=== PATIENT | male | born 1940 | race Caucasian/White ===

== ENCOUNTER 2017-12-10 09:34 | Inpatient (IN) ==
--- NOTE | 2017-12-10 09:44 | Emergency Department Note ---
General Adult HPI - General Chief complaint: Shortness of Breath/Dyspnea Stated complaint: shortness of breath, moist cough Source: patient, family Mode of arrival: ambulatory Limitations: no limitations - History of Present Illness HPI Narrative: This patient has had cough and shortness of breath for the last 3 days. He really has had no other flu symptoms. No headache sore throat nausea vomiting no aches and pains. No diarrhea. - Related Data Home Medications Medication Instructions Recorded Confirmed krill oil 500 mg capsule 500 mg PO DAILY 08/22/16 12/10/17 Bisoprolol Fumarate 5 mg PO PRN PRN 12/10/17 12/10/17 Previous Rx's Medication Instructions Recorded apixaban 5 mg tablet 5 mg PO QDAY #180 tab 11/07/16 tamsulosin 0.4 mg capsule 0.4 mg PO QDAY 90 Days #90 cap 11/21/17 Allergies Allergy/AdvReac Type Severity Reaction Status Date / Time No Known Drug Allergies Allergy Verified 12/10/17 09:40 Review of Systems All systems ED: reviewed and negative except as stated. Past Medical History - Past Medical History [facility] Narrative: Medical History (Last Reviewed 08/15/17 @ 08:22 by Nish Gurrola DO) Syncope (Acute) White blood cell (WBC) disorder (Chronic) Bradycardia (Chronic) Cobalamin deficiency (Chronic) Lymphocytopenia (Resolved) Encounter for Health Maintenance Examination in Adult (Chronic) Anterior epistaxis (Chronic) Mitral regurgitation (Chronic) Hypertension, essential (Chronic) Hyperlipidemia (Chronic) COPD (chronic obstructive pulmonary disease) (Chronic) Bladder neck obstruction (Chronic) Atrial flutter (Chronic) Diabetes mellitus, type II (Resolved) Past Surgical History (Last Reviewed 08/15/17 @ 08:22 by Nish Gurrola DO) Hx of colonoscopy (Chronic) Hx of inguinal hernia repair (Chronic) History of intraocular lens implant (Chronic) Family History (Last Reviewed 08/15/17 @ 08:22 by Nish Gurrola DO) mother Dementia in Alzheimer's disease Medical history: Reports: atrial fibrillation, COPD, hyperlipidemia, hypertension, valvular heart disease (mitral regurgitation) Surgical history ED: Reports: cataract, herniorrhaphy - Social History smoking status: Former smoker Physical Exam Limitations: no limitations General appearance: alert Head: atraumatic Eye: Present: normal appearance ENT: normal exam Neck: Present: normal inspection Chest: Present: normal inspection Respiratory: Present: other (Scattered rales and rhonchi) Cardiovascular: Present: tachycardia, irregular rhythm Abdominal: Present: soft. Absent: distention, tenderness Extremities: Absent: pedal edema, pretibial edema Neurological: Present: alert Psychiatric: Present: normal affect Skin: Present: warm, dry, intact Course Vital Signs Respiratory Rate 40 H 12/10/17 09:35 Blood Pressure 133/97 12/10/17 09:35 Pulse Oximetry (%) 98 12/10/17 09:35 Temperature 97.1 F 12/10/17 10:29 Pulse Rate 89 12/10/17 12:32 Respiratory Rate 39 H 12/10/17 13:02 Blood Pressure 120/75 12/10/17 13:03 Pulse Oximetry (%) 100 12/10/17 12:32 Medical Decision Making - [facility] Narrative Medical decision making narrative: Chest x-ray showed bilateral pneumonia in the bases and his lactic acid was 4.5. He had blood cultures obtained and was given Levaquin 750 mg IV. He will be admitted to the hospital. - Lab Data Lab results reviewed: Yes I reviewed the patient's lab results. Result diagrams: 12/10/17 09:55 12/10/17 09:55 Lab Results 12/10/17 12/10/17 12/10/17 Range/Units 09:55 09:55 09:55 WBC 5.9 (4.5-11.0) K/mcL RBC 5.27 (4.50-5.90) M/mcL Hgb 16.5 (13.5-16.5) g/dL Hct 49.6 (41.0-55.0) % MCV 94.1 (80.0-100.0) fL MCH 31.3 (26.0-34.0) pg MCHC 33.2 (31.0-36.0) g/dL RDW 15.1 H (11.5-14.5) % Plt Count 135 L (140-440) K/mcL MPV 8.6 (7.4-10.4) fL Total Counted 100 Seg Neutrophils % 45 (38-78) % Band Neutrophils % 24 H (0-10) % Lymphocytes % 7 L (15-49) % Monocytes % (Manual) 9 (1-12) % Metamyelocytes % 11 H (0-0) % Myelocytes % 1 H (0-0) % Reactive Lymphocytes 3 H (0-2) % Platelet Estimate Decreased A (NORMAL) RBC Morphology Normal (NORMAL) VBG Lactic Acid 5.9 H* (0.5-2.2) mmol/L Sodium 139 (133-145) mmol/L Potassium 4.5 (3.3-5.1) mmol/L Chloride 98 (96-108) mmol/L Carbon Dioxide 20 L (22-30) mmol/L Anion Gap 21.0 H (8-16) BUN 29 H (8-23) mg/dl Creatinine 1.6 H (0.7-1.2) mg/dl GFR Calculation 40 Glucose 149 H (70-105) mg/dL Calcium 9.0 (8.6-10.4) mg/dl Total Bilirubin 0.7 (0.0-1.0) mg/dL AST 29 (0-37) U/l ALT 14 (0-40) U/l Alkaline Phosphatase 48 (39-117) U/L Troponin T (0-0.03) ng/ml Total Protein 8.0 (5.9-8.4) gm/dL Albumin 3.6 (3.2-5.2) gm/dL Globulin 4.4 H (2.2-3.7) gm/dL Albumin/Globulin Ratio 0.8 L (1.0-2.3) Procalcitonin (<0.10) ng/mL 12/10/17 12/10/17 12/10/17 Range/Units 09:55 09:55 12:36 WBC (4.5-11.0) K/mcL RBC (4.50-5.90) M/mcL Hgb (13.5-16.5) g/dL Hct (41.0-55.0) % MCV (80.0-100.0) fL MCH (26.0-34.0) pg MCHC (31.0-36.0) g/dL RDW (11.5-14.5) % Plt Count (140-440) K/mcL MPV (7.4-10.4) fL Total Counted Seg Neutrophils % (38-78) % Band Neutrophils % (0-10) % Lymphocytes % (15-49) % Monocytes % (Manual) (1-12) % Metamyelocytes % (0-0) % Myelocytes % (0-0) % Reactive Lymphocytes (0-2) % Platelet Estimate (NORMAL) RBC Morphology (NORMAL) VBG Lactic Acid (0.5-2.2) mmol/L Sodium (133-145) mmol/L Potassium (3.3-5.1) mmol/L Chloride (96-108) mmol/L Carbon Dioxide (22-30) mmol/L Anion Gap (8-16) BUN (8-23) mg/dl Creatinine (0.7-1.2) mg/dl GFR Calculation Glucose (70-105) mg/dL Calcium (8.6-10.4) mg/dl Total Bilirubin (0.0-1.0) mg/dL AST (0-37) U/l ALT (0-40) U/l Alkaline Phosphatase (39-117) U/L Troponin T 0.11 H* 0.09 H* (0-0.03) ng/ml Total Protein (5.9-8.4) gm/dL Albumin (3.2-5.2) gm/dL Globulin (2.2-3.7) gm/dL Albumin/Globulin Ratio (1.0-2.3) Procalcitonin 8.43 (<0.10) ng/mL - Radiology Data Radiology results reviewed: Yes I reviewed the patient's radiology results. Disposition Pt seen by [facility]/PA only: No Clinical Impression: Community acquired pneumonia Disposition: Xfer As Inpt ([facility]) Condition: Fair Referrals: Nish Gurrola DO [Primary Care Provider] - Time of Disposition: 13:31
[2017-12-10] MEDS ORDERED: 0.9 % SODIUM CHLORIDE 1,000 ML IV ONE ×4 (09:46→18:44)
[2017-12-10] MEDS ORDERED: DILTIAZEM 25 MG/5 ML VIAL IV ONE (09:49)
[2017-12-10] MEDS ORDERED: DILTIAZEM 125 MG in DEXTROSE 5% IN WATER 100 ML IV SCH ×2 (10:00→22:00)
--- NOTE | 2017-12-10 10:00 | XRay Report ---
HISTORY: Reason for Exam:sob with moderate cough FINDINGS: There are mild alveolar infiltrates in both lower lobes. The upper lung lewis are clear. The heart is mildly enlarged but magnified by portable technique. No pleural effusion is present. There are calcified plaques along the wall of the aortic arch. Aorta is mildly tortuous. The mediastinum and ole are otherwise normal. IMPRESSION: Mild bibasilar pneumonia Interpreted and Authenticated by: Trevon Shine 12/10/17
[2017-12-10] MEDS ORDERED: LEVOFLOXACIN 750 MG/150 ML BAG IV ONE (10:06)
[2017-12-10 10:30] LABS: Mean Cell Volume 94.1 fL (80.0-100.0); Mean Corpuscular HGB Conc 33.2 g/dL (31.0-36.0); Mean Corpuscular Hemoglobin 31.3 pg (26.0-34.0); Platelet Count 135 K/mcL (140-440); RBC 5.27 M/mcL (4.50-5.90); Red Cell Distribution Width 15.1 % (11.5-14.5)
[2017-12-10 10:52] LABS: Band Neutrophils % 24 % (0-10); Lymphocytes % 7 % (15-49); Metamyelocytes % 11 % (0-0); Monocytes % (Manual) 9 % (1-12); Myelocytes % 1 % (0-0); Platelet Estimate DECREASED (NORMAL); RBC Morphology NORMAL (NORMAL); Segmented Neutrophils % 45 % (38-78)
[2017-12-10 10:53] LABS: ALT/SGPT 14 U/l (0-40); Albumin 3.6 gm/dL (3.2-5.2); Albumin/Globulin Ratio 0.8 (1.0-2.3); Alkaline Phosphatase 48 U/L (39-117); Blood Urea Nitrogen 29 mg/dl (8-23)
[2017-12-10] MEDS ORDERED: IPRATROPIUM/ALBUTEROL 3 ML AMPUL.NEB NEB ONE ×2 (11:52→18:51)
[2017-12-10] MEDS ORDERED: 0.9 % SODIUM CHLORIDE 250 ML IV SCH ×2 (12:30→22:15)
[2017-12-10] MEDS ORDERED: NITROGLYCERIN/D5W 25 MG/250 ML BOTTLE IV ONE (12:31)
[2017-12-10] MEDS ORDERED: methylPREDNISolone SOD SUCC 125 MG/2 ML VIAL IV ONE (14:03)
[2017-12-10] MEDS ORDERED: LACTATED RINGERS 1,000 ML IV ONE (14:03)
[2017-12-10] MEDS ORDERED: VANCOMYCIN PER PHARMACY IV ONE (14:03)
[2017-12-10] MEDS ORDERED: cefTRIAXone 2 GM in DEXTROSE 5% IN WATER 50 ML IV SCH (14:03)
[2017-12-10] MEDS ORDERED: NALOXONE HCL 0.4 MG/ML VIAL IV PRN (14:03)
[2017-12-10] MEDS ORDERED: ACETAMINOPHEN 325 MG TABLET PO PRN (14:03)
[2017-12-10] MEDS ORDERED: SENNOSIDES 1 TABLET PO PRN (14:03)
[2017-12-10] MEDS ORDERED: NOREPINEPHRINE BITARTRATE 16 MG in 0.9 % SODIUM CHLORIDE 234 ML IV SCH (14:03)
[2017-12-10] MEDS ORDERED: AZITHROMYCIN 500 MG in DEXTROSE 5% IN WATER 250 ML IV SCH (14:03)
[2017-12-10] MEDS: IPRATROPIUM/ALBUTEROL 3 ML AMPUL.NEB NEB SCH ×4 (14:15→22:43)
[2017-12-10] MEDS ORDERED: NOREPINEPHRINE BITARTRATE 16 MG in 0.9 % SODIUM CHLORIDE 234 ML IV PRN (14:15)
[2017-12-10] MEDS ORDERED: VANCOMYCIN PER PHARMACY IV SCH (14:15)
[2017-12-10] MEDS: AZITHROMYCIN 500 MG in DEXTROSE 5% IN WATER 250 ML IV SCH (14:36)
[2017-12-10] MEDS: 0.9 % SODIUM CHLORIDE 10 ML SYRINGE IV SCH ×2 (14:36→17:18)
[2017-12-10] MEDS ORDERED: VANCOMYCIN 1,000 MG in 0.9 % SODIUM CHLORIDE 250 ML IV ONE (15:00)
[2017-12-10] MEDS: LACTATED RINGERS 1,000 ML IV SCH ×2 (16:30→23:37)
[2017-12-10] MEDS: cefTRIAXone 2 GM VIAL IV SCH (17:18)
[2017-12-10] MEDS: 0.9 % SODIUM CHLORIDE 250 ML IV SCH ×2 (17:20→20:15)
[2017-12-10] MEDS: methylPREDNISolone SOD SUCC 125 MG/2 ML VIAL IV SCH ×2 (17:21→21:30)
--- NOTE | 2017-12-10 17:54 | Internal Med History&Physical ---
Medical - H&P: HPI Patient information: Note initiated : 12/10/17 at 5:50 pm Service Date, if different from initiated Date: [] Patient: Camilo Figueroa 77 y/o M admitted on 12/10/17 for shortness of breath, moist cough. Chief Complaint: [] History of present illness: Mr. Figueroa is a 77 year old Male with history of COPD,hypertension, hyperlipidemia, chronic A. fib who presents to the emergency room today with shortness of breath, cough that has been going on since Monday. Patient's daughter was at bedside who provided some history along with the patient. The patient's daughter had a URI-like symptom, last week I believe and the patient started showing signs of cough from Monday. The patient's condition gradually worsened since then. Patient has been having cough with expectoration initially, no blood in the sputum. He has been having progressive shortness of breath. He notes he has been having subjective sensations of fever, chills, sweating. He has decreased effort tolerance and is unable to walk short distances now. For the last day the cough has subsided and it is difficult for him to bring up the sputum. The patient is extremely weak and has therefore been brought to the emergency room for further evaluation. In the emergency room, the patient was noted to be in moderate respiratory distress, he was afebrile, his white blood cell count was 5.9, chemistry showed worsening renal function with a creatinine of 1.6. His lactic acid was 5.9, first set of troponin was 0.11 and second set was 0.09. He had an elevated pro- calcitonin and 8.43. Chest x-ray showed pneumonia. the patient was tachycardic with A. fib with RVR on presentation and was on a diltiazem drip, his blood pressure was also very high and difficult to 78 physician and put him on nitroglycerin drip. Both these medications were discontinued after admission He was admitted to the hospital for further management, admitted to pcu status. - Constitutional Constitutional: Present: chills, fatigue, fever(s), malaise - EENT Eyes: Absent: blurry vision, change in vision, diplopia, discharge, photophobia Nose, mouth and throat: Present: dizziness, headache(s), hoarseness, sore throat - Cardiovascular Cardiovascular: Present: dyspnea on exertion, lightheadedness. Absent: chest pain, edema, orthopnea, palpatations - Respiratory Respiratory: Present: cough, dyspnea, dyspnea on exertion, wheezing, chest congestion, excessive phlegm production - Gastrointestinal Gastrointestinal: Present: nausea. Absent: diarrhea, vomiting - Genitourinary Genitourinary: Absent: dysuria, nocturia, urinary frequency, urinary hesitancy, urinary incontinence - Musculoskeletal Musculoskeletal: Absent: joint swelling, limited range of motion, neck pain - Integumentary Integumentary: Absent: bleeding lesions, swelling, jaundice - Neurological Neurological: Absent: focal weakness, syncope, vertigo - Psychiatric Psychiatric: Absent: hallucinations, visual hallucinations - Endocrine Endocrine: Absent: palpitations, polydipsia, polyphagia, polyuria - Hematologic/Lymphatic Hematologic/Lymphatic: Absent: easy bruising, lymphadenopathy - Allergic/Immunologic Allergic/Immunologic: Present: wheezing. Absent: throat swelling, uticaria Medical - H&P: H Medical history: Medical History (Last Reviewed 08/15/17 @ 08:22 by Nish Gurrola DO) Syncope (Acute) White blood cell (WBC) disorder (Chronic) Bradycardia (Chronic) Cobalamin deficiency (Chronic) Lymphocytopenia (Resolved) Encounter for Health Maintenance Examination in Adult (Chronic) Anterior epistaxis (Chronic) Mitral regurgitation (Chronic) Hypertension, essential (Chronic) Hyperlipidemia (Chronic) COPD (chronic obstructive pulmonary disease) (Chronic) Bladder neck obstruction (Chronic) Atrial flutter (Chronic) Diabetes mellitus, type II (Resolved) Surgical history: Past Surgical History (Last Reviewed 08/15/17 @ 08:22 by Nish Gurrola DO) Hx of colonoscopy (Chronic) Hx of inguinal hernia repair (Chronic) History of intraocular lens implant (Chronic) Pertinent family history: Family History (Last Reviewed 08/15/17 @ 08:22 by Nish Gurrola DO) mother Dementia in Alzheimer's disease Medical - H&P: Meds Home Medications Medication Instructions Recorded Confirmed Type apixaban 5 mg tablet 5 mg PO QDAY #180 tab 11/07/16 12/10/17 Rx tamsulosin 0.4 mg capsule 0.4 mg PO QDAY 90 Days #90 cap 11/21/17 12/10/17 Rx Allergies Allergy/AdvReac Type Severity Reaction Status Date / Time No Known Drug Allergies Allergy Verified 12/10/17 09:40 Medical - H&P: Exam - Constitutional Vitals: Temp Pulse Resp BP Pulse Ox 99.2 F H 110 H 35 H 131/95 97 12/10/17 16:24 12/10/17 15:31 12/10/17 16:24 12/10/17 16:24 12/10/17 14:10 Exam: GENERAL: The patient is a well-developed, well-nourished in moderate respiratory distress. Is alert and oriented x3. VITAL SIGNS: Reviewed and as noted elsewhere. HEENT: Head is normocephalic and atraumatic. Extraocular muscles are intact. Pupils are equal, round, and reactive to light. Nares appeared normal. Mouth appears any without lesions. Mucous membranes are try NECK: Normal to inspection, Supple, No lymphadenopathy or thyromegaly. LUNGS:decreased air entry on both sides, speaking a few words at a time, paradoxical abdominal breathing, use of accessory muscles present, prolonged expiratory phase, but basilar crackles. HEART: irregular rhythm, tachycardic rate, systolic murmur in the mitral region , no rubs. No pedal edema ABDOMEN: Soft, nontender, and nondistended. Positive bowel sounds. No hepatosplenomegaly was noted. EXTREMITIES: No cyanosis, clubbing, rash, lesions or edema. NEUROLOGIC: Cranial nerves II through XII are grossly intact. Motor and Sensory System Grossly Intact PSYCHIATRIC: Normal affect, Normal Mood. Appropriate Behavior. a bit anxious SKIN: No ulceration or wounds noted, No jaundice, No rash noted. Mottled skin in lower extremity extending up to the abdomen cold clammy extremities Medical - H&P: Reslt - Labs CBC & Chem 7: 12/10/17 09:55 12/10/17 09:55 Labs: Short CBC 12/10/17 Range/Units 09:55 WBC 5.9 (4.5-11.0) K/mcL Hgb 16.5 (13.5-16.5) g/dL Hct 49.6 (41.0-55.0) % Plt Count 135 L (140-440) K/mcL [facility] 12/10/17 09:55 Sodium 139 Potassium 4.5 Chloride 98 Carbon Dioxide 20 L BUN 29 H Creatinine 1.6 H Glucose 149 H Calcium 9.0 Cardiac Enzymes 12/10/17 12/10/17 Range/Units 09:55 12:36 Troponin T 0.11 H* 0.09 H* (0-0.03) ng/ml Liver Function 12/10/17 Range/Units 09:55 Total Bilirubin 0.7 (0.0-1.0) mg/dL AST 29 (0-37) U/l ALT 14 (0-40) U/l Alkaline Phosphatase 48 (39-117) U/L Albumin 3.6 (3.2-5.2) gm/dL Medical - H&P: A/P - Narrative A/P Narrative: A/P acute respiratory failure-patient was tachypneic secondary to COPD exacerbation , clinically and respiratory failure, placed on BiPAP immediately after moving to the PCU-ABG showed pH of 7.31, PCO2 33, PO2 502, lactic acid of 2.9. Continue BiPAP with settings of 16/6, reason for BiPAP is to prevent respiratory muscle fatigue. Acute COPD exacerbation-treat with antibiotics, DuoNeb's and IV steroids Dnauecpze-fbcojjpud-smpuremx pneumonia-given possibility of influenza will add vancomycin to the regimen, IV vancomycin and Rocephin and azithromycin. Unable to check influenza as lab not available, and Tamiflu atrial flutter-patient has a chronic history of atrial flutter fibrillation, not on medications for rate control, does take eliquis for anticoagulation. IV metoprolol when necessary for now. Severe sepsis with lactic acidosis-4 L crystalloid solution given, IV antibiotics even, await blood cultures, patient's blood pressure is stable, he is maintaining good urine output at least so far. Treat underlying condition. pro-calcitonin 8.43 Acute kidney injury-creatinine is 1.6, baseline is normal,IV fluids for now. I clearly related to severe sepsis Elevated troponins-secondary to demand ischemia type II myocardial infarction BPH-continue tamsulosin, WILSON in place Diabetes-not taking any medications, diet controlled. Monitor glucose for now if elevated secondary to steroids will place him on sliding scale insulin A[PACHE SCORE OF 20, PREDICTED MORTALITY RATE OF 40%. fAMILY AWARE of high risk of mortality DVT-patient is on anticoagulation Diet cardiac Patient wishes to be full code for now Spent total of more than 70 minutes spent in critical care for this patient, reviewing chest x-ray ABG, BiPAP management, coordination of care Medical - H&P: Qual - VTE Deep Vein Thrombosis/Pulmonary Embolism Present on Admission: No Social History - Tobacco smoking status: Former smoker - Quit Details quit date: 10/28/11 pack-years: 90 - Alcohol alcohol intake frequency: 2+ drinks per day - Substance use substance use type: does not use
[2017-12-10] MEDS ORDERED: LABETALOL 5 MG/ML ML IV PRN (18:50)
[2017-12-10] MEDS ORDERED: MAGNESIUM SULFATE 2 GM/50 ML BAG IV ONE (18:51)
[2017-12-10] MEDS: METOPROLOL TARTRATE 5 MG/5 ML VIAL IV PRN (19:02)
[2017-12-10] MEDS ORDERED: LABETALOL 500 MG in DEXTROSE 5% IN WATER 150 ML IV SCH (19:45)
[2017-12-10] MEDS: ACETAMINOPHEN 650 MG/65 ML BOTTLE IV PRN (20:00)
[2017-12-10] MEDS ORDERED: NOREPINEPHRINE BITARTRATE 4 MG/4 ML AMPUL IV ONE (21:28)
[2017-12-10] MEDS ORDERED: ROCURONIUM 10 MG/ML ML IV ONE (21:40)
[2017-12-10] MEDS ORDERED: MIDAZOLAM 5 MG/5 ML VIAL IV ONE (21:40)
[2017-12-10] MEDS ORDERED: KETAMINE 100 MG/ML ML IV ONE (21:40)
[2017-12-10] MEDS ORDERED: fentaNYL 100 MCG/2 ML VIAL IV ONE ×2 (21:49→21:51)
[2017-12-10] MEDS ORDERED: HEPARIN/NS 500 ML IV ONE (21:54)
[2017-12-10] MEDS ORDERED: VASOPRESSIN 20 UNIT/ML VIAL ONE (22:05)
[2017-12-10] MEDS ORDERED: VASOPRESSIN 20 UNIT in DEXTROSE 5% IN WATER 99 ML IV SCH (22:15)
[2017-12-10] MEDS ORDERED: HEPARIN/NS 500 ML IV SCH (22:15)
--- NOTE | 2017-12-10 22:18 | Procedure Note ---
Procedures - Arterial Line Consent obtained: verbal consent Time out performed: Yes Size (Gauge): 20 Technique used: guide wire technique Post-Procedure: dry sterile dressing placed, easily flushed, waveform correlation Patient tolerated procedure: well, no complications Complications: none Site: left, radial Additional comments: large tegaderm to secure in place. - Intubation Time out performed: Yes Sedative: other (Ketamine 100 mg Versed 5 mg) Paralytic: Rocuronium ETT: ETCO2, BBS Mg given: 60 Assist device used: glide ET tube size: 8 ET tube uncuffed: No Tube secured depth (cm): 22 Tube secured location: teeth Tube placement confirmation: visualized tube passing through cords, equal breath sounds bilaterally, no breath sounds over epigastrium, confirmation by capnometry # of Attempts: 1 Patient tolerated procedure: well, no complications, other (mild hypotension following procedure as expected) Intubation complications: none, hypotension Additional comments: called for urgent YEIMY for resp failure, failed bipap. dx pna also need for a line. both performed without complication or difficulty. family advised.
[2017-12-11] MEDS: fentaNYL 2,500 MCG in 0.9 % SODIUM CHLORIDE 200 ML IV SCH ×3 (00:40→22:31)
[2017-12-11] MEDS: FAMOTIDINE/PF 20 MG/2 ML VIAL IV SCH ×3 (01:00→21:05)
[2017-12-11] MEDS: OSELTAMIVIR PHOSPHATE 75 MG CAPSULE PO SCH ×3 (01:00→21:12)
[2017-12-11] MEDS: 0.9 % SODIUM CHLORIDE 10 ML SYRINGE IV SCH ×4 (01:02→22:29)
[2017-12-11] MEDS: 0.9 % SODIUM CHLORIDE 250 ML IV SCH ×3 (02:18→21:00)
[2017-12-11] MEDS: 0.9 % SODIUM CHLORIDE 1,000 ML IV SCH ×3 (04:35→20:20)
[2017-12-11] MEDS: LACTATED RINGERS 1,000 ML IV SCH (04:36)
[2017-12-11 05:36] LABS: Basophils # (Auto) 0 K/mcL (0.0-0.3); Basophils % (Auto) 0.1 % (0.0-2.0); Eosinophils # (Auto) 0 K/mcL (0.0-0.7); Eosinophils % (Auto) 0.2 % (0.0-7.0); Granulocytes % (Auto) 90.1 % (38.0-78.0); Lymphocytes # (Auto) 0.5 K/mcL (1.5-4.8); Mean Cell Volume 95.2 fL (80.0-100.0); Mean Corpuscular HGB Conc 32.6 g/dL (31.0-36.0); Monocytes # (Auto) 0.3 K/mcL (0.1-0.9); Monocytes % (Auto) 3.6 % (1.0-12.0); Platelet Count 129 K/mcL (140-440); RBC 4.87 M/mcL (4.50-5.90); Red Cell Distribution Width 15.3 % (11.5-14.5)
[2017-12-11 05:52] LABS: ALT/SGPT 11 U/l (0-40); Albumin 2.1 gm/dL (3.2-5.2); Albumin/Globulin Ratio 0.6 (1.0-2.3); Alkaline Phosphatase 37 U/L (39-117); Bilirubin,Direct < 0.2 mg/dL (0.0-0.3); Blood Urea Nitrogen 30 mg/dl (8-23); Gamma Glutamyl Transpeptidase 15 U/L (8-61); Uric Acid 5.2 mg/dL (2.5-8.0)
[2017-12-11] MEDS: methylPREDNISolone SOD SUCC 125 MG/2 ML VIAL IV SCH ×3 (06:05→22:30)
[2017-12-11] MEDS: IPRATROPIUM/ALBUTEROL 3 ML AMPUL.NEB NEB SCH ×2 (06:45→19:10)
[2017-12-11] MEDS ORDERED: VASOPRESSIN 20 UNIT in DEXTROSE 5% IN WATER 99 ML IV PRN (07:15)
[2017-12-11] MEDS: TAMSULOSIN 0.4 MG CAPSULE PO SCH (08:34)
[2017-12-11] MEDS: APIXABAN 5 MG TABLET PO SCH (08:34)
--- NOTE | 2017-12-11 09:01 | XRay Report ---
CLINICAL INFORMATION: Hypoxia follow-up bilateral pneumonia COMPARISON: 12/10/2017 0939 hours FINDINGS: Borderline cardiomegaly is unchanged. Mediastinum and pulmonary vessels are normal. Infiltrates in the right mid/lower lung have progressed with increased density in the base. Small patchy infiltrate in the left mid/lower lung is unchanged. Small right pleural effusion noted IMPRESSION: Moderate patchy infiltrate in the right mid and lower lung with progression since the comparison study earlier this morning. Smaller left mid and lower lung infiltrates are unchanged Interpreted and Authenticated by: Nish Hamilton 12/11/17
--- NOTE | 2017-12-11 09:07 | XRay Report ---
CLINICAL INFORMATION: ET and NG placement COMPARISON: 12/10/2017 2112 hours. FINDINGS: Mild cardiomegaly is unchanged. NG tube is in place extends off the edge of the film - at least the proximal gastric body. Endotracheal tube is in satisfactory position with the tip 4.5 cm above the naren. Mediastinum and pulmonary vessels are normal. Moderate sized patchy infiltrate in the right mid/lower lung continues to progress. Smaller patchy benign left base also show slight progression. There are small bilateral pleural effusions IMPRESSION: 1. Endotracheal tube and NG tube in satisfactory position 2. Moderate size infiltrate right mid/lower lung worsening. Small infiltrate in the left mid lower lung progressing slightly Interpreted and Authenticated by: Nish Hamilton 12/11/17
--- NOTE | 2017-12-11 09:08 | XRay Report ---
CLINICAL INFORMATION: PICC placement COMPARISON: 12/10/2017 2201 hours FINDINGS: NG and endotracheal tubes in stable satisfactory position. New right PICC line tip overlies the SVC right atrial junction in satisfactory position. The heart is mildly enlarged, but unchanged. Mediastinum and pulmonary vessels are unremarkable. Moderate sized infiltrate in the right mid and lower lung is unchanged. Small patchy infiltrate in the left mid lower lung also stable IMPRESSION: No change in bilateral infiltrates. PICC line in satisfactory position Interpreted and Authenticated by: Nish Hamilton 12/11/17
--- NOTE | 2017-12-11 09:09 | XRay Report ---
CLINICAL INFORMATION: Follow infiltrates. COMPARISON: 12/10/2017 2236 hours. FINDINGS: Moderate cardiomegaly is unchanged. Mediastinum and pulmonary vessels are normal. Lines and tubes remain in stable satisfactory position. Infiltrate in the right mid/lower lung shows improved aeration - particularly in the base. Small patchy infiltrate in the left base also improved IMPRESSION: Bilateral infiltrates show improved aeration compared to yesterday's x-ray. Consider aspiration Interpreted and Authenticated by: Nish Hamilton 12/11/17
[2017-12-11] MEDS: CHLORHEXIDINE GLUCONATE 1 ML ORAL.SOL SWABMOUTH SCH ×3 (09:28→21:07)
[2017-12-11] MEDS: AZITHROMYCIN 500 MG in DEXTROSE 5% IN WATER 250 ML IV SCH (09:28)
[2017-12-11] MEDS: cefTRIAXone 2 GM VIAL IV SCH (09:33)
--- NOTE | 2017-12-11 10:23 | Internal Med Progress Note ---
Medical - PN: Subj Patient information: Note initiated : 12/11/17 at 10:16 am Service Date, if different from initiated Date: [] Patient: Camilo Figueroa 77 y/o M admitted on 12/10/17 for shortness of breath, moist cough. Chief Complaint: [] Interval history: Mr. Figueroa is a 77 year old Male with history of COPD,hypertension, hyperlipidemia, chronic A. fib who presents to the emergency room today with shortness of breath, cough that has been going on since Monday. Patient's daughter was at bedside who provided some history along with the patient. The patient's daughter had a URI-like symptom, last week I believe and the patient started showing signs of cough from Monday. The patient's condition gradually worsened since then. Patient has been having cough with expectoration initially, no blood in the sputum. He has been having progressive shortness of breath. He notes he has been having subjective sensations of fever, chills, sweating. He has decreased effort tolerance and is unable to walk short distances now. For the last day the cough has subsided and it is difficult for him to bring up the sputum. The patient is extremely weak and has therefore been brought to the emergency room for further evaluation. In the emergency room, the patient was noted to be in moderate respiratory distress, he was afebrile, his white blood cell count was 5.9, chemistry showed worsening renal function with a creatinine of 1.6. His lactic acid was 5.9, first set of troponin was 0.11 and second set was 0.09. He had an elevated pro- calcitonin and 8.43. Chest x-ray showed pneumonia. the patient was tachycardic with A. fib with RVR on presentation and was on a diltiazem drip, his blood pressure was also very high and difficult to 78 physician and put him on nitroglycerin drip. Both these medications were discontinued after admission He was admitted to the hospital for further management, admitted to pcu status. dec 11 Pt overnight had deterioration in his clinical status, was intubated, had PICC placed, A line placed. He was overnight on pressors, levophed and vasopressin, presently only on levophed, bp stable. ABG reviwed, Chest X ray reviewed patient family was updated and was at bedside This AM pt sedated on Vent, TV 400, rr 24, peep 5, PAP 19-20 Plat 16-17, Pt still has some lactic acidosis, on IVF, ringers lactate changed to Saline. Patient BLood culture is postive for gpc in clusters, staph auress, pt already on vancomycin. Likely staph pneumonia secondary to influenza. Pertinent ROS: unable, pt sedated on vent. - Constitutional Vitals: Vital Signs Temp Pulse Resp BP Pulse Ox 100.7 F H 89 24 H 126/65 98 12/11/17 09:20 12/11/17 09:20 12/11/17 09:20 12/11/17 09:01 12/11/17 09:20 Period Temp Pulse Resp BP Sys/Cai Pulse Ox Last 24 Hr 97.1 F-101.4 F 30-110 11-42 64-222/46-193 84-100 Intake and Output 12/10/17 12/11/17 12/11/17 21:59 05:59 13:59 Intake Total 1573 / 1573 2396 / 2396 149 / 149 Output Total 540 / 540 332 / 332 55 / 55 Balance 1033 / 1033 206 / 2064 94 / 94 Weight 154 lb 1.6 oz Intake & Output: Intake & Output 12/10/17 12/11/17 12/11/17 21:59 05:59 13:59 Intake Total 1573 / 1573 2396 / 2396 149 / 149 Output Total 540 / 540 332 / 332 55 / 55 Balance 1033 / 1033 2063 / 4 94 / 94 Weight 154 lb 1.6 oz Intake: IV 1573 / 1573 2396 / 2396 149 / 149 Sodium Chloride 0.9% 250 ml @ 24 / 24 121 / 121 20 mls/hr IV .[id number] [facility] Rx#: [id number] Zithromax 500 mg In Dextrose 5% 250 / 250 in Water 250 ml @ 250 mls/hr IV DAILY [facility] Rx#:[id number] Lactated Ringers 1,000 ml @ 100 1209 / 1209 mls/hr IV .Q10H [facility] Rx#: [id number] NITROGLYCERIN/D5W 25 mg In 250 4 / 4 ml @ 5 MCG/MIN 3 mls/hr IV . Q24H ONE Rx#:[id number] Levophed 16 mg In Sodium 3 / 3 37 / 37 28 / 28 Chloride 0.9% 234 ml @ 10 MCG/ MIN 9.37 mls/hr IV Q24HP PRN Rx #:[id number] Vancomycin 1,000 mg In Sodium 250 / 250 Chloride 0.9% 250 ml @ 250 mls/ hr IV ONCE ONE Rx#:[id number] Vasostrict 20 Unit In Dextrose 32 / 32 5% in Water 99 ml @ 0.02 UNIT/ MIN 6 mls/hr IV Q17H [facility] Rx#: [id number] fentaNYL 2,500 MCG In Sodium 3 / 3 Chloride 0.9% 200 ml @ 25 MCG/ HR 2.5 mls/hr IV Q24H [facility] Rx#: [id number] Output: Gastric Drainage 50 / 50 NG/OG 50 / 50 Urine Catheter Amount 540 / 540 282 / 282 55 / 55 Exam: Constitutional; low grade fever, patient sedated on vent, but wakes up and able to follow some commands when off sedation . Eyes- No icterus, , No periorbital swelling Ears- Ext ear normal, Neck- Midline trachea, supple Respiratory system: Air Entry equal on both sides, bilateral basilar crackles. CVS- Rate tachycardic, rhythm irregular , S1,S2 heard, no gallop, no rub. Abdomen- Soft nontender abdomen, no organomegaly, no tenderness, no guarding or rigidity, MANAGER GENERAL- AOOx0, moving all extremities. ull exam not done given sedated state. Medical - PN: Obj Da - Labs CBC & Chem 7: 12/11/17 04:00 12/11/17 04:00 Labs: Abnormal Lab Results 12/11/17 12/11/17 12/11/17 04:00 04:00 04:00 RDW 15.3 H Plt Count 129 L Gran % 90.1 H Lymph % (Auto) 6.0 L Lymph # (Auto) 0.5 L Band Neutrophils % Lymphocytes % Metamyelocytes % Myelocytes % Reactive Lymphocytes Platelet Estimate VBG Lactic Acid 2.7 H Carbon Dioxide 17 L Anion Gap BUN 30 H Creatinine Glucose 123 H Calcium 8.1 L Phosphorus 2.2 L Alkaline Phosphatase 37 L Lactate Dehydrogenase 260 H Troponin T Albumin 2.1 L Globulin 3.8 H Albumin/Globulin Ratio 0.6 L 12/10/17 12/10/17 12/10/17 17:58 12:36 09:55 RDW Plt Count Gran % Lymph % (Auto) Lymph # (Auto) Band Neutrophils % Lymphocytes % Metamyelocytes % Myelocytes % Reactive Lymphocytes Platelet Estimate VBG Lactic Acid 3.8 H Carbon Dioxide Anion Gap BUN Creatinine Glucose Calcium Phosphorus Alkaline Phosphatase Lactate Dehydrogenase Troponin T 0.09 H* 0.11 H* Albumin Globulin Albumin/Globulin Ratio 12/10/17 12/10/17 12/10/17 09:55 09:55 09:55 RDW 15.1 H Plt Count 135 L Gran % Lymph % (Auto) Lymph # (Auto) Band Neutrophils % 24 H Lymphocytes % 7 L Metamyelocytes % 11 H Myelocytes % 1 H Reactive Lymphocytes 3 H Platelet Estimate Decreased A VBG Lactic Acid 5.9 H* Carbon Dioxide 20 L Anion Gap 21.0 H BUN 29 H Creatinine 1.6 H Glucose 149 H Calcium Phosphorus Alkaline Phosphatase Lactate Dehydrogenase Troponin T Albumin Globulin 4.4 H Albumin/Globulin Ratio 0.8 L Meds: Medications Acetaminophen (Tylenol) 650 mg PO Q4-6HP PRN PRN Reason: PAIN/FEVER > 101 Albuterol/Ipratropium (Duoneb) 3 ml NEB Q4HRT [facility] Last Admin: 12/11/17 06:45 Dose: 3 ml Ceftriaxone Sodium (Rocephin) 2 gm IV DAILY [facility] Last Admin: 12/11/17 09:33 Dose: 2 gm Chlorhexidine Gluconate (Peridex) 15 ml SWABMOUTH BID [facility] Last Admin: 12/11/17 09:28 Dose: 15 ml Famotidine (Pepcid) 20 mg IV Q12 [facility] Last Admin: 12/11/17 09:27 Dose: 20 mg Heparin Sodium (Porcine) (Heparin Flush) 2 ml IV Q12 [facility] Last Admin: 12/11/17 09:27 Dose: 2 ml Hydromorphone HCl (Dilaudid) 0.5 mg IV Q2HP PRN PRN Reason: PAIN LEVEL > 6 Nitroglycerin/Dextrose (Nitroglycerin/D5w) 25 mg in 250 mls @ 3 mls/hr IV .Q24H ONE; 5 MCG/MIN PRN Reason: Protocol Stop: 12/11/17 12:30 Last Titration: 12/10/17 14:02 Dose: Infused Azithromycin 500 mg/ Dextrose 250 mls @ 250 mls/hr IV DAILY [facility] Stop: 12/14/17 09:59 Last Admin: 12/11/17 09:28 Dose: 250 mls/hr Acetaminophen (Ofirmev) 650 mg in 65 mls @ 130 mls/hr IV Q6HP PRN PRN Reason: PAIN/FEVER > 101 Last Infusion: 12/11/17 00:13 Dose: Infused Sodium Chloride (Sodium Chloride 0.9%) 250 mls @ 20 mls/hr IV .[id number] [facility] Last Admin: 12/11/17 08:20 Dose: 10 mls/hr Fentanyl 2,500 mcg/ Sodium (Chloride) 250 mls @ 2.5 mls/hr IV Q24H [facility]; 25 MCG/ HR PRN Reason: Protocol Last Titration: 12/11/17 02:36 Dose: 100 mcg/hr, 10 mls/hr Heparin Sodium/Sodium Chloride (Heparin/Ns) 500 mls @ 0 mls/hr IV .Q0M [facility]; KVO PRN Reason: Protocol Sodium Chloride (Sodium Chloride 0.9%) 1,000 mls @ 125 mls/hr IV .Q8H [facility] Last Admin: 12/11/17 04:35 Dose: 125 mls/hr Norepinephrine Bitartrate 16 (mg/ Sodium Chloride) 250 mls @ 9.37 mls/hr IV Q24H [facility]; 10 MCG/MIN PRN Reason: Protocol Vasopressin 20 unit/ Dextrose 100 mls @ 6 mls/hr IV Q17H PRN; Protocol; 0.02 UNIT/MIN PRN Reason: TITRATE TO KEEP MAP > 65 Lorazepam (Ativan) 0.5 mg IV Q4HP PRN PRN Reason: ANXIETY/SEDATION Methylprednisolone Sodium Succinate (Solu-Medrol) 62.5 mg IV Q8 [facility] Last Admin: 12/11/17 06:05 Dose: 62.5 mg Metoprolol Tartrate (Lopressor) 5 mg IV Q4HP PRN PRN Reason: Tachyarrhythmias Last Admin: 12/10/17 19:02 Dose: 5 mg Naloxone HCl (Narcan) 0.1 mg IV Q2MIN PRN PRN Reason: Opiate Reversal Oseltamivir Phosphate (Tamiflu) 75 mg PO BID [facility] Stop: 12/15/17 09:01 Last Admin: 12/11/17 08:35 Dose: Not Given Senna (Senokot) 2 tab PO HSP PRN PRN Reason: Constipation Sodium Chloride (Saline Flush) 10 ml IV Q8 [facility] Last Admin: 12/11/17 06:06 Dose: Not Given Tamsulosin HCl (Flomax) 0.4 mg PO QDAY [facility] Last Admin: 12/11/17 08:34 Dose: Not Given Vancomycin HCl (Vancomycin Per Pharmacy) 1 order IV UD [facility] Medical - PN: A/P - Time Spent With Patient Total time spent is greater than 50% in coordination of care (as documented) at patient's floor/unit and/or counseling patient: - Narrative A/P Narrative: A/P [facility], due to PNA/ COPD exacerbation. Continue respiratory support. Acute COPD exacerbation-treat with antibiotics, DuoNeb's and IV steroids, change nebs to MDI inhalers now pt on vent Oewlmcrai-gcskezsan-pkulpada pneumonia-given possibility of influenza will add vancomycin to the regimen, IV vancomycin and Rocephin and azithromycin. Unable to check influenza as lab not available, continue tamiflu. pt blood cx is staph, will get echo, likely staph pna secondary to influenza. atrial flutter-patient has a chronic history of atrial flutter fibrillation, not on medications for rate control, does take eliquis for anticoagulation. IV metoprolol when necessary for now. Severe sepsis with septic shock, multiorgan dysfunction: IV fluids, pressors to keep map > 65, monitor urine output, get echo, treat underlying infection. Acute kidney injury-renal function improved to 1.1, Continue IVF> Elevated troponins-secondary to demand ischemia type II myocardial infarction, trend was downwards before patient became hypotensive. BPH-continue tamsulosin, WILSON in place Diabetes-not taking any medications, diet controlled. Monitor glucose for now if elevated secondary to steroids will place him on sliding scale insulin A[PACHE SCORE OF 20, PREDICTED MORTALITY RATE OF 40%. fAMILY AWARE of high risk of mortality DVT-patient is on anticoagulation NPO status, start enteral feeds if possible. As according to family he has not eaten well over last 5-6 days. Patient wishes to be full code for now Spent total of more than 40 minutes spent in critical care for this patient, reviewing chest x-ray ABG, BiPAP management, coordination of care Medical - PN: Qual - VTE Deep Vein Thrombosis/Pulmonary Embolism Present on Admission: No Procedures - Arterial Line Size (Gauge): 20
[2017-12-11] MEDS: ACETAMINOPHEN 650 MG/65 ML BOTTLE IV PRN ×2 (10:39→21:05)
[2017-12-11] MEDS: VANCOMYCIN 1,000 MG in 0.9 % SODIUM CHLORIDE 250 ML IV SCH ×2 (11:01→21:04)
[2017-12-11] MEDS ORDERED: NOREPINEPHRINE BITARTRATE 16 MG in 0.9 % SODIUM CHLORIDE 234 ML IV SCH (12:00)
[2017-12-11] MEDS ORDERED: IPRATROPIUM/ALBUTEROL SULFATE 1 PUFF INHALER INH SCH (13:00)
[2017-12-11] MEDS: METOPROLOL TARTRATE 5 MG/5 ML VIAL IV PRN (13:27)
[2017-12-11] MEDS ORDERED: 0.9 % SODIUM CHLORIDE 500 ML IV ONE ×2 (14:02→14:03)
[2017-12-11] MEDS ORDERED: FUROSEMIDE 20 MG/2 ML VIAL IV ONE (15:08)
[2017-12-11] MEDS: LATANOPROST OPHTH DROPS 2.5ML BOTTLE OU SCH (21:05)
[2017-12-11] MEDS: LORazepam 2 MG/ML VIAL IV PRN (21:35)
[2017-12-12] MEDS ORDERED: DEXTROSE 50% 50 ML VIAL IV PRN (00:27)
[2017-12-12] MEDS: IPRATROPIUM/ALBUTEROL 3 ML AMPUL.NEB NEB SCH ×4 (00:42→18:48)
[2017-12-12] MEDS: METOPROLOL TARTRATE 5 MG/5 ML VIAL IV PRN ×2 (00:42→17:11)
[2017-12-12] MEDS: 0.9 % SODIUM CHLORIDE 1,000 ML IV SCH ×4 (04:55→20:30)
[2017-12-12 05:39] LABS: Basophils # (Auto) 0 K/mcL (0.0-0.3); Basophils % (Auto) 0 % (0.0-2.0); Eosinophils # (Auto) 0 K/mcL (0.0-0.7); Eosinophils % (Auto) 0 % (0.0-7.0); Granulocytes % (Auto) 91.7 % (38.0-78.0); Lymphocytes # (Auto) 0.4 K/mcL (1.5-4.8); Lymphocytes % (Auto) 4.5 % (15.5-49.0); Mean Cell Volume 94.2 fL (80.0-100.0); Mean Corpuscular HGB Conc 33.1 g/dL (31.0-36.0); Mean Corpuscular Hemoglobin 31.1 pg (26.0-34.0); Monocytes # (Auto) 0.3 K/mcL (0.1-0.9); Monocytes % (Auto) 3.8 % (1.0-12.0); Platelet Count 153 K/mcL (140-440); RBC 4.22 M/mcL (4.50-5.90); Red Cell Distribution Width 15.4 % (11.5-14.5)
[2017-12-12 05:50] LABS: ALT/SGPT 10 U/l (0-40); Albumin 1.9 gm/dL (3.2-5.2); Albumin/Globulin Ratio 0.5 (1.0-2.3); Alkaline Phosphatase 34 U/L (39-117); Bilirubin,Direct < 0.2 mg/dL (0.0-0.3); Blood Urea Nitrogen 41 mg/dl (8-23); Gamma Glutamyl Transpeptidase 9 U/L (8-61); Uric Acid 5.8 mg/dL (2.5-8.0)
[2017-12-12] MEDS: 0.9 % SODIUM CHLORIDE 10 ML SYRINGE IV SCH ×3 (06:06→20:59)
[2017-12-12] MEDS: methylPREDNISolone SOD SUCC 125 MG/2 ML VIAL IV SCH ×2 (06:06→13:26)
[2017-12-12] MEDS: INSULIN LISPRO 1 UNIT/0.01 ML UNIT SQ SCH ×3 (06:06→18:22)
--- NOTE | 2017-12-12 06:28 | XRay Report ---
CLINICAL INFORMATION: Endotracheal tube placement COMPARISON: 12/11/2017 0546 hours FINDINGS: Mild cardiomegaly is unchanged. Mediastinum and pulmonary vessels are normal. NG tube is in the gastric fundus. ET tube and PICC line in stable satisfactory position satisfactory position. Moderate patchy infiltrate in the right mid/lower lung shows modest improvement in aeration. Small infiltrate in the left base has nearly resolved. Tiny bilateral pleural effusions noted IMPRESSION: Continued improvement in bibasilar infiltrates more prominent the right. ET tube is in stable satisfactory position. NG tube tip in the gastric fundus. Consider advancing the tube approximately 8 cm Interpreted and Authenticated by: Nish Hamilton 12/12/17
--- NOTE | 2017-12-12 06:52 | XRay Report ---
CLINICAL INFORMATION: Bilateral infiltrates. On mechanical ventilation COMPARISON: 12/11/2017 FINDINGS: Mild cardiomegaly is unchanged. Mediastinum and pulmonary vessels are normal. Endotracheal tube and right PICC line in stable satisfactory position. NG tube extends off the edge of the film - at least the gastric fundus. Moderate patchy right basilar and small patchy left basilar infiltrate show modest improvement in aeration from yesterday IMPRESSION: Continued improved aeration in moderate right and smaller left basilar infiltrates since yesterday Interpreted and Authenticated by: Nish Hamilton 12/12/17
[2017-12-12] MEDS: AZITHROMYCIN 500 MG in DEXTROSE 5% IN WATER 250 ML IV SCH (08:49)
[2017-12-12] MEDS: LORazepam 2 MG/ML VIAL IV PRN (08:49)
[2017-12-12] MEDS: fentaNYL 2,500 MCG in 0.9 % SODIUM CHLORIDE 200 ML IV SCH (08:59)
[2017-12-12] MEDS ORDERED: NOREPINEPHRINE BITARTRATE 16 MG in 0.9 % SODIUM CHLORIDE 234 ML IV PRN (09:15)
[2017-12-12] MEDS: CHLORHEXIDINE GLUCONATE 1 ML ORAL.SOL SWABMOUTH SCH ×4 (09:38→20:57)
[2017-12-12] MEDS: FAMOTIDINE/PF 20 MG/2 ML VIAL IV SCH ×2 (09:40→20:57)
[2017-12-12] MEDS: OSELTAMIVIR PHOSPHATE 75 MG CAPSULE PO SCH ×2 (09:40→20:58)
[2017-12-12] MEDS: TAMSULOSIN 0.4 MG CAPSULE PO SCH (09:40)
[2017-12-12] MEDS: APIXABAN 5 MG TABLET PO SCH (09:40)
[2017-12-12] MEDS: cefTRIAXone 2 GM VIAL IV SCH (09:40)
[2017-12-12] MEDS: 0.9 % SODIUM CHLORIDE 250 ML IV SCH ×2 (09:41→20:59)
[2017-12-12] MEDS: VANCOMYCIN 1,000 MG in 0.9 % SODIUM CHLORIDE 250 ML IV SCH ×2 (10:24→22:09)
--- NOTE | 2017-12-12 13:29 | Internal Med Progress Note ---
Medical - PN: Subj Patient information: Note initiated : 12/12/17 at 1:26 pm Service Date, if different from initiated Date: [] Patient: Camilo Figueroa 77 y/o M admitted on 12/10/17 for Shortness of Breath, Moist Cough/Pneumonia. Chief Complaint: [] Interval history: Mr. Figueroa is a 77 year old Male with history of COPD,hypertension, hyperlipidemia, chronic A. fib who presents to the emergency room today with shortness of breath, cough that has been going on since Monday. Patient's daughter was at bedside who provided some history along with the patient. The patient's daughter had a URI-like symptom, last week I believe and the patient started showing signs of cough from Monday. The patient's condition gradually worsened since then. Patient has been having cough with expectoration initially, no blood in the sputum. He has been having progressive shortness of breath. He notes he has been having subjective sensations of fever, chills, sweating. He has decreased effort tolerance and is unable to walk short distances now. For the last day the cough has subsided and it is difficult for him to bring up the sputum. The patient is extremely weak and has therefore been brought to the emergency room for further evaluation. In the emergency room, the patient was noted to be in moderate respiratory distress, he was afebrile, his white blood cell count was 5.9, chemistry showed worsening renal function with a creatinine of 1.6. His lactic acid was 5.9, first set of troponin was 0.11 and second set was 0.09. He had an elevated pro- calcitonin and 8.43. Chest x-ray showed pneumonia. the patient was tachycardic with A. fib with RVR on presentation and was on a diltiazem drip, his blood pressure was also very high and difficult to 78 physician and put him on nitroglycerin drip. Both these medications were discontinued after admission He was admitted to the hospital for further management, admitted to pcu status. dec 11 Pt overnight had deterioration in his clinical status, was intubated, had PICC placed, A line placed. He was overnight on pressors, levophed and vasopressin, presently only on levophed, bp stable. ABG reviwed, Chest X ray reviewed patient family was updated and was at bedside This AM pt sedated on Vent, TV 400, rr 24, peep 5, PAP 19-20 Plat 16-17, Pt still has some lactic acidosis, on IVF, ringers lactate changed to Saline. Patient Blood culture is postive for gpc in clusters, staph auress, pt already on vancomycin. Likely staph pneumonia secondary to influenza. Dec 12 . Seen and examined, no acute overnight events, patient remains off pressors. Hemodynamically stable. On baseline vent settings. This morning, when settings were, tidal volume 500, rate of 20, FiO2 35, PEEP of 5. Peak airway pressures around 20, plateau pressures 16-17 The patient was drowsy, was able to grasp hands and move his toes. Did not seem agitated. For order for blood culture bottles are positive for gram-positive cocci. Chest x-ray shows improvement in infiltrate. Lines in place repeat cultures ordered, echo ordered. ABG reviewed Feedings started, last night was still going on. Initially we thought we could try a weaning trial given his baseline settings however due to shift change between the hospital providers, weaning trial and extubation will be decided by the oncoming provider. that is slight worsening in renal function, urine output is 25-30 mL per hour. Family updated Pertinent ROS: unable - Constitutional Vitals: Vital Signs Temp Pulse Resp BP Pulse Ox 99.7 F H 107 H 8 L 115/83 98 12/12/17 13:13 12/12/17 13:13 12/12/17 13:13 12/12/17 13:01 12/12/17 13:13 Period Temp Pulse Resp BP Sys/Cai Pulse Ox Last 24 Hr 98.7 F-100.2 F 47-118 0-20 92-135/57-95 95-99 Intake and Output 12/11/17 12/12/17 12/12/17 21:59 05:59 13:59 Intake Total 1843 / 1843 815 / 815 1200 / 1200 Output Total 403 / 403 230 / 230 218 / 218 Balance 1440 / 1440 585 / 585 982 / 982 Weight 161 lb 11.2 oz 161 lb 11.2 oz Patient Weight 12/13/17 05:59 Weight 161 lb 11.2 oz Intake & Output: Intake & Output 12/11/17 12/12/17 12/12/17 21:59 05:59 13:59 Intake Total 1843 / 1843 815 / 815 1200 / 1200 Output Total 403 / 403 230 / 230 218 / 218 Balance 1440 / 1440 585 / 585 982 / 982 Weight 161 lb 11.2 oz 161 lb 11.2 oz Intake: IV 1593 / 1593 315 / 315 950 / 950 Sodium Chloride 0.9% 1,000 ml @ 1000 / 1000 125 mls/hr IV .Q8H [facility] Rx#: [id number] Sodium Chloride 0.9% 250 ml @ 250 / 250 20 mls/hr IV .[id number] [facility] Rx#: [id number] Sodium Chloride 0.9% 500 ml @ 500 / 500 Wide Open IV BOLUS ONE Rx#: [id number] Zithromax 500 mg In Dextrose 5% 250 / 250 in Water 250 ml @ 250 mls/hr IV DAILY [facility] Rx#:[id number] Vancomycin 1,000 mg In Sodium 250 / 250 250 / 250 Chloride 0.9% 250 ml @ 250 mls/ hr IV Q12H [facility] Rx#:[id number] fentaNYL 2,500 MCG In Sodium 93 / 93 200 / 200 Chloride 0.9% 200 ml @ 25 MCG/ HR 2.5 mls/hr IV Q24H [facility] Rx#: [id number] GI Tube Flush 250 / 250 500 / 500 250 / 250 Output: Urine Catheter Amount 403 / 403 230 / 230 218 / 218 Exam: Constitutional; low-grade fever, awake when off sedation, was able to squeeze hands and move his toes. Drowsy Eyes- No icterus, , No periorbital swelling Ears- Ext ear normal, Neck- Midline trachea, supple, ET tube OG tube in place Respiratory system: Air Entry equal on both sides, No crackles or wheezing, no rhonchi. CVS- Rate rhythm regular, S1,S2 heard, no gallop, no rub. Abdomen- Soft nontender abdomen, no organomegaly, no tenderness, no guarding or rigidity, [employer]- drowsy, able to move all 4 extremities Medical - PN: Obj Da - Labs CBC & Chem 7: 12/12/17 04:13 12/12/17 04:13 Labs: Abnormal Lab Results 12/12/17 12/12/17 12/11/17 04:13 04:13 08:00 RBC 4.22 L Hgb 13.1 L Hct 39.7 L RDW 15.4 H Plt Count Gran % 91.7 H Lymph % (Auto) 4.5 L Lymph # (Auto) 0.4 L Band Neutrophils % Lymphocytes % Metamyelocytes % Myelocytes % Reactive Lymphocytes Platelet Estimate VBG Lactic Acid Carbon Dioxide 20 L Anion Gap BUN 41 H Creatinine 1.4 H Glucose 149 H Calcium 7.7 L Phosphorus 2.3 L Alkaline Phosphatase 34 L Lactate Dehydrogenase Troponin T Total Protein 5.6 L Albumin 1.9 L Globulin Albumin/Globulin Ratio 0.5 L Prealbumin 3.4 L 12/11/17 12/11/17 12/11/17 04:00 04:00 04:00 RBC Hgb Hct RDW 15.3 H Plt Count 129 L Gran % 90.1 H Lymph % (Auto) 6.0 L Lymph # (Auto) 0.5 L Band Neutrophils % Lymphocytes % Metamyelocytes % Myelocytes % Reactive Lymphocytes Platelet Estimate VBG Lactic Acid 2.7 H Carbon Dioxide 17 L Anion Gap BUN 30 H Creatinine Glucose 123 H Calcium 8.1 L Phosphorus 2.2 L Alkaline Phosphatase 37 L Lactate Dehydrogenase 260 H Troponin T Total Protein Albumin 2.1 L Globulin 3.8 H Albumin/Globulin Ratio 0.6 L Prealbumin 12/10/17 12/10/17 12/10/17 17:58 12:36 09:55 RBC Hgb Hct RDW Plt Count Gran % Lymph % (Auto) Lymph # (Auto) Band Neutrophils % Lymphocytes % Metamyelocytes % Myelocytes % Reactive Lymphocytes Platelet Estimate VBG Lactic Acid 3.8 H Carbon Dioxide Anion Gap BUN Creatinine Glucose Calcium Phosphorus Alkaline Phosphatase Lactate Dehydrogenase Troponin T 0.09 H* 0.11 H* Total Protein Albumin Globulin Albumin/Globulin Ratio Prealbumin 12/10/17 12/10/17 12/10/17 09:55 09:55 09:55 RBC Hgb Hct RDW 15.1 H Plt Count 135 L Gran % Lymph % (Auto) Lymph # (Auto) Band Neutrophils % 24 H Lymphocytes % 7 L Metamyelocytes % 11 H Myelocytes % 1 H Reactive Lymphocytes 3 H Platelet Estimate Decreased A VBG Lactic Acid 5.9 H* Carbon Dioxide 20 L Anion Gap 21.0 H BUN 29 H Creatinine 1.6 H Glucose 149 H Calcium Phosphorus Alkaline Phosphatase Lactate Dehydrogenase Troponin T Total Protein Albumin Globulin 4.4 H Albumin/Globulin Ratio 0.8 L Prealbumin Meds: Medications Acetaminophen (Tylenol) 650 mg PO Q4-6HP PRN PRN Reason: PAIN/FEVER > 101 Albuterol/Ipratropium (Duoneb) 3 ml NEB Q6HRT [facility] Last Admin: 12/12/17 13:15 Dose: 3 ml Ceftriaxone Sodium (Rocephin) 2 gm IV DAILY [facility] Last Admin: 12/12/17 09:40 Dose: 2 gm Chlorhexidine Gluconate (Peridex) 15 ml [place] BID [facility] Last Admin: 12/12/17 09:39 Dose: 15 ml Chlorhexidine Gluconate (Peridex) 15 ml [place] BID [facility] Last Admin: 12/12/17 09:38 Dose: Not Given Dextrose (Dextrose 50%) 0 ml IV UD PRN PRN Reason: Hypoglycemia Diagnostic Test (Pha) (Accu-Chek) 1 each FS Q6 [facility] Last Admin: 12/12/17 11:20 Dose: 1 each Famotidine (Pepcid) 20 mg IV Q12 [facility] Last Admin: 12/12/17 09:40 Dose: 20 mg Heparin Sodium (Porcine) (Heparin Flush) 2 ml IV Q12 [facility] Last Admin: 12/12/17 09:40 Dose: 2 ml Hydromorphone HCl (Dilaudid) 0.5 mg IV Q2HP PRN PRN Reason: PAIN LEVEL > 6 Azithromycin 500 mg/ Dextrose 250 mls @ 250 mls/hr IV DAILY [facility] Stop: 12/14/17 09:59 Last Infusion: 12/12/17 09:49 Dose: Infused Acetaminophen (Ofirmev) 650 mg in 65 mls @ 130 mls/hr IV Q6HP PRN PRN Reason: PAIN/FEVER > 101 Last Infusion: 12/11/17 22:28 Dose: Infused Sodium Chloride (Sodium Chloride 0.9%) 250 mls @ 20 mls/hr IV .[id number] [facility] Last Admin: 12/12/17 09:41 Dose: 10 mls/hr Fentanyl 2,500 mcg/ Sodium (Chloride) 250 mls @ 2.5 mls/hr IV Q24H [facility]; 25 MCG/ HR PRN Reason: Protocol Last Titration: 12/12/17 13:24 Dose: 0 mcg/hr, 0 mls/hr Heparin Sodium/Sodium Chloride (Heparin/Ns) 500 mls @ 0 mls/hr IV .Q0M [facility]; KVO PRN Reason: Protocol Sodium Chloride (Sodium Chloride 0.9%) 1,000 mls @ 125 mls/hr IV .Q8H [facility] Last Admin: 12/12/17 12:34 Dose: Not Given Vasopressin 20 unit/ Dextrose 100 mls @ 6 mls/hr IV Q17H PRN; Protocol; 0.02 UNIT/MIN PRN Reason: TITRATE TO KEEP MAP > 65 Vancomycin HCl 1,000 mg/ (Sodium Chloride) 250 mls @ 250 mls/hr IV Q12H [facility] Last Infusion: 12/12/17 11:24 Dose: Infused Norepinephrine Bitartrate 16 (mg/ Sodium Chloride) 250 mls @ 9.37 mls/hr IV Q24HP PRN; Protocol; 10 MCG/MIN PRN Reason: Hypotension Insulin Human Lispro (Humalog) 0 unit SQ Q6 [facility] PRN Reason: Protocol Last Admin: 12/12/17 11:22 Dose: 1 unit Latanoprost (Xalatan Ophth Drops) 1 gtt OU HS [facility] Last Admin: 12/11/17 21:05 Dose: 1 drop Lorazepam (Ativan) 0.5 mg IV Q4HP PRN PRN Reason: ANXIETY/SEDATION Last Admin: 12/12/17 08:49 Dose: 0.5 mg Methylprednisolone Sodium Succinate (Solu-Medrol) 62.5 mg IV Q8 [facility] Last Admin: 12/12/17 06:06 Dose: 62.5 mg Metoprolol Tartrate (Lopressor) 5 mg IV Q4HP PRN PRN Reason: Tachyarrhythmias Last Admin: 12/12/17 00:42 Dose: 5 mg Naloxone HCl (Narcan) 0.1 mg IV Q2MIN PRN PRN Reason: Opiate Reversal Oseltamivir Phosphate (Tamiflu) 75 mg PO BID [facility] Stop: 12/15/17 09:01 Last Admin: 12/12/17 09:40 Dose: 75 mg Senna (Senokot) 2 tab PO HSP PRN PRN Reason: Constipation Sodium Chloride (Saline Flush) 10 ml IV Q8 [facility] Last Admin: 12/12/17 06:06 Dose: Not Given Tamsulosin HCl (Flomax) 0.4 mg PO QDAY [facility] Last Admin: 12/12/17 09:40 Dose: 0.4 mg Vancomycin HCl (Vancomycin Per Pharmacy) 1 order IV [facility] [place] Medical - PN: A/P - Time Spent With Patient Total time spent is greater than 50% in coordination of care (as documented) at patient's floor/unit and/or counseling patient: - Narrative A/P Narrative: A/P Acute respiratory failure- On mech VEntilation, AC mode, due to PNA/ COPD exacerbation. Continue respiratory support. the patient remains stable and Intal can be given Acute COPD exacerbation-treat with antibiotics, DuoNeb's and IV steroids, nebulizers every 4 hours because of the pressure is normal plateau pressure is normal Qjaejqamy-gwfghejuq-cnorjfrb pneumonia-staph aureus pneumonia-on IV vancomycin, also Rocephin and Zithromax for community-acquired pneumonia. Tamiflu for possible influenza atrial flutter-patient has a chronic history of atrial flutter fibrillation, not on medications for rate control, does take eliquis for anticoagulation. IV metoprolol when necessary for now. Severe sepsis with septic shock, multiorgan dysfunction: IV fluids, pressors to keep map > 65, monitor urine output, get echo, treat underlying infection. Acute kidney injury-renal function worsened to 1.4, did not put between 25-30 cc an hour, patient getting IV fluids. The patient likely had ATN secondary to hypotensive episode during intubation, as well as ATN secondary to severe sepsis Elevated troponins-secondary to demand ischemia type II myocardial infarction, trend was downwards before patient became hypotensive. BPH-continue tamsulosin, WILSON in place Diabetes-not taking any medications, diet controlled. Monitor glucose for now if elevated secondary to steroids will place him on sliding scale insulin A[PACHE SCORE OF 20, PREDICTED MORTALITY RATE OF 40%. fAMILY AWARE of high risk of mortality DVT-patient is on anticoagulation NPO status,feeding started via feeding tube Patient wishes to be full code for now Spent total of more than 40 minutes spent in critical care for this patient, reviewing chest x-ray ABG, BiPAP management, coordination of care Medical - PN: Qual - VTE Deep Vein Thrombosis/Pulmonary Embolism Present on Admission: No Procedures - Arterial Line Size (Gauge): 20
[2017-12-12] MEDS: HYDROmorphone 2 MG/ML VIAL IV PRN (19:02)
[2017-12-12] MEDS: ACETAMINOPHEN 650 MG/65 ML BOTTLE IV PRN (19:30)
[2017-12-12] MEDS ORDERED: METOPROLOL TARTRATE 5 MG/5 ML VIAL IV ONE (20:26)
[2017-12-12] MEDS: LATANOPROST OPHTH DROPS 2.5ML BOTTLE OU SCH (20:58)
[2017-12-13] MEDS: fentaNYL 2,500 MCG in 0.9 % SODIUM CHLORIDE 200 ML IV SCH (00:20)
[2017-12-13] MEDS ORDERED: FUROSEMIDE 20 MG/2 ML VIAL IV ONE ×2 (00:36→00:39)
[2017-12-13] MEDS: INSULIN LISPRO 1 UNIT/0.01 ML UNIT SQ SCH ×4 (00:42→18:49)
[2017-12-13] MEDS: IPRATROPIUM/ALBUTEROL 3 ML AMPUL.NEB NEB SCH ×5 (00:46→22:50)
[2017-12-13] MEDS: METOPROLOL TARTRATE 5 MG/5 ML VIAL IV PRN ×4 (01:01→10:40)
[2017-12-13] MEDS: HYDROmorphone 2 MG/ML VIAL IV PRN ×3 (02:34→21:11)
[2017-12-13 06:20] LABS: Basophils # (Auto) 0 K/mcL (0.0-0.3); Basophils % (Auto) 0 % (0.0-2.0); Eosinophils # (Auto) 0.3 K/mcL (0.0-0.7); Eosinophils % (Auto) 2.6 % (0.0-7.0); Granulocytes % (Auto) 89.3 % (38.0-78.0); Lymphocytes # (Auto) 0.4 K/mcL (1.5-4.8); Lymphocytes % (Auto) 3.2 % (15.5-49.0); Mean Cell Volume 94.5 fL (80.0-100.0); Mean Corpuscular HGB Conc 32.8 g/dL (31.0-36.0); Monocytes # (Auto) 0.6 K/mcL (0.1-0.9); Monocytes % (Auto) 4.9 % (1.0-12.0); Platelet Count 170 K/mcL (140-440); RBC 4.19 M/mcL (4.50-5.90); Red Cell Distribution Width 15.3 % (11.5-14.5)
[2017-12-13 06:44] LABS: ALT/SGPT 14 U/l (0-40); Albumin 2.5 gm/dL (3.2-5.2); Albumin/Globulin Ratio 0.7 (1.0-2.3); Alkaline Phosphatase 51 U/L (39-117); Bilirubin,Direct < 0.2 mg/dL (0.0-0.3); Blood Urea Nitrogen 45 mg/dl (8-23); Gamma Glutamyl Transpeptidase 15 U/L (8-61); Uric Acid 6.2 mg/dL (2.5-8.0)
[2017-12-13] MEDS: 0.9 % SODIUM CHLORIDE 10 ML SYRINGE IV SCH ×4 (06:49→21:17)
--- NOTE | 2017-12-13 07:24 | XRay Report ---
CLINICAL INFORMATION: Follow infiltrates COMPARISON: 12/12/2017 FINDINGS: Mild cardiomegaly is unchanged. Mediastinum and pulmonary vessels are normal. Endotracheal and NG tube now out. PICC line remains in satisfactory, stable position. Moderate vague patchy infiltrate in the right midlung/base and smaller vague patchy infiltrate in the left base are unchanged from yesterday. IMPRESSION: No significant change in moderate patchy infiltrates in the right midlung/base and smaller left basilar infiltrate Interpreted and Authenticated by: Nish Hamilton 12/13/17
[2017-12-13] MEDS ORDERED: ALTEPLASE 2 MG VIAL IV ONE (09:44)
[2017-12-13] MEDS: cefTRIAXone 2 GM VIAL IV SCH (10:06)
[2017-12-13] MEDS: FAMOTIDINE/PF 20 MG/2 ML VIAL IV SCH ×2 (10:06→21:12)
[2017-12-13] MEDS: CHLORHEXIDINE GLUCONATE 1 ML ORAL.SOL SWABMOUTH SCH ×3 (10:06→21:16)
[2017-12-13] MEDS: TAMSULOSIN 0.4 MG CAPSULE PO SCH (10:09)
[2017-12-13] MEDS: APIXABAN 5 MG TABLET PO SCH (10:09)
[2017-12-13] MEDS: OSELTAMIVIR PHOSPHATE 75 MG CAPSULE PO SCH ×2 (10:09→21:16)
[2017-12-13] MEDS: AZITHROMYCIN 500 MG in DEXTROSE 5% IN WATER 250 ML IV SCH (10:12)
[2017-12-13] MEDS: 0.9 % SODIUM CHLORIDE 250 ML IV SCH ×2 (11:40→21:17)
[2017-12-13] MEDS ORDERED: FUROSEMIDE 40 MG/4 ML VIAL IV ONE ×2 (12:27)
[2017-12-13] MEDS: LORazepam 2 MG/ML VIAL IV PRN (12:40)
--- NOTE | 2017-12-13 13:21 | Internal Med Progress Note ---
Medical - PN: Subj Patient information: Note initiated : 12/13/17 at 1:12 pm Service Date, if different from initiated Date: [] Patient: Camilo Figueroa 77 y/o M admitted on 12/10/17 for Shortness of Breath, Moist Cough/Pneumonia. Interval history: Mr. Figueroa is a 77 year old Male with history of COPD,hypertension, hyperlipidemia, chronic A. fib who presents to the emergency room today with shortness of breath, cough that has been going on since Monday. Patient's daughter was at bedside who provided some history along with the patient. The patient's daughter had a URI-like symptom, last week I believe and the patient started showing signs of cough from Monday. The patient's condition gradually worsened since then. Patient has been having cough with expectoration initially, no blood in the sputum. He has been having progressive shortness of breath. He notes he has been having subjective sensations of fever, chills, sweating. He has decreased effort tolerance and is unable to walk short distances now. For the last day the cough has subsided and it is difficult for him to bring up the sputum. The patient is extremely weak and has therefore been brought to the emergency room for further evaluation. In the emergency room, the patient was noted to be in moderate respiratory distress, he was afebrile, his white blood cell count was 5.9, chemistry showed worsening renal function with a creatinine of 1.6. His lactic acid was 5.9, first set of troponin was 0.11 and second set was 0.09. He had an elevated pro- calcitonin and 8.43. Chest x-ray showed pneumonia. the patient was tachycardic with A. fib with RVR on presentation and was on a diltiazem drip, his blood pressure was also very high and difficult to 78 physician and put him on nitroglycerin drip. Both these medications were discontinued after admission He was admitted to the hospital for further management, admitted to pcu status. dec 11 Pt overnight had deterioration in his clinical status, was intubated, had PICC placed, A line placed. He was overnight on pressors, levophed and vasopressin, presently only on levophed, bp stable. ABG reviwed, Chest X ray reviewed patient family was updated and was at bedside This AM pt sedated on Vent, TV 400, rr 24, peep 5, PAP 19-20 Plat 16-17, Pt still has some lactic acidosis, on IVF, ringers lactate changed to Saline. Patient Blood culture is postive for gpc in clusters, staph auress, pt already on vancomycin. Likely staph pneumonia secondary to influenza. Feb 27 . Seen and examined, no acute overnight events, patient remains off pressors. Hemodynamically stable. On baseline vent settings. This morning, when settings were, tidal volume 500, rate of 20, FiO2 35, PEEP of 5. Peak airway pressures around 20, plateau pressures 16-17 The patient was drowsy, was able to grasp hands and move his toes. Did not seem agitated. For order for blood culture bottles are positive for gram-positive cocci. Chest x-ray shows improvement in infiltrate. Lines in place repeat cultures ordered, echo ordered. ABG reviewed Feedings started, last night was still going on. Initially we thought we could try a weaning trial given his baseline settings however due to shift change between the hospital providers, weaning trial and extubation will be decided by the oncoming provider. that is slight worsening in renal function, urine output is 25-30 mL per hour. Family updated Around 2 pm extubated. Tolerated PS well, minimal secretions. Hemodynamics stable. Feb 28. Did well overnight. Was still somnolent. But, hemodynamics stable and breathing comfortably. Poor U/O. Received lasix at night and IVF was d/c'd. This afternoon became suddenly cyanotic with poor respiratory effort and struggle to cough. Lungs: few rhonchi at bases. Poor BS and respiratory effort. ET-suctioning for minimal secretions. CXR without significant changes compared to am. No atelectasis, overt pulmonary edema or pneumothorax. DD bronchospasm, fatigue Duoneb, BiPAP ventilator support, Lasix - Constitutional Vitals: Vital Signs Temp Pulse Resp BP Pulse Ox 98.8 F 100 H 19 127/95 99 12/13/17 08:06 12/13/17 12:40 12/13/17 12:40 12/13/17 07:01 12/13/17 12:40 Period Temp Pulse Resp BP Sys/Cai Pulse Ox Last 24 Hr 97.7 F-99.9 F 70-210 8-30 117-191/62-172 95-100 Intake and Output 12/12/17 12/13/1712/13/18 21:59 05:59 13:59 Intake Total 1065 / 1065 1250 / 1250 Output Total 349 / 349 802 / 802 365 / 365 Balance 716 / 716 448 / 448 -365 / -365 Weight 175 lb 1.6 oz 175 lb 1.6 oz Intake & Output: Intake & Output 12/12/17 12/13/17 12/13/17 21:59 05:59 13:59 Intake Total 1065 / 1065 1250 / 1250 Output Total 349 / 349 802 / 802 365 / 365 Balance 716 / 716 448 / 448 -365 / -365 Weight 175 lb 1.6 oz 175 lb 1.6 oz Intake: IV 1065 / 1065 1250 / 1250 Sodium Chloride 0.9% 1,000 ml @ 1000 / 1000 1000 / 1000 125 mls/hr IV .Q8H [facility] Rx#: [id number] Vancomycin 1,000 mg In Sodium 250 / 250 Chloride 0.9% 250 ml @ 250 mls/ hr IV Q12H [facility] Rx#:[id number] Output: Urine Catheter Amount 349 / 349 802 / 802 365 / 365 General appearance: moderate distress - Respiratory Respiratory exam: Present: accessory muscle use, decreased breath sounds, prolonged expiratory phase, rhonchi - Cardiovascular Cardiovascular exam: Present: normal rate and rhythm - GI/Abdominal GI/Abdominal exam: Present: normal bowel sounds, soft - Extremities Exam Extremities exam: Present: normal inspection. Absent: pedal edema, Yulia's sign Medical - PN: Obj Da - Labs CBC & Chem 7: 12/13/17 03:56 12/13/17 03:30 Labs: Abnormal Lab Results 12/13/17 12/13/17 12/13/17 10:35 03:56 03:30 WBC 13.0 H RBC 4.19 L Hgb 13.0 L Hct 39.6 L RDW 15.3 H Plt Count Gran % 89.3 H Lymph % (Auto) 3.2 L Lymph # (Auto) 0.4 L Gran # 11.6 H VBG Lactic Acid Chloride 110 H Carbon Dioxide 20 L BUN 45 H Creatinine 1.3 H Glucose 141 H Calcium 8.2 L Phosphorus Magnesium 2.8 H Alkaline Phosphatase Lactate Dehydrogenase 305 H Troponin T Total Protein Albumin 2.5 L Globulin Albumin/Globulin Ratio 0.7 L Prealbumin Vancomycin Trough 21.0 H* 12/12/17 12/12/17 12/11/17 04:13 04:13 08:00 WBC RBC 4.22 L Hgb 13.1 L Hct 39.7 L RDW 15.4 H Plt Count Gran % 91.7 H Lymph % (Auto) 4.5 L Lymph # (Auto) 0.4 L Gran # VBG Lactic Acid Chloride Carbon Dioxide 20 L BUN 41 H Creatinine 1.4 H Glucose 149 H Calcium 7.7 L Phosphorus 2.3 L Magnesium Alkaline Phosphatase 34 L Lactate Dehydrogenase Troponin T Total Protein 5.6 L Albumin 1.9 L Globulin Albumin/Globulin Ratio 0.5 L Prealbumin 3.4 L Vancomycin Trough 12/11/17 12/11/17 12/11/17 04:00 04:00 04:00 WBC RBC Hgb Hct RDW 15.3 H Plt Count 129 L Gran % 90.1 H Lymph % (Auto) 6.0 L Lymph # (Auto) 0.5 L Gran # VBG Lactic Acid 2.7 H Chloride Carbon Dioxide 17 L BUN 30 H Creatinine Glucose 123 H Calcium 8.1 L Phosphorus 2.2 L Magnesium Alkaline Phosphatase 37 L Lactate Dehydrogenase 260 H Troponin T Total Protein Albumin 2.1 L Globulin 3.8 H Albumin/Globulin Ratio 0.6 L Prealbumin Vancomycin Trough 12/10/17 12/10/17 17:58 12:36 WBC RBC Hgb Hct RDW Plt Count Gran % Lymph % (Auto) Lymph # (Auto) Gran # VBG Lactic Acid 3.8 H Chloride Carbon Dioxide BUN Creatinine Glucose Calcium Phosphorus Magnesium Alkaline Phosphatase Lactate Dehydrogenase Troponin T 0.09 H* Total Protein Albumin Globulin Albumin/Globulin Ratio Prealbumin Vancomycin Trough Meds: Medications Acetaminophen (Tylenol) 650 mg PO Q4-6HP PRN PRN Reason: PAIN/FEVER > 101 Albuterol/Ipratropium (Duoneb) 3 ml NEB Q4HRT [facility] Ceftriaxone Sodium (Rocephin) 2 gm IV DAILY [facility] Last Admin: 12/13/17 10:06 Dose: 2 gm Chlorhexidine Gluconate (Peridex) 15 ml SWABMOUTH BID [facility] Last Admin: 12/13/17 10:06 Dose: 15 ml Dextrose (Dextrose 50%) 0 ml IV UD PRN PRN Reason: Hypoglycemia Diagnostic Test (Pha) (Accu-Chek) 1 each FS Q6 [facility] Last Admin: 02/28/18 06:40 Dose: 1 each Famotidine (Pepcid) 20 mg IV Q12 [facility] Last Admin: 12/13/17 10:06 Dose: 20 mg Heparin Sodium (Porcine) (Heparin Flush) 2 ml IV Q12 [facility] Last Admin: 12/13/17 10:09 Dose: 2 ml Hydromorphone HCl (Dilaudid) 0.5 mg IV Q2HP PRN PRN Reason: PAIN LEVEL > 6 Last Admin: 12/13/17 02:34 Dose: 0.5 mg Azithromycin 500 mg/ Dextrose 250 mls @ 250 mls/hr IV DAILY [facility] Stop: 12/14/17 09:59 Last Admin: 12/13/17 10:12 Dose: 250 mls/hr Acetaminophen (Ofirmev) 650 mg in 65 mls @ 130 mls/hr IV Q6HP PRN PRN Reason: PAIN/FEVER > 101 Last Infusion: 12/12/17 20:23 Dose: Infused Sodium Chloride (Sodium Chloride 0.9%) 250 mls @ 20 mls/hr IV .[id number] [facility] Last Admin: 12/13/17 11:40 Dose: Not Given Heparin Sodium/Sodium Chloride (Heparin/Ns) 500 mls @ 0 mls/hr IV .Q0M [facility]; KVO PRN Reason: Protocol Vancomycin HCl 500 mg/ Sodium (Chloride) 100 mls @ 100 mls/hr IV ONCE ONE Stop: 12/13/17 17:59 Vancomycin HCl 1,500 mg/ (Sodium Chloride) 500 mls @ 333.3 mls/hr IV Q24H [facility] Insulin Human Lispro (Humalog) 0 unit SQ Q6 [facility] PRN Reason: Protocol Last Admin: 12/13/17 07:19 Dose: Not Given Latanoprost (Xalatan Ophth Drops) 1 gtt OU HS [facility] Last Admin: 12/12/17 20:58 Dose: 1 drop Lorazepam (Ativan) 0.5 mg IV Q4HP PRN PRN Reason: ANXIETY/SEDATION Last Admin: 12/12/17 08:49 Dose: 0.5 mg Metoprolol Tartrate (Lopressor) 5 mg IV Q2HP PRN PRN Reason: Tachyarrhythmias Last Admin: 12/13/17 10:40 Dose: 5 mg Naloxone HCl (Narcan) 0.1 mg IV Q2MIN PRN PRN Reason: Opiate Reversal Oseltamivir Phosphate (Tamiflu) 75 mg PO BID [facility] Stop: 12/15/17 09:01 Last Admin: 12/13/17 10:09 Dose: 75 mg Senna (Senokot) 2 tab PO HSP PRN PRN Reason: Constipation Sodium Chloride (Saline Flush) 10 ml IV Q8 [facility] Last Admin: 12/13/17 10:39 Dose: 10 ml Tamsulosin HCl (Flomax) 0.4 mg PO QDAY [facility] Last Admin: 12/13/17 10:09 Dose: 0.4 mg Vancomycin HCl (Vancomycin Per Pharmacy) 1 order IV UD [facility] - Imaging and cardiology Chest x-ray Additional comments: CXR 12/13 8 am: No significant change in moderate patchy infiltrates in the right midlung/base and smaller left basilar infiltrate CXR 12.26 PM: no significant change (own reading) Medical - PN: A/P - Time Spent With Patient Total time spent is greater than 50% in coordination of care (as documented) at patient's floor/unit and/or counseling patient: 25 - 35 minutes ([id number] encounter, resp distress evaluation, management and coordination of care) - Narrative A/P Narrative: A/P Acute respiratory failure- [facility], due to PNA/ COPD exacerbation. Continue respiratory support. the patient remains stable and Intal can be given Acute COPD exacerbation-treat with antibiotics, DuoNeb's and IV steroids, nebulizers every 4 hours because of the pressure is normal plateau pressure is normal. Was on Ventilator support 12/11-12/12. Recurrent respiratory distress 12/13. Resolving after neb treatments and BiPAP support. Continue to watch closely. [id number] pneumonia-staph aureus pneumonia-on IV vancomycin, also Rocephin and Zithromax for community-acquired pneumonia. Tamiflu for possible influenza Gram positive coccemia. ID and sensitivity pending. Echo: no vegetations noted, however suboptimal study. atrial flutter-patient has a chronic history of atrial flutter fibrillation, not on medications for rate control, does take eliquis for anticoagulation. IV metoprolol when necessary for now. Severe sepsis with septic shock, multiorgan dysfunction: IV fluids, pressors to keep map > 65, monitor urine output, get echo, treat underlying infection. Acute kidney injury-renal function worsened to 1.4, did not put between 25-30 cc an hour, patient getting IV fluids. Lasix administered 12/13 am. Elevated troponins-secondary to demand ischemia type II myocardial infarction, trend was downwards before patient became hypotensive. BPH-continue tamsulosin, WILSON in place Diabetes-not taking any medications, diet controlled. Monitor glucose for now if elevated secondary to steroids will place him on sliding scale insulin DVT-patient is on anticoagulation Patient wishes to be full code for now Spent total of > 35 min spent in critical care for this patient: eval and management respiratory distress, coordination of care. Medical - PN: Qual - VTE Deep Vein Thrombosis/Pulmonary Embolism Present on Admission: No Procedures - Arterial Line Size (Gauge): 20
[2017-12-13] MEDS: VANCOMYCIN 1,000 MG in 0.9 % SODIUM CHLORIDE 250 ML IV SCH (13:27)
--- NOTE | 2017-12-13 13:36 | XRay Report ---
CLINICAL INFORMATION: Respiratory distress COMPARISON: 12/05/2017 0627 hours FINDINGS: Moderate cardiomegaly is unchanged. Mediastinum and pulmonary vessels are normal. PICC line satisfactory stable position. Moderate vague patchy infiltrate in the right right base and small infiltrate left base show slight improvement IMPRESSION: Moderate patchy right basilar and smaller patchy left basilar infiltrate show slight improvement. No new abnormality Interpreted and Authenticated by: Nish Hamilton 12/13/17
[2017-12-13] MEDS ORDERED: VANCOMYCIN 500 MG in 0.9 % SODIUM CHLORIDE 100 ML IV ONE (17:00)
[2017-12-13] MEDS: LATANOPROST OPHTH DROPS 2.5ML BOTTLE OU SCH (21:11)
[2017-12-13] MEDS ORDERED: ALBUTEROL SULFATE 2.5 MG/3 ML NEBULIZER ONE (22:57)
[2017-12-13] MEDS ORDERED: ALBUTEROL SULFATE 2.5 MG/3 ML NEBULIZER NEB ONE (23:00)
[2017-12-13] MEDS ORDERED: methylPREDNISolone SOD SUCC 125 MG/2 ML VIAL ONE (23:07)
[2017-12-14] MEDS: methylPREDNISolone SOD SUCC 40 MG/ML VIAL IV SCH ×4 (01:10→17:58)
[2017-12-14] MEDS: INSULIN LISPRO 1 UNIT/0.01 ML UNIT SQ SCH ×4 (01:26→19:30)
[2017-12-14] MEDS: IPRATROPIUM/ALBUTEROL 3 ML AMPUL.NEB NEB SCH ×6 (02:28→23:24)
[2017-12-14 05:15] LABS: Basophils # (Auto) 0 K/mcL (0.0-0.3); Basophils % (Auto) 0 % (0.0-2.0); Eosinophils # (Auto) 0.2 K/mcL (0.0-0.7); Eosinophils % (Auto) 2.1 % (0.0-7.0); Granulocytes % (Auto) 90.2 % (38.0-78.0); Lymphocytes # (Auto) 0.3 K/mcL (1.5-4.8); Lymphocytes % (Auto) 2.6 % (15.5-49.0); Mean Cell Volume 94.1 fL (80.0-100.0); Mean Corpuscular HGB Conc 32.8 g/dL (31.0-36.0); Mean Corpuscular Hemoglobin 30.8 pg (26.0-34.0); Monocytes # (Auto) 0.5 K/mcL (0.1-0.9); Monocytes % (Auto) 5.1 % (1.0-12.0); Platelet Count 161 K/mcL (140-440); RBC 4.39 M/mcL (4.50-5.90); Red Cell Distribution Width 15.2 % (11.5-14.5)
[2017-12-14] MEDS ORDERED: methylPREDNISolone SOD SUCC 125 MG/2 ML VIAL ONE (05:34)
[2017-12-14 05:47] LABS: ALT/SGPT 14 U/l (0-40); Albumin 2.7 gm/dL (3.2-5.2); Albumin/Globulin Ratio 0.8 (1.0-2.3); Alkaline Phosphatase 50 U/L (39-117); Bilirubin,Direct < 0.2 mg/dL (0.0-0.3); Blood Urea Nitrogen 42 mg/dl (8-23); Gamma Glutamyl Transpeptidase 16 U/L (8-61)
--- NOTE | 2017-12-14 06:59 | XRay Report ---
CLINICAL INFORMATION: On mechanical ventilation follow-up infiltrates COMPARISON: 12/05/2017 FINDINGS: Moderate cardiomegaly is unchanged. Mediastinum and pulmonary vessels are normal. Right-sided PICC line is in stable satisfactory position. Moderate patchy infiltrate in the right base shows modest improvement in aeration compared to yesterday. Small vague left basilar infiltrate is also slightly improved. Small bilateral pleural effusions noted IMPRESSION: Continued improvement in small/moderate patchy right basilar infiltrate. Small left basilar infiltrate also slightly improved. Interpreted and Authenticated by: Nish Hamilton 12/14/17
[2017-12-14] MEDS: 0.9 % SODIUM CHLORIDE 10 ML SYRINGE IV SCH ×3 (07:10→21:17)
[2017-12-14] MEDS ORDERED: POTASSIUM CHLORIDE 40 MEQ in DEXTROSE 5% IN WATER 500 ML IV ONE (07:18)
[2017-12-14] MEDS: METOPROLOL TARTRATE 5 MG/5 ML VIAL IV PRN ×6 (08:20→21:07)
[2017-12-14] MEDS ORDERED: VANCOMYCIN 1,500 MG in 0.9 % SODIUM CHLORIDE 500 ML IV SCH (09:00)
[2017-12-14] MEDS: CHLORHEXIDINE GLUCONATE 1 ML ORAL.SOL SWABMOUTH SCH ×2 (10:30→21:16)
[2017-12-14] MEDS: FAMOTIDINE/PF 20 MG/2 ML VIAL IV SCH ×2 (10:45→21:16)
[2017-12-14] MEDS: AZITHROMYCIN 500 MG in DEXTROSE 5% IN WATER 250 ML IV SCH (10:48)
[2017-12-14] MEDS: LORazepam 2 MG/ML VIAL IV PRN (10:52)
[2017-12-14] MEDS: cefTRIAXone 2 GM VIAL IV SCH (11:13)
[2017-12-14] MEDS ORDERED: LORazepam 2 MG/ML VIAL IV ONE (13:09)
[2017-12-14] MEDS ORDERED: ACETYLCYSTEINE 800 MG/4 ML VIAL NEB ONE (14:10)
[2017-12-14] MEDS ORDERED: 0.45 % SODIUM CHLORIDE 1,000 ML IV SCH (14:15)
[2017-12-14] MEDS ORDERED: TPN PER PHARMACY IV SCH (15:03)
[2017-12-14] MEDS: HYDROmorphone 2 MG/ML VIAL IV PRN ×2 (15:18→21:07)
--- NOTE | 2017-12-14 15:38 | XRay Report ---
CLINICAL INFORMATION: Abdominal pain COMPARISON: None. FINDINGS: There is normal amount of air within the colon. A 17 cm gas collection in the central abdomen is not located in a recognizable bowel segment. It may represent free air or even a cecal volvulus. Stomach and small bowel are relatively decompressed. IMPRESSION: 17 cm air collection in the central abdomen not in a recognizable bowel segment. Potential free air versus cecal volvulus. Suggest: abdomen and pelvic CT to characterize Interpreted and Authenticated by: Nish Hamilton 12/14/17
--- NOTE | 2017-12-14 17:01 | Internal Med Progress Note ---
Medical - PN: Subj Patient information: Note initiated : 12/14/17 at 4:54 pm Service Date, if different from initiated Date: [] Patient: Camilo Figueroa 77 y/o M admitted on 12/10/17 for Shortness of Breath, Moist Cough/Pneumonia. Interval history: Mr. Figueroa is a 77 year old Male with history of COPD,hypertension, hyperlipidemia, chronic A. fib who presents to the emergency room today with shortness of breath, cough that has been going on since Monday. Patient's daughter was at bedside who provided some history along with the patient. The patient's daughter had a URI-like symptom, last week I believe and the patient started showing signs of cough from Monday. The patient's condition gradually worsened since then. Patient has been having cough with expectoration initially, no blood in the sputum. He has been having progressive shortness of breath. He notes he has been having subjective sensations of fever, chills, sweating. He has decreased effort tolerance and is unable to walk short distances now. For the last day the cough has subsided and it is difficult for him to bring up the sputum. The patient is extremely weak and has therefore been brought to the emergency room for further evaluation. In the emergency room, the patient was noted to be in moderate respiratory distress, he was afebrile, his white blood cell count was 5.9, chemistry showed worsening renal function with a creatinine of 1.6. His lactic acid was 5.9, first set of troponin was 0.11 and second set was 0.09. He had an elevated pro- calcitonin and 8.43. Chest x-ray showed pneumonia. the patient was tachycardic with A. fib with RVR on presentation and was on a diltiazem drip, his blood pressure was also very high and difficult to 78 physician and put him on nitroglycerin drip. Both these medications were discontinued after admission He was admitted to the hospital for further management, admitted to pcu status. dec 11 Pt overnight had deterioration in his clinical status, was intubated, had PICC placed, A line placed. He was overnight on pressors, levophed and vasopressin, presently only on levophed, bp stable. ABG reviwed, Chest X ray reviewed patient family was updated and was at bedside This AM pt sedated on Vent, TV 400, rr 24, peep 5, PAP 19-20 Plat 16-17, Pt still has some lactic acidosis, on IVF, ringers lactate changed to Saline. Patient Blood culture is postive for gpc in clusters, staph auress, pt already on vancomycin. Likely staph pneumonia secondary to influenza. Feb 27 . Seen and examined, no acute overnight events, patient remains off pressors. Hemodynamically stable. On baseline vent settings. This morning, when settings were, tidal volume 500, rate of 20, FiO2 35, PEEP of 5. Peak airway pressures around 20, plateau pressures 16-17 The patient was drowsy, was able to grasp hands and move his toes. Did not seem agitated. For order for blood culture bottles are positive for gram-positive cocci. Chest x-ray shows improvement in infiltrate. Lines in place repeat cultures ordered, echo ordered. ABG reviewed Feedings started, last night was still going on. Initially we thought we could try a weaning trial given his baseline settings however due to shift change between the hospital providers, weaning trial and extubation will be decided by the oncoming provider. that is slight worsening in renal function, urine output is 25-30 mL per hour. Family updated Around 2 pm extubated. Tolerated PS well, minimal secretions. Hemodynamics stable. Feb 28. Did well overnight. Was still somnolent. But, hemodynamics stable and breathing comfortably. Poor U/O. Received lasix at night and IVF was d/c'd. This afternoon became suddenly cyanotic with poor respiratory effort and struggle to cough. Lungs: few rhonchi at bases. Poor BS and respiratory effort. ET-suctioning for minimal secretions. CXR without significant changes compared to am. No atelectasis, overt pulmonary edema or pneumothorax. DD bronchospasm, fatigue Duoneb, BiPAP ventilator support, Lasix December 14: Had episode of severe respiratory distress last night, requiring high FiO2. Had bronchospasm, tachypnea and cyanotic discoloration. Gave neb treatments, dilaudid, ET-suctioning, solumedrol, BiPAP support. This am noted abdominal distention. KUB showed dilatation of bowel loops and possible free air vs volvulus. CT-abd/pelvis pending. Hold nutrition via feeding tube. Will start TPN Patient has also have hx of major epistaxis. Is on Eliquis with hematuria. Am reluctant to insert NG for decompression and potentially causing epistaxis. Eliquis discontinued. Start Lovenox for afibr. - Constitutional Vitals: Vital Signs Temp Pulse Resp BP Pulse Ox 99.3 F H 110 H 34 H 173/93 94 12/14/17 15:01 12/14/17 15:25 12/14/17 15:15 12/14/17 15:01 12/14/17 15:25 Period Temp Pulse Resp BP Sys/Cai Pulse Ox Last 24 Hr 98.6 F-100.0 F 44-126 8-34 117-180/74-109 91-100 Intake and Output 12/14/17 12/14/17 12/14/17 05:59 13:59 21:59 Intake Total 100 / 100 750 / 750 Output Total 535 / 535 380 / 380 120 / 120 Balance -435 / -435 370 / 370 -120 / -120 Weight 175 lb 1.6 oz Patient Weight 12/15/17 05:59 Weight 175 lb 1.6 oz Intake & Output: Intake & Output 12/14/17 12/14/17 12/14/17 05:59 13:59 21:59 Intake Total 100 / 100 750 / 750 Output Total 535 / 535 380 / 380 120 / 120 Balance -435 / -435 370 / 370 -120 / -120 Weight 175 lb 1.6 oz Intake: IV 100 / 100 750 / 750 Vancomycin 1,500 mg In Sodium 500 / 500 Chloride 0.9% 500 ml @ 333.3 mls/hr IV Q24H ERIC Rx#: [id number] Output: Urine Catheter Amount 535 / 535 380 / 380 120 / 120 Other: Stool Size Moderate Moderate Stool Color Yellow Green Green Stool Consistency Liquid Liquid Watery # of times incontinent of 1 Bowels General appearance: no acute distress - Respiratory Respiratory exam: Present: rhonchi - Cardiovascular Cardiovascular exam: Present: irregular rhythm, tachycardia - GI/Abdominal GI/Abdominal exam: Present: soft, distended, hypoactive bowel sounds - Extremities Exam Extremities exam: Present: normal inspection Medical - PN: Obj Da - Labs CBC & Chem 7: 12/14/17 03:30 12/14/17 03:30 Labs: Abnormal Lab Results 12/14/17 12/14/17 12/13/17 03:30 03:30 10:35 WBC RBC 4.39 L Hgb Hct RDW 15.2 H Gran % 90.2 H Lymph % (Auto) 2.6 L Lymph # (Auto) 0.3 L Gran # 9.6 H Sodium 146 H Chloride 110 H Carbon Dioxide BUN 42 H Creatinine Glucose 160 H Calcium 8.4 L Phosphorus 2.5 L Magnesium 2.6 H Alkaline Phosphatase Lactate Dehydrogenase 278 H Total Protein Albumin 2.7 L Albumin/Globulin Ratio 0.8 L Vancomycin Trough 21.0 H* 12/13/17 12/13/17 12/12/17 03:56 03:30 04:13 WBC 13.0 H RBC 4.19 L Hgb 13.0 L Hct 39.6 L RDW 15.3 H Gran % 89.3 H Lymph % (Auto) 3.2 L Lymph # (Auto) 0.4 L Gran # 11.6 H Sodium Chloride 110 H Carbon Dioxide 20 L 20 L BUN 45 H 41 H Creatinine 1.3 H 1.4 H Glucose 141 H 149 H Calcium 8.2 L 7.7 L Phosphorus 2.3 L Magnesium 2.8 H Alkaline Phosphatase 34 L Lactate Dehydrogenase 305 H Total Protein 5.6 L Albumin 2.5 L 1.9 L Albumin/Globulin Ratio 0.7 L 0.5 L Vancomycin Trough 12/12/17 04:13 WBC RBC 4.22 L Hgb 13.1 L Hct 39.7 L RDW 15.4 H Gran % 91.7 H Lymph % (Auto) 4.5 L Lymph # (Auto) 0.4 L Gran # Sodium Chloride Carbon Dioxide BUN Creatinine Glucose Calcium Phosphorus Magnesium Alkaline Phosphatase Lactate Dehydrogenase Total Protein Albumin Albumin/Globulin Ratio Vancomycin Trough Meds: Medications Acetaminophen (Tylenol) 650 mg PO Q4-6HP PRN PRN Reason: PAIN/FEVER > 101 Albuterol/Ipratropium (Duoneb) 3 ml NEB Q4HRT [facility] Last Admin: 12/14/17 15:25 Dose: 3 ml Ceftriaxone Sodium (Rocephin) 2 gm IV DAILY [facility] Last Admin: 12/14/17 11:13 Dose: 2 gm Chlorhexidine Gluconate (Peridex) 15 ml SWABMOUTH BID [facility] Last Admin: 12/13/17 21:16 Dose: 15 ml Dextrose (Dextrose 50%) 0 ml IV UD PRN PRN Reason: Hypoglycemia Diagnostic Test (Pha) (Accu-Chek) 1 each FS Q6 [facility] Last Admin: 12/14/17 12:45 Dose: 1 each Enoxaparin Sodium (Lovenox) 80 mg SQ BID [facility] Famotidine (Pepcid) 20 mg IV Q12 [facility] Last Admin: 12/14/17 10:45 Dose: 20 mg Heparin Sodium (Porcine) (Heparin Flush) 2 ml IV Q12 [facility] Last Admin: 12/14/17 11:20 Dose: 2 ml Hydromorphone HCl (Dilaudid) 0.5 mg IV Q2HP PRN PRN Reason: PAIN LEVEL > 6 Last Admin: 12/14/17 15:18 Dose: 0.5 mg Acetaminophen (Ofirmev) 650 mg in 65 mls @ 130 mls/hr IV Q6HP PRN PRN Reason: PAIN/FEVER > 101 Last Infusion: 12/12/17 20:23 Dose: Infused Sodium Chloride (Sodium Chloride 0.9%) 250 mls @ 20 mls/hr IV .[id number] [facility] Last Admin: 12/13/17 21:17 Dose: Not Given Heparin Sodium/Sodium Chloride (Heparin/Ns) 500 mls @ 0 mls/hr IV .Q0M ERIC; KVO PRN Reason: Protocol Sodium Chloride (Sodium Chloride 0.45%) 1,000 mls @ 125 mls/hr IV .Q8H [facility] Stop: 12/14/17 18:14 Last Admin: 12/14/17 14:18 Dose: 125 mls/hr Fat Emulsion Intravenous (Intralipid 20%) 250 mls @ 25 mls/hr IV [id number]@1600 ERIC Potassium Chloride 10 meq/Potassium Phosphate 30 meq/Multivitamins/Minerals 10 ml/Selenium 60 mcg/ Amino Acids 1,023.3182 mls @ 30 mls/hr IV Q24H [facility] Insulin Human Lispro (Humalog) 0 unit SQ Q6 ERIC PRN Reason: Protocol Last Admin: 12/14/17 14:17 Dose: 3 unit Latanoprost (Xalatan Ophth Drops) 1 gtt OU HS [facility] Last Admin: 12/13/17 21:11 Dose: 1 drop Lorazepam (Ativan) 0.5 mg IV Q4HP PRN PRN Reason: ANXIETY/SEDATION Last Admin: 12/14/17 10:52 Dose: 0.5 mg Methylprednisolone Sodium Succinate (Solu-Medrol) 40 mg IV Q6 [facility] Last Admin: 12/14/17 12:47 Dose: 40 mg Metoprolol Tartrate (Lopressor) 5 mg IV Q2HP PRN PRN Reason: Tachyarrhythmias Last Admin: 12/14/17 14:18 Dose: 5 mg Naloxone HCl (Narcan) 0.1 mg IV Q2MIN PRN PRN Reason: Opiate Reversal Senna (Senokot) 2 tab PO HSP PRN PRN Reason: Constipation Sodium Chloride (Saline Flush) 10 ml IV Q8 [facility] Last Admin: 12/14/17 14:08 Dose: 10 ml Tamsulosin HCl (Flomax) 0.4 mg PO QDAY [facility] Last Admin: 12/13/17 10:09 Dose: 0.4 mg Medical - PN: A/P - Time Spent With Patient Total time spent is greater than 50% in coordination of care (as documented) at patient's floor/unit and/or counseling patient: Greater than 35 minutes - Narrative A/P Narrative: A/P Acute respiratory failure- [facility] mode, due to PNA/ COPD exacerbation. Continue respiratory support. the patient remains stable and Intal can be given Acute COPD exacerbation-treat with antibiotics, DuoNeb's and IV steroids, nebulizers every 4 hours because of the pressure is normal plateau pressure is normal. Was on Ventilator support 12/11-12/12. Recurrent respiratory distress 12/13. Resolving after neb treatments and BiPAP support. Continue to watch closely. Started on Solumedrol Fhdsrfvgd-heqqjbjwx-nayjuqqf pneumonia-staph aureus pneumonia-on IV vancomycin, also Rocephin and Zithromax for community-acquired pneumonia. Tamiflu for possible influenza. Blood c/s: MSSA. 12/13: Vancomycin stopped Gram positive coccemia. MSSA. Echo: no vegetations noted, however suboptimal study. atrial flutter-patient has a chronic history of atrial flutter fibrillation, not on medications for rate control, does take eliquis for anticoagulation. IV metoprolol when necessary for now. 12/13: eliquis stopped. Lovenox 1 mg/kg BID Severe sepsis with septic shock, multiorgan dysfunction: IV fluids, pressors to keep map > 65, monitor urine output, get echo, treat underlying infection. Acute kidney injury-renal function worsened to 1.4, did not put between 25-30 cc an hour, patient getting IV fluids. Lasix administered 12/13 am. Elevated troponins-secondary to demand ischemia type II myocardial infarction, trend was downwards before patient became hypotensive. BPH-continue tamsulosin, WILSON in place Diabetes-not taking any medications, diet controlled. Monitor glucose for now if elevated secondary to steroids will place him on sliding scale insulin Ileus 12/13: CT-abdomen/pelvis pending. Start TPN. DVT-patient is on anticoagulation Patient wishes to be full code for now Spent total of > 35 min spent in critical care for this patient: eval and management respiratory distress, coordination of care. Medical - PN: Qual - VTE Deep Vein Thrombosis/Pulmonary Embolism Present on Admission: No Procedures - Arterial Line Size (Gauge): 20
[2017-12-14] MEDS: TAMSULOSIN 0.4 MG CAPSULE PO SCH (17:02)
[2017-12-14] MEDS: 0.9 % SODIUM CHLORIDE 250 ML IV SCH (17:02)
[2017-12-14] MEDS ORDERED: IOPAMIDOL 100 ML BOTTLE IV ONE (17:40)
[2017-12-14] MEDS: FAT EMULSION 20% 250 ML IV SCH (18:00)
[2017-12-14] MEDS ORDERED: [UNRECOGNIZED DRUG - REMARK] IV SCH (18:00)
--- NOTE | 2017-12-14 18:10 | Cat Scan Report ---
CLINICAL INFORMATION: Abdominal pain and distention. COMPARISON: Plain films 12/14/2017. TECHNIQUE: Following enteric contrast, 80 cc of Isovue-300 were injected intravenously, and 60 seconds later, 0.625 mm helical slices were obtained from the mid heart through the subtrochanteric regions. Following reconstruction, 2.5 mm sagittal, coronal and axial reformatted images were processed and reviewed at bone, lung and soft tissue windows. Five minutes later, 0.625 mm helical slices were obtained from the mid heart through the kidneys and viewed at soft tissue windows.The exam was performed using radiation dose optimization techniques including, but not limited to, automated exposure control, adjustment of the mA and/or kV according to patient size and use of iterative reconstruction technique. FINDINGS: Lung bases show moderate patchy alveolar infiltrate in the right lower lobe with a smaller patchy alveolar infiltrate in the left lower lobe. There are small bilateral pleural effusions. The heart is moderately enlarged. Images should the abdomen show the gallbladder and bile ducts are unremarkable. There is a 14 mm cyst in the inferior lateral segment of the left hepatic lobe. Liver is slightly reduced in size and slight contour abnormality and parenchymal inhomogeneity suggestive, but not diagnostic, of mild cirrhosis There is a 20 mm adenoma in the left adrenal gland. Right adrenal gland, both kidneys, spleen and pancreas are normal. The aorta is normal in contour and caliber with moderate fibrofatty calcific plaque. 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 The celiac, JULIA and renal arteries are widely patent. Images through the pelvis show Darnell catheter in proper position within urinary bladder no bladder abnormalities. Prostate is normal. The cecum is mildly dilated and is quite mobile extending across the mid abdominal cavity. This would account for the air collection on plain film. There is no evidence of a volvulus or bascule however. The remainder of the colon has normal amounts of air and the small bowel is unremarkable. There is volar right inguinal hernia (16 x 3 cm) containing only mesenteric fat and a small amount of edema. Small of ascites is noted. There is no free air and no adenopathy. Bone windows show no osseous abnormality IMPRESSION: 1. Hypermobile cecum which extends across the abdominal midline. This would account for the air collection seen on plain film. There is no evidence of cecal volvulus or bascule. No evidence of bowel obstruction. Mild ileus is noted 2. Large (16 x 3 cm) right inguinal hernia consisting only mesenteric fat. Edema is noted within the herniated fat 3. Small amount of ascites. It is possible the patient in mild cirrhosis - please correlate with liver function tests.. 4. Moderate patchy alveolar infiltrate posterior right lower lobe with small infiltrate in the posterior left lower lobe. Small bilateral pleural effusions 5. 20 mm benign adenoma - left adrenal gland 6. 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 Interpreted and Authenticated by: Nish Hamilton 12/14/17
[2017-12-14 18:31] LABS: ALT/SGPT 15 U/l (0-40); Albumin 2.7 gm/dL (3.2-5.2); Albumin/Globulin Ratio 0.7 (1.0-2.3); Alkaline Phosphatase 51 U/L (39-117); Bilirubin,Direct < 0.2 mg/dL (0.0-0.3); Blood Urea Nitrogen 40 mg/dl (8-23); Gamma Glutamyl Transpeptidase 20 U/L (8-61); Prealbumin 14.1 mg/dl (20-40); Uric Acid 7.1 mg/dL (2.5-8.0)
[2017-12-14] MEDS: OSELTAMIVIR PHOSPHATE 75 MG CAPSULE PO SCH (18:36)
[2017-12-14] MEDS: APIXABAN 5 MG TABLET PO SCH (18:36)
[2017-12-14] MEDS: LATANOPROST OPHTH DROPS 2.5ML BOTTLE OU SCH (21:16)
[2017-12-15] MEDS: 0.9 % SODIUM CHLORIDE 250 ML IV SCH ×2 (00:08→11:37)
[2017-12-15] MEDS: HYDROmorphone 2 MG/ML VIAL IV PRN ×4 (00:18→22:06)
[2017-12-15] MEDS: INSULIN LISPRO 1 UNIT/0.01 ML UNIT SQ SCH ×4 (00:18→17:26)
[2017-12-15] MEDS: methylPREDNISolone SOD SUCC 40 MG/ML VIAL IV SCH ×3 (00:21→11:52)
[2017-12-15] MEDS: IPRATROPIUM/ALBUTEROL 3 ML AMPUL.NEB NEB SCH ×6 (02:55→23:08)
[2017-12-15 04:59] LABS: Basophils # (Auto) 0 K/mcL (0.0-0.3); Basophils % (Auto) 0 % (0.0-2.0); Eosinophils # (Auto) 0.2 K/mcL (0.0-0.7); Eosinophils % (Auto) 2.4 % (0.0-7.0); Granulocytes % (Auto) 90.9 % (38.0-78.0); Lymphocytes # (Auto) 0.2 K/mcL (1.5-4.8); Mean Cell Volume 94.4 fL (80.0-100.0); Mean Corpuscular HGB Conc 33.2 g/dL (31.0-36.0); Mean Corpuscular Hemoglobin 31.3 pg (26.0-34.0); Monocytes # (Auto) 0.4 K/mcL (0.1-0.9); Monocytes % (Auto) 4.7 % (1.0-12.0); Platelet Count 163 K/mcL (140-440); RBC 4.16 M/mcL (4.50-5.90)
[2017-12-15 05:25] LABS: ALT/SGPT 14 U/l (0-40); Albumin 2.7 gm/dL (3.2-5.2); Albumin/Globulin Ratio 0.8 (1.0-2.3); Alkaline Phosphatase 45 U/L (39-117); Bilirubin,Direct < 0.2 mg/dL (0.0-0.3); Blood Urea Nitrogen 35 mg/dl (8-23); Gamma Glutamyl Transpeptidase 17 U/L (8-61); Uric Acid 5.9 mg/dL (2.5-8.0)
[2017-12-15] MEDS: 0.9 % SODIUM CHLORIDE 10 ML SYRINGE IV SCH ×3 (05:40→21:31)
[2017-12-15] MEDS: LORazepam 2 MG/ML VIAL IV PRN (07:26)
[2017-12-15] MEDS: TAMSULOSIN 0.4 MG CAPSULE PO SCH (07:27)
[2017-12-15] MEDS: 0.45 % SODIUM CHLORIDE 1,000 ML IV SCH ×2 (07:45→16:50)
[2017-12-15] MEDS: CHLORHEXIDINE GLUCONATE 1 ML ORAL.SOL SWABMOUTH SCH ×2 (08:35→20:13)
[2017-12-15] MEDS: METOPROLOL TARTRATE 5 MG/5 ML VIAL IV PRN ×2 (08:37→15:48)
[2017-12-15] MEDS: ENOXAPARIN 80 MG/0.8 ML SYRINGE SQ SCH ×2 (08:37→20:12)
[2017-12-15] MEDS: FAMOTIDINE/PF 20 MG/2 ML VIAL IV SCH ×2 (08:37→20:13)
[2017-12-15] MEDS: cefTRIAXone 2 GM VIAL IV SCH (08:42)
--- NOTE | 2017-12-15 09:11 | XRay Report ---
CLINICAL INFORMATION: Follow infiltrates on mechanical ventilation COMPARISON: 12/14/2017 FINDINGS: PICC line tip overlies the SVC/right atrial junction in stable satisfactory position. Mild cardiomegaly is unchanged. Mediastinum and pulmonary vessels are normal. Moderate patchy infiltrates in the right mid and lower lung show slight worsening. Small patchy infiltrate in the left lower lung has also progressed. There are small bilateral pleural effusions IMPRESSION: Moderate patchy infiltrate in the right mid and lower lungs and small patchy left lower lung shows slight progression Mild cardiomegaly is stable - no evidence of CHF Interpreted and Authenticated by: Nish Hamilton 12/15/17
--- NOTE | 2017-12-15 12:09 | Internal Med Progress Note ---
Medical - PN: Subj Patient information: Note initiated : 12/15/17 at 12:06 pm Service Date, if different from initiated Date: [] Patient: Camilo Figueroa 77 y/o M admitted on 12/10/17 for Shortness of Breath, Moist Cough/Pneumonia. Interval history: Mr. Figueroa is a 77 year old Male with history of COPD,hypertension, hyperlipidemia, chronic A. fib who presents to the emergency room today with shortness of breath, cough that has been going on since Monday. Patient's daughter was at bedside who provided some history along with the patient. The patient's daughter had a URI-like symptom, last week I believe and the patient started showing signs of cough from Monday. The patient's condition gradually worsened since then. Patient has been having cough with expectoration initially, no blood in the sputum. He has been having progressive shortness of breath. He notes he has been having subjective sensations of fever, chills, sweating. He has decreased effort tolerance and is unable to walk short distances now. For the last day the cough has subsided and it is difficult for him to bring up the sputum. The patient is extremely weak and has therefore been brought to the emergency room for further evaluation. In the emergency room, the patient was noted to be in moderate respiratory distress, he was afebrile, his white blood cell count was 5.9, chemistry showed worsening renal function with a creatinine of 1.6. His lactic acid was 5.9, first set of troponin was 0.11 and second set was 0.09. He had an elevated pro- calcitonin and 8.43. Chest x-ray showed pneumonia. the patient was tachycardic with A. fib with RVR on presentation and was on a diltiazem drip, his blood pressure was also very high and difficult to 78 physician and put him on nitroglycerin drip. Both these medications were discontinued after admission He was admitted to the hospital for further management, admitted to pcu status. dec 11 Pt overnight had deterioration in his clinical status, was intubated, had PICC placed, A line placed. He was overnight on pressors, levophed and vasopressin, presently only on levophed, bp stable. ABG reviwed, Chest X ray reviewed patient family was updated and was at bedside This AM pt sedated on Vent, TV 400, rr 24, peep 5, PAP 19-20 Plat 16-17, Pt still has some lactic acidosis, on IVF, ringers lactate changed to Saline. Patient Blood culture is postive for gpc in clusters, staph auress, pt already on vancomycin. Likely staph pneumonia secondary to influenza. Feb 27 . Seen and examined, no acute overnight events, patient remains off pressors. Hemodynamically stable. On baseline vent settings. This morning, when settings were, tidal volume 500, rate of 20, FiO2 35, PEEP of 5. Peak airway pressures around 20, plateau pressures 16-17 The patient was drowsy, was able to grasp hands and move his toes. Did not seem agitated. For order for blood culture bottles are positive for gram-positive cocci. Chest x-ray shows improvement in infiltrate. Lines in place repeat cultures ordered, echo ordered. ABG reviewed Feedings started, last night was still going on. Initially we thought we could try a weaning trial given his baseline settings however due to shift change between the hospital providers, weaning trial and extubation will be decided by the oncoming provider. that is slight worsening in renal function, urine output is 25-30 mL per hour. Family updated Around 2 pm extubated. Tolerated PS well, minimal secretions. Hemodynamics stable. Feb 28. Did well overnight. Was still somnolent. But, hemodynamics stable and breathing comfortably. Poor U/O. Received lasix at night and IVF was d/c'd. This afternoon became suddenly cyanotic with poor respiratory effort and struggle to cough. Lungs: few rhonchi at bases. Poor BS and respiratory effort. ET-suctioning for minimal secretions. CXR without significant changes compared to am. No atelectasis, overt pulmonary edema or pneumothorax. DD bronchospasm, fatigue Duoneb, BiPAP ventilator support, Lasix December 14: Had episode of severe respiratory distress last night, requiring high FiO2. Had bronchospasm, tachypnea and cyanotic discoloration. Gave neb treatments, dilaudid, ET-suctioning, solumedrol, BiPAP support. This am noted abdominal distention. KUB showed dilatation of bowel loops and possible free air vs volvulus. CT-abd/pelvis pending. Hold nutrition via feeding tube. Will start TPN Patient has also have hx of major epistaxis. Is on Eliquis with hematuria. Am reluctant to insert NG for decompression and potentially causing epistaxis. Eliquis discontinued. Start Lovenox for afibr. December 15: Required BiPAP support last night. Minimal secretions. Microbiology: MSSA bacteremia. Nafcillin started - Constitutional Vitals: Vital Signs Temp Pulse Resp BP Pulse Ox 98.9 F 90 18 144/90 96 12/15/17 11:01 12/15/17 11:25 12/15/17 11:25 12/15/17 11:01 12/15/17 11:25 Period Temp Pulse Resp BP Sys/Cai Pulse Ox Last 24 Hr 98.4 F-100.1 F 44-126 14-36 130-181/84-119 94-100 Intake and Output 12/14/17 12/15/17 12/15/17 21:59 05:59 13:59 Intake Total 858 / 858 912 / 912 Output Total 390 / 390 460 / 460 270 / 270 Balance 468 / 468 452 / 452 -270 / -270 Weight 169 lb 1.6 oz Intake & Output: Intake & Output 12/14/17 12/15/17 12/15/17 21:59 05:59 13:59 Intake Total 858 / 858 912 / 912 Output Total 390 / 390 460 / 460 270 / 270 Balance 468 / 468 452 / 452 -270 / -270 Weight 169 lb 1.6 oz Intake: IV 858 / 858 912 / 912 Sodium Chloride 0.45% 1,000 ml 338 / 338 @ 125 mls/hr IV .Q8H [facility] Rx#: [id number] Intralipid 20% 250 ml @ 25 mls/ 250 / 250 hr IV TuThSa@1600 [facility] Rx#: [id number] Output: Urine Catheter Amount 390 / 390 460 / 460 270 / 270 Other: Stool Size Moderate Stool Color Green Stool Consistency Liquid # of times incontinent of 1 Bowels General appearance: no acute distress - Respiratory Respiratory exam: Present: rhonchi - GI/Abdominal GI/Abdominal exam: Present: soft, diminished bowel sounds - Extremities Exam Extremities exam: Present: normal inspection. Absent: pedal edema Medical - PN: Obj Da - Labs CBC & Chem 7: 12/15/17 03:40 12/15/17 03:40 Labs: Abnormal Lab Results 12/15/17 12/15/17 12/14/17 03:40 03:40 16:18 WBC RBC 4.16 L Hgb 13.0 L Hct 39.3 L RDW 15.0 H Gran % 90.9 H Lymph % (Auto) 2.0 L Gran # 8.4 H Lymph # (Auto) 0.2 L Sodium 147 H 147 H Chloride 112 H 112 H Carbon Dioxide BUN 35 H 40 H Creatinine Glucose 226 H 214 H Calcium 8.1 L 8.2 L Phosphorus 1.9 L 2.2 L Magnesium 2.6 H 2.7 H Lactate Dehydrogenase 288 H 337 H Albumin 2.7 L 2.7 L Albumin/Globulin Ratio 0.8 L 0.7 L Prealbumin 14.1 L Triglycerides 216 H Vancomycin Trough 12/14/17 12/14/17 12/13/17 03:30 03:30 10:35 WBC RBC 4.39 L Hgb Hct RDW 15.2 H Gran % 90.2 H Lymph % (Auto) 2.6 L Gran # 9.6 H Lymph # (Auto) 0.3 L Sodium 146 H Chloride 110 H Carbon Dioxide BUN 42 H Creatinine Glucose 160 H Calcium 8.4 L Phosphorus 2.5 L Magnesium 2.6 H Lactate Dehydrogenase 278 H Albumin 2.7 L Albumin/Globulin Ratio 0.8 L Prealbumin Triglycerides Vancomycin Trough 21.0 H* 12/13/17 12/13/17 03:56 03:30 WBC 13.0 H RBC 4.19 L Hgb 13.0 L Hct 39.6 L RDW 15.3 H Gran % 89.3 H Lymph % (Auto) 3.2 L Gran # 11.6 H Lymph # (Auto) 0.4 L Sodium Chloride 110 H Carbon Dioxide 20 L BUN 45 H Creatinine 1.3 H Glucose 141 H Calcium 8.2 L Phosphorus Magnesium 2.8 H Lactate Dehydrogenase 305 H Albumin 2.5 L Albumin/Globulin Ratio 0.7 L Prealbumin Triglycerides Vancomycin Trough Meds: Medications Acetaminophen (Tylenol) 650 mg PO Q4-6HP PRN PRN Reason: PAIN/FEVER > 101 Albuterol/Ipratropium (Duoneb) 3 ml NEB Q4HRT [facility] Last Admin: 12/15/17 11:25 Dose: 3 ml Ceftriaxone Sodium (Rocephin) 2 gm IV DAILY [facility] Last Admin: 12/15/17 08:42 Dose: 2 gm Chlorhexidine Gluconate (Peridex) 15 ml SWABMOUTH BID [facility] Last Admin: 12/15/17 08:35 Dose: 15 ml Dextrose (Dextrose 50%) 0 ml IV UD PRN PRN Reason: Hypoglycemia Diagnostic Test (Pha) (Accu-Chek) 1 each FS Q6 [facility] Last Admin: 12/15/17 05:39 Dose: 1 each Enoxaparin Sodium (Lovenox) 80 mg SQ BID [facility] Last Admin: 12/15/17 08:37 Dose: 80 mg Famotidine (Pepcid) 20 mg IV Q12 [facility] Last Admin: 12/15/17 08:37 Dose: 20 mg Heparin Sodium (Porcine) (Heparin Flush) 2 ml IV Q12 [facility] Last Admin: 12/15/17 08:36 Dose: 2 ml Hydromorphone HCl (Dilaudid) 0.5 mg IV Q2HP PRN PRN Reason: PAIN LEVEL > 6 Last Admin: 12/15/17 04:55 Dose: 0.5 mg Acetaminophen (Ofirmev) 650 mg in 65 mls @ 130 mls/hr IV Q6HP PRN PRN Reason: PAIN/FEVER > 101 Last Infusion: 12/12/17 20:23 Dose: Infused Sodium Chloride (Sodium Chloride 0.9%) 250 mls @ 20 mls/hr IV .[id number] [facility] Last Admin: 12/15/17 11:37 Dose: Not Given Heparin Sodium/Sodium Chloride (Heparin/Ns) 500 mls @ 0 mls/hr IV .Q0M [facility]; KVO PRN Reason: Protocol Fat Emulsion Intravenous (Intralipid 20%) 250 mls @ 25 mls/hr IV TuThSa@1600 [facility] Last Infusion: 12/15/17 04:00 Dose: Infused Potassium Chloride 10 meq/Potassium Phosphate 30 meq/Multivitamins/Minerals 10 ml/Selenium 60 mcg/ Amino Acids 1,023.3182 mls @ 30 mls/hr IV Q24H [facility] Last Admin: 12/14/17 18:01 Dose: 30 mls/hr Sodium Chloride (Sodium Chloride 0.45%) 1,000 mls @ 100 mls/hr IV .Q10H [facility] Last Admin: 12/15/17 07:45 Dose: 100 mls/hr Nafcillin Sodium 2 gm/ Sodium (Chloride) 50 mls @ 100 mls/hr IV Q4H [facility] Insulin Human Lispro (Humalog) 0 unit SQ Q6 ERIC PRN Reason: Protocol Last Admin: 12/15/17 05:39 Dose: 3 unit Latanoprost (Xalatan Ophth Drops) 1 gtt OU HS [facility] Last Admin: 12/14/17 21:16 Dose: 1 drop Lorazepam (Ativan) 0.5 mg IV Q4HP PRN PRN Reason: ANXIETY/SEDATION Last Admin: 12/15/17 07:26 Dose: 0.5 mg Metoprolol Tartrate (Lopressor) 5 mg IV Q2HP PRN PRN Reason: Tachyarrhythmias Last Admin: 12/15/17 08:37 Dose: 5 mg Naloxone HCl (Narcan) 0.1 mg IV Q2MIN PRN PRN Reason: Opiate Reversal Senna (Senokot) 2 tab PO HSP PRN PRN Reason: Constipation Sodium Chloride (Saline Flush) 10 ml IV Q8 [facility] Last Admin: 12/15/17 05:40 Dose: 10 ml Tamsulosin HCl (Flomax) 0.4 mg PO QDAY [facility] Last Admin: 12/15/17 07:27 Dose: Not Given Medical - PN: A/P - Time Spent With Patient Total time spent is greater than 50% in coordination of care (as documented) at patient's floor/unit and/or counseling patient: 25 - 35 minutes - Narrative A/P Narrative: A/P Acute respiratory failure- [facility] mode, due to PNA/ COPD exacerbation. Continue respiratory support. the patient remains stable and Intal can be given Acute COPD exacerbation-treat with antibiotics, DuoNeb's and IV steroids, nebulizers every 4 hours because of the pressure is normal plateau pressure is normal. Was on Ventilator support 12/11-12/12. Recurrent respiratory distress 12/13. Resolving after neb treatments and BiPAP support. Continue to watch closely. Started on Solumedrol 12/13. D/C Solumedrol. No evidence of continued bronchospasm [id number] pneumonia-staph aureus pneumonia-on IV vancomycin, also Rocephin and Zithromax for community-acquired pneumonia. Tamiflu for possible influenza. Blood c/s: MSSA. 12/13: Vancomycin stopped. 12/15 Nafcillin started Gram positive coccemia. MSSA. Echo: no vegetations noted, however suboptimal study. 12/15 Nafcillin started atrial flutter-patient has a chronic history of atrial flutter fibrillation, not on medications for rate control, does take eliquis for anticoagulation. IV metoprolol when necessary for now. 12/13: eliquis stopped. Lovenox 1 mg/kg BID Severe sepsis with septic shock, multiorgan dysfunction: IV fluids, pressors to keep map > 65, monitor urine output, get echo, treat underlying infection. Acute kidney injury-renal function worsened to 1.4, did not put between 25-30 cc an hour, patient getting IV fluids. Lasix administered 12/13 am. Elevated troponins-secondary to demand ischemia type II myocardial infarction, trend was downwards before patient became hypotensive. BPH-continue tamsulosin, WILSON in place Diabetes-not taking any medications, diet controlled. Monitor glucose for now if elevated secondary to steroids will place him on sliding scale insulin Ileus 12/13: CT-abdomen/pelvis pending. Start TPN. DVT-patient is on anticoagulation Patient wishes to be full code for now Spent total of > 35 min spent in critical care for this patient: eval and management respiratory distress, coordination of care. Medical - PN: Qual - VTE Deep Vein Thrombosis/Pulmonary Embolism Present on Admission: No Procedures - Arterial Line Size (Gauge): 20
[2017-12-15] MEDS: NAFCILLIN 2 GM in 0.9 % SODIUM CHLORIDE 50 ML IV SCH ×3 (13:00→20:12)
[2017-12-15] MEDS ORDERED: [UNRECOGNIZED DRUG - REMARK] IV SCH (18:00)
[2017-12-15] MEDS: METOPROLOL TARTRATE 5 MG/5 ML VIAL IV SCH (20:12)
[2017-12-15] MEDS: LATANOPROST OPHTH DROPS 2.5ML BOTTLE OU SCH (20:13)
[2017-12-16] MEDS: METOPROLOL TARTRATE 5 MG/5 ML VIAL IV SCH ×6 (00:12→20:19)
[2017-12-16] MEDS: INSULIN LISPRO 1 UNIT/0.01 ML UNIT SQ SCH ×4 (00:12→16:31)
[2017-12-16] MEDS: 0.9 % SODIUM CHLORIDE 250 ML IV SCH ×2 (00:13→14:13)
[2017-12-16] MEDS: NAFCILLIN 2 GM in 0.9 % SODIUM CHLORIDE 50 ML IV SCH ×5 (00:13→16:31)
[2017-12-16] MEDS: IPRATROPIUM/ALBUTEROL 3 ML AMPUL.NEB NEB SCH ×6 (02:57→22:46)
[2017-12-16] MEDS: HYDROmorphone 2 MG/ML VIAL IV PRN ×5 (03:39→21:01)
[2017-12-16 05:29] LABS: Basophils # (Auto) 0 K/mcL (0.0-0.3); Basophils % (Auto) 0 % (0.0-2.0); Eosinophils # (Auto) 0.3 K/mcL (0.0-0.7); Eosinophils % (Auto) 3.3 % (0.0-7.0); Granulocytes % (Auto) 87.2 % (38.0-78.0); Lymphocytes # (Auto) 0.2 K/mcL (1.5-4.8); Lymphocytes % (Auto) 2.7 % (15.5-49.0); Mean Cell Volume 98.8 fL (80.0-100.0); Mean Corpuscular HGB Conc 31.9 g/dL (31.0-36.0); Mean Corpuscular Hemoglobin 31.5 pg (26.0-34.0); Monocytes # (Auto) 0.6 K/mcL (0.1-0.9); Monocytes % (Auto) 6.8 % (1.0-12.0); Platelet Count 168 K/mcL (140-440); RBC 3.82 M/mcL (4.50-5.90); Red Cell Distribution Width 16.2 % (11.5-14.5)
[2017-12-16] MEDS: 0.9 % SODIUM CHLORIDE 10 ML SYRINGE IV SCH ×3 (05:32→21:19)
[2017-12-16 07:25] LABS: ALT/SGPT 14 U/l (0-40); Albumin 2.4 gm/dL (3.2-5.2); Albumin/Globulin Ratio 0.8 (1.0-2.3); Alkaline Phosphatase 41 U/L (39-117); Bilirubin,Direct 0.3 mg/dL (0.0-0.3); Blood Urea Nitrogen 33 mg/dl (8-23); Gamma Glutamyl Transpeptidase 27 U/L (8-61); Uric Acid 3.8 mg/dL (2.5-8.0)
[2017-12-16] MEDS ORDERED: 0.45 % SODIUM CHLORIDE 1,000 ML IV SCH (08:45)
[2017-12-16] MEDS ORDERED: POTASSIUM CHLORIDE 40 MEQ in DEXTROSE 5% IN WATER 250 ML IV ONE (09:00)
[2017-12-16] MEDS: CHLORHEXIDINE GLUCONATE 1 ML ORAL.SOL SWABMOUTH SCH ×2 (09:04→21:01)
[2017-12-16] MEDS: ENOXAPARIN 80 MG/0.8 ML SYRINGE SQ SCH ×2 (09:05→21:01)
[2017-12-16] MEDS: FAMOTIDINE/PF 20 MG/2 ML VIAL IV SCH ×2 (09:05→21:01)
[2017-12-16] MEDS: TAMSULOSIN 0.4 MG CAPSULE PO SCH (09:06)
[2017-12-16] MEDS: cefTRIAXone 2 GM VIAL IV SCH (09:44)
[2017-12-16] MEDS: diphenhydrAMINE 50 MG/ML VIAL IV PRN ×2 (10:48→16:26)
[2017-12-16] MEDS ORDERED: [UNRECOGNIZED DRUG - REMARK] IV SCH (15:00)
--- NOTE | 2017-12-16 15:21 | Internal Med Progress Note ---
Medical - PN: Subj Patient information: Note initiated : 12/16/17 at 3:16 pm Service Date, if different from initiated Date: [] Patient: Camilo Figueroa 77 y/o M admitted on 12/10/17 for Shortness of Breath, Moist Cough/Pneumonia. Interval history: Mr. Fgiueroa is a 77 year old Male with history of COPD,hypertension, hyperlipidemia, chronic A. fib who presents to the emergency room today with shortness of breath, cough that has been going on since Monday. Patient's daughter was at bedside who provided some history along with the patient. The patient's daughter had a URI-like symptom, last week I believe and the patient started showing signs of cough from Monday. The patient's condition gradually worsened since then. Patient has been having cough with expectoration initially, no blood in the sputum. He has been having progressive shortness of breath. He notes he has been having subjective sensations of fever, chills, sweating. He has decreased effort tolerance and is unable to walk short distances now. For the last day the cough has subsided and it is difficult for him to bring up the sputum. The patient is extremely weak and has therefore been brought to the emergency room for further evaluation. In the emergency room, the patient was noted to be in moderate respiratory distress, he was afebrile, his white blood cell count was 5.9, chemistry showed worsening renal function with a creatinine of 1.6. His lactic acid was 5.9, first set of troponin was 0.11 and second set was 0.09. He had an elevated pro- calcitonin and 8.43. Chest x-ray showed pneumonia. the patient was tachycardic with A. fib with RVR on presentation and was on a diltiazem drip, his blood pressure was also very high and difficult to 78 physician and put him on nitroglycerin drip. Both these medications were discontinued after admission He was admitted to the hospital for further management, admitted to pcu status. dec 11 Pt overnight had deterioration in his clinical status, was intubated, had PICC placed, A line placed. He was overnight on pressors, levophed and vasopressin, presently only on levophed, bp stable. ABG reviwed, Chest X ray reviewed patient family was updated and was at bedside This AM pt sedated on Vent, TV 400, rr 24, peep 5, PAP 19-20 Plat 16-17, Pt still has some lactic acidosis, on IVF, ringers lactate changed to Saline. Patient Blood culture is postive for gpc in clusters, staph auress, pt already on vancomycin. Likely staph pneumonia secondary to influenza. Feb 27 . Seen and examined, no acute overnight events, patient remains off pressors. Hemodynamically stable. On baseline vent settings. This morning, when settings were, tidal volume 500, rate of 20, FiO2 35, PEEP of 5. Peak airway pressures around 20, plateau pressures 16-17 The patient was drowsy, was able to grasp hands and move his toes. Did not seem agitated. For order for blood culture bottles are positive for gram-positive cocci. Chest x-ray shows improvement in infiltrate. Lines in place repeat cultures ordered, echo ordered. ABG reviewed Feedings started, last night was still going on. Initially we thought we could try a weaning trial given his baseline settings however due to shift change between the hospital providers, weaning trial and extubation will be decided by the oncoming provider. that is slight worsening in renal function, urine output is 25-30 mL per hour. Family updated Around 2 pm extubated. Tolerated PS well, minimal secretions. Hemodynamics stable. Feb 28. Did well overnight. Was still somnolent. But, hemodynamics stable and breathing comfortably. Poor U/O. Received lasix at night and IVF was d/c'd. This afternoon became suddenly cyanotic with poor respiratory effort and struggle to cough. Lungs: few rhonchi at bases. Poor BS and respiratory effort. ET-suctioning for minimal secretions. CXR without significant changes compared to am. No atelectasis, overt pulmonary edema or pneumothorax. DD bronchospasm, fatigue Duoneb, BiPAP ventilator support, Lasix December 14: Had episode of severe respiratory distress last night, requiring high FiO2. Had bronchospasm, tachypnea and cyanotic discoloration. Gave neb treatments, dilaudid, ET-suctioning, solumedrol, BiPAP support. This am noted abdominal distention. KUB showed dilatation of bowel loops and possible free air vs volvulus. CT-abd/pelvis pending. Hold nutrition via feeding tube. Will start TPN Patient has also have hx of major epistaxis. Is on Eliquis with hematuria. Am reluctant to insert NG for decompression and potentially causing epistaxis. Eliquis discontinued. Start Lovenox for afibr. December 15: Required BiPAP support last night. Minimal secretions. Microbiology: MSSA bacteremia. On Nafcillin December 16: Max time off BiPAP 2-3 hours. Na 148, despite 1/2 NS IVF d/W pharmacy: no Na in TPN repeat labs later today Spoke at length with and daughter: weaning off BiPAP will take days. Other problems: weakness, encephalopathy and ileus. Code status revisited. In case of worsening condition: no CPR and/or re-intubation. - Constitutional Vitals: Vital Signs Temp Pulse Resp BP Pulse Ox 98.8 F 89 20 174/85 99 12/16/17 07:01 12/16/17 07:36 12/16/17 07:36 12/16/17 07:01 12/16/17 07:30 Period Temp Pulse Resp BP Sys/Cai Pulse Ox Last 24 Hr 98.3 F-99.4 F 79-141 13-24 131-184/73-120 95-100 Intake and Output 12/16/17 12/16/17 12/16/17 05:59 13:59 21:59 Intake Total 1100 / 1100 50 / 50 1032.8636 / 1032.8636 Output Total 620 / 620 Balance 480 / 480 50 / 50 1032.8636 / 1032.8636 Weight 166 lb 1.6 oz Patient Weight 12/17/17 05:59 Weight 166 lb 1.6 oz Intake & Output: Intake & Output 12/16/17 12/16/17 12/16/17 05:59 13:59 21:59 Intake Total 1100 / 1100 50 / 50 1032.8636 / 1032.8636 Output Total 620 / 620 Balance 480 / 480 50 / 50 1032.8636 / 1032.8636 Weight 166 lb 1.6 oz Intake: IV 1100 / 1100 50 / 50 1032.8636 / 1032.8636 Calcium Gluconate 4.65 Meq 1032.8636 / 1032.8636 Potassium Phosphate 50 Meq Infuvite Adult 10 ml Selenium 60 Mcg In Clinimix 5%-20% Solution 1,000 ml @ 50 mls/hr IV Q24H [facility] Rx#:[id number] Nafcillin 2 gm In Sodium 100 / 100 50 / 50 Chloride 0.9% 50 ml @ 100 mls/ hr IV Q4H [facility] Rx#:[id number] Output: Urine Catheter Amount 620 / 620 General appearance: no acute distress - Respiratory Respiratory exam: Present: decreased breath sounds - Cardiovascular Cardiovascular exam: Present: tachycardia - GI/Abdominal GI/Abdominal exam: Present: soft, distended, hypoactive bowel sounds - Neurological Exam Neurological exam: Present: altered Medical - PN: Obj Da - Labs CBC & Chem 7: 12/16/17 03:41 12/16/17 05:55 Labs: Abnormal Lab Results 12/16/17 12/16/17 12/15/17 05:55 03:41 03:40 RBC 3.82 L Hgb 12.0 L Hct 37.7 L RDW 16.2 H Gran % 87.2 H Lymph % (Auto) 2.7 L Gran # Lymph # (Auto) 0.2 L Sodium 148 H 147 H Chloride 114 H 112 H BUN 33 H 35 H Glucose 165 H 226 H Calcium 7.6 L 8.1 L Phosphorus 1.9 L Magnesium 2.6 H Lactate Dehydrogenase 298 H 288 H Total Protein 5.6 L Albumin 2.4 L 2.7 L Albumin/Globulin Ratio 0.8 L 0.8 L Prealbumin Triglycerides 216 H 12/15/17 12/14/17 12/14/17 03:40 16:18 03:30 RBC 4.16 L Hgb 13.0 L Hct 39.3 L RDW 15.0 H Gran % 90.9 H Lymph % (Auto) 2.0 L Gran # 8.4 H Lymph # (Auto) 0.2 L Sodium 147 H 146 H Chloride 112 H 110 H BUN 40 H 42 H Glucose 214 H 160 H Calcium 8.2 L 8.4 L Phosphorus 2.2 L 2.5 L Magnesium 2.7 H 2.6 H Lactate Dehydrogenase 337 H 278 H Total Protein Albumin 2.7 L 2.7 L Albumin/Globulin Ratio 0.7 L 0.8 L Prealbumin 14.1 L Triglycerides 12/14/17 03:30 RBC 4.39 L Hgb Hct RDW 15.2 H Gran % 90.2 H Lymph % (Auto) 2.6 L Gran # 9.6 H Lymph # (Auto) 0.3 L Sodium Chloride BUN Glucose Calcium Phosphorus Magnesium Lactate Dehydrogenase Total Protein Albumin Albumin/Globulin Ratio Prealbumin Triglycerides Meds: Medications Acetaminophen (Tylenol) 650 mg PO Q4-6HP PRN PRN Reason: PAIN/FEVER > 101 Albuterol/Ipratropium (Duoneb) 3 ml NEB Q4HRT [facility] Last Admin: 12/16/17 11:45 Dose: 3 ml Ceftriaxone Sodium (Rocephin) 2 gm IV DAILY [facility] Last Admin: 12/16/17 09:44 Dose: 2 gm Chlorhexidine Gluconate (Peridex) 15 ml SWABMOUTH BID [facility] Last Admin: 12/16/17 09:04 Dose: 15 ml Dextrose (Dextrose 50%) 0 ml IV UD PRN PRN Reason: Hypoglycemia Diagnostic Test (Pha) (Accu-Chek) 1 each FS Q6 [facility] Last Admin: 12/16/17 12:00 Dose: 1 each Diphenhydramine HCl (Benadryl) 50 mg IV Q6HP PRN PRN Reason: Allergic Symptoms Last Admin: 12/16/17 10:48 Dose: 50 mg Enoxaparin Sodium (Lovenox) 80 mg SQ BID [facility] Last Admin: 12/16/17 09:05 Dose: 80 mg Famotidine (Pepcid) 20 mg IV Q12 [facility] Last Admin: 12/16/17 09:05 Dose: 20 mg Heparin Sodium (Porcine) (Heparin Flush) 2 ml IV Q12 [facility] Last Admin: 12/16/17 09:05 Dose: 2 ml Hydromorphone HCl (Dilaudid) 0.5 mg IV Q2HP PRN PRN Reason: PAIN LEVEL > 6 Last Admin: 12/16/17 12:18 Dose: 0.5 mg Acetaminophen (Ofirmev) 650 mg in 65 mls @ 130 mls/hr IV Q6HP PRN PRN Reason: PAIN/FEVER > 101 Last Infusion: 12/12/17 20:23 Dose: Infused Sodium Chloride (Sodium Chloride 0.9%) 250 mls @ 20 mls/hr IV .[id number] [facility] Last Admin: 12/16/17 14:13 Dose: Not Given Heparin Sodium/Sodium Chloride (Heparin/Ns) 500 mls @ 0 mls/hr IV .Q0M [facility]; KVO PRN Reason: Protocol Fat Emulsion Intravenous (Intralipid 20%) 250 mls @ 25 mls/hr IV [id number]@1600 [facility] Last Infusion: 12/15/17 04:00 Dose: Infused Nafcillin Sodium 2 gm/ Sodium (Chloride) 50 mls @ 100 mls/hr IV Q4H [facility] Last Admin: 12/16/17 13:00 Dose: 100 mls/hr Calcium Gluconate 20 meq/Potassium Phosphate 80 meq/Multivitamins/Minerals 10 ml /Selenium 60 mcg/ Potassium Chloride 60 meq/ Amino Acids 2,102.6925 mls @ 75 mls/hr IV Q24H [facility] Last Admin: 12/16/17 14:15 Dose: 75 mls/hr Insulin Human Lispro (Humalog) 0 unit SQ Q6 [facility] PRN Reason: Protocol Last Admin: 12/16/17 12:00 Dose: Not Given Latanoprost (Xalatan Ophth Drops) 1 gtt OU HS [facility] Last Admin: 12/15/17 20:13 Dose: 1 drop Lorazepam (Ativan) 0.5 mg IV Q4HP PRN PRN Reason: ANXIETY/SEDATION Last Admin: 12/15/17 07:26 Dose: 0.5 mg Metoprolol Tartrate (Lopressor) 5 mg IV Q2HP PRN PRN Reason: Tachyarrhythmias Last Admin: 12/15/17 15:48 Dose: 5 mg Metoprolol Tartrate (Lopressor) 5 mg IV Q4 [facility] Last Admin: 12/16/17 14:36 Dose: 5 mg Naloxone HCl (Narcan) 0.1 mg IV Q2MIN PRN PRN Reason: Opiate Reversal Senna (Senokot) 2 tab PO HSP PRN PRN Reason: Constipation Sodium Chloride (Saline Flush) 10 ml IV Q8 [facility] Last Admin: 12/16/17 14:29 Dose: 10 ml Medical - PN: A/P - Time Spent With Patient Total time spent is greater than 50% in coordination of care (as documented) at patient's floor/unit and/or counseling patient: 25 - 35 minutes - Narrative A/P Narrative: A/P Acute respiratory failure- Was on mechanical support 12/11 - 12/12. Extubated successfully. Required BiPAP support one day later due to episodes of bronchospasm a/w tachypnea. Acute COPD exacerbation-treat with antibiotics, DuoNeb's and IV steroids, nebulizers every 4 hours.Was on Ventilator support 12/11-12/12. Recurrent respiratory distress 12/13. Resolving after neb treatments and BiPAP support. Continue to watch closely. Was on Solumedrol for few days. Jmyutftsm-zpksszdce-sayzactk pneumonia-staph aureus pneumonia-on IV vancomycin, also Rocephin and Zithromax for community-acquired pneumonia. S/P Tamiflu for possible influenza. Blood c/s: MSSA. 12/13: Vancomycin stopped. 12/15 Nafcillin started Gram positive coccemia. MSSA. Echo: no vegetations noted, however suboptimal study. 12/15 Nafcillin started atrial flutter-patient has a chronic history of atrial flutter fibrillation, not on medications for rate control, does take eliquis for anticoagulation. IV metoprolol when necessary for now. 12/13: eliquis stopped. Lovenox 1 mg/kg BID Severe sepsis with septic shock, multiorgan dysfunction: resolved. Currently stable BP. Acute kidney injury-renal function improved Elevated troponins-secondary to demand ischemia type II myocardial infarction. BPH-tamsulosin on hold, WILSON in place Diabetes-not taking any medications, diet controlled. Monitor glucose for now if elevated secondary to steroids will place him on sliding scale insulin Ileus 12/13: CT-abdomen/pelvis: no volvulus or free air. Started TPN 12/13. Hypernatremia 10/17 NS TPN without Na DVT-patient is on Lovenox Code status: No CPR or intubation Spent total of > 35 min spent in critical care for this patient: eval and management respiratory distress, coordination of care. Medical - PN: Qual - VTE Deep Vein Thrombosis/Pulmonary Embolism Present on Admission: No Procedures - Arterial Line Size (Gauge): 20
[2017-12-16] MEDS: FAT EMULSION 20% 250 ML IV SCH (15:36)
[2017-12-16] MEDS ORDERED: methylPREDNISolone SOD SUCC 125 MG/2 ML VIAL IV ONE (16:47)
[2017-12-16] MEDS ORDERED: VANCOMYCIN PER PHARMACY IV ONE (16:58)
[2017-12-16] MEDS ORDERED: IPRATROPIUM/ALBUTEROL 3 ML AMPUL.NEB NEB ONE (17:01)
[2017-12-16] MEDS: LORazepam 2 MG/ML VIAL IV PRN ×2 (17:36→22:58)
[2017-12-16] MEDS ORDERED: VANCOMYCIN 1,500 MG in 0.9 % SODIUM CHLORIDE 500 ML IV ONE (19:00)
[2017-12-16] MEDS: LATANOPROST OPHTH DROPS 2.5ML BOTTLE OU SCH (21:03)
[2017-12-16 21:23] LABS: Albumin 2.6 gm/dL (3.2-5.2); Blood Urea Nitrogen 26 mg/dl (8-23)
[2017-12-17] MEDS: METOPROLOL TARTRATE 5 MG/5 ML VIAL IV SCH ×6 (00:08→21:11)
[2017-12-17] MEDS: INSULIN LISPRO 1 UNIT/0.01 ML UNIT SQ SCH ×4 (00:11→17:50)
[2017-12-17] MEDS: HYDROmorphone 2 MG/ML VIAL IV PRN ×3 (01:14→23:51)
[2017-12-17] MEDS: 0.9 % SODIUM CHLORIDE 250 ML IV SCH ×2 (02:01→12:59)
[2017-12-17] MEDS: LORazepam 2 MG/ML VIAL IV PRN ×3 (03:04→21:11)
[2017-12-17] MEDS: IPRATROPIUM/ALBUTEROL 3 ML AMPUL.NEB NEB SCH ×6 (03:04→22:28)
[2017-12-17 05:31] LABS: Basophils # (Auto) 0 K/mcL (0.0-0.3); Basophils % (Auto) 0 % (0.0-2.0); Eosinophils # (Auto) 0.4 K/mcL (0.0-0.7); Granulocytes % (Auto) 93.9 % (38.0-78.0); Lymphocytes # (Auto) 0.2 K/mcL (1.5-4.8); Lymphocytes % (Auto) 1.4 % (15.5-49.0); Mean Corpuscular HGB Conc 33.5 g/dL (31.0-36.0); Mean Corpuscular Hemoglobin 31.5 pg (26.0-34.0); Monocytes # (Auto) 0.2 K/mcL (0.1-0.9); Monocytes % (Auto) 1.7 % (1.0-12.0); Platelet Count 180 K/mcL (140-440); RBC 4.01 M/mcL (4.50-5.90)
[2017-12-17 05:46] LABS: Prealbumin 12.8 mg/dl (20-40)
[2017-12-17 05:47] LABS: ALT/SGPT 12 U/l (0-40); Albumin 2.1 gm/dL (3.2-5.2); Albumin/Globulin Ratio 0.6 (1.0-2.3); Alkaline Phosphatase 45 U/L (39-117); Bilirubin,Direct < 0.2 mg/dL (0.0-0.3); Blood Urea Nitrogen 26 mg/dl (8-23); Gamma Glutamyl Transpeptidase 26 U/L (8-61); Uric Acid 2.6 mg/dL (2.5-8.0)
[2017-12-17] MEDS: 0.9 % SODIUM CHLORIDE 10 ML SYRINGE IV SCH ×2 (06:01→13:23)
[2017-12-17] MEDS ORDERED: VANCOMYCIN PER PHARMACY IV SCH (07:15)
--- NOTE | 2017-12-17 08:02 | Internal Med Progress Note ---
Medical - PN: Subj Patient information: Note initiated : 12/17/17 at 7:59 am Service Date, if different from initiated Date: [] Admitted 12/10: 77 year old Male with history of COPD,hypertension, hyperlipidemia, chronic A. fib who presents to the emergency room today with shortness of breath, cough that has been going on since Monday. Patient's daughter was at bedside who provided some history along with the patient. The patient's daughter had a URI-like symptom, last week I believe and the patient started showing signs of cough from Monday. The patient's condition gradually worsened since then. Patient has been having cough with expectoration initially, no blood in the sputum. He has been having progressive shortness of breath. He notes he has been having subjective sensations of fever, chills, sweating. He has decreased effort tolerance and is unable to walk short distances now. For the last day the cough has subsided and it is difficult for him to bring up the sputum. The patient is extremely weak and has therefore been brought to the emergency room for further evaluation. In the emergency room, the patient was noted to be in moderate respiratory distress, he was afebrile, his white blood cell count was 5.9, chemistry showed worsening renal function with a creatinine of 1.6. His lactic acid was 5.9, first set of troponin was 0.11 and second set was 0.09. He had an elevated pro- calcitonin and 8.43. Chest x-ray showed pneumonia. the patient was tachycardic with A. fib with RVR on presentation and was on a diltiazem drip, his blood pressure was also very high and difficult to 78 physician and put him on nitroglycerin drip. Both these medications were discontinued after admission He was admitted to the hospital for further management, admitted to pcu status. Interval history: Mr. Figueroa is a 77 year old Male with history of COPD,hypertension, hyperlipidemia, chronic A. fib who presents to the emergency room today with shortness of breath, cough that has been going on since Monday. Patient's daughter was at bedside who provided some history along with the patient. The patient's daughter had a URI-like symptom, last week I believe and the patient started showing signs of cough from Monday. The patient's condition gradually worsened since then. Patient has been having cough with expectoration initially, no blood in the sputum. He has been having progressive shortness of breath. He notes he has been having subjective sensations of fever, chills, sweating. He has decreased effort tolerance and is unable to walk short distances now. For the last day the cough has subsided and it is difficult for him to bring up the sputum. The patient is extremely weak and has therefore been brought to the emergency room for further evaluation. In the emergency room, the patient was noted to be in moderate respiratory distress, he was afebrile, his white blood cell count was 5.9, chemistry showed worsening renal function with a creatinine of 1.6. His lactic acid was 5.9, first set of troponin was 0.11 and second set was 0.09. He had an elevated pro- calcitonin and 8.43. Chest x-ray showed pneumonia. the patient was tachycardic with A. fib with RVR on presentation and was on a diltiazem drip, his blood pressure was also very high and difficult to 80 physician and put him on nitroglycerin drip. Both these medications were discontinued after admission He was admitted to the hospital for further management, admitted to pcu status. dec 11 Pt overnight had deterioration in his clinical status, was intubated, had PICC placed, A line placed. He was overnight on pressors, levophed and vasopressin, presently only on levophed, bp stable. ABG reviwed, Chest X ray reviewed patient family was updated and was at bedside This AM pt sedated on Vent, TV 400, rr 24, peep 5, PAP 19-20 Plat 16-17, Pt still has some lactic acidosis, on IVF, ringers lactate changed to Saline. Patient Blood culture is postive for gpc in clusters, staph auress, pt already on vancomycin. Likely staph pneumonia secondary to influenza. Dec 12 . Seen and examined, no acute overnight events, patient remains off pressors. Hemodynamically stable. On baseline vent settings. This morning, when settings were, tidal volume 500, rate of 20, FiO2 35, PEEP of 5. Peak airway pressures around 20, plateau pressures 16-17 The patient was drowsy, was able to grasp hands and move his toes. Did not seem agitated. For order for blood culture bottles are positive for gram-positive cocci. Chest x-ray shows improvement in infiltrate. Lines in place repeat cultures ordered, echo ordered. ABG reviewed Feedings started, last night was still going on. Initially we thought we could try a weaning trial given his baseline settings however due to shift change between the hospital providers, weaning trial and extubation will be decided by the oncoming provider. that is slight worsening in renal function, urine output is 25-30 mL per hour. Family updated Around 2 pm extubated. Tolerated PS well, minimal secretions. Hemodynamics stable. Fe 28. Did well overnight. Was still somnolent. But, hemodynamics stable and breathing comfortably. Poor U/O. Received lasix at night and IVF was d/c'd. This afternoon became suddenly cyanotic with poor respiratory effort and struggle to cough. Lungs: few rhonchi at bases. Poor BS and respiratory effort. ET-suctioning for minimal secretions. CXR without significant changes compared to am. No atelectasis, overt pulmonary edema or pneumothorax. DD bronchospasm, fatigue Duoneb, BiPAP ventilator support, Lasix December 14: Had episode of severe respiratory distress last night, requiring high FiO2. Had bronchospasm, tachypnea and cyanotic discoloration. Gave neb treatments, dilaudid, ET-suctioning, solumedrol, BiPAP support. This am noted abdominal distention. KUB showed dilatation of bowel loops and possible free air vs volvulus. CT-abd/pelvis pending. Hold nutrition via feeding tube. Will start TPN Patient has also have hx of major epistaxis. Is on Eliquis with hematuria. Am reluctant to insert NG for decompression and potentially causing epistaxis. Eliquis discontinued. Start Lovenox for afibr. December 15: Required BiPAP support last night. Minimal secretions. Microbiology: MSSA bacteremia. On Nafcillin December 16: Max time off BiPAP 2-3 hours. Na 148, despite 1/2 NS IVF d/W pharmacy: no Na in TPN repeat labs later today Spoke at length with and daughter: weaning off BiPAP will take days. Other problems: weakness, encephalopathy and ileus. Code status revisited. In case of worsening condition: no CPR and/or re-intubation. December 17: Stable overnight. BiPAP most of the night. HR controlled. BP still somewhat elevated despite scheduled metoprolol IV. Had BMs. WBC elevated at 13.6. Received Solumedrol x 1 yesterday for allergic reaction to nafcillin (facial flushing, itch, bronchospasm). Will add hydralazine IV to control BP. Try to increase time off BiPAP - Constitutional Vitals: Vital Signs Temp Pulse Resp BP Pulse Ox 99.3 F H 85 19 159/92 97 12/17/17 07:01 12/17/17 07:49 12/17/17 07:49 12/17/17 07:01 12/17/17 07:49 Period Temp Pulse Resp BP Sys/Cai Pulse Ox Last 24 Hr 98.7 F-100.2 F 54-137 13-34 125-184/76-166 93-98 Intake and Output 12/16/17 12/17/17 12/17/17 21:59 05:59 13:59 Intake Total 2352.8636 / 2352.8636 750 / 750 Output Total 1790 / 1790 875 / 875 110 / 110 Balance 562.8636 / 562.8636 -125 / -125 -110 / -110 Weight 166 lb 3.2 oz Intake & Output: Intake & Output 12/16/17 12/17/17 12/17/17 21:59 05:59 13:59 Intake Total 2352.8636 / 2352.8636 750 / 750 Output Total 1790 / 1790 875 / 875 110 / 110 Balance 562.8636 / 562.8636 -125 / -125 -110 / -110 Weight 166 lb 3.2 oz Intake: IV 2352.8636 / 2352.8636 750 / 750 Calcium Gluconate 4.65 Meq 1032.8636 / 1032.8636 Potassium Phosphate 50 Meq Infuvite Adult 10 ml Selenium 60 Mcg In Clinimix 5%-20% Solution 1,000 ml @ 50 mls/hr IV Q24H [facility] Rx#:[id number] Intralipid 20% 250 ml @ 25 mls/ 250 / 250 hr IV TuThSa@1600 [facility] Rx#: [id number] Nafcillin 2 gm In Sodium 50 / 50 Chloride 0.9% 50 ml @ 100 mls/ hr IV Q4H [facility] Rx#:[id number] Vancomycin 1,500 mg In Sodium 500 / 500 Chloride 0.9% 500 ml @ 333.3 mls/hr IV ONCE ONE Rx#: [id number] Output: Urine Catheter Amount 1790 / 1790 875 / 875 110 / 110 Other: Stool Size Moderate Moderate Stool Color Green Brown Green Stool Consistency Liquid Liquid # of times incontinent of 1 Bowels General appearance: mild distress - Head Additional comments: Facial flushing - Respiratory Respiratory exam: Present: decreased breath sounds. Absent: rales, wheezes Additional comments: On BIPAP - Cardiovascular Cardiovascular exam: Present: irregular rhythm - GI/Abdominal GI/Abdominal exam: Present: soft, diminished bowel sounds - Extremities Exam Extremities exam: Present: normal inspection Medical - PN: Obj Da - Labs CBC & Chem 7: 12/17/17 04:07 12/17/17 04:07 Labs: Abnormal Lab Results 12/17/17 12/17/17 12/16/17 04:07 04:07 19:45 WBC 13.6 H RBC 4.01 L Hgb 12.7 L Hct 37.7 L RDW 15.0 H Gran % 93.9 H Lymph % (Auto) 1.4 L Gran # 12.7 H Lymph # (Auto) 0.2 L Sodium Chloride 112 H 112 H Anion Gap 7.0 L BUN 26 H 26 H Glucose 172 H 122 H Calcium 7.8 L 7.9 L Phosphorus 2.6 L 2.5 L Magnesium Lactate Dehydrogenase 315 H Total Protein 5.4 L Albumin 2.1 L 2.6 L Albumin/Globulin Ratio 0.6 L Prealbumin 12.8 L Triglycerides 12/16/17 12/16/17 12/15/17 05:55 03:41 03:40 WBC RBC 3.82 L Hgb 12.0 L Hct 37.7 L RDW 16.2 H Gran % 87.2 H Lymph % (Auto) 2.7 L Gran # Lymph # (Auto) 0.2 L Sodium 148 H 147 H Chloride 114 H 112 H Anion Gap BUN 33 H 35 H Glucose 165 H 226 H Calcium 7.6 L 8.1 L Phosphorus 1.9 L Magnesium 2.6 H Lactate Dehydrogenase 298 H 288 H Total Protein 5.6 L Albumin 2.4 L 2.7 L Albumin/Globulin Ratio 0.8 L 0.8 L Prealbumin Triglycerides 216 H 12/15/17 12/14/17 03:40 16:18 WBC RBC 4.16 L Hgb 13.0 L Hct 39.3 L RDW 15.0 H Gran % 90.9 H Lymph % (Auto) 2.0 L Gran # 8.4 H Lymph # (Auto) 0.2 L Sodium 147 H Chloride 112 H Anion Gap BUN 40 H Glucose 214 H Calcium 8.2 L Phosphorus 2.2 L Magnesium 2.7 H Lactate Dehydrogenase 337 H Total Protein Albumin 2.7 L Albumin/Globulin Ratio 0.7 L Prealbumin 14.1 L Triglycerides Meds: Medications Acetaminophen (Tylenol) 650 mg PO Q4-6HP PRN PRN Reason: PAIN/FEVER > 101 Albuterol/Ipratropium (Duoneb) 3 ml NEB Q4HRT [facility] Last Admin: 12/17/17 07:47 Dose: 3 ml Chlorhexidine Gluconate (Peridex) 15 ml SWABMOUTH BID [facility] Last Admin: 12/16/17 21:01 Dose: 15 ml Dextrose (Dextrose 50%) 0 ml IV UD PRN PRN Reason: Hypoglycemia Diagnostic Test (Pha) (Accu-Chek) 1 each FS Q6 [facility] Last Admin: 12/17/17 05:46 Dose: 1 each Diphenhydramine HCl (Benadryl) 50 mg IV Q6HP PRN PRN Reason: Allergic Symptoms Last Admin: 12/16/17 16:26 Dose: 50 mg Enoxaparin Sodium (Lovenox) 80 mg SQ BID [facility] Last Admin: 12/16/17 21:01 Dose: 80 mg Famotidine (Pepcid) 20 mg IV Q12 [facility] Last Admin: 12/16/17 21:01 Dose: 20 mg Heparin Sodium (Porcine) (Heparin Flush) 2 ml IV Q12 [facility] Last Admin: 12/16/17 21:02 Dose: 2 ml Hydromorphone HCl (Dilaudid) 0.5 mg IV Q2HP PRN PRN Reason: PAIN LEVEL > 6 Last Admin: 12/17/17 07:19 Dose: 0.5 mg Acetaminophen (Ofirmev) 650 mg in 65 mls @ 130 mls/hr IV Q6HP PRN PRN Reason: PAIN/FEVER > 101 Last Infusion: 12/12/17 20:23 Dose: Infused Sodium Chloride (Sodium Chloride 0.9%) 250 mls @ 20 mls/hr IV .[id number] [facility] Last Admin: 12/17/17 02:01 Dose: Not Given Heparin Sodium/Sodium Chloride (Heparin/Ns) 500 mls @ 0 mls/hr IV .Q0M [facility]; KVO PRN Reason: Protocol Fat Emulsion Intravenous (Intralipid 20%) 250 mls @ 25 mls/hr IV TuThSa@1600 [facility] Last Infusion: 12/17/17 02:01 Dose: Infused Calcium Gluconate 20 meq/Potassium Phosphate 80 meq/Multivitamins/Minerals 10 ml /Selenium 60 mcg/ Potassium Chloride 60 meq/ Amino Acids 2,102.6925 mls @ 75 mls/hr IV Q24H [facility] Last Admin: 12/16/17 14:15 Dose: 75 mls/hr Vancomycin HCl 1,500 mg/ (Sodium Chloride) 500 mls @ 333.3 mls/hr IV Q24H [facility] Insulin Human Lispro (Humalog) 0 unit SQ Q6 [facility] PRN Reason: Protocol Last Admin: 12/17/17 05:48 Dose: 1 unit Latanoprost (Xalatan Ophth Drops) 1 gtt OU HS [facility] Last Admin: 12/16/17 21:03 Dose: 1 drop Lorazepam (Ativan) 0.5 mg IV Q4HP PRN PRN Reason: ANXIETY/SEDATION Last Admin: 12/17/17 03:04 Dose: 0.5 mg Metoprolol Tartrate (Lopressor) 5 mg IV Q2HP PRN PRN Reason: Tachyarrhythmias Last Admin: 12/15/17 15:48 Dose: 5 mg Metoprolol Tartrate (Lopressor) 5 mg IV Q4 [facility] Last Admin: 12/17/17 07:21 Dose: 5 mg Naloxone HCl (Narcan) 0.1 mg IV Q2MIN PRN PRN Reason: Opiate Reversal Senna (Senokot) 2 tab PO HSP PRN PRN Reason: Constipation Sodium Chloride (Saline Flush) 10 ml IV Q8 [facility] Last Admin: 12/17/17 06:01 Dose: 10 ml Vancomycin HCl (Vancomycin Per Pharmacy) 1 order IV [facility] [place] Medical - PN: A/P - Time Spent With Patient Total time spent is greater than 50% in coordination of care (as documented) at patient's floor/unit and/or counseling patient: 25 - 35 minutes - Narrative A/P Narrative: A/P Acute respiratory failure- Was on mechanical support 12/11 - 12/12. Extubated successfully. Required BiPAP support one day later due to episodes of bronchospasm a/w tachypnea. Has been requiring BiPAP support for many hours daily since 12/13. Acute COPD exacerbation- DuoNeb's and IV steroids, nebulizers every 4 hours.Was on Ventilator support -12/12. Recurrent respiratory distress 12/13. Resolving after neb treatments and BiPAP support. Continue to watch closely. Solumedrol discontinued after few days. Had Solumdrol x 1 on 12/16 for bronchospasm thought to be allergic reaction to Nafcillin Nbthhdtom-zevtbmrco-pticxghp pneumonia-staph aureus pneumonia- Was on IV vancomycin, also Rocephin and Zithromax for community-acquired pneumonia. S/P Tamiflu for possible influenza. Blood c/s: MSSA. 12/13: Vancomycin stopped. 12/15 Nafcillin started, but discontinued 12/16 for allergic reaction. MSSA bacteremia- Echo: no vegetations noted, however suboptimal study. 12/15 Nafcillin started, discontinued 12/16 for allergic reaction. Repeat blood cultures obtained 12/16. Switched back to Vancomycin, although not optimal for MSSA. atrial flutter-patient has a chronic history of atrial flutter fibrillation, not on medications for rate control, does take eliquis for anticoagulation. IV metoprolol when necessary for now. 12/13: eliquis stopped. Lovenox 1 mg/kg BID Severe sepsis with septic shock, multiorgan dysfunction: resolved. Atrial fibrillation On lovenox q 12 h (switched from Eliquis, has hx of severe spontaneous epistaxis) Acute renal failure-renal function improved Elevated troponins-secondary to demand ischemia type II myocardial infarction. BPH- tamsulosin on hold, WILSON in place Diabetes-not taking any medications, diet controlled. Monitor glucose for now if elevated secondary to steroids will place him on sliding scale insulin Ileus 12/13: CT-abdomen/pelvis: no volvulus or free air. Started TPN 12/13. Hypernatremia Resolved TPN without Na DVT-patient is on Lovenox Code status: No CPR or intubation Spent total of > 35 min spent in critical care for this patient: eval and management respiratory distress, coordination of care. Medical - PN: Qual - VTE Deep Vein Thrombosis/Pulmonary Embolism Present on Admission: No Procedures - Arterial Line Size (Gauge): 20
[2017-12-17] MEDS ORDERED: VANCOMYCIN 1,500 MG in 0.9 % SODIUM CHLORIDE 500 ML IV SCH (10:00)
[2017-12-17] MEDS: ENOXAPARIN 80 MG/0.8 ML SYRINGE SQ SCH ×2 (10:15→21:13)
[2017-12-17] MEDS: CHLORHEXIDINE GLUCONATE 1 ML ORAL.SOL SWABMOUTH SCH ×2 (10:22→21:14)
[2017-12-17] MEDS: hydrALAZINE 20 MG/ML VIAL IV SCH ×4 (10:27→21:12)
[2017-12-17] MEDS: diphenhydrAMINE 50 MG/ML VIAL IV PRN (10:27)
[2017-12-17] MEDS: FAMOTIDINE/PF 20 MG/2 ML VIAL IV SCH ×2 (10:27→21:12)
[2017-12-17] MEDS: BISACODYL 10 MG SUPP.RECT PR SCH (13:23)
[2017-12-17] MEDS ORDERED: ceFAZolin 1 GM VIAL IV ONE (14:24)
--- NOTE | 2017-12-17 14:55 | XRay Report ---
CLINICAL INFORMATION: Distended abdomen COMPARISON: 12/14/2017 plain film and abdominal pelvic CT FINDINGS: There is mild distention of the freely mobile cecum which extends transversely across the mid abdomen. The ascending, transverse and descending rectosigmoid segment is normal amount of gas. No free air, soft tissue mass or organomegaly. IMPRESSION: Ileus pattern with known hypermobile cecum extending transversely across the mid abdomen Interpreted and Authenticated by: Nish Hamilton 12/17/17
[2017-12-17] MEDS ORDERED: [UNRECOGNIZED DRUG - REMARK] IV SCH (15:00)
--- NOTE | 2017-12-17 17:01 | Event Note ---
Test dose of cefazolin given patient tolerated procedure well no new wheezing or skin rashes Plan to start on Anceph, d/c vancomycin.
[2017-12-17] MEDS: ceFAZolin 1 GM VIAL IV SCH (21:12)
[2017-12-17] MEDS: LATANOPROST OPHTH DROPS 2.5ML BOTTLE OU SCH (21:13)
[2017-12-18] MEDS: hydrALAZINE 20 MG/ML VIAL IV SCH ×6 (01:06→20:49)
[2017-12-18] MEDS: 0.9 % SODIUM CHLORIDE 10 ML SYRINGE IV SCH ×4 (01:06→21:01)
[2017-12-18] MEDS: METOPROLOL TARTRATE 5 MG/5 ML VIAL IV SCH ×6 (01:07→20:59)
[2017-12-18] MEDS: INSULIN LISPRO 1 UNIT/0.01 ML UNIT SQ SCH ×4 (01:11→18:31)
[2017-12-18] MEDS: LORazepam 2 MG/ML VIAL IV PRN ×3 (01:23→20:24)
[2017-12-18] MEDS: 0.9 % SODIUM CHLORIDE 250 ML IV SCH ×2 (02:17→15:35)
[2017-12-18] MEDS: IPRATROPIUM/ALBUTEROL 3 ML AMPUL.NEB NEB SCH ×6 (03:32→23:06)
[2017-12-18] MEDS: HYDROmorphone 2 MG/ML VIAL IV PRN ×3 (03:59→20:25)
[2017-12-18 05:28] LABS: Basophils # (Auto) 0 K/mcL (0.0-0.3); Basophils % (Auto) 0 % (0.0-2.0); Eosinophils # (Auto) 0.5 K/mcL (0.0-0.7); Eosinophils % (Auto) 3.5 % (0.0-7.0); Granulocytes % (Auto) 90.1 % (38.0-78.0); Lymphocytes # (Auto) 0.4 K/mcL (1.5-4.8); Lymphocytes % (Auto) 2.5 % (15.5-49.0); Mean Corpuscular HGB Conc 32.6 g/dL (31.0-36.0); Mean Corpuscular Hemoglobin 30.6 pg (26.0-34.0); Monocytes # (Auto) 0.6 K/mcL (0.1-0.9); Monocytes % (Auto) 3.9 % (1.0-12.0); Platelet Count 197 K/mcL (140-440); RBC 4.27 M/mcL (4.50-5.90)
[2017-12-18] MEDS: ceFAZolin 1 GM VIAL IV SCH ×4 (05:34→22:27)
[2017-12-18] MEDS: diphenhydrAMINE 50 MG/ML VIAL IV PRN (05:59)
[2017-12-18 06:59] LABS: ALT/SGPT 15 U/l (0-40); Albumin 2.1 gm/dL (3.2-5.2); Albumin/Globulin Ratio 0.6 (1.0-2.3); Alkaline Phosphatase 55 U/L (39-117); Bilirubin,Direct < 0.2 mg/dL (0.0-0.3); Blood Urea Nitrogen 25 mg/dl (8-23); C-Reactive Protein 5.7 mg/dl (0.0-0.8); Gamma Glutamyl Transpeptidase 22 U/L (8-61); Uric Acid 2.4 mg/dL (2.5-8.0)
[2017-12-18 07:00] LABS: Prealbumin 12.6 mg/dl (20-40)
[2017-12-18 07:22] LABS: Erythrocyte Sedimentation Rate 44 mm/hr (0-15)
[2017-12-18] MEDS ORDERED: POTASSIUM CHLORIDE 40 MEQ in DEXTROSE 5% IN WATER 250 ML IV ONE (07:30)
[2017-12-18] MEDS: ENOXAPARIN 80 MG/0.8 ML SYRINGE SQ SCH ×2 (09:18→20:25)
[2017-12-18] MEDS: CHLORHEXIDINE GLUCONATE 1 ML ORAL.SOL SWABMOUTH SCH ×2 (09:19→21:00)
[2017-12-18] MEDS: FAMOTIDINE/PF 20 MG/2 ML VIAL IV SCH ×2 (09:19→20:26)
[2017-12-18] MEDS: BISACODYL 10 MG SUPP.RECT PR SCH ×2 (09:19→15:38)
[2017-12-18] MEDS ORDERED: FUROSEMIDE 40 MG/4 ML VIAL IV ONE (09:41)
--- NOTE | 2017-12-18 09:50 | Internal Med Progress Note ---
Medical - PN: Subj Patient information: Note initiated : 12/18/17 at 9:46 am Service Date, if different from initiated Date: [] Patient: Camilo Figueroa 77 y/o M admitted on 12/10/17 for Shortness of Breath, Moist Cough/Pneumonia. Chief Complaint: [] Interval history: Mr. Figueroa is a 77 year old Male with history of COPD,hypertension, hyperlipidemia, chronic A. fib who presents to the emergency room today with shortness of breath, cough that has been going on since Monday. Patient's daughter was at bedside who provided some history along with the patient. The patient's daughter had a URI-like symptom, last week I believe and the patient started showing signs of cough from Monday. The patient's condition gradually worsened since then. Patient has been having cough with expectoration initially, no blood in the sputum. He has been having progressive shortness of breath. He notes he has been having subjective sensations of fever, chills, sweating. He has decreased effort tolerance and is unable to walk short distances now. For the last day the cough has subsided and it is difficult for him to bring up the sputum. The patient is extremely weak and has therefore been brought to the emergency room for further evaluation. In the emergency room, the patient was noted to be in moderate respiratory distress, he was afebrile, his white blood cell count was 5.9, chemistry showed worsening renal function with a creatinine of 1.6. His lactic acid was 5.9, first set of troponin was 0.11 and second set was 0.09. He had an elevated pro- calcitonin and 8.43. Chest x-ray showed pneumonia. the patient was tachycardic with A. fib with RVR on presentation and was on a diltiazem drip, his blood pressure was also very high and difficult to 78 physician and put him on nitroglycerin drip. Both these medications were discontinued after admission He was admitted to the hospital for further management, admitted to pcu status. dec 11 Pt overnight had deterioration in his clinical status, was intubated, had PICC placed, A line placed. He was overnight on pressors, levophed and vasopressin, presently only on levophed, bp stable. ABG reviwed, Chest X ray reviewed patient family was updated and was at bedside This AM pt sedated on Vent, TV 400, rr 24, peep 5, PAP 19-20 Plat 16-17, Pt still has some lactic acidosis, on IVF, ringers lactate changed to Saline. Patient Blood culture is postive for gpc in clusters, staph auremakayla, pt already on vancomycin. Likely staph pneumonia secondary to influenza. Feb 27 . Seen and examined, no acute overnight events, patient remains off pressors. Hemodynamically stable. On baseline vent settings. This morning, when settings were, tidal volume 500, rate of 20, FiO2 35, PEEP of 5. Peak airway pressures around 20, plateau pressures 16-17 The patient was drowsy, was able to grasp hands and move his toes. Did not seem agitated. For order for blood culture bottles are positive for gram-positive cocci. Chest x-ray shows improvement in infiltrate. Lines in place repeat cultures ordered, echo ordered. ABG reviewed Feedings started, last night was still going on. Initially we thought we could try a weaning trial given his baseline settings however due to shift change between the hospital providers, weaning trial and extubation will be decided by the oncoming provider. that is slight worsening in renal function, urine output is 25-30 mL per hour. Family updated Around 2 pm extubated. Tolerated PS well, minimal secretions. Hemodynamics stable. Feb 28. Did well overnight. Was still somnolent. But, hemodynamics stable and breathing comfortably. Poor U/O. Received lasix at night and IVF was d/c'd. This afternoon became suddenly cyanotic with poor respiratory effort and struggle to cough. Lungs: few rhonchi at bases. Poor BS and respiratory effort. ET-suctioning for minimal secretions. CXR without significant changes compared to am. No atelectasis, overt pulmonary edema or pneumothorax. DD bronchospasm, fatigue Duoneb, BiPAP ventilator support, Lasix December 14: Had episode of severe respiratory distress last night, requiring high FiO2. Had bronchospasm, tachypnea and cyanotic discoloration. Gave neb treatments, dilaudid, ET-suctioning, solumedrol, BiPAP support. This am noted abdominal distention. KUB showed dilatation of bowel loops and possible free air vs volvulus. CT-abd/pelvis pending. Hold nutrition via feeding tube. Will start TPN Patient has also have hx of major epistaxis. Is on Eliquis with hematuria. Am reluctant to insert NG for decompression and potentially causing epistaxis. Eliquis discontinued. Start Lovenox for afibr. December 15: Required BiPAP support last night. Minimal secretions. Microbiology: MSSA bacteremia. On Nafcillin December 16: Max time off BiPAP 2-3 hours. Na 148, despite 1/2 NS IVF d/W pharmacy: no Na in TPN repeat labs later today Spoke at length with and daughter: weaning off BiPAP will take days. Other problems: weakness, encephalopathy and ileus. Code status revisited. In case of worsening condition: no CPR and/or re-intubation. December 17: Stable overnight. BiPAP most of the night. HR controlled. BP still somewhat elevated despite scheduled metoprolol IV. Had BMs. WBC elevated at 13.6. Received Solumedrol x 1 yesterday for allergic reaction to nafcillin (facial flushing, itch, bronchospasm). Will add hydralazine IV to control BP. Try to increase time off BiPAP December 18 patient seen examined, stable overnight, concern that he is having flushing to Penicillin, he has mssa with vanco sensitivity of 2, the patient was given test dose of anceph yesterday pm, and tolerated it well, he was therefore started on cefazolin 2gms q8. The patient had facial erythema overnight x 2 according to the staff. This AM too iwthout the use of medication while working with physicial therapy, the patient developed flushing of his facial skin. I am not convinced that the fluhing that the patient is experincing is related to administration of anceph. Continue same for now. If not will have to switch to daptomycin. patient has low grade fever, his last set of microbiology was negative. Chest x ray to be repeated today he has diarrhea and rising wbc count, ileus on X ray abdomen. check for cdiff continue bipap support as needed , he is still wheezinng, resume iv steroids for now. on duonebs q4hrs Pertinent ROS: does not give a very good history, but able to communicate ok with mask off, Denies headache, dizziness Denies chest pain, palpitations present cough or shortness of breath Denies abdominal pain, nausea or vomiting. - Constitutional Vitals: Vital Signs Temp Pulse Resp BP Pulse Ox 99.7 F H 128 H 17 124/86 98 12/18/17 09:16 12/18/17 09:16 12/18/17 09:16 12/18/17 09:01 12/18/17 09:01 Period Temp Pulse Resp BP Sys/Cai Pulse Ox Last 24 Hr 99.0 F-99.8 F 82-128 17-39 104-186/59-114 21-100 Intake and Output 12/17/17 12/18/17 12/18/17 21:59 05:59 13:59 Intake Total 1929 Output Total 1076 / 1076 740 / 740 395 / 395 Balance 854 / 854 -740 / -740 -395 / -395 Weight 166 lb 3.2 oz Intake & Output: Intake & Output 12/17/17 12/18/17 12/18/17 21:59 05:59 13:59 Intake Total 1929 Output Total 1076 / 1076 740 / 740 395 / 395 Balance 854 / 854 -740 / -740 -395 / -395 Weight 166 lb 3.2 oz Intake: IV 1929 Calcium Gluconate 20 Meq 1929 Potassium Phosphate 80 Meq Infuvite Adult 10 ml Selenium 60 Mcg Potassium Chloride 60 Meq In Clinimix 5%-20% Solution 2,000 ml @ 75 mls/hr IV Q24H [facility] Rx#:[id number] Output: Urine Catheter Amount 1076 / 1076 740 / 740 395 / 395 Other: Stool Size Large Moderate Stool Color Brown Brown Yellow Stool Consistency Watery Liquid # of times incontinent of 1 4 Bowels Exam: Constitutional; low grade temp, cooperative, Eyes- No icterus, , No periorbital swelling Skin: flushing of the facial skin noted. No hives. no increased wheezing. Paitent has mottling of lower extremity since admission. Ears- Ext ear normal, hearing normal to conversation. Neck- Midline trachea, supple Respiratory system: Air Entry equal on both sides, tiffani exp wheezing noted, tiffani crackles upto mid lung. CVS- tachycardic rate, irreuglar rhythm,s1,s heard, systolic mumur noted mitral region. Abdomen- Soft nontender abdomen, distended , bowel sounds present, rectal tube with dark liquid stools no organomegaly, no tenderness, no guarding or rigidity , [employer]- AOOx2-3, moving all extremities, no gross focal deficit noted. Medical - PN: Obj Da - Labs CBC & Chem 7: 12/18/17 03:36 12/18/17 03:36 Labs: Abnormal Lab Results 12/18/17 12/18/17 12/17/17 03:36 03:36 04:07 WBC 15.3 H RBC 4.27 L Hgb 13.1 L Hct 40.1 L RDW 15.0 H Gran % 90.1 H Lymph % (Auto) 2.5 L Gran # 13.7 H Lymph # (Auto) 0.4 L ESR 44 H Sodium 147 H Chloride 111 H 112 H Anion Gap BUN 25 H 26 H Glucose 121 H 172 H Uric Acid 2.4 L Calcium 8.1 L 7.8 L Phosphorus 2.6 L Lactate Dehydrogenase 365 H 315 H C-Reactive Protein 5.7 H Total Protein 5.6 L 5.4 L Albumin 2.1 L 2.1 L Albumin/Globulin Ratio 0.6 L 0.6 L Prealbumin 12.6 L 12.8 L 12/17/17 12/16/17 12/16/17 04:07 19:45 05:55 WBC 13.6 H RBC 4.01 L Hgb 12.7 L Hct 37.7 L RDW 15.0 H Gran % 93.9 H Lymph % (Auto) 1.4 L Gran # 12.7 H Lymph # (Auto) 0.2 L ESR Sodium 148 H Chloride 112 H 114 H Anion Gap 7.0 L BUN 26 H 33 H Glucose 122 H 165 H Uric Acid Calcium 7.9 L 7.6 L Phosphorus 2.5 L Lactate Dehydrogenase 298 H C-Reactive Protein Total Protein 5.6 L Albumin 2.6 L 2.4 L Albumin/Globulin Ratio 0.8 L Prealbumin 12/16/17 03:41 WBC RBC 3.82 L Hgb 12.0 L Hct 37.7 L RDW 16.2 H Gran % 87.2 H Lymph % (Auto) 2.7 L Gran # Lymph # (Auto) 0.2 L ESR Sodium Chloride Anion Gap BUN Glucose Uric Acid Calcium Phosphorus Lactate Dehydrogenase C-Reactive Protein Total Protein Albumin Albumin/Globulin Ratio Prealbumin Meds: Medications Acetaminophen (Tylenol) 650 mg PO Q4-6HP PRN PRN Reason: PAIN/FEVER > 101 Albuterol/Ipratropium (Duoneb) 3 ml NEB Q4HRT [facility] Last Admin: 12/18/17 07:34 Dose: 3 ml Bisacodyl (Dulcolax) 10 mg DE DAILY [facility] Last Admin: 12/18/17 09:19 Dose: 10 mg Cefazolin Sodium (Ancef) 2 gm IV Q8H [facility] Last Admin: 12/18/17 05:34 Dose: 2 gm Chlorhexidine Gluconate (Peridex) 15 ml SWABMOUTH BID [facility] Last Admin: 12/18/17 09:19 Dose: 15 ml Dextrose (Dextrose 50%) 0 ml IV UD PRN PRN Reason: Hypoglycemia Diagnostic Test (Pha) (Accu-Chek) 1 each FS Q6 [facility] Last Admin: 12/18/17 05:35 Dose: 1 each Diphenhydramine HCl (Benadryl) 50 mg IV Q6HP PRN PRN Reason: Allergic Symptoms Last Admin: 12/18/17 05:59 Dose: 50 mg Enoxaparin Sodium (Lovenox) 80 mg SQ BID [facility] Last Admin: 12/18/17 09:18 Dose: 80 mg Famotidine (Pepcid) 20 mg IV Q12 [facility] Last Admin: 12/18/17 09:19 Dose: 20 mg Heparin Sodium (Porcine) (Heparin Flush) 2 ml IV Q12 [facility] Last Admin: 12/18/17 09:19 Dose: 2 ml Hydralazine HCl (Apresoline) 10 mg IV Q4 [facility] Last Admin: 12/18/17 07:38 Dose: 10 mg Hydromorphone HCl (Dilaudid) 0.5 mg IV Q2HP PRN PRN Reason: PAIN LEVEL > 6 Last Admin: 12/18/17 03:59 Dose: 0.5 mg Acetaminophen (Ofirmev) 650 mg in 65 mls @ 130 mls/hr IV Q6HP PRN PRN Reason: PAIN/FEVER > 101 Last Infusion: 12/12/17 20:23 Dose: Infused Sodium Chloride (Sodium Chloride 0.9%) 250 mls @ 20 mls/hr IV .[id number] [facility] Last Admin: 12/18/17 02:17 Dose: Not Given Heparin Sodium/Sodium Chloride (Heparin/Ns) 500 mls @ 0 mls/hr IV .Q0M ERIC; KVO PRN Reason: Protocol Fat Emulsion Intravenous (Intralipid 20%) 250 mls @ 25 mls/hr IV [id number]@1600 ERIC Last Infusion: 12/17/17 02:01 Dose: Infused Calcium Gluconate 20 meq/Potassium Phosphate 100 meq/Multivitamins/Minerals 10 ml/Selenium 60 mcg/ Potassium Chloride 60 meq/ Magnesium Sulfate 16.24 meq/ Amino Acids 2,111.238 mls @ 75 mls/hr IV Q24H [facility] Stop: 12/18/17 14:59 Last Admin: 12/17/17 15:59 Dose: 75 mls/hr Potassium Chloride 40 meq/ (Dextrose) 270 mls @ 67.5 mls/hr IV ONCE ONE Stop: 12/18/17 11:29 Last Admin: 12/18/17 07:38 Dose: 67.5 mls/hr Calcium Gluconate 10 meq/Potassium Phosphate 80 meq/Multivitamins/Minerals 10 ml /Selenium 60 mcg/ Potassium Chloride 80 meq/ Magnesium Sulfate 16.24 meq/ Potassium Acetate 15 meq/ Amino Acids 2,102.6871 mls @ 75 mls/hr IV Q24H [facility] Insulin Human Lispro (Humalog) 0 unit SQ Q6 ERIC PRN Reason: Protocol Last Admin: 12/18/17 05:35 Dose: Not Given Latanoprost (Xalatan Ophth Drops) 1 gtt OU HS [facility] Last Admin: 12/17/17 21:13 Dose: 1 drop Lorazepam (Ativan) 0.5 mg IV Q4HP PRN PRN Reason: ANXIETY/SEDATION Last Admin: 12/18/17 01:23 Dose: 0.5 mg Methylprednisolone Sodium Succinate (Solu-Medrol) 62.5 mg IV Q8 [facility] Metoprolol Tartrate (Lopressor) 5 mg IV Q2HP PRN PRN Reason: Tachyarrhythmias Last Admin: 12/15/17 15:48 Dose: 5 mg Metoprolol Tartrate (Lopressor) 5 mg IV Q4 [facility] Last Admin: 12/18/17 07:37 Dose: 5 mg Naloxone HCl (Narcan) 0.1 mg IV Q2MIN PRN PRN Reason: Opiate Reversal Senna (Senokot) 2 tab PO HSP PRN PRN Reason: Constipation Sodium Chloride (Saline Flush) 10 ml IV Q8 [facility] Last Admin: 12/18/17 05:35 Dose: 10 ml Medical - PN: A/P - Time Spent With Patient Total time spent is greater than 50% in coordination of care (as documented) at patient's floor/unit and/or counseling patient: - Narrative A/P Narrative: A/P Acute respiratory failure- Was on mechanical support 12/11 - 12/12. Extubated successfully. Required BiPAP support one day later due to episodes of bronchospasm a/w tachypnea. Has been requiring BiPAP support for many hours daily since 12/13. He was on 09/20, which is weaned down to 10/5 today, fio2 is 21% Pti s 10L positive, check bnp, give 1 dose of IV lasix today. Acute COPD exacerbation- DuoNeb's and IV steroids, nebulizers every 4 hours.Was on Ventilator support -12/12. Recurrent respiratory distress 12/13. Resolving after neb treatments and BiPAP support. Continue to watch closely. Solumedrol discontinued after few days, resumed today on 12/18/16, due to ongoing wheezing, Leucocytosis: could be from infection, vs steroid use, has abdominal distention, check for cdiff consider other imaging if needed. Moqvevjtp-nbbwcowyd-orsapefr pneumonia-staph aureus pneumonia- Was on IV vancomycin, also Rocephin and Zithromax for community-acquired pneumonia. S/P Tamiflu for possible influenza. Blood c/s: MSSA. 12/13: Vancomycin stopped. 12/15 Nafcillin started, but discontinued 3 for allergic reaction. repeat CXR today, MSSA bacteremia- Echo: no vegetations noted, however suboptimal study. 12/15 Nafcillin started, discontinued 12/16 for allergic reaction. Repeat blood cultures obtained 12/16. Switched back to Vancomycin, although not optimal for MSSA. atrial flutter-patient has a chronic history of atrial flutter fibrillation, not on medications for rate control, does take eliquis for anticoagulation. IV metoprolol when necessary for now. 12/13: eliquis stopped. Lovenox 1 mg/kg BID Source likely pneumoina, not sure if secondary seeding is present, cultures on are negative. Not sure if anceph is causing the skin flushing as its unrelated to use of antibiotic atleast today. Will monitor for now, consider daptomycin if needed. Severe sepsis with septic shock, multiorgan dysfunction: resolved. Atrial fibrillation On lovenox q 12 h (switched from Eliquis, has hx of severe spontaneous epistaxis) Acute renal failure-renal function improved Elevated troponins-secondary to demand ischemia type II myocardial infarction. BPH- tamsulosin on hold, WILSON in place Diabetes-not taking any medications, diet controlled. Monitor glucose for now if elevated secondary to steroids will place him on sliding scale insulin Ileus 12/13: CT-abdomen/pelvis: no volvulus or free air. Started TPN 12/13. Hypernatremia Intermittent, monitor for now Na 147 Try to get speech therapy to see him today. DVT-patient is on Lovenox Code status: No CPR or intubation Spent total of > 30 min spent in critical care for this patient: eval and management respiratory distress, coordination of care. chart review, review of imaging Medical - PN: Qual - VTE Deep Vein Thrombosis/Pulmonary Embolism Present on Admission: No Procedures - Arterial Line Size (Gauge): 20
[2017-12-18] MEDS: methylPREDNISolone SOD SUCC 125 MG/2 ML VIAL IV SCH ×3 (09:55→22:05)
--- NOTE | 2017-12-18 10:05 | XRay Report ---
HISTORY: Reason for Exam:shortness of breath , pneumonia and moist cough FINDINGS: There is a moderately severe alveolar infiltrate in the right lower lobe with moderate involvement centrally in both lungs and in the left lower lobe. There is sparing of the lung apices. No pleural effusion is detected. The heart is borderline enlarged. The pulmonary vessels are of scattered by the infiltrates. There is a well-positioned PICC line placed to the right arm into the superior vena cava. Comparison with the prior exam from 12/15/17 shows increasing consolidation in both lungs, especially in the right lower lobe. IMPRESSION: Worsening bilateral infiltrates which could be due to pneumonia, edema or a ARDS. Interpreted and Authenticated by: Trevon Shine 12/18/17
[2017-12-18] MEDS ORDERED: IOPAMIDOL 100 ML BOTTLE IV ONE (12:26)
--- NOTE | 2017-12-18 12:52 | Cat Scan Report ---
CLINICAL INFORMATION: Sepsis and pneumonia COMPARISON: Chest x-ray on 12/18/[address] on 12/14/17 TECHNIQUE:100 cc of Optiray 320 were injected intravenously, and 20 seconds later, 2.5 mm helical slices were obtained from the lung apices through the bases. Following reconstruction, 2.5 mm sagittal, coronal and axial reformations were processed. The exam was reviewed at lung, mediastinal and bone window. 7 mm axial MIPS were also obtained FINDINGS: There are numerous ill-defined nodular infiltrates scattered throughout both lungs. These are developing central necrosis with loculated bubbles of air. The largest area of consolidation is located centrally in the right lower lobe. There is involvement in all lobes. The involvement in the lung bases has progressed a small amount since the recent abdomen CT done on 12/14/17. The cavitation is much more apparent on today's CT scan than on the prior one. Small bilateral layering pleural effusions are present, right larger than left. There are scattered calcified pleural plaques bilaterally. No pleural-based tumor is seen. There are a few reactive lymph nodes in the mediastinum. The largest is in the pretracheal retrocaval space and measures 1 x 1.6 cm. Pulmonary arteries are normal without evidence of emboli. The aorta is normal in caliber. There is moderate stenosis at the origin left subclavian artery. The heart is mildly enlarged. There are calcified plaques in the coronary arteries. No pericardial effusion is present. Small amount of ascites is present in the right upper quadrant. There is a stable low-attenuation mass in the left adrenal gland which measures approximately 1.7 cm.. The spine appears normal without evidence of osteomyelitis. There is no obvious paraspinal abscess. Central canal appears normal except for mild arthritis and spurs at a few levels. Spinal cord cannot be evaluated on this exam. IMPRESSION: Widespread cavitary infiltrates throughout both lungs with the greatest involvement in the right lower lobe. This may be due to a pyogenic pneumonia caused by staphylococcus, Klebsiella or streptococcus. In immunocompromised patients nocardia or Legionella are a consideration. Fungal infections, tuberculosis, Cary's granulomatosis, rheumatoid nodules and necrotizing granulomatous vasculitis are also in the differential. A metastatic carcinoma such as a squamous cell carcinoma may also percent as necrotic nodules. Interpreted and Authenticated by: Trevon Shine 12/18/17
[2017-12-18] MEDS ORDERED: DIGOXIN 500 MCG/2 ML AMPUL IV ONE (13:05)
[2017-12-18] MEDS: [UNRECOGNIZED DRUG - REMARK] IV SCH (15:21)
[2017-12-18] MEDS ORDERED: FUROSEMIDE 40 MG/4 ML VIAL IV SCH (16:00)
[2017-12-18] MEDS: metroNIDAZOLE 500 MG/100 ML BAG IV SCH (16:02)
[2017-12-18] MEDS: LATANOPROST OPHTH DROPS 2.5ML BOTTLE OU SCH (21:00)
[2017-12-19] MEDS: METOPROLOL TARTRATE 5 MG/5 ML VIAL IV SCH ×6 (00:19→19:53)
[2017-12-19] MEDS: hydrALAZINE 20 MG/ML VIAL IV SCH ×2 (00:19→03:38)
[2017-12-19] MEDS: metroNIDAZOLE 500 MG/100 ML BAG IV SCH ×2 (00:22→08:01)
[2017-12-19] MEDS: INSULIN LISPRO 1 UNIT/0.01 ML UNIT SQ SCH ×4 (00:22→17:37)
[2017-12-19] MEDS: ceFAZolin 1 GM VIAL IV SCH ×4 (02:34→19:52)
[2017-12-19] MEDS: IPRATROPIUM/ALBUTEROL 3 ML AMPUL.NEB NEB SCH ×6 (02:35→23:14)
[2017-12-19] MEDS: 0.9 % SODIUM CHLORIDE 250 ML IV SCH ×2 (02:35→14:59)
[2017-12-19 05:15] LABS: Basophils # (Auto) 0 K/mcL (0.0-0.3); Basophils % (Auto) 0 % (0.0-2.0); Eosinophils # (Auto) 0.7 K/mcL (0.0-0.7); Granulocytes % (Auto) 92.6 % (38.0-78.0); Lymphocytes # (Auto) 0.2 K/mcL (1.5-4.8); Lymphocytes % (Auto) 1.2 % (15.5-49.0); Mean Cell Volume 94.3 fL (80.0-100.0); Mean Corpuscular HGB Conc 32.6 g/dL (31.0-36.0); Mean Corpuscular Hemoglobin 30.7 pg (26.0-34.0); Monocytes # (Auto) 0.4 K/mcL (0.1-0.9); Monocytes % (Auto) 2.2 % (1.0-12.0); Platelet Count 191 K/mcL (140-440); RBC 4.11 M/mcL (4.50-5.90)
[2017-12-19 05:23] LABS: ALT/SGPT 21 U/l (0-40); Albumin 2.4 gm/dL (3.2-5.2); Albumin/Globulin Ratio 0.7 (1.0-2.3); Alkaline Phosphatase 49 U/L (39-117); Bilirubin,Direct < 0.2 mg/dL (0.0-0.3); Blood Urea Nitrogen 30 mg/dl (8-23); Gamma Glutamyl Transpeptidase 31 U/L (8-61); Uric Acid 2.6 mg/dL (2.5-8.0)
[2017-12-19] MEDS: 0.9 % SODIUM CHLORIDE 10 ML SYRINGE IV SCH ×3 (05:31→21:09)
[2017-12-19] MEDS: methylPREDNISolone SOD SUCC 125 MG/2 ML VIAL IV SCH (05:32)
[2017-12-19 06:19] LABS: Prealbumin 11.3 mg/dl (20-40)
[2017-12-19] MEDS ORDERED: DIGOXIN 500 MCG/2 ML AMPUL IV ONE (07:36)
--- NOTE | 2017-12-19 07:38 | Consultation ---
DATE OF CONSULTATION: 12/18/2017 HISTORY OF PRESENT ILLNESS: The patient is a 77-year-old male who presented in the end of November in a septic state with elevated lactate and pulmonary infiltrates. He eventually grew methicillin sensitive Staph aureus in all blood culture bottles obtained. He was initiated on vancomycin and azithromycin and subsequently with culture evolution switched to nafcillin. This, due to some issues of rash, was switched to cefazolin. Fortunately, his staph was multiply sensitive. On presentation, he was clinically unwell and deteriorated and had a period of intubation and ventilator management. He was successfully extubated, and transferred to BiPAP support. He is still recovering in the Intensive Care Unit under close medical observation. At this time, he is weak but seemingly answering simple questions accurately. Further history other than that is recorded initially and subsequently in the medical record is not available. No family members are present. The patient does have a history of COPD, hypertension and hyperlipidemia with chronic atrial fibrillation. On presentation to the Emergency Room, he had a white count that was not remarkably elevated but subsequently has developed white counts in the 13,000 to 15,000 range with 15,300 white blood cells on his current a.m. labs. Hemoglobin has been relatively stable at 13 grams per deciliter. His granulocyte count has been 89% to 93% measured white blood cells. A CT scan of the chest was done earlier today showing his pneumonia and necrotizing pneumonia with cavities in the bases bilaterally. REVIEW OF SYSTEMS: Not really obtainable at this time. PHYSICAL EXAMINATION: GENERAL: A pleasant older gentleman in no acute distress at this time, able to speak in three to six word phrases. HEENT: Head: Atraumatic and normocephalic. Eyes: PERRLA, EOMI. Sclerae and conjunctivae clear. NECK: Supple. LUNGS: Coarse rhonchi, greater in the bases and occasional scattered rhonchus wheeze. HEART: Irregularly irregular S1, S2, difficult to hear through the chest, but no apparent gallop or rub. Volume state: Ankles and arms appears reasonable at this time, a PICC line in the right upper extremity. ABDOMEN: Soft. Bowel sounds are present, decreased. No apparent mass or organomegaly. BONES, JOINTS AND EXTREMITIES: Without acute changes. RADIOLOGIC STUDIES: Review of the CT scan does show some bronchiectasis and his cavitary pneumonia. The pneumonia seems to be bibasilar. This plus his relatively non-elevated white blood cell count raises the possibility of some anaerobic bacterial component to his current presentation. At this time, the diagnosis is methicillin-sensitive Staph aureus complicating a viral process, agree with current antibiotic regimen. I would agree that nafcillin would be a better antibiotic to be on, especially in light of his inadequate echocardiogram without current evidence of endocarditis but given his positive blood cultures agree with considering 6 weeks' course of antibiotics for the possibility of endocarditis in this setting. IMPRESSION AND PLAN: Review of CT does suggest some pleural effusion which appears somewhat loculated. If his clinical course were to be not trending in a good direction, consideration for thoracentesis to evaluate this space might be prudent. I will discuss and follow with. Thank you for the opportunity to participate in the care of this pleasant patient. KARLI:marcus Job ID: [id number] Doc ID: [id number] Carlos Clement MD
[2017-12-19] MEDS ORDERED: hydrALAZINE 20 MG/ML VIAL IV PRN (07:40)
[2017-12-19] MEDS: CHLORHEXIDINE GLUCONATE 1 ML ORAL.SOL SWABMOUTH SCH ×2 (07:59→21:09)
[2017-12-19] MEDS: ENOXAPARIN 80 MG/0.8 ML SYRINGE SQ SCH ×2 (08:01→21:08)
[2017-12-19] MEDS: BISACODYL 10 MG SUPP.RECT PR SCH (08:01)
[2017-12-19] MEDS: FAMOTIDINE/PF 20 MG/2 ML VIAL IV SCH ×2 (08:01→21:08)
--- NOTE | 2017-12-19 11:19 | Internal Med Progress Note ---
Medical - PN: Subj Patient information: Note initiated : 12/19/17 at 11:17 am Service Date, if different from initiated Date: [] Patient: Camilo Figueroa 77 y/o M admitted on 12/10/17 for Shortness of Breath, Moist Cough/Pneumonia. Chief Complaint: [] Interval history: Mr. Figueroa is a 77 year old Male with history of COPD,hypertension, hyperlipidemia, chronic A. fib who presents to the emergency room today with shortness of breath, cough that has been going on since Monday. Patient's daughter was at bedside who provided some history along with the patient. The patient's daughter had a URI-like symptom, last week I believe and the patient started showing signs of cough from Monday. The patient's condition gradually worsened since then. Patient has been having cough with expectoration initially, no blood in the sputum. He has been having progressive shortness of breath. He notes he has been having subjective sensations of fever, chills, sweating. He has decreased effort tolerance and is unable to walk short distances now. For the last day the cough has subsided and it is difficult for him to bring up the sputum. The patient is extremely weak and has therefore been brought to the emergency room for further evaluation. In the emergency room, the patient was noted to be in moderate respiratory distress, he was afebrile, his white blood cell count was 5.9, chemistry showed worsening renal function with a creatinine of 1.6. His lactic acid was 5.9, first set of troponin was 0.11 and second set was 0.09. He had an elevated pro- calcitonin and 8.43. Chest x-ray showed pneumonia. the patient was tachycardic with A. fib with RVR on presentation and was on a diltiazem drip, his blood pressure was also very high and difficult to 78 physician and put him on nitroglycerin drip. Both these medications were discontinued after admission He was admitted to the hospital for further management, admitted to pcu status. dec 11 Pt overnight had deterioration in his clinical status, was intubated, had PICC placed, A line placed. He was overnight on pressors, levophed and vasopressin, presently only on levophed, bp stable. ABG reviwed, Chest X ray reviewed patient family was updated and was at bedside This AM pt sedated on Vent, TV 400, rr 24, peep 5, PAP 19-20 Plat 16-17, Pt still has some lactic acidosis, on IVF, ringers lactate changed to Saline. Patient Blood culture is postive for gpc in clusters, staph auremakayla, pt already on vancomycin. Likely staph pneumonia secondary to influenza. Feb 27 . Seen and examined, no acute overnight events, patient remains off pressors. Hemodynamically stable. On baseline vent settings. This morning, when settings were, tidal volume 500, rate of 20, FiO2 35, PEEP of 5. Peak airway pressures around 20, plateau pressures 16-17 The patient was drowsy, was able to grasp hands and move his toes. Did not seem agitated. For order for blood culture bottles are positive for gram-positive cocci. Chest x-ray shows improvement in infiltrate. Lines in place repeat cultures ordered, echo ordered. ABG reviewed Feedings started, last night was still going on. Initially we thought we could try a weaning trial given his baseline settings however due to shift change between the hospital providers, weaning trial and extubation will be decided by the oncoming provider. that is slight worsening in renal function, urine output is 25-30 mL per hour. Family updated Around 2 pm extubated. Tolerated PS well, minimal secretions. Hemodynamics stable. Feb 28. Did well overnight. Was still somnolent. But, hemodynamics stable and breathing comfortably. Poor U/O. Received lasix at night and IVF was d/c'd. This afternoon became suddenly cyanotic with poor respiratory effort and struggle to cough. Lungs: few rhonchi at bases. Poor BS and respiratory effort. ET-suctioning for minimal secretions. CXR without significant changes compared to am. No atelectasis, overt pulmonary edema or pneumothorax. DD bronchospasm, fatigue Duoneb, BiPAP ventilator support, Lasix December 14: Had episode of severe respiratory distress last night, requiring high FiO2. Had bronchospasm, tachypnea and cyanotic discoloration. Gave neb treatments, dilaudid, ET-suctioning, solumedrol, BiPAP support. This am noted abdominal distention. KUB showed dilatation of bowel loops and possible free air vs volvulus. CT-abd/pelvis pending. Hold nutrition via feeding tube. Will start TPN Patient has also have hx of major epistaxis. Is on Eliquis with hematuria. Am reluctant to insert NG for decompression and potentially causing epistaxis. Eliquis discontinued. Start Lovenox for afibr. December 15: Required BiPAP support last night. Minimal secretions. Microbiology: MSSA bacteremia. On Nafcillin December 16: Max time off BiPAP 2-3 hours. Na 148, despite 1/2 NS IVF d/W pharmacy: no Na in TPN repeat labs later today Spoke at length with and daughter: weaning off BiPAP will take days. Other problems: weakness, encephalopathy and ileus. Code status revisited. In case of worsening condition: no CPR and/or re-intubation. December 17: Stable overnight. BiPAP most of the night. HR controlled. BP still somewhat elevated despite scheduled metoprolol IV. Had BMs. WBC elevated at 13.6. Received Solumedrol x 1 yesterday for allergic reaction to nafcillin (facial flushing, itch, bronchospasm). Will add hydralazine IV to control BP. Try to increase time off BiPAP December 18 patient seen examined, stable overnight, concern that he is having flushing to Penicillin, he has mssa with vanco sensitivity of 2, the patient was given test dose of anceph yesterday pm, and tolerated it well, he was therefore started on cefazolin 2gms q8. The patient had facial erythema overnight x 2 according to the staff. This AM too iwthout the use of medication while working with physicial therapy, the patient developed flushing of his facial skin. I am not convinced that the fluhing that the patient is experincing is related to administration of anceph. Continue same for now. If not will have to switch to daptomycin. patient has low grade fever, his last set of microbiology was negative. Chest x ray to be repeated today he has diarrhea and rising wbc count, ileus on X ray abdomen. check for cdiff continue bipap support as needed , he is still wheezinng, resume iv steroids for now. on duonebs q4hrs December 19 patient seen and examined, no acute overnight events, was placed on BiPAP yesterday evening up until this morning. He tolerated it well. Off BiPAP this morning. Mental status somewhat better today than yesterday. Patient still has some wheezing going on but evidently is better than yesterday , he responded well to IV Lasix given yesterday, negative 4500 mL. We will hold off on Lasix now. Change steroids to once a day. Leukocytosis worsening, clinically patient is getting better, likely a reaction to steroids. Appreciate pulmonary input, lesions on cefazolin for now, reviewed the case with infectious disease specialist up in [place] were advised to consider increasing the dose of cefazolin from 2 g every 8 hours 2 g every 6 hours. Patient can be switched back to every 8 hours at the time of discharge for the remainder of the course of treatment. The patient will need 6 weeks of IV antibiotics. Repeat cultures are negative. If the patient's clinical condition would worsen we will consider tapping the fluid in the pleural space. Try to get speech therapy to see the patient can tolerate by mouth diet today Patient remains on TPN for nutrition, still has diarrhea,re send stool for C. difficile Pertinent ROS: Denies headache, dizziness Denies chest pain, palpitations Denies cough or shortness of breath Denies abdominal pain, nausea or vomiting. patient was able to answer questions and denied any complaints - Constitutional Vitals: Vital Signs Temp Pulse Resp BP Pulse Ox 98.5 F 83 24 H 116/66 97 12/19/17 07:10 12/19/17 10:48 12/19/17 10:48 12/19/17 07:01 12/19/17 07:14 Period Temp Pulse Resp BP Sys/Cai Pulse Ox Last 24 Hr 98.1 F-99.7 F 82-128 18-29 83-157/56-94 91-98 Intake and Output 12/18/17 12/19/17 12/19/17 21:59 05:59 13:59 Intake Total 1937 100 / 100 Output Total 3070 / 3070 610 / 610 35 / 35 Balance -1132 / -1132 -610 / -610 65 / 65 Weight 161 lb 4.8 oz Intake & Output: Intake & Output 12/18/17 12/19/17 12/19/17 21:59 05:59 13:59 Intake Total 1937 100 / 100 Output Total 3070 / 3070 610 / 610 35 / 35 Balance -1132 / -1132 -610 / -610 65 / 65 Weight 161 lb 4.8 oz Intake: IV 1937 100 / 100 Calcium Gluconate 20 Meq 1838 / 1838 Potassium Phosphate 100 Meq Infuvite Adult 10 ml Selenium 60 Mcg Potassium Chloride 60 Meq Magnesium Sulfate 16.24 Meq In Clinimix 5%-20% Solution 2, 000 ml @ 75 mls/hr IV Q24H [facility] Rx#:[id number] Output: Urine Catheter Amount 3070 / 3070 610 / 610 35 / 35 Other: Stool Size Large Stool Color Green Stool Consistency Liquid Exam: Constitutional; Afebrile, cooperative, alert, not in distress. Eyes- No icterus, , No periorbital swelling Ears- Ext ear normal, hearing heart to conversation. Neck- Midline trachea, supple Respiratory system: Air Entry equal on both sides, bilateral prolonged expiratory phase, mild expiratory wheezing, air entry is better today than yesterday CVS- rate is normal, irregular rhythm,, S1,S2 heard, no gallop, no rub. Abdomen- Soft nontender abdomen, no organomegaly, no tenderness, no guarding or rigidity,mildly distended abdomen [employer]- AOOx2, moving all extremities, no gross focal deficit noted. Medical - PN: Obj Da - Labs CBC & Chem 7: 12/19/17 04:00 12/19/17 04:00 Labs: Abnormal Lab Results 12/19/17 12/19/17 12/18/17 04:00 04:00 10:07 WBC 18.3 H RBC 4.11 L Hgb 12.6 L Hct 38.7 L RDW 15.0 H Gran % 92.6 H Lymph % (Auto) 1.2 L Gran # 16.9 H Lymph # (Auto) 0.2 L ESR Sodium Chloride Anion Gap BUN 30 H Glucose 203 H Uric Acid Calcium 7.9 L Phosphorus Lactate Dehydrogenase 315 H C-Reactive Protein NT-Pro-B Natriuret Pep 28357.0 H Total Protein 5.7 L Albumin 2.4 L Albumin/Globulin Ratio 0.7 L Prealbumin 11.3 L 12/18/17 12/18/17 12/17/17 03:36 03:36 04:07 WBC 15.3 H RBC 4.27 L Hgb 13.1 L Hct 40.1 L RDW 15.0 H Gran % 90.1 H Lymph % (Auto) 2.5 L Gran # 13.7 H Lymph # (Auto) 0.4 L ESR 44 H Sodium 147 H Chloride 111 H 112 H Anion Gap BUN 25 H 26 H Glucose 121 H 172 H Uric Acid 2.4 L Calcium 8.1 L 7.8 L Phosphorus 2.6 L Lactate Dehydrogenase 365 H 315 H C-Reactive Protein 5.7 H NT-Pro-B Natriuret Pep Total Protein 5.6 L 5.4 L Albumin 2.1 L 2.1 L Albumin/Globulin Ratio 0.6 L 0.6 L Prealbumin 12.6 L 12.8 L 12/17/17 12/16/17 04:07 19:45 WBC 13.6 H RBC 4.01 L Hgb 12.7 L Hct 37.7 L RDW 15.0 H Gran % 93.9 H Lymph % (Auto) 1.4 L Gran # 12.7 H Lymph # (Auto) 0.2 L ESR Sodium Chloride 112 H Anion Gap 7.0 L BUN 26 H Glucose 122 H Uric Acid Calcium 7.9 L Phosphorus 2.5 L Lactate Dehydrogenase C-Reactive Protein NT-Pro-B Natriuret Pep Total Protein Albumin 2.6 L Albumin/Globulin Ratio Prealbumin Meds: Medications Acetaminophen (Tylenol) 650 mg PO Q4-6HP PRN PRN Reason: PAIN/FEVER > 101 Albuterol/Ipratropium (Duoneb) 3 ml NEB Q4HRT [facility] Last Admin: 12/19/17 10:48 Dose: 3 ml Bisacodyl (Dulcolax) 10 mg [place] DAILY [facility] Last Admin: 12/19/17 08:01 Dose: Not Given Cefazolin Sodium (Ancef) 2 gm IV Q6H [facility] Last Admin: 12/19/17 07:58 Dose: 2 gm Chlorhexidine Gluconate (Peridex) 15 ml [place]AB[place]OUTH BID [facility] Last Admin: 12/19/17 07:59 Dose: 15 ml Dextrose (Dextrose 50%) 0 ml IV UD PRN PRN Reason: Hypoglycemia Diagnostic Test (Pha) (Accu-Chek) 1 each FS Q6 [facility] Last Admin: 12/19/17 05:31 Dose: 1 each Diphenhydramine HCl (Benadryl) 50 mg IV Q6HP PRN PRN Reason: Allergic Symptoms Last Admin: 12/18/17 05:59 Dose: 50 mg Enoxaparin Sodium (Lovenox) 80 mg SQ BID [facility] Last Admin: 12/19/17 08:01 Dose: 80 mg Famotidine (Pepcid) 20 mg IV Q12 [facility] Last Admin: 12/19/17 08:01 Dose: 20 mg Heparin Sodium (Porcine) (Heparin Flush) 2 ml IV Q12 [facility] Last Admin: 12/19/17 08:00 Dose: 2 ml Hydralazine HCl (Apresoline) 10 mg IV Q4HP PRN PRN Reason: Hypertension Hydromorphone HCl (Dilaudid) 0.5 mg IV Q2HP PRN PRN Reason: PAIN LEVEL > 6 Last Admin: 12/18/17 20:25 Dose: 0.5 mg Acetaminophen (Ofirmev) 650 mg in 65 mls @ 130 mls/hr IV Q6HP PRN PRN Reason: PAIN/FEVER > 101 Last Infusion: 12/12/17 20:23 Dose: Infused Sodium Chloride (Sodium Chloride 0.9%) 250 mls @ 20 mls/hr IV .[id number] [facility] Last Admin: 12/19/17 02:35 Dose: Not Given Heparin Sodium/Sodium Chloride (Heparin/Ns) 500 mls @ 0 mls/hr IV .Q0M ERIC; KVO PRN Reason: Protocol Fat Emulsion Intravenous (Intralipid 20%) 250 mls @ 25 mls/hr IV [id number]@1600 [facility] Last Infusion: 12/17/17 02:01 Dose: Infused Calcium Gluconate 10 meq/Potassium Phosphate 80 meq/Multivitamins/Minerals 10 ml /Selenium 60 mcg/ Potassium Chloride 80 meq/ Magnesium Sulfate 16.24 meq/ Potassium Acetate 15 meq/ Amino Acids 2,102.6871 mls @ 75 mls/hr IV Q24H [facility] Last Admin: 12/18/17 15:21 Dose: 75 mls/hr Insulin Human Lispro (Humalog) 0 unit SQ Q6 ERIC PRN Reason: Protocol Last Admin: 12/19/17 05:31 Dose: 3 unit Latanoprost (Xalatan Ophth Drops) 1 gtt OU HS [facility] Last Admin: 12/18/17 21:00 Dose: 1 drop Lorazepam (Ativan) 0.5 mg IV Q4HP PRN PRN Reason: ANXIETY/SEDATION Last Admin: 12/18/17 20:24 Dose: 0.5 mg Methylprednisolone Sodium Succinate (Solu-Medrol) 62.5 mg IV QDAY [facility] Metoprolol Tartrate (Lopressor) 5 mg IV Q2HP PRN PRN Reason: Tachyarrhythmias Last Admin: 12/15/17 15:48 Dose: 5 mg Metoprolol Tartrate (Lopressor) 5 mg IV Q4 [facility] Last Admin: 12/19/17 09:00 Dose: Not Given Naloxone HCl (Narcan) 0.1 mg IV Q2MIN PRN PRN Reason: Opiate Reversal Senna (Senokot) 2 tab PO HSP PRN PRN Reason: Constipation Sodium Chloride (Saline Flush) 10 ml IV Q8 [facility] Last Admin: 12/19/17 05:31 Dose: 10 ml Medical - PN: A/P - Time Spent With Patient Total time spent is greater than 50% in coordination of care (as documented) at patient's floor/unit and/or counseling patient: - Narrative A/P Narrative: A/P Acute respiratory failure Was on mechanical support 12/11 - 12/12. Extubated successfully. On bipap since the, still needs bipap at night, at baseline setttings s/p Lasix with good diuresis, continue to monitor. Acute COPD exacerbation- DuoNeb's and IV steroids, nebulizers every 4 hours.Was on Ventilator support -12/12. Recurrent respiratory distress 12/13. Resolving after neb treatments and BiPAP support. Continue to watch closely. Solumedrol discontinued after few days, resumed today on 12/18/16, due to ongoing wheezing, Solu-Medrol 60 mg once a day for now Leucocytosis: could be from infection, vs steroid use, has abdominal distention, check for cdiff again today, was neg yesterday, [place]-[id number] pneumonia-staph aureus pneumonia-Necrotizing pneumonia- Pleural effusion Was on IV vancomycin, also Rocephin and Zithromax for community-acquired pneumonia. S/P Tamiflu for possible influenza. Blood c/s: MSSA. 12/13: Vancomycin stopped. 3/2 Nafcillin started, but discontinued 3/[address] reviewed, noted to have necrotizing pneumonia, from staph. has some pleural effusion which seemed loculated on chest x ray, very small for safe drainage for now. will consdier tapping if condition worsens. MSSA bacteremia- Echo: no vegetations noted, however suboptimal study. 3/2 Nafcillin started, discontinued 3/3 for allergic reaction. Repeat blood cultures obtained 12/16. Switched back to Vancomycin, although not optimal for MSSA. atrial flutter-patient has a chronic history of atrial flutter fibrillation, not on medications for rate control, does take eliquis for anticoagulation. IV metoprolol when necessary for now. 12/13: eliquis stopped. Lovenox 1 mg/kg BID Necrotizing pna noted, case reviewed with ID physician and Pulmonary. Plan for 6 weeks of IV antibiotics. Severe sepsis with septic shock, multiorgan dysfunction: resolved. Atrial fibrillation On lovenox q 12 h, rate contyrolled with IV digoxin and IV metoprolol (switched from Eliquis, has hx of severe spontaneous epistaxis) Acute renal failure-renal function improved Elevated troponins-secondary to demand ischemia type II myocardial infarction. BPH- tamsulosin on hold, WILSON in place Diabetes-not taking any medications, diet controlled. Monitor glucose for now if elevated secondary to steroids will place him on sliding scale insulin Ileus 12/13: CT-abdomen/pelvis: no volvulus or free air. Started TPN 12/13. Hypernatremia Intermittent, monitor for now Na 147 Try to get speech therapy to see him today. failed Swallow yesterday DVT-patient is on Lovenox Code status: No CPR or intubation Spent total of > 30 min spent in critical care for this patient: eval and management respiratory distress, coordination of care. chart review, review of imaging Medical - PN: Qual - VTE Deep Vein Thrombosis/Pulmonary Embolism Present on Admission: No Procedures - Arterial Line Size (Gauge): 20
[2017-12-19] MEDS: [UNRECOGNIZED DRUG - REMARK] IV SCH (14:58)
[2017-12-19] MEDS: FAT EMULSION 20% 250 ML IV SCH (14:59)
[2017-12-19] MEDS: HYDROmorphone 2 MG/ML VIAL IV PRN (19:53)
[2017-12-19] MEDS: LATANOPROST OPHTH DROPS 2.5ML BOTTLE OU SCH (21:08)
[2017-12-19] MEDS: LORazepam 2 MG/ML VIAL IV PRN (22:50)
[2017-12-20] MEDS: METOPROLOL TARTRATE 5 MG/5 ML VIAL IV SCH ×7 (00:10→23:30)
[2017-12-20] MEDS: INSULIN LISPRO 1 UNIT/0.01 ML UNIT SQ SCH ×5 (00:18→23:31)
[2017-12-20] MEDS: ceFAZolin 1 GM VIAL IV SCH ×4 (01:41→19:58)
[2017-12-20] MEDS: IPRATROPIUM/ALBUTEROL 3 ML AMPUL.NEB NEB SCH ×7 (02:30→23:00)
[2017-12-20] MEDS: 0.9 % SODIUM CHLORIDE 250 ML IV SCH ×2 (04:03→13:44)
[2017-12-20] MEDS: HYDROmorphone 2 MG/ML VIAL IV PRN ×4 (04:06→20:21)
[2017-12-20] MEDS: 0.9 % SODIUM CHLORIDE 10 ML SYRINGE IV SCH ×4 (06:03→20:23)
[2017-12-20 07:05] LABS: Basophils # (Auto) 0 K/mcL (0.0-0.3); Basophils % (Auto) 0.1 % (0.0-2.0); Eosinophils # (Auto) 0.4 K/mcL (0.0-0.7); Eosinophils % (Auto) 1.9 % (0.0-7.0); Lymphocytes # (Auto) 0.6 K/mcL (1.5-4.8); Mean Corpuscular HGB Conc 34.3 g/dL (31.0-36.0); Mean Corpuscular Hemoglobin 32.2 pg (26.0-34.0); Monocytes # (Auto) 0.9 K/mcL (0.1-0.9); Platelet Count 212 K/mcL (140-440); RBC 3.66 M/mcL (4.50-5.90); Red Cell Distribution Width 15.1 % (11.5-14.5)
[2017-12-20] MEDS: CHLORHEXIDINE GLUCONATE 1 ML ORAL.SOL SWABMOUTH SCH ×2 (07:24→20:23)
[2017-12-20 07:26] LABS: ALT/SGPT 22 U/l (0-40); Albumin 2.1 gm/dL (3.2-5.2); Albumin/Globulin Ratio 0.7 (1.0-2.3); Alkaline Phosphatase 54 U/L (39-117); Bilirubin,Direct < 0.2 mg/dL (0.0-0.3); Blood Urea Nitrogen 29 mg/dl (8-23); Gamma Glutamyl Transpeptidase 48 U/L (8-61); Uric Acid 2.4 mg/dL (2.5-8.0)
[2017-12-20] MEDS: ENOXAPARIN 80 MG/0.8 ML SYRINGE SQ SCH (07:26)
[2017-12-20] MEDS: FAMOTIDINE/PF 20 MG/2 ML VIAL IV SCH ×2 (07:26→20:21)
[2017-12-20] MEDS ORDERED: methylPREDNISolone SOD SUCC 125 MG/2 ML VIAL IV SCH (09:00)
[2017-12-20] MEDS: BISACODYL 10 MG SUPP.RECT PR SCH (10:50)
[2017-12-20] MEDS ORDERED: [UNRECOGNIZED DRUG - REMARK] IV SCH (11:00)
[2017-12-20] MEDS ORDERED: TPN PER PHARMACY IV SCH (11:18)
[2017-12-20] MEDS ORDERED: METOPROLOL TARTRATE 5 MG/5 ML VIAL IV PRN (11:18)
[2017-12-20] MEDS ORDERED: DEXTROSE 50% 50 ML VIAL IV PRN (11:18)
[2017-12-20] MEDS ORDERED: NALOXONE HCL 0.4 MG/ML VIAL IV PRN (11:18)
[2017-12-20] MEDS ORDERED: hydrALAZINE 20 MG/ML VIAL IV PRN (11:18)
[2017-12-20] MEDS ORDERED: diphenhydrAMINE 50 MG/ML VIAL IV PRN (11:18)
[2017-12-20] MEDS ORDERED: SENNOSIDES 1 TABLET PO PRN (11:18)
[2017-12-20] MEDS ORDERED: HEPARIN/NS 500 ML IV SCH (11:18)
[2017-12-20] MEDS ORDERED: [UNRECOGNIZED DRUG - REMARK] IV SCH (15:00)
[2017-12-20] MEDS ORDERED: FUROSEMIDE 40 MG/4 ML VIAL IV ONE (16:04)
--- NOTE | 2017-12-20 16:08 | Internal Med Progress Note ---
Medical - PN: Subj Patient information: Note initiated : 12/20/17 at 4:04 pm Service Date, if different from initiated Date: [] Patient: Camilo Figueroa 77 y/o M admitted on 12/10/17 for Shortness of Breath, Moist Cough/Pneumonia. Chief Complaint: [] Interval history: Mr. Figueroa is a 77 year old Male with history of COPD,hypertension, hyperlipidemia, chronic A. fib who presents to the emergency room today with shortness of breath, cough that has been going on since Monday. Patient's daughter was at bedside who provided some history along with the patient. The patient's daughter had a URI-like symptom, last week I believe and the patient started showing signs of cough from Monday. The patient's condition gradually worsened since then. Patient has been having cough with expectoration initially, no blood in the sputum. He has been having progressive shortness of breath. He notes he has been having subjective sensations of fever, chills, sweating. He has decreased effort tolerance and is unable to walk short distances now. For the last day the cough has subsided and it is difficult for him to bring up the sputum. The patient is extremely weak and has therefore been brought to the emergency room for further evaluation. In the emergency room, the patient was noted to be in moderate respiratory distress, he was afebrile, his white blood cell count was 5.9, chemistry showed worsening renal function with a creatinine of 1.6. His lactic acid was 5.9, first set of troponin was 0.11 and second set was 0.09. He had an elevated pro- calcitonin and 8.43. Chest x-ray showed pneumonia. the patient was tachycardic with A. fib with RVR on presentation and was on a diltiazem drip, his blood pressure was also very high and difficult to 78 physician and put him on nitroglycerin drip. Both these medications were discontinued after admission He was admitted to the hospital for further management, admitted to pcu status. dec 11 Pt overnight had deterioration in his clinical status, was intubated, had PICC placed, A line placed. He was overnight on pressors, levophed and vasopressin, presently only on levophed, bp stable. ABG reviwed, Chest X ray reviewed patient family was updated and was at bedside This AM pt sedated on Vent, TV 400, rr 24, peep 5, PAP 19-20 Plat 16-17, Pt still has some lactic acidosis, on IVF, ringers lactate changed to Saline. Patient Blood culture is postive for gpc in clusters, staph auremakayla, pt already on vancomycin. Likely staph pneumonia secondary to influenza. Feb 27 . Seen and examined, no acute overnight events, patient remains off pressors. Hemodynamically stable. On baseline vent settings. This morning, when settings were, tidal volume 500, rate of 20, FiO2 35, PEEP of 5. Peak airway pressures around 20, plateau pressures 16-17 The patient was drowsy, was able to grasp hands and move his toes. Did not seem agitated. For order for blood culture bottles are positive for gram-positive cocci. Chest x-ray shows improvement in infiltrate. Lines in place repeat cultures ordered, echo ordered. ABG reviewed Feedings started, last night was still going on. Initially we thought we could try a weaning trial given his baseline settings however due to shift change between the hospital providers, weaning trial and extubation will be decided by the oncoming provider. that is slight worsening in renal function, urine output is 25-30 mL per hour. Family updated Around 2 pm extubated. Tolerated PS well, minimal secretions. Hemodynamics stable. Feb 28. Did well overnight. Was still somnolent. But, hemodynamics stable and breathing comfortably. Poor U/O. Received lasix at night and IVF was d/c'd. This afternoon became suddenly cyanotic with poor respiratory effort and struggle to cough. Lungs: few rhonchi at bases. Poor BS and respiratory effort. ET-suctioning for minimal secretions. CXR without significant changes compared to am. No atelectasis, overt pulmonary edema or pneumothorax. DD bronchospasm, fatigue Duoneb, BiPAP ventilator support, Lasix December 14: Had episode of severe respiratory distress last night, requiring high FiO2. Had bronchospasm, tachypnea and cyanotic discoloration. Gave neb treatments, dilaudid, ET-suctioning, solumedrol, BiPAP support. This am noted abdominal distention. KUB showed dilatation of bowel loops and possible free air vs volvulus. CT-abd/pelvis pending. Hold nutrition via feeding tube. Will start TPN Patient has also have hx of major epistaxis. Is on Eliquis with hematuria. Am reluctant to insert NG for decompression and potentially causing epistaxis. Eliquis discontinued. Start Lovenox for afibr. December 15: Required BiPAP support last night. Minimal secretions. Microbiology: MSSA bacteremia. On Nafcillin December 16: Max time off BiPAP 2-3 hours. Na 148, despite 1/2 NS IVF d/W pharmacy: no Na in TPN repeat labs later today Spoke at length with and daughter: weaning off BiPAP will take days. Other problems: weakness, encephalopathy and ileus. Code status revisited. In case of worsening condition: no CPR and/or re-intubation. December 17: Stable overnight. BiPAP most of the night. HR controlled. BP still somewhat elevated despite scheduled metoprolol IV. Had BMs. WBC elevated at 13.6. Received Solumedrol x 1 yesterday for allergic reaction to nafcillin (facial flushing, itch, bronchospasm). Will add hydralazine IV to control BP. Try to increase time off BiPAP December 18 patient seen examined, stable overnight, concern that he is having flushing to Penicillin, he has mssa with vanco sensitivity of 2, the patient was given test dose of anceph yesterday pm, and tolerated it well, he was therefore started on cefazolin 2gms q8. The patient had facial erythema overnight x 2 according to the staff. This AM too iwthout the use of medication while working with physicial therapy, the patient developed flushing of his facial skin. I am not convinced that the fluhing that the patient is experincing is related to administration of anceph. Continue same for now. If not will have to switch to daptomycin. patient has low grade fever, his last set of microbiology was negative. Chest x ray to be repeated today he has diarrhea and rising wbc count, ileus on X ray abdomen. check for cdiff continue bipap support as needed , he is still wheezinng, resume iv steroids for now. on duonebs q4hrs December 19 patient seen and examined, no acute overnight events, was placed on BiPAP yesterday evening up until this morning. He tolerated it well. Off BiPAP this morning. Mental status somewhat better today than yesterday. Patient still has some wheezing going on but evidently is better than yesterday , he responded well to IV Lasix given yesterday, negative 4500 mL. We will hold off on Lasix now. Change steroids to once a day. Leukocytosis worsening, clinically patient is getting better, likely a reaction to steroids. Appreciate pulmonary input, lesions on cefazolin for now, reviewed the case with infectious disease specialist up in [place] were advised to consider increasing the dose of cefazolin from 2 g every 8 hours 2 g every 6 hours. Patient can be switched back to every 8 hours at the time of discharge for the remainder of the course of treatment. The patient will need 6 weeks of IV antibiotics. Repeat cultures are negative. If the patient's clinical condition would worsen we will consider tapping the fluid in the pleural space. Try to get speech therapy to see the patient can tolerate by mouth diet today Patient remains on TPN for nutrition, still has diarrhea,re send stool for C. difficile December 20 pt seen examiend, no acute overnight events did not need bipap overnight, mental status improving ok for puree food today xfer to tele status start on banatrol plus and culturell to see if it helps with diarrhea cdiff x 2 neg wbc still high but pt on steroids family at bedside, updated on plan of care all questions answered p[t is positive 10L sice admission, give another dose of IV lasix today. Pertinent ROS: Denies headache, dizziness Denies chest pain, palpitations Denies cough or shortness of breath Denies abdominal pain, nausea or vomiting. - Constitutional Vitals: Vital Signs Temp Pulse Resp BP Pulse Ox 99.7 F H 90 18 130/66 96 12/20/17 11:44 12/20/17 15:20 12/20/17 15:20 12/20/17 11:44 12/20/17 11:44 Period Temp Pulse Resp BP Sys/Cai Pulse Ox Last 24 Hr 97.7 F-99.7 F 51-111 16-23 107-151/41-99 78-100 Intake and Output 12/20/17 12/20/17 12/20/17 05:59 13:59 21:59 Intake Total 250 / 250 1763 / 1763 Output Total 625 / 625 80 / 80 Balance -625 / -625 170 / 170 1763 / 1763 Weight 162 lb 1.6 oz Patient Weight 12/21/17 05:59 Weight 162 lb 1.6 oz Intake & Output: Intake & Output 12/20/17 12/20/17 12/20/17 05:59 13:59 21:59 Intake Total 250 / 250 1762 Output Total 625 / 625 80 / 80 Balance -625 / -625 170 / 170 1762 Weight 162 lb 1.6 oz Intake: IV 250 / 250 1762 Intralipid 20% 250 ml @ 25 mls/ 250 / 250 hr IV TuThSa@1600 [facility] Rx#: [id number] Oral 0 / 0 Output: Urine Catheter Amount 625 / 625 80 / 80 Other: Stool Size Large Stool Color Brown Green Stool Consistency Liquid Watery Exam: Constitutional; Afebrile, cooperative, alert, not in distress. Eyes- No icterus, , No periorbital swelling Ears- Ext ear normal, hearing ok to conversation. Neck- Midline trachea, supple Respiratory system: Air Entry equal on both sides, tiffani basilar crackles, no wheezing today. CVS- Rate rhythm regular, S1,S2 heard, no gallop, no rub. Abdomen- Soft nontender abdomen, no organomegaly, no tenderness, no guarding or rigidity, [employer]- AOOx3, moving all extremities, no gross focal deficit noted. Medical - PN: Obj Da - Labs CBC & Chem 7: 12/20/17 06:18 12/20/17 06:18 Labs: Abnormal Lab Results 12/20/17 12/20/17 12/19/17 06:18 06:18 04:00 WBC 18.9 H 18.3 H RBC 3.66 L 4.11 L Hgb 11.8 L 12.6 L Hct 34.4 L 38.7 L RDW 15.1 H 15.0 H Gran % 90.0 H 92.6 H Lymph % (Auto) 3.0 L 1.2 L Gran # 17.0 H 16.9 H Lymph # (Auto) 0.6 L 0.2 L ESR Sodium Chloride BUN 29 H Glucose 136 H Uric Acid 2.4 L Calcium 7.7 L Lactate Dehydrogenase 288 H C-Reactive Protein NT-Pro-B Natriuret Pep Total Protein 5.3 L Albumin 2.1 L Albumin/Globulin Ratio 0.7 L Prealbumin 12/19/17 12/18/17 12/18/17 04:00 10:07 03:36 WBC 15.3 H RBC 4.27 L Hgb 13.1 L Hct 40.1 L RDW 15.0 H Gran % 90.1 H Lymph % (Auto) 2.5 L Gran # 13.7 H Lymph # (Auto) 0.4 L ESR 44 H Sodium Chloride BUN 30 H Glucose 203 H Uric Acid Calcium 7.9 L Lactate Dehydrogenase 315 H C-Reactive Protein NT-Pro-B Natriuret Pep 09061.0 H Total Protein 5.7 L Albumin 2.4 L Albumin/Globulin Ratio 0.7 L Prealbumin 11.3 L 12/18/17 03:36 WBC RBC Hgb Hct RDW Gran % Lymph % (Auto) Gran # Lymph # (Auto) ESR Sodium 147 H Chloride 111 H BUN 25 H Glucose 121 H Uric Acid 2.4 L Calcium 8.1 L Lactate Dehydrogenase 365 H C-Reactive Protein 5.7 H NT-Pro-B Natriuret Pep Total Protein 5.6 L Albumin 2.1 L Albumin/Globulin Ratio 0.6 L Prealbumin 12.6 L Meds: Medications Acetaminophen (Tylenol) 650 mg PO Q4-6HP PRN PRN Reason: PAIN/FEVER > 101 Albuterol/Ipratropium (Duoneb) 3 ml NEB Q4HRT [facility] Last Admin: 12/20/17 15:19 Dose: 3 ml Bisacodyl (Dulcolax) 10 mg OR DAILY [facility] Cefazolin Sodium (Ancef) 2 gm IV Q6H [facility] Last Admin: 12/20/17 14:05 Dose: 2 gm Chlorhexidine Gluconate (Peridex) 15 ml SWABMOUTH BID [facility] Dextrose (Dextrose 50%) 0 ml IV UD PRN PRN Reason: Hypoglycemia Diagnostic Test (Pha) (Accu-Chek) 1 each FS Q6 [facility] Last Admin: 12/20/17 12:18 Dose: 1 each Diphenhydramine HCl (Benadryl) 50 mg IV Q6HP PRN PRN Reason: Allergic Symptoms Enoxaparin Sodium (Lovenox) 80 mg SQ BID [facility] Famotidine (Pepcid) 20 mg IV Q12 [facility] Furosemide (Lasix) 40 mg IV ONCE ONE Stop: 12/20/17 16:05 Heparin Sodium (Porcine) (Heparin Flush) 2 ml IV Q12 [facility] Hydralazine HCl (Apresoline) 10 mg IV Q4HP PRN PRN Reason: Hypertension Hydromorphone HCl (Dilaudid) 0.5 mg IV Q2HP PRN PRN Reason: PAIN LEVEL > 6 Last Admin: 12/20/17 14:29 Dose: 0.5 mg Calcium Gluconate 10 meq/Potassium Phosphate 100 meq/Multivitamins/Minerals 10 ml/Selenium 60 mcg/ Magnesium Sulfate 16.24 meq/ Potassium Chloride 20 meq/ Amino Acids 2,069.7326 mls @ 75 mls/hr IV Q24H [facility] Last Admin: 12/20/17 15:20 Dose: 75 mls/hr Fat Emulsion Intravenous (Intralipid 20%) 250 mls @ 25 mls/hr IV TuThSa@1600 [facility] Heparin Sodium/Sodium Chloride (Heparin/Ns) 500 mls @ 0 mls/hr IV .Q0M [facility]; KVO PRN Reason: Protocol Sodium Chloride (Sodium Chloride 0.9%) 250 mls @ 20 mls/hr IV .[id number] [facility] Last Admin: 12/20/17 13:44 Dose: Not Given Acetaminophen (Ofirmev) 650 mg in 65 mls @ 130 mls/hr IV Q6HP PRN PRN Reason: PAIN/FEVER > 101 Insulin Human Lispro (Humalog) 0 unit SQ Q6 [facility] PRN Reason: Protocol Last Admin: 12/20/17 13:44 Dose: Not Given Lactobacillus Rhamnosus (Culturelle) 1 cap PO BID [facility] Latanoprost (Xalatan Ophth Drops) 1 gtt OU HS [facility] Lorazepam (Ativan) 0.5 mg IV Q4HP PRN PRN Reason: ANXIETY/SEDATION Methylprednisolone Sodium Succinate (Solu-Medrol) 62.5 mg IV QDAY [facility] Metoprolol Tartrate (Lopressor) 5 mg IV Q2HP PRN PRN Reason: Tachyarrhythmias Metoprolol Tartrate (Lopressor) 5 mg IV Q4 [facility] Last Admin: 12/20/17 12:18 Dose: 5 mg Naloxone HCl (Narcan) 0.1 mg IV Q2MIN PRN PRN Reason: Opiate Reversal Senna (Senokot) 2 tab PO HSP PRN PRN Reason: Constipation Sodium Chloride (Saline Flush) 10 ml IV Q8 [facility] Last Admin: 12/20/17 14:06 Dose: 10 ml Medical - PN: A/P - Time Spent With Patient Total time spent is greater than 50% in coordination of care (as documented) at patient's floor/unit and/or counseling patient: - Narrative A/P Narrative: A/P Acute respiratory failure Was on mechanical support 12/11 - 12/12. Extubated successfully. On bipap since the, still needs bipap at night, at baseline setttings s/p Lasix with good diuresis, continue to monitor. Acute COPD exacerbation- DuoNeb's and IV steroids, nebulizers every 4 hours.Was on Ventilator support -12/12. Recurrent respiratory distress 12/13. Resolving after neb treatments and BiPAP support. Continue to watch closely. Solumedrol discontinued after few days, resumed today on 12/18/16, due to ongoing wheezing, Solu-Medrol 60 mg once a day for now no wheezing today. Leucocytosis: could be from infection, vs steroid use, has abdominal distention, check for cdiff again today, was neg yesterday, clincally improving. monitor. Wyqfgpjpi-eanlrizgk-rsqzfmln pneumonia-staph aureus pneumonia-Necrotizing pneumonia- Pleural effusion Was on IV vancomycin, also Rocephin and Zithromax for community-acquired pneumonia. S/P Tamiflu for possible influenza. Blood c/s: MSSA. 12/13: Vancomycin stopped. 12/15 Nafcillin started, but discontinued [address] reviewed, noted to have necrotizing pneumonia, from staph. has some pleural effusion which seemed loculated on chest x ray, very small for safe drainage for now. will consider tapping if condition worsens. MSSA bacteremia- Echo: no vegetations noted, however suboptimal study. 12/15 Nafcillin started, discontinued 3/ for allergic reaction. Repeat blood cultures obtained 12/16. Switched back to Vancomycin, although not optimal for MSSA. atrial flutter-patient has a chronic history of atrial flutter fibrillation, not on medications for rate control, does take eliquis for anticoagulation. IV metoprolol when necessary for now. 12/13: eliquis stopped. Lovenox 1 mg/kg BID Necrotizing pna noted, case reviewed with ID physician and Pulmonary. Plan for 6 weeks of IV antibiotics. Severe sepsis with septic shock, multiorgan dysfunction: resolved. Atrial fibrillation On lovenox q 12 h, rate contyrolled with IV digoxin and IV metoprolol (switched from Eliquis, has hx of severe spontaneous epistaxis) Acute renal failure-renal function improved Elevated troponins-secondary to demand ischemia type II myocardial infarction. BPH- tamsulosin on hold, WILSON in place Diabetes-not taking any medications, diet controlled. Monitor glucose for now if elevated secondary to steroids will place him on sliding scale insulin Ileus 12/13: CT-abdomen/pelvis: no volvulus or free air. Started TPN 12/13. Hypernatremia Intermittent, Diarrhea antibiotic associated cdiff neg po banatrol and culturell to see if this helps consider lomotil in AM Cleared by speech for puree food. DVT-patient is on Lovenox Code status: No CPR or intubation Medical - PN: Qual - VTE Deep Vein Thrombosis/Pulmonary Embolism Present on Admission: No Procedures - Arterial Line Size (Gauge): 20
[2017-12-20] MEDS: ACETAMINOPHEN 650 MG/65 ML BOTTLE IV PRN (16:33)
[2017-12-20] MEDS: LACTOBACILLUS 1 CAPSULE PO SCH (20:20)
[2017-12-20] MEDS: LATANOPROST OPHTH DROPS 2.5ML BOTTLE OU SCH (20:29)
[2017-12-20] MEDS ORDERED: ENOXAPARIN 80 MG/0.8 ML SYRINGE SQ SCH (21:00)
[2017-12-20] MEDS: LORazepam 2 MG/ML VIAL IV PRN (23:31)
[2017-12-21] MEDS: 0.9 % SODIUM CHLORIDE 250 ML IV SCH ×2 (00:13→12:39)
[2017-12-21] MEDS: ceFAZolin 1 GM VIAL IV SCH ×4 (02:46→20:23)
[2017-12-21] MEDS: IPRATROPIUM/ALBUTEROL 3 ML AMPUL.NEB NEB SCH ×5 (02:47→19:12)
[2017-12-21] MEDS: 0.9 % SODIUM CHLORIDE 10 ML SYRINGE IV SCH ×9 (02:47→22:43)
[2017-12-21] MEDS: METOPROLOL TARTRATE 5 MG/5 ML VIAL IV SCH ×3 (03:53→12:39)
[2017-12-21] MEDS: INSULIN LISPRO 1 UNIT/0.01 ML UNIT SQ SCH ×3 (05:27→17:58)
[2017-12-21] MEDS: ACETAMINOPHEN 650 MG/65 ML BOTTLE IV PRN (05:40)
[2017-12-21 06:04] LABS: ALT/SGPT 20 U/l (0-40); Albumin 2.7 gm/dL (3.2-5.2); Albumin/Globulin Ratio 0.8 (1.0-2.3); Alkaline Phosphatase 66 U/L (39-117); Bilirubin,Direct < 0.2 mg/dL (0.0-0.3); Blood Urea Nitrogen 35 mg/dl (8-23); Gamma Glutamyl Transpeptidase 57 U/L (8-61); Uric Acid 2.4 mg/dL (2.5-8.0)
[2017-12-21 06:06] LABS: Basophils # (Auto) 0 K/mcL (0.0-0.3); Basophils % (Auto) 0.1 % (0.0-2.0); Eosinophils # (Auto) 0.8 K/mcL (0.0-0.7); Eosinophils % (Auto) 3.9 % (0.0-7.0); Granulocytes % (Auto) 84.6 % (38.0-78.0); Lymphocytes # (Auto) 0.9 K/mcL (1.5-4.8); Lymphocytes % (Auto) 4.4 % (15.5-49.0); Mean Cell Volume 94.2 fL (80.0-100.0); Mean Corpuscular HGB Conc 33.5 g/dL (31.0-36.0); Mean Corpuscular Hemoglobin 31.6 pg (26.0-34.0); Monocytes # (Auto) 1.4 K/mcL (0.1-0.9); Platelet Count 231 K/mcL (140-440); RBC 3.29 M/mcL (4.50-5.90); Red Cell Distribution Width 15.1 % (11.5-14.5)
[2017-12-21] MEDS: HYDROmorphone 2 MG/ML VIAL IV PRN ×2 (06:22→18:47)
--- NOTE | 2017-12-21 08:44 | XRay Report ---
HISTORY: Reason for Exam:pleural effusion , pneumonia and cough FINDINGS: There are bilateral alveolar infiltrates with the greatest involvement in both lower lobes and around the right hilum. There are multiple small air-filled cavitary spaces within the infiltrate located above the right costophrenic sulcus. A small cavitary nodule is seen laterally in the left mid thorax which measures 1.4 cm. Tiny bilateral pleural effusions are present. The heart size is borderline enlarged. PICC line is well-positioned. The ole are partially obscured by the infiltrates. No adenopathy is detected. Comparison with the prior chest x-ray from 12/18/17 shows improvement of the pneumonia bilaterally, especially on the right side. IMPRESSION: Improving bilateral pneumonia Interpreted and Authenticated by: Trevon Shine 12/21/17
[2017-12-21] MEDS ORDERED: methylPREDNISolone SOD SUCC 125 MG/2 ML VIAL IV SCH (09:00)
[2017-12-21] MEDS: methylPREDNISolone SOD SUCC 125 MG/2 ML VIAL IV SCH (09:37)
[2017-12-21] MEDS: CHLORHEXIDINE GLUCONATE 1 ML ORAL.SOL SWABMOUTH SCH ×2 (09:37→20:22)
[2017-12-21] MEDS: FAMOTIDINE/PF 20 MG/2 ML VIAL IV SCH ×2 (09:37→20:23)
[2017-12-21] MEDS: BISACODYL 10 MG SUPP.RECT PR SCH (09:56)
[2017-12-21] MEDS: LACTOBACILLUS 1 CAPSULE PO SCH ×2 (09:56→20:22)
[2017-12-21] MEDS ORDERED: HEPARIN 5,000 UNIT/ML VIAL SQ SCH (14:00)
[2017-12-21] MEDS: ACETAMINOPHEN 325 MG TABLET PO PRN (14:06)
--- NOTE | 2017-12-21 14:26 | Internal Med Progress Note ---
Medical - PN: Subj Patient information: Note initiated : 12/21/17 at 2:23 pm Service Date, if different from initiated Date: [] Patient: Camilo Figueroa 77 y/o M admitted on 12/10/17 for Shortness of Breath, Moist Cough/Pneumonia. Chief Complaint: [] Interval history: Mr. Figueroa is a 77 year old Male with history of COPD,hypertension, hyperlipidemia, chronic A. fib who presents to the emergency room today with shortness of breath, cough that has been going on since Monday. Patient's daughter was at bedside who provided some history along with the patient. The patient's daughter had a URI-like symptom, last week I believe and the patient started showing signs of cough from Monday. The patient's condition gradually worsened since then. Patient has been having cough with expectoration initially, no blood in the sputum. He has been having progressive shortness of breath. He notes he has been having subjective sensations of fever, chills, sweating. He has decreased effort tolerance and is unable to walk short distances now. For the last day the cough has subsided and it is difficult for him to bring up the sputum. The patient is extremely weak and has therefore been brought to the emergency room for further evaluation. In the emergency room, the patient was noted to be in moderate respiratory distress, he was afebrile, his white blood cell count was 5.9, chemistry showed worsening renal function with a creatinine of 1.6. His lactic acid was 5.9, first set of troponin was 0.11 and second set was 0.09. He had an elevated pro- calcitonin and 8.43. Chest x-ray showed pneumonia. the patient was tachycardic with A. fib with RVR on presentation and was on a diltiazem drip, his blood pressure was also very high and difficult to 78 physician and put him on nitroglycerin drip. Both these medications were discontinued after admission He was admitted to the hospital for further management, admitted to pcu status. dec 11 Pt overnight had deterioration in his clinical status, was intubated, had PICC placed, A line placed. He was overnight on pressors, levophed and vasopressin, presently only on levophed, bp stable. ABG reviwed, Chest X ray reviewed patient family was updated and was at bedside This AM pt sedated on Vent, TV 400, rr 24, peep 5, PAP 19-20 Plat 16-17, Pt still has some lactic acidosis, on IVF, ringers lactate changed to Saline. Patient Blood culture is postive for gpc in clusters, staph auremakayla, pt already on vancomycin. Likely staph pneumonia secondary to influenza. Feb 27 . Seen and examined, no acute overnight events, patient remains off pressors. Hemodynamically stable. On baseline vent settings. This morning, when settings were, tidal volume 500, rate of 20, FiO2 35, PEEP of 5. Peak airway pressures around 20, plateau pressures 16-17 The patient was drowsy, was able to grasp hands and move his toes. Did not seem agitated. For order for blood culture bottles are positive for gram-positive cocci. Chest x-ray shows improvement in infiltrate. Lines in place repeat cultures ordered, echo ordered. ABG reviewed Feedings started, last night was still going on. Initially we thought we could try a weaning trial given his baseline settings however due to shift change between the hospital providers, weaning trial and extubation will be decided by the oncoming provider. that is slight worsening in renal function, urine output is 25-30 mL per hour. Family updated Around 2 pm extubated. Tolerated PS well, minimal secretions. Hemodynamics stable. Feb 28. Did well overnight. Was still somnolent. But, hemodynamics stable and breathing comfortably. Poor U/O. Received lasix at night and IVF was d/c'd. This afternoon became suddenly cyanotic with poor respiratory effort and struggle to cough. Lungs: few rhonchi at bases. Poor BS and respiratory effort. ET-suctioning for minimal secretions. CXR without significant changes compared to am. No atelectasis, overt pulmonary edema or pneumothorax. DD bronchospasm, fatigue Duoneb, BiPAP ventilator support, Lasix December 14: Had episode of severe respiratory distress last night, requiring high FiO2. Had bronchospasm, tachypnea and cyanotic discoloration. Gave neb treatments, dilaudid, ET-suctioning, solumedrol, BiPAP support. This am noted abdominal distention. KUB showed dilatation of bowel loops and possible free air vs volvulus. CT-abd/pelvis pending. Hold nutrition via feeding tube. Will start TPN Patient has also have hx of major epistaxis. Is on Eliquis with hematuria. Am reluctant to insert NG for decompression and potentially causing epistaxis. Eliquis discontinued. Start Lovenox for afibr. December 15: Required BiPAP support last night. Minimal secretions. Microbiology: MSSA bacteremia. On Nafcillin December 16: Max time off BiPAP 2-3 hours. Na 148, despite 1/2 NS IVF d/W pharmacy: no Na in TPN repeat labs later today Spoke at length with and daughter: weaning off BiPAP will take days. Other problems: weakness, encephalopathy and ileus. Code status revisited. In case of worsening condition: no CPR and/or re-intubation. December 17: Stable overnight. BiPAP most of the night. HR controlled. BP still somewhat elevated despite scheduled metoprolol IV. Had BMs. WBC elevated at 13.6. Received Solumedrol x 1 yesterday for allergic reaction to nafcillin (facial flushing, itch, bronchospasm). Will add hydralazine IV to control BP. Try to increase time off BiPAP December 18 patient seen examined, stable overnight, concern that he is having flushing to Penicillin, he has mssa with vanco sensitivity of 2, the patient was given test dose of anceph yesterday pm, and tolerated it well, he was therefore started on cefazolin 2gms q8. The patient had facial erythema overnight x 2 according to the staff. This AM too iwthout the use of medication while working with physicial therapy, the patient developed flushing of his facial skin. I am not convinced that the fluhing that the patient is experincing is related to administration of anceph. Continue same for now. If not will have to switch to daptomycin. patient has low grade fever, his last set of microbiology was negative. Chest x ray to be repeated today he has diarrhea and rising wbc count, ileus on X ray abdomen. check for cdiff continue bipap support as needed , he is still wheezinng, resume iv steroids for now. on duonebs q4hrs December 19 patient seen and examined, no acute overnight events, was placed on BiPAP yesterday evening up until this morning. He tolerated it well. Off BiPAP this morning. Mental status somewhat better today than yesterday. Patient still has some wheezing going on but evidently is better than yesterday , he responded well to IV Lasix given yesterday, negative 4500 mL. We will hold off on Lasix now. Change steroids to once a day. Leukocytosis worsening, clinically patient is getting better, likely a reaction to steroids. Appreciate pulmonary input, lesions on cefazolin for now, reviewed the case with infectious disease specialist up in [place] were advised to consider increasing the dose of cefazolin from 2 g every 8 hours 2 g every 6 hours. Patient can be switched back to every 8 hours at the time of discharge for the remainder of the course of treatment. The patient will need 6 weeks of IV antibiotics. Repeat cultures are negative. If the patient's clinical condition would worsen we will consider tapping the fluid in the pleural space. Try to get speech therapy to see the patient can tolerate by mouth diet today Patient remains on TPN for nutrition, still has diarrhea,re send stool for C. difficile December 20 pt seen examiend, no acute overnight events did not need bipap overnight, mental status improving ok for puree food today xfer to tele status start on banatrol plus and culturell to see if it helps with diarrhea cdiff x 2 neg wbc still high but pt on steroids family at bedside, updated on plan of care all questions answered p[t is positive 10L sice admission, give another dose of IV lasix today. december 21 Patient seen examined, no acute overnight events, off bipap, hemodynamically stable WBC still high, CXR done this AM shows resolving pna, no effusion plan to wean of f steroids, solumedrol now 40mg daily, duonebs q6 hrs eric pt remains on iv anceph q6 hrs for now, advance diet as tolerated d/c rectal tube start on lasix 20mg po to keep patient dry, try to get pt working with PT Pertinent ROS: Denies headache, dizziness Denies chest pain, palpitations Denies cough or shortness of breath Denies abdominal pain, nausea or vomiting. - Constitutional Vitals: Vital Signs Temp Pulse Resp BP Pulse Ox 97.2 F 82 18 125/97 94 12/21/17 12:00 12/21/17 13:56 12/21/17 13:56 12/21/17 12:00 12/21/17 13:56 Period Temp Pulse Resp BP Sys/Cai Pulse Ox Last 24 Hr 97.2 F-100.2 F 82-95 16-20 108-154/59-101 92-97 Intake and Output 12/21/17 12/21/17 12/21/17 05:59 13:59 21:59 Intake Total 235 / 235 Output Total 700 / 700 Balance -700 / -700 235 / 235 Weight 168 lb 8 oz Patient Weight 12/22/17 05:59 Weight 168 lb 8 oz Intake & Output: Intake & Output 12/21/17 12/21/17 12/21/17 05:59 13:59 21:59 Intake Total 235 / 235 Output Total 700 / 700 Balance -700 / -700 235 / 235 Weight 168 lb 8 oz Intake: IV 65 / 65 Oral 120 / 120 IV - Manual Only 50 / 50 Output: Urine Catheter Amount 700 / 700 Other: Meal Breakfast Percent of Meal Consumed 100% Feeding Ability Total Assistance Exam: Constitutional; Afebrile, cooperative, alert, not in distress. Eyes- No icterus, , No periorbital swelling Ears- Ext ear normal, hearing normal to conversation. Neck- Midline trachea, supple Respiratory system: Air Entry equal on both sides, no wheezing today, air entry is good, upper airway conducted sounds heard. CVS- Rate rhythm regular, S1,S2 heard, no gallop, no rub. Abdomen- Soft nontender abdomen, no organomegaly, no tenderness, no guarding or rigidity, [employer]- AOOx3, moving all extremities, no gross focal deficit noted. Medical - PN: Obj Da - Labs CBC & Chem 7: 12/21/17 04:00 12/21/17 04:00 Labs: Abnormal Lab Results 12/21/17 12/21/17 12/20/17 04:00 04:00 06:18 WBC 19.7 H RBC 3.29 L Hgb 10.4 L Hct 31.0 L RDW 15.1 H Gran % 84.6 H Lymph % (Auto) 4.4 L Gran # 16.6 H Lymph # (Auto) 0.9 L [place] # (Auto) 1.4 H Eos # (Auto) 0.8 H BUN 35 H 29 H Glucose 137 H 136 H Uric Acid 2.4 L 2.4 L Calcium 8.0 L 7.7 L AST 40 H Lactate Dehydrogenase 358 H 288 H Total Protein 5.3 L Albumin 2.7 L 2.1 L Albumin/Globulin Ratio 0.8 L 0.7 L Prealbumin 12/20/17 12/19/17 12/19/17 06:18 04:00 04:00 WBC 18.9 H 18.3 H RBC 3.66 L 4.11 L Hgb 11.8 L 12.6 L Hct 34.4 L 38.7 L RDW 15.1 H 15.0 H Gran % 90.0 H 92.6 H Lymph % (Auto) 3.0 L 1.2 L Gran # 17.0 H 16.9 H Lymph # (Auto) 0.6 L 0.2 L [place] # (Auto) Eos # (Auto) BUN 30 H Glucose 203 H Uric Acid Calcium 7.9 L AST Lactate Dehydrogenase 315 H Total Protein 5.7 L Albumin 2.4 L Albumin/Globulin Ratio 0.7 L Prealbumin 11.3 L Meds: Medications Acetaminophen (Tylenol) 650 mg PO Q4-6HP PRN PRN Reason: PAIN/FEVER > 101 Last Admin: 12/21/17 14:06 Dose: 650 mg Albuterol/Ipratropium (Duoneb) 3 ml NEB Q6HRT [facility] Last Admin: 12/21/17 13:53 Dose: 3 ml Bisacodyl (Dulcolax) 10 mg MS DAILY [facility] Last Admin: 12/21/17 09:56 Dose: Not Given Cefazolin Sodium (Ancef) 2 gm IV Q6H [facility] Last Admin: 12/21/17 08:12 Dose: 2 gm Chlorhexidine Gluconate (Peridex) 15 ml [place] BID [facility] Last Admin: 12/21/17 09:37 Dose: 15 ml Dextrose (Dextrose 50%) 0 ml IV UD PRN PRN Reason: Hypoglycemia Diagnostic Test (Pha) (Accu-Chek) 1 each FS Q6 [facility] Last Admin: 12/21/17 12:22 Dose: 1 each Diphenhydramine HCl (Benadryl) 50 mg IV Q6HP PRN PRN Reason: Allergic Symptoms Famotidine (Pepcid) 20 mg IV Q12 [facility] Last Admin: 12/21/17 09:37 Dose: 20 mg Furosemide (Lasix) 20 mg PO DAILY [facility] Heparin Sodium (Porcine) (Heparin Flush) 2 ml IV Q12 [facility] Last Admin: 12/21/17 09:37 Dose: 2 ml Heparin Sodium (Porcine) (Heparin) 5,000 unit SQ Q8 [facility] Hydralazine HCl (Apresoline) 10 mg IV Q4HP PRN PRN Reason: Hypertension Hydromorphone HCl (Dilaudid) 0.5 mg IV Q2HP PRN PRN Reason: PAIN LEVEL > 6 Last Admin: 12/21/17 06:22 Dose: 0.5 mg Calcium Gluconate 10 meq/Potassium Phosphate 100 meq/Multivitamins/Minerals 10 ml/Selenium 60 mcg/ Magnesium Sulfate 16.24 meq/ Potassium Chloride 20 meq/ Amino Acids 2,069.7326 mls @ 75 mls/hr IV Q24H [facility] Stop: 12/21/17 14:59 Last Admin: 12/20/17 15:20 Dose: 75 mls/hr Fat Emulsion Intravenous (Intralipid 20%) 250 mls @ 25 mls/hr IV TuThSa@1600 [facility] Heparin Sodium/Sodium Chloride (Heparin/Ns) 500 mls @ 0 mls/hr IV .Q0M ERIC; KVO PRN Reason: Protocol Sodium Chloride (Sodium Chloride 0.9%) 250 mls @ 20 mls/hr IV .[id number] [facility] Last Admin: 12/21/17 12:39 Dose: Not Given Acetaminophen (Ofirmev) 650 mg in 65 mls @ 130 mls/hr IV Q6HP PRN PRN Reason: PAIN/FEVER > 101 Last Infusion: 12/21/17 06:10 Dose: Infused Calcium Gluconate 10 meq/Potassium Phosphate 60 meq/Multivitamins/Minerals 10 ml /Amino Acids 2,045.1417 mls @ 75 mls/hr IV Q24H [facility] Insulin Human Lispro (Humalog) 0 unit SQ Q6 [facility] PRN Reason: Protocol Last Admin: 12/21/17 12:38 Dose: 2 unit Lactobacillus Rhamnosus (Culturelle) 1 cap PO BID [facility] Last Admin: 12/21/17 09:56 Dose: 1 cap Latanoprost (Xalatan Ophth Drops) 1 gtt OU HS [facility] Last Admin: 12/20/17 20:29 Dose: 1 drop Lorazepam (Ativan) 0.5 mg IV Q4HP PRN PRN Reason: ANXIETY/SEDATION Last Admin: 12/20/17 23:31 Dose: 0.5 mg Methylprednisolone Sodium Succinate (Solu-Medrol) 40 mg IV QDAY [facility] Last Admin: 12/21/17 09:37 Dose: 40 mg Metoprolol Tartrate (Lopressor) 5 mg IV Q2HP PRN PRN Reason: Tachyarrhythmias Metoprolol Tartrate (Lopressor) 5 mg IV Q4 [facility] Last Admin: 12/21/17 12:39 Dose: 5 mg Naloxone HCl (Narcan) 0.1 mg IV Q2MIN PRN PRN Reason: Opiate Reversal Senna (Senokot) 2 tab PO HSP PRN PRN Reason: Constipation Sodium Chloride (Saline Flush) 10 ml IV Q8 [facility] Last Admin: 12/21/17 12:40 Dose: 10 ml Medical - PN: A/P - Time Spent With Patient Total time spent is greater than 50% in coordination of care (as documented) at patient's floor/unit and/or counseling patient: - Narrative A/P Narrative: A/P Acute respiratory failure Was on mechanical support 12/11 - 12/12. Extubated successfully. Off bipap now. x 2 days. s/p Lasix with good diuresis, continue to monitor. Acute COPD exacerbation- Duonebs and IV steroids duonebs now q6hr , Solumederol 40mg qd Leucocytosis: could be from infection, vs steroid use, has abdominal distention, check for cdiff again today, was neg yesterday, clincally improving. monitor. x ray chest shows improving pna anticipate improvement in leucocytosis with lowering dose of solumedrol [id number] pneumonia-staph aureus pneumonia-Necrotizing pneumonia- Pleural effusion Initially treated wtih broad spectrum abx, but now on anceph MSSA bacteremia- high grade Echo: no vegetations noted, however suboptimal study. pt ? had possible rash to naficililn, atrial flutter-patient has a chronic history of atrial flutter fibrillation, not on medications for rate control, does take eliquis for anticoagulation. IV metoprolol when necessary for now. 12/13: eliquis stopped. d/c lovenox, plan to resume eliquis Necrotizing pna noted, case reviewed with ID physician and Pulmonary. Plan for 6 weeks of IV antibiotics. Severe sepsis with septic shock, multiorgan dysfunction: resolved. Atrial fibrillation rate controlled with IV metoprolol will start on oral today and d/c IV metoprolol, only prn use if tachyarrythmias Acute renal failure-renal function improved Elevated troponins-secondary to demand ischemia type II myocardial infarction. BPH- tamsulosin on hold, WILSON in place Diabetes-not taking any medications, diet controlled. Monitor glucose for now if elevated secondary to steroids will place him on sliding scale insulin Ileus 12/13: CT-abdomen/pelvis: no volvulus or free air. Nutrition -dyspgia diet level 1, tolerated po well this AM - On TPN Hypernatremia Intermittent, Diarrhea antibiotic associated cdiff neg diarrhea improved, unable to get banatrol due to speech restrictions monitor DVT-patient started back on eliquis. Code status: No CPR or intubation Medical - PN: Qual - VTE Deep Vein Thrombosis/Pulmonary Embolism Present on Admission: No Procedures - Arterial Line Size (Gauge): 20
[2017-12-21] MEDS ORDERED: [UNRECOGNIZED DRUG - REMARK] IV SCH (15:00)
[2017-12-21] MEDS: METOPROLOL TARTRATE 25 MG TABLET PO SCH ×2 (15:28→20:24)
[2017-12-21] MEDS ORDERED: FAT EMULSION 20% 250 ML IV SCH (16:00)
[2017-12-21] MEDS: FAT EMULSION 20% 250 ML IV SCH (18:07)
[2017-12-21] MEDS: APIXABAN 5 MG TABLET PO SCH (20:23)
[2017-12-21] MEDS: CLOTRIMAZOLE CRM 1% 1 DOSE TUBE TOPICAL SCH (20:24)
[2017-12-21] MEDS: LATANOPROST OPHTH DROPS 2.5ML BOTTLE OU SCH (20:24)
[2017-12-21] MEDS: LORazepam 2 MG/ML VIAL IV PRN (20:38)
[2017-12-22] MEDS: INSULIN LISPRO 1 UNIT/0.01 ML UNIT SQ SCH ×5 (00:19→23:55)
[2017-12-22] MEDS: IPRATROPIUM/ALBUTEROL 3 ML AMPUL.NEB NEB SCH ×4 (00:26→18:43)
[2017-12-22] MEDS: ceFAZolin 1 GM VIAL IV SCH ×4 (02:10→19:48)
[2017-12-22 05:48] LABS: Basophils # (Auto) 0 K/mcL (0.0-0.3); Basophils % (Auto) 0.1 % (0.0-2.0); Eosinophils # (Auto) 0.8 K/mcL (0.0-0.7); Eosinophils % (Auto) 4.1 % (0.0-7.0); Granulocytes % (Auto) 85.8 % (38.0-78.0); Lymphocytes # (Auto) 0.7 K/mcL (1.5-4.8); Lymphocytes % (Auto) 3.8 % (15.5-49.0); Mean Cell Volume 94.4 fL (80.0-100.0); Mean Corpuscular Hemoglobin 31.2 pg (26.0-34.0); Monocytes # (Auto) 1.2 K/mcL (0.1-0.9); Monocytes % (Auto) 6.2 % (1.0-12.0); Platelet Count 197 K/mcL (140-440); RBC 2.72 M/mcL (4.50-5.90); Red Cell Distribution Width 15.1 % (11.5-14.5)
[2017-12-22] MEDS: 0.9 % SODIUM CHLORIDE 10 ML SYRINGE IV SCH ×5 (06:02→22:00)
[2017-12-22 06:29] LABS: ALT/SGPT 43 U/l (0-40); Albumin 2.3 gm/dL (3.2-5.2); Albumin/Globulin Ratio 0.7 (1.0-2.3); Alkaline Phosphatase 94 U/L (39-117); Bilirubin,Direct < 0.2 mg/dL (0.0-0.3); Blood Urea Nitrogen 40 mg/dl (8-23); Gamma Glutamyl Transpeptidase 97 U/L (8-61); Uric Acid 2.7 mg/dL (2.5-8.0)
[2017-12-22] MEDS: ACETAMINOPHEN 325 MG TABLET PO PRN (06:56)
[2017-12-22] MEDS ORDERED: LACTATED RINGERS 1,000 ML IV SCH (07:15)
[2017-12-22] MEDS: BISACODYL 10 MG SUPP.RECT PR SCH (08:44)
[2017-12-22] MEDS ORDERED: FUROSEMIDE 20 MG TABLET PO SCH (09:00)
--- NOTE | 2017-12-22 09:28 | XRay Report ---
HISTORY: Reason for Exam:abdominal distention. FINDINGS: There is a large amount of gas in the stomach and large intestine and a moderate amount in the small bowel. Rectal catheter is seen within the decompressed rectum and distal sigmoid colon. There is a mobile distended cecum. It is less distended today than it was on 12/17/17. No gross free intra-abdominal air is seen on the supine view. There are multiple surgical clips in the lower pelvis bilaterally. 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 IMPRESSION: Nonspecific bowel pattern with distention of the stomach and colon Interpreted and Authenticated by: Trevon Shine 12/22/17
[2017-12-22] MEDS ORDERED: METHYLNALTREXONE BROMIDE 12 MG/0.6 ML SYRINGE SC ONE (09:45)
[2017-12-22] MEDS: CHLORHEXIDINE GLUCONATE 1 ML ORAL.SOL SWABMOUTH SCH ×2 (10:34→19:55)
[2017-12-22] MEDS: CLOTRIMAZOLE CRM 1% 1 DOSE TUBE TOPICAL SCH ×2 (10:35→19:50)
[2017-12-22] MEDS: FAMOTIDINE/PF 20 MG/2 ML VIAL IV SCH ×2 (10:37→19:52)
[2017-12-22] MEDS: methylPREDNISolone SOD SUCC 125 MG/2 ML VIAL IV SCH (10:37)
[2017-12-22] MEDS: FUROSEMIDE 40 MG/4 ML VIAL IV SCH (10:38)
[2017-12-22] MEDS: METOPROLOL TARTRATE 25 MG TABLET PO SCH ×2 (10:38→19:49)
[2017-12-22] MEDS: APIXABAN 5 MG TABLET PO SCH ×2 (10:46→19:49)
[2017-12-22] MEDS: LACTOBACILLUS 1 CAPSULE PO SCH ×2 (10:46→19:49)
[2017-12-22] MEDS: SIMETHICONE 80 MG TAB.CHEW CHEWED SCH ×4 (10:49→22:05)
[2017-12-22] MEDS: oxyCODONE HCL 5 MG TABLET PO PRN (12:55)
--- NOTE | 2017-12-22 13:14 | Internal Med Progress Note ---
Medical - PN: Subj Patient information: Note initiated : 12/22/17 at 1:08 pm Service Date, if different from initiated Date: [] Patient: Camilo Figueroa 77 y/o M admitted on 12/10/17 for Shortness of Breath, Moist Cough/Pneumonia. Chief Complaint: [] Interval history: Mr. Figueroa is a 77 year old Male with history of COPD,hypertension, hyperlipidemia, chronic A. fib who presents to the emergency room today with shortness of breath, cough that has been going on since Monday. Patient's daughter was at bedside who provided some history along with the patient. The patient's daughter had a URI-like symptom, last week I believe and the patient started showing signs of cough from Monday. The patient's condition gradually worsened since then. Patient has been having cough with expectoration initially, no blood in the sputum. He has been having progressive shortness of breath. He notes he has been having subjective sensations of fever, chills, sweating. He has decreased effort tolerance and is unable to walk short distances now. For the last day the cough has subsided and it is difficult for him to bring up the sputum. The patient is extremely weak and has therefore been brought to the emergency room for further evaluation. In the emergency room, the patient was noted to be in moderate respiratory distress, he was afebrile, his white blood cell count was 5.9, chemistry showed worsening renal function with a creatinine of 1.6. His lactic acid was 5.9, first set of troponin was 0.11 and second set was 0.09. He had an elevated pro- calcitonin and 8.43. Chest x-ray showed pneumonia. the patient was tachycardic with A. fib with RVR on presentation and was on a diltiazem drip, his blood pressure was also very high and difficult to 78 physician and put him on nitroglycerin drip. Both these medications were discontinued after admission He was admitted to the hospital for further management, admitted to pcu status. dec 11 Pt overnight had deterioration in his clinical status, was intubated, had PICC placed, A line placed. He was overnight on pressors, levophed and vasopressin, presently only on levophed, bp stable. ABG reviwed, Chest X ray reviewed patient family was updated and was at bedside This AM pt sedated on Vent, TV 400, rr 24, peep 5, PAP 19-20 Plat 16-17, Pt still has some lactic acidosis, on IVF, ringers lactate changed to Saline. Patient Blood culture is postive for gpc in clusters, staph auremakayla, pt already on vancomycin. Likely staph pneumonia secondary to influenza. Feb 27 . Seen and examined, no acute overnight events, patient remains off pressors. Hemodynamically stable. On baseline vent settings. This morning, when settings were, tidal volume 500, rate of 20, FiO2 35, PEEP of 5. Peak airway pressures around 20, plateau pressures 16-17 The patient was drowsy, was able to grasp hands and move his toes. Did not seem agitated. For order for blood culture bottles are positive for gram-positive cocci. Chest x-ray shows improvement in infiltrate. Lines in place repeat cultures ordered, echo ordered. ABG reviewed Feedings started, last night was still going on. Initially we thought we could try a weaning trial given his baseline settings however due to shift change between the hospital providers, weaning trial and extubation will be decided by the oncoming provider. that is slight worsening in renal function, urine output is 25-30 mL per hour. Family updated Around 2 pm extubated. Tolerated PS well, minimal secretions. Hemodynamics stable. Feb 28. Did well overnight. Was still somnolent. But, hemodynamics stable and breathing comfortably. Poor U/O. Received lasix at night and IVF was d/c'd. This afternoon became suddenly cyanotic with poor respiratory effort and struggle to cough. Lungs: few rhonchi at bases. Poor BS and respiratory effort. ET-suctioning for minimal secretions. CXR without significant changes compared to am. No atelectasis, overt pulmonary edema or pneumothorax. DD bronchospasm, fatigue Duoneb, BiPAP ventilator support, Lasix December 14: Had episode of severe respiratory distress last night, requiring high FiO2. Had bronchospasm, tachypnea and cyanotic discoloration. Gave neb treatments, dilaudid, ET-suctioning, solumedrol, BiPAP support. This am noted abdominal distention. KUB showed dilatation of bowel loops and possible free air vs volvulus. CT-abd/pelvis pending. Hold nutrition via feeding tube. Will start TPN Patient has also have hx of major epistaxis. Is on Eliquis with hematuria. Am reluctant to insert NG for decompression and potentially causing epistaxis. Eliquis discontinued. Start Lovenox for afibr. December 15: Required BiPAP support last night. Minimal secretions. Microbiology: MSSA bacteremia. On Nafcillin December 16: Max time off BiPAP 2-3 hours. Na 148, despite 1/2 NS IVF d/W pharmacy: no Na in TPN repeat labs later today Spoke at length with and daughter: weaning off BiPAP will take days. Other problems: weakness, encephalopathy and ileus. Code status revisited. In case of worsening condition: no CPR and/or re-intubation. December 17: Stable overnight. BiPAP most of the night. HR controlled. BP still somewhat elevated despite scheduled metoprolol IV. Had BMs. WBC elevated at 13.6. Received Solumedrol x 1 yesterday for allergic reaction to nafcillin (facial flushing, itch, bronchospasm). Will add hydralazine IV to control BP. Try to increase time off BiPAP December 18 patient seen examined, stable overnight, concern that he is having flushing to Penicillin, he has mssa with vanco sensitivity of 2, the patient was given test dose of anceph yesterday pm, and tolerated it well, he was therefore started on cefazolin 2gms q8. The patient had facial erythema overnight x 2 according to the staff. This AM too iwthout the use of medication while working with physicial therapy, the patient developed flushing of his facial skin. I am not convinced that the fluhing that the patient is experincing is related to administration of anceph. Continue same for now. If not will have to switch to daptomycin. patient has low grade fever, his last set of microbiology was negative. Chest x ray to be repeated today he has diarrhea and rising wbc count, ileus on X ray abdomen. check for cdiff continue bipap support as needed , he is still wheezinng, resume iv steroids for now. on duonebs q4hrs December 19 patient seen and examined, no acute overnight events, was placed on BiPAP yesterday evening up until this morning. He tolerated it well. Off BiPAP this morning. Mental status somewhat better today than yesterday. Patient still has some wheezing going on but evidently is better than yesterday , he responded well to IV Lasix given yesterday, negative 4500 mL. We will hold off on Lasix now. Change steroids to once a day. Leukocytosis worsening, clinically patient is getting better, likely a reaction to steroids. Appreciate pulmonary input, lesions on cefazolin for now, reviewed the case with infectious disease specialist up in [place] were advised to consider increasing the dose of cefazolin from 2 g every 8 hours 2 g every 6 hours. Patient can be switched back to every 8 hours at the time of discharge for the remainder of the course of treatment. The patient will need 6 weeks of IV antibiotics. Repeat cultures are negative. If the patient's clinical condition would worsen we will consider tapping the fluid in the pleural space. Try to get speech therapy to see the patient can tolerate by mouth diet today Patient remains on TPN for nutrition, still has diarrhea,re send stool for C. difficile December 20 pt seen examiend, no acute overnight events did not need bipap overnight, mental status improving ok for puree food today xfer to tele status start on banatrol plus and culturell to see if it helps with diarrhea cdiff x 2 neg wbc still high but pt on steroids family at bedside, updated on plan of care all questions answered p[t is positive 10L sice admission, give another dose of IV lasix today. december 21 Patient seen examined, no acute overnight events, off bipap, hemodynamically stable WBC still high, CXR done this AM shows resolving pna, no effusion plan to wean of f steroids, solumedrol now 40mg daily, duonebs q6 hrs [place] pt remains on iv anceph q6 hrs for now, advance diet as tolerated d/c rectal tube start on lasix 20mg po to keep patient dry, try to get pt working with PT December 22 pt seen examined, no acute overnight events still very tired, not able to advance diet beyond level 1 so far wbc high, but stable, no fever, no need for oxygen was able to use the bathroom today x ray abdomen shows gastric distention, showed rectal tube, but pt does not have a rectal tube in place (enema line read as rectal tube on x ray), also some ileus. Will give one dose of relistor today. Pt had gas, but was able to pass significant amount when trying to have a BM exam showed crackles, pt is positive 9000ml since admission, lasix changed to iv daily Pertinent ROS: Denies headache, dizziness Denies chest pain, palpitations Denies cough or shortness of breath, but pt is visibiliy sob on minimal activity. Denies abdominal pain, nausea or vomiting. - Constitutional Vitals: Vital Signs Temp Pulse Resp BP Pulse Ox 97.8 F 92 H 18 126/74 98 12/22/17 11:28 12/22/17 08:07 12/22/17 11:28 12/22/17 11:28 12/22/17 11:28 Period Temp Pulse Resp BP Sys/Cai Pulse Ox Last 24 Hr 97.0 F-98.6 F 82-93 16-24 108-144/53-90 94-98 Intake and Output 12/21/17 12/22/17 12/22/17 21:59 05:59 13:59 Intake Total 1875 / 1875 50 / 50 587 / 587 Output Total 1050 / 1050 650 / 650 900 / 900 Balance 825 / 825 -600 / -600 -313 / -313 Weight 164 lb 8 oz Intake & Output: Intake & Output 12/21/17 12/22/17 12/22/17 21:59 05:59 13:59 Intake Total 1875 / 1875 50 / 50 587 / 587 Output Total 1050 / 1050 650 / 650 900 / 900 Balance 825 / 825 -600 / -600 -313 / -313 Weight 164 lb 8 oz Intake: IV 1775 / 1775 347 / 347 Calcium Gluconate 10 Meq 1775 / 1775 Potassium Phosphate 100 Meq Infuvite Adult 10 ml Selenium 60 Mcg Magnesium Sulfate 16.24 Meq Potassium Chloride 20 Meq In Clinimix 5%-20% Solution 2, 000 ml @ 75 mls/hr IV Q24H [place] Rx#:[id number] Intralipid 20% 250 ml @ 25 mls/ 250 / 250 hr IV TuThSa@1600 [place] Rx#: [id number] Lactated Ringers 1,000 ml @ 100 97 / 97 mls/hr IV .Q10H [place] Rx#: [id number] Oral 100 / 100 50 / 50 240 / 240 Output: Urine Catheter Amount 1050 / 1050 650 / 650 900 / 900 Other: Meal Dinner Lunch Percent of Meal Consumed 25% 5 bites Feeding Ability Total Assistance Total Assistance Exam: Constitutional; Afebrile, cooperative, alert, not in distress. Eyes- No icterus, , No periorbital swelling Ears- Ext ear normal, hearing normal to conversation. Neck- Midline trachea, supple Respiratory system: Air Entry equal on both sides, no wheezing, but has tiffani crackles upto mid lung. CVS- Rate normal, rhythm irregular, S1,S2 heard, no gallop, no rub. Abdomen- Soft nontender abdomen, distended abdomen, hypertonic bowel sounds PUMPER GAGER- AOOx3, moving all extremities, no gross focal deficit noted. Medical - PN: Obj Da - Labs CBC & Chem 7: 12/22/17 09:15 12/22/17 04:00 Labs: Abnormal Lab Results 12/22/17 12/22/17 12/22/17 09:15 04:00 04:00 WBC 19.2 H RBC 2.72 L Hgb 8.5 L 8.5 L Hct 25.2 L 25.7 L RDW 15.1 H Gran % 85.8 H Lymph % (Auto) 3.8 L Gran # 16.4 H Lymph # (Auto) 0.7 L Bull[place] # (Auto) 1.2 H Eos # (Auto) 0.8 H BUN 40 H Glucose 166 H Uric Acid Calcium 7.7 L GGT 97 H AST 83 H ALT 43 H Lactate Dehydrogenase 342 H Total Protein 5.4 L Albumin 2.3 L Albumin/Globulin Ratio 0.7 L 12/21/17 12/21/17 12/20/17 04:00 04:00 06:18 WBC 19.7 H RBC 3.29 L Hgb 10.4 L Hct 31.0 L RDW 15.1 H Gran % 84.6 H Lymph % (Auto) 4.4 L Gran # 16.6 H Lymph # (Auto) 0.9 L [place] # (Auto) 1.4 H Eos # (Auto) 0.8 H BUN 35 H 29 H Glucose 137 H 136 H Uric Acid 2.4 L 2.4 L Calcium 8.0 L 7.7 L GGT AST 40 H ALT Lactate Dehydrogenase 358 H 288 H Total Protein 5.3 L Albumin 2.7 L 2.1 L Albumin/Globulin Ratio 0.8 L 0.7 L 12/20/17 06:18 WBC 18.9 H RBC 3.66 L Hgb 11.8 L Hct 34.4 L RDW 15.1 H Gran % 90.0 H Lymph % (Auto) 3.0 L Gran # 17.0 H Lymph # (Auto) 0.6 L Bull[place] # (Auto) Eos # (Auto) BUN Glucose Uric Acid Calcium GGT AST ALT Lactate Dehydrogenase Total Protein Albumin Albumin/Globulin Ratio Meds: Medications Acetaminophen (Tylenol) 650 mg PO Q4-6HP PRN PRN Reason: PAIN/FEVER > 101 Last Admin: 12/22/17 06:56 Dose: 650 mg Albuterol/Ipratropium (Duoneb) 3 ml NEB Q6HRT [facility] Last Admin: 12/22/17 08:05 Dose: 3 ml Bisacodyl (Dulcolax) 10 mg CA DAILY [facility] Last Admin: 12/22/17 08:44 Dose: 10 mg Cefazolin Sodium (Ancef) 2 gm IV Q6H [facility] Last Admin: 12/22/17 08:30 Dose: 2 gm Chlorhexidine Gluconate (Peridex) 15 ml SWABMOUTH BID [facility] Last Admin: 12/22/17 10:34 Dose: 15 ml Clotrimazole (Mycelex Crm 1%) 1 dose TOPICAL BID [facility] Last Admin: 12/22/17 10:35 Dose: 1 dose Dextrose (Dextrose 50%) 0 ml IV UD PRN PRN Reason: Hypoglycemia Diagnostic Test (Pha) (Accu-Chek) 1 each FS Q6 [facility] Last Admin: 12/22/17 12:15 Dose: 1 each Diphenhydramine HCl (Benadryl) 50 mg IV Q6HP PRN PRN Reason: Allergic Symptoms Famotidine (Pepcid) 20 mg IV Q12 [facility] Last Admin: 12/22/17 10:37 Dose: 20 mg Furosemide (Lasix) 40 mg IV DAILY [facility] Last Admin: 12/22/17 10:38 Dose: 40 mg Heparin Sodium (Porcine) (Heparin Flush) 2 ml IV Q12 [facility] Last Admin: 12/22/17 10:39 Dose: 2 ml Hydralazine HCl (Apresoline) 10 mg IV Q4HP PRN PRN Reason: Hypertension Hydromorphone HCl (Dilaudid) 0.5 mg IV Q2HP PRN PRN Reason: PAIN LEVEL > 6 Last Admin: 12/21/17 18:47 Dose: 0.5 mg Heparin Sodium/Sodium Chloride (Heparin/Ns) 500 mls @ 0 mls/hr IV .Q0M [place]; KVO PRN Reason: Protocol Acetaminophen (Ofirmev) 650 mg in 65 mls @ 130 mls/hr IV Q6HP PRN PRN Reason: PAIN/FEVER > 101 Last Infusion: 12/21/17 06:10 Dose: Infused Calcium Gluconate 10 meq/Potassium Phosphate 60 meq/Multivitamins/Minerals 10 ml /Amino Acids 2,045.1417 mls @ 75 mls/hr IV Q24H [facility] Stop: 12/22/17 14:59 Last Admin: 12/21/17 15:24 Dose: 75 mls/hr Fat Emulsion Intravenous (Intralipid 20%) 250 mls @ 25 mls/hr IV TuThSa@1600 [facility] Last Infusion: 12/22/17 06:32 Dose: Infused Calcium Gluconate 10 meq/Potassium Phosphate 80 meq/Multivitamins/Minerals 10 ml /Amino Acids 2,049.6871 mls @ 75 mls/hr IV Q24H [facility] Insulin Human Lispro (Humalog) 0 unit SQ Q6 [place] PRN Reason: Protocol Last Admin: 12/22/17 12:17 Dose: 2 unit Lactobacillus Rhamnosus (Culturelle) 1 cap PO BID [facility] Last Admin: 12/22/17 10:46 Dose: 1 cap Latanoprost (Xalatan Ophth Drops) 1 gtt OU HS [facility] Last Admin: 12/21/17 20:24 Dose: 1 drop Lorazepam (Ativan) 0.5 mg IV Q4HP PRN PRN Reason: ANXIETY/SEDATION Last Admin: 12/21/17 20:38 Dose: 0.5 mg Methylprednisolone Sodium Succinate (Solu-Medrol) 40 mg IV QDAY [facility] Last Admin: 12/22/17 10:37 Dose: 40 mg Metoprolol Tartrate (Lopressor) 5 mg IV Q2HP PRN PRN Reason: Tachyarrhythmias Metoprolol Tartrate (Lopressor) 25 mg PO BID [facility] Last Admin: 12/22/17 10:38 Dose: 25 mg Naloxone HCl (Narcan) 0.1 mg IV Q2MIN PRN PRN Reason: Opiate Reversal Oxycodone HCl (Roxicodone) 5 mg PO Q4HP PRN PRN Reason: PAIN LEVEL 3-6 Last Admin: 12/22/17 12:55 Dose: 5 mg Senna (Senokot) 2 tab PO HSP PRN PRN Reason: Constipation Simethicone (Mylicon) 160 mg CHEWED PCHS [facility] Last Admin: 12/22/17 10:49 Dose: 160 mg Sodium Chloride (Saline Flush) 10 ml IV Q8 [facility] Last Admin: 12/22/17 08:33 Dose: 10 ml Medical - PN: A/P - Time Spent With Patient Total time spent is greater than 50% in coordination of care (as documented) at patient's floor/unit and/or counseling patient: - Narrative A/P Narrative: A/P Acute respiratory failure Was on mechanical support 12/11 - 12/12. Extubated successfully. Off bipap now. x 3 days. s/p Lasix with good diuresis, continue to monitor. Daily lasix for now to keep lungs dry as possible. Acute COPD exacerbation- Duonebs and IV steroids duonebs now q6hr , change to Solumederol 20mg qd Leucocytosis: could be from infection, vs steroid use, has abdominal distention,cdiff x 2 is negative . x ray chest shows improving pna, no effusion. anticipate improvement in leucocytosis with lowering dose of solumedrol Gfuaysofd-mwbpgzame-gwqndrzl pneumonia-staph aureus pneumonia-Necrotizing pneumonia- Pleural effusion Initially treated wtih broad spectrum abx, but now on anceph MSSA bacteremia- high grade Echo: no vegetations noted, however suboptimal study. pt ? had possible rash to naficililn, Necrotizing pna noted, case reviewed with ID physician and Pulmonary. Plan for 6 weeks of IV antibiotics. Severe sepsis with septic shock, multiorgan dysfunction: resolved. Atrial fibrillation/ Atrial flutter rate controlled with IV metoprolol on oral metoprolol, prn metoprolol as needed for rate control oral eliquis for anticoagulation. Acute renal failure-renal function improved Elevated troponins-secondary to demand ischemia type II myocardial infarction. BPH- tamsulosin on hold, WILSON in place Diabetes-not taking any medications, diet controlled. Monitor glucose for now if elevated secondary to steroids will place him on sliding scale insulin Ileus 12/13: CT-abdomen/pelvis: no volvulus or free air. freely mobile cecum Nutrition -dyspgia diet level 1, tolerated po well this AM - On TPN -advance diet as tolertated. Hypernatremia Intermittent, Diarrhea antibiotic associated cdiff neg diarrhea improved, unable to get banatrol due to speech restrictions monitor DVT-patient started back on eliquis. Code status: No CPR or intubation overall pt is quite weak, needs aggresive rehab to improve endurance and muscle strength, had long discussion with family with regards to high level of care needed. Likely an LTAC facility, family will think about same. Medical - PN: Qual - VTE Deep Vein Thrombosis/Pulmonary Embolism Present on Admission: No Procedures - Arterial Line Size (Gauge): 20
[2017-12-22] MEDS ORDERED: [UNRECOGNIZED DRUG - REMARK] IV SCH (15:00)
[2017-12-22] MEDS: LATANOPROST OPHTH DROPS 2.5ML BOTTLE OU SCH (19:50)
[2017-12-23] MEDS: IPRATROPIUM/ALBUTEROL 3 ML AMPUL.NEB NEB SCH ×3 (01:51→13:14)
[2017-12-23] MEDS: ceFAZolin 1 GM VIAL IV SCH ×4 (02:23→19:51)
[2017-12-23 04:44] LABS: Basophils # (Auto) 0 K/mcL (0.0-0.3); Basophils % (Auto) 0 % (0.0-2.0); Eosinophils # (Auto) 0.5 K/mcL (0.0-0.7); Eosinophils % (Auto) 2.8 % (0.0-7.0); Granulocytes % (Auto) 86.2 % (38.0-78.0); Lymphocytes # (Auto) 0.7 K/mcL (1.5-4.8); Mean Cell Volume 93.7 fL (80.0-100.0); Mean Corpuscular HGB Conc 33.1 g/dL (31.0-36.0); Mean Corpuscular Hemoglobin 31.1 pg (26.0-34.0); Monocytes # (Auto) 1.2 K/mcL (0.1-0.9); Platelet Count 203 K/mcL (140-440); RBC 2.44 M/mcL (4.50-5.90); Red Cell Distribution Width 14.5 % (11.5-14.5)
[2017-12-23 05:02] LABS: ALT/SGPT 28 U/l (0-40); Albumin 2.4 gm/dL (3.2-5.2); Albumin/Globulin Ratio 0.8 (1.0-2.3); Alkaline Phosphatase 86 U/L (39-117); Bilirubin,Direct < 0.2 mg/dL (0.0-0.3); Blood Urea Nitrogen 42 mg/dl (8-23); Gamma Glutamyl Transpeptidase 74 U/L (8-61); Uric Acid 3.4 mg/dL (2.5-8.0)
[2017-12-23] MEDS: INSULIN LISPRO 1 UNIT/0.01 ML UNIT SQ SCH ×4 (06:50→23:41)
--- NOTE | 2017-12-23 09:07 | XRay Report ---
HISTORY: Reason for Exam:abdominal distention FINDINGS: There is a mobile air-filled distended cecum which measures 16.7 cm in diameter. There is a moderate amount of gas in nondistended colon distal to the cecum. Is also air in several loops of nondilated small intestine. Air-fluid levels cannot be evaluated on a supine image. There is no gross free intra-abdominal air. The distention of the cecum is a chronic stable finding with no significant change since 12/17/17. IMPRESSION: Chronically dilated cecum Interpreted and Authenticated by: Trevon Shine 12/23/17
[2017-12-23] MEDS ORDERED: 0.9 % SODIUM CHLORIDE 250 ML IV SCH (09:30)
--- NOTE | 2017-12-23 09:32 | Internal Med Progress Note ---
Medical - PN: Subj Patient information: Note initiated : 12/23/17 at 9:27 am Service Date, if different from initiated Date: [] Patient: Camilo Figueroa 77 y/o M admitted on 12/10/17 for Shortness of Breath, Moist Cough/Pneumonia. Chief Complaint: [] Interval history: Mr. Figueroa is a 77 year old Male with history of COPD,hypertension, hyperlipidemia, chronic A. fib who presents to the emergency room today with shortness of breath, cough that has been going on since Monday. Patient's daughter was at bedside who provided some history along with the patient. The patient's daughter had a URI-like symptom, last week I believe and the patient started showing signs of cough from Monday. The patient's condition gradually worsened since then. Patient has been having cough with expectoration initially, no blood in the sputum. He has been having progressive shortness of breath. He notes he has been having subjective sensations of fever, chills, sweating. He has decreased effort tolerance and is unable to walk short distances now. For the last day the cough has subsided and it is difficult for him to bring up the sputum. The patient is extremely weak and has therefore been brought to the emergency room for further evaluation. In the emergency room, the patient was noted to be in moderate respiratory distress, he was afebrile, his white blood cell count was 5.9, chemistry showed worsening renal function with a creatinine of 1.6. His lactic acid was 5.9, first set of troponin was 0.11 and second set was 0.09. He had an elevated pro- calcitonin and 8.43. Chest x-ray showed pneumonia. the patient was tachycardic with A. fib with RVR on presentation and was on a diltiazem drip, his blood pressure was also very high and difficult to 78 physician and put him on nitroglycerin drip. Both these medications were discontinued after admission He was admitted to the hospital for further management, admitted to pcu status. dec 11 Pt overnight had deterioration in his clinical status, was intubated, had PICC placed, A line placed. He was overnight on pressors, levophed and vasopressin, presently only on levophed, bp stable. ABG reviwed, Chest X ray reviewed patient family was updated and was at bedside This AM pt sedated on Vent, TV 400, rr 24, peep 5, PAP 19-20 Plat 16-17, Pt still has some lactic acidosis, on IVF, ringers lactate changed to Saline. Patient Blood culture is postive for gpc in clusters, staph auremakayla, pt already on vancomycin. Likely staph pneumonia secondary to influenza. Feb 27 . Seen and examined, no acute overnight events, patient remains off pressors. Hemodynamically stable. On baseline vent settings. This morning, when settings were, tidal volume 500, rate of 20, FiO2 35, PEEP of 5. Peak airway pressures around 20, plateau pressures 16-17 The patient was drowsy, was able to grasp hands and move his toes. Did not seem agitated. For order for blood culture bottles are positive for gram-positive cocci. Chest x-ray shows improvement in infiltrate. Lines in place repeat cultures ordered, echo ordered. ABG reviewed Feedings started, last night was still going on. Initially we thought we could try a weaning trial given his baseline settings however due to shift change between the hospital providers, weaning trial and extubation will be decided by the oncoming provider. that is slight worsening in renal function, urine output is 25-30 mL per hour. Family updated Around 2 pm extubated. Tolerated PS well, minimal secretions. Hemodynamics stable. Feb 28. Did well overnight. Was still somnolent. But, hemodynamics stable and breathing comfortably. Poor U/O. Received lasix at night and IVF was d/c'd. This afternoon became suddenly cyanotic with poor respiratory effort and struggle to cough. Lungs: few rhonchi at bases. Poor BS and respiratory effort. ET-suctioning for minimal secretions. CXR without significant changes compared to am. No atelectasis, overt pulmonary edema or pneumothorax. DD bronchospasm, fatigue Duoneb, BiPAP ventilator support, Lasix December 14: Had episode of severe respiratory distress last night, requiring high FiO2. Had bronchospasm, tachypnea and cyanotic discoloration. Gave neb treatments, dilaudid, ET-suctioning, solumedrol, BiPAP support. This am noted abdominal distention. KUB showed dilatation of bowel loops and possible free air vs volvulus. CT-abd/pelvis pending. Hold nutrition via feeding tube. Will start TPN Patient has also have hx of major epistaxis. Is on Eliquis with hematuria. Am reluctant to insert NG for decompression and potentially causing epistaxis. Eliquis discontinued. Start Lovenox for afibr. December 15: Required BiPAP support last night. Minimal secretions. Microbiology: MSSA bacteremia. On Nafcillin December 16: Max time off BiPAP 2-3 hours. Na 148, despite 1/2 NS IVF d/W pharmacy: no Na in TPN repeat labs later today Spoke at length with and daughter: weaning off BiPAP will take days. Other problems: weakness, encephalopathy and ileus. Code status revisited. In case of worsening condition: no CPR and/or re-intubation. December 17: Stable overnight. BiPAP most of the night. HR controlled. BP still somewhat elevated despite scheduled metoprolol IV. Had BMs. WBC elevated at 13.6. Received Solumedrol x 1 yesterday for allergic reaction to nafcillin (facial flushing, itch, bronchospasm). Will add hydralazine IV to control BP. Try to increase time off BiPAP December 18 patient seen examined, stable overnight, concern that he is having flushing to Penicillin, he has mssa with vanco sensitivity of 2, the patient was given test dose of anceph yesterday pm, and tolerated it well, he was therefore started on cefazolin 2gms q8. The patient had facial erythema overnight x 2 according to the staff. This AM too iwthout the use of medication while working with physicial therapy, the patient developed flushing of his facial skin. I am not convinced that the fluhing that the patient is experincing is related to administration of anceph. Continue same for now. If not will have to switch to daptomycin. patient has low grade fever, his last set of microbiology was negative. Chest x ray to be repeated today he has diarrhea and rising wbc count, ileus on X ray abdomen. check for cdiff continue bipap support as needed , he is still wheezinng, resume iv steroids for now. on duonebs q4hrs December 19 patient seen and examined, no acute overnight events, was placed on BiPAP yesterday evening up until this morning. He tolerated it well. Off BiPAP this morning. Mental status somewhat better today than yesterday. Patient still has some wheezing going on but evidently is better than yesterday , he responded well to IV Lasix given yesterday, negative 4500 mL. We will hold off on Lasix now. Change steroids to once a day. Leukocytosis worsening, clinically patient is getting better, likely a reaction to steroids. Appreciate pulmonary input, lesions on cefazolin for now, reviewed the case with infectious disease specialist up in [place] were advised to consider increasing the dose of cefazolin from 2 g every 8 hours 2 g every 6 hours. Patient can be switched back to every 8 hours at the time of discharge for the remainder of the course of treatment. The patient will need 6 weeks of IV antibiotics. Repeat cultures are negative. If the patient's clinical condition would worsen we will consider tapping the fluid in the pleural space. Try to get speech therapy to see the patient can tolerate by mouth diet today Patient remains on TPN for nutrition, still has diarrhea,re send stool for C. difficile December 20 pt seen examiend, no acute overnight events did not need bipap overnight, mental status improving ok for puree food today xfer to tele status start on banatrol plus and culturell to see if it helps with diarrhea cdiff x 2 neg wbc still high but pt on steroids family at bedside, updated on plan of care all questions answered p[t is positive 10L sice admission, give another dose of IV lasix today. december 21 Patient seen examined, no acute overnight events, off bipap, hemodynamically stable WBC still high, CXR done this AM shows resolving pna, no effusion plan to wean of f steroids, solumedrol now 40mg daily, duonebs q6 hrs eric pt remains on iv anceph q6 hrs for now, advance diet as tolerated d/c rectal tube start on lasix 20mg po to keep patient dry, try to get pt working with PT December 22 pt seen examined, no acute overnight events still very tired, not able to advance diet beyond level 1 so far wbc high, but stable, no fever, no need for oxygen was able to use the bathroom today x ray abdomen shows gastric distention, showed rectal tube, but pt does not have a rectal tube in place (enema line read as rectal tube on x ray), also some ileus. Will give one dose of relistor today. Pt had gas, but was able to pass significant amount when trying to have a BM exam showed crackles, pt is positive 9000ml since admission, lasix changed to iv daily 3/10- patient more awake and alert but intermittently confused. No overnight events. Clinically improving with downtrending white count from a peak of 19.7 on 12/21-16.6. On IV Ancef for 6 weeks per ID recommendations. hemoglobin down to 7.6 from 11.8 on 12/20. 2 units PRBC today due to over 30% baseline hematocrit drop.stable biochemical profile. elemetry A. fib with rate controlled. diarrhea improving.currently in room air. Continue daily IV Lasix - Constitutional Vitals: Vital Signs Temp Pulse Resp BP Pulse Ox 98.8 F 88 16 157/62 96 12/23/17 07:07 12/23/17 06:59 12/23/17 07:07 12/23/17 07:07 12/23/17 07:07 Period Temp Pulse Resp BP Sys/Cai Pulse Ox Last 24 Hr 97.8 F-99.1 F 79-96 13-24 104-171/62-104 96-100 Intake and Output 12/22/17 12/23/17 12/23/17 21:59 05:59 13:59 Intake Total 1994 220 / 220 Output Total 450 / 450 600 / 600 Balance 1545 / 1545 -380 / -380 Weight 165 lb 8 oz Intake & Output: Intake & Output 12/22/17 12/23/17 12/23/17 21:59 05:59 13:59 Intake Total 1994 220 / 220 Output Total 450 / 450 600 / 600 Balance 1545 / 1545 -380 / -380 Weight 165 lb 8 oz Intake: IV 1815 / 1815 Calcium Gluconate 10 Meq 1815 / 1815 Potassium Phosphate 60 Meq Infuvite Adult 10 ml In Clinimix 5%-20% Solution 2,000 ml @ 75 mls/hr IV Q24H [facility] Rx#: [id number] Oral 180 / 180 220 / 220 Output: Urine Catheter Amount 450 / 450 600 / 600 Other: Meal Dinner Percent of Meal Consumed 25% Feeding Ability Total Assistance Stool Size Large Stool Color Brown Stool Consistency Loose # of times incontinent of 1 Bowels General appearance: no acute distress Exam: alert but intermittently confused nonlabored breathing minimally distended abdomen sluggish bowel sounds Irregular rhythm Medical - PN: Obj Da - Labs CBC & Chem 7: 12/23/17 04:00 12/23/17 04:00 Labs: Abnormal Lab Results 12/23/17 12/23/17 12/22/17 04:00 04:00 09:15 WBC 16.6 H RBC 2.44 L Hgb 7.6 L 8.5 L Hct 22.8 L 25.2 L RDW Gran % 86.2 H Lymph % (Auto) 4.0 L Gran # 14.3 H Lymph # (Auto) 0.7 L [place] # (Auto) 1.2 H Eos # (Auto) BUN 42 H Glucose 164 H Uric Acid Calcium 7.8 L GGT 74 H AST 72 H ALT Lactate Dehydrogenase 309 H Total Protein 5.6 L Albumin 2.4 L Albumin/Globulin Ratio 0.8 L 12/22/17 12/22/17 12/21/17 04:00 04:00 04:00 WBC 19.2 H RBC 2.72 L Hgb 8.5 L Hct 25.7 L RDW 15.1 H Gran % 85.8 H Lymph % (Auto) 3.8 L Gran # 16.4 H Lymph # (Auto) 0.7 L [place] # (Auto) 1.2 H Eos # (Auto) 0.8 H BUN 40 H 35 H Glucose 166 H 137 H Uric Acid 2.4 L Calcium 7.7 L 8.0 L GGT 97 H AST 83 H 40 H ALT 43 H Lactate Dehydrogenase 342 H 358 H Total Protein 5.4 L Albumin 2.3 L 2.7 L Albumin/Globulin Ratio 0.7 L 0.8 L 12/21/17 04:00 WBC 19.7 H RBC 3.29 L Hgb 10.4 L Hct 31.0 L RDW 15.1 H Gran % 84.6 H Lymph % (Auto) 4.4 L Gran # 16.6 H Lymph # (Auto) 0.9 L [place] # (Auto) 1.4 H Eos # (Auto) 0.8 H BUN Glucose Uric Acid Calcium GGT AST ALT Lactate Dehydrogenase Total Protein Albumin Albumin/Globulin Ratio Meds: Medications Acetaminophen (Tylenol) 650 mg PO Q4-6HP PRN PRN Reason: PAIN/FEVER > 101 Last Admin: 12/22/17 06:56 Dose: 650 mg Albuterol/Ipratropium (Duoneb) 3 ml NEB Q6HRT ERIC Last Admin: 03/10/18 06:59 Dose: 3 ml Bisacodyl (Dulcolax) 10 mg CA DAILY [facility] Last Admin: 12/22/17 08:44 Dose: 10 mg Cefazolin Sodium (Ancef) 2 gm IV Q6H [facility] Last Admin: 12/23/17 02:23 Dose: 2 gm Chlorhexidine Gluconate (Peridex) 15 ml SWABMOUTH BID [facility] Last Admin: 12/22/17 19:55 Dose: 15 ml Clotrimazole (Mycelex Crm 1%) 1 dose TOPICAL BID [facility] Last Admin: 12/22/17 19:50 Dose: 1 dose Dextrose (Dextrose 50%) 0 ml IV UD PRN PRN Reason: Hypoglycemia Diagnostic Test (Pha) (Accu-Chek) 1 each FS Q6 [facility] Last Admin: 12/23/17 06:50 Dose: 1 each Diphenhydramine HCl (Benadryl) 50 mg IV Q6HP PRN PRN Reason: Allergic Symptoms Famotidine (Pepcid) 20 mg IV Q12 [facility] Last Admin: 12/22/17 19:52 Dose: 20 mg Furosemide (Lasix) 40 mg IV DAILY [facility] Last Admin: 12/22/17 10:38 Dose: 40 mg Heparin Sodium (Porcine) (Heparin Flush) 2 ml IV Q12 [facility] Last Admin: 12/22/17 19:53 Dose: 2 ml Hydralazine HCl (Apresoline) 10 mg IV Q4HP PRN PRN Reason: Hypertension Last Admin: 12/22/17 23:41 Dose: 10 mg Hydromorphone HCl (Dilaudid) 0.5 mg IV Q2HP PRN PRN Reason: PAIN LEVEL > 6 Last Admin: 12/21/17 18:47 Dose: 0.5 mg Heparin Sodium/Sodium Chloride (Heparin/Ns) 500 mls @ 0 mls/hr IV .Q0M [facility]; KVO PRN Reason: Protocol Acetaminophen (Ofirmev) 650 mg in 65 mls @ 130 mls/hr IV Q6HP PRN PRN Reason: PAIN/FEVER > 101 Last Infusion: 12/21/17 06:10 Dose: Infused Fat Emulsion Intravenous (Intralipid 20%) 250 mls @ 25 mls/hr IV TuThSa@1600 [facility] Last Infusion: 12/22/17 06:32 Dose: Infused Calcium Gluconate 10 meq/Potassium Phosphate 80 meq/Multivitamins/Minerals 10 ml /Amino Acids 2,049.6871 mls @ 75 mls/hr IV Q24H [facility] Last Admin: 12/22/17 15:36 Dose: 75 mls/hr Insulin Human Lispro (Humalog) 0 unit SQ Q6 [facility] PRN Reason: Protocol Last Admin: 12/23/17 06:50 Dose: 3 unit Lactobacillus Rhamnosus (Culturelle) 1 cap PO BID [facility] Last Admin: 12/22/17 19:49 Dose: 1 cap Latanoprost (Xalatan Ophth Drops) 1 gtt OU HS [facility] Last Admin: 12/22/17 19:50 Dose: 1 drop Lorazepam (Ativan) 0.5 mg IV Q4HP PRN PRN Reason: ANXIETY/SEDATION Last Admin: 12/21/17 20:38 Dose: 0.5 mg Methylprednisolone Sodium Succinate (Solu-Medrol) 40 mg IV QDAY [facility] Last Admin: 12/22/17 10:37 Dose: 40 mg Metoprolol Tartrate (Lopressor) 5 mg IV Q2HP PRN PRN Reason: Tachyarrhythmias Metoprolol Tartrate (Lopressor) 25 mg PO BID [facility] Last Admin: 12/22/17 19:49 Dose: 25 mg Naloxone HCl (Narcan) 0.1 mg IV Q2MIN PRN PRN Reason: Opiate Reversal Oxycodone HCl (Roxicodone) 5 mg PO Q4HP PRN PRN Reason: PAIN LEVEL 3-6 Last Admin: 12/22/17 12:55 Dose: 5 mg Senna (Senokot) 2 tab PO HSP PRN PRN Reason: Constipation Simethicone (Mylicon) 160 mg CHEWED [facility] Last Admin: 12/22/17 22:05 Dose: 160 mg Sodium Chloride (Saline Flush) 10 ml IV Q8 [facility] Last Admin: 12/22/17 22:00 Dose: 10 ml Medical - PN: A/P - Time Spent With Patient Total time spent is greater than 50% in coordination of care (as documented) at patient's floor/unit and/or counseling patient: 25 - 35 minutes - Narrative A/P Narrative: A/P * Acute respiratory failure -secondary to necrotizing pneumonia. Was on mechanical support 12/11 - 12/12. Extubated successfully. Off bipap now. x 3 days. continue Daily lasix for now to keep lungs dry as possible. now on room air * Acute COPD exacerbation-Duonebs and IV steroids. duonebs now q6hr , change to Solumederol 20mg qd * Otarnzrco-chkteyiux-voswyloe pneumonia-staph aureus pneumonia-Necrotizing pneumonia- Pleural effusion. continue Ancef 6 weeks * MSSA bacteremia- high grade Echo: no vegetations noted, however suboptimal study. pt ? had possible rash to naficililn, Necrotizing pna noted, case reviewed with ID physician and Pulmonary. Plan for 6 weeks of IV ancef. * Severe sepsis with septic shock, multiorgan dysfunction: resolved. white count downtrending at 16.6 * Diarrhea-antibiotic associated.cdiff neg, diarrhea improved, unable to get banatrol due to speech restrictions,monitor * Atrial fibrillation/ Atrial flutter -rate controlled on as needed metoprolol , oral eliquis for anticoagulation. * Acute renal failure-resolved * Elevated troponins-secondary to demand ischemia type II myocardial infarction. * BPH- tamsulosin on hold, DARNELL in place * Diabetes-not taking any medications, SSI/diet. * Ileus 12/13: CT-abdomen/pelvis: no volvulus or free air. freely mobile cecum * Nutrition-dyspgia diet level 1, tolerated po well this AM, On TPN -advance diet as tolertated. * prophylaxis on eliquis. * no code plan * 6 weeks ABX * DC Darnell's catheter in 24 hours * Aggressive PT OT/nutrition * SNF transfer for 6 weeks IV antibiotic coordination overall pt is quite weak, needs aggresive rehab to improve endurance and muscle strength, had long discussion with family with regards to high level of care needed. Likely an LTAC facility, family contemplating. Medical - PN: Qual - VTE Deep Vein Thrombosis/Pulmonary Embolism Present on Admission: No Procedures - Arterial Line Size (Gauge): 20
[2017-12-23] MEDS: methylPREDNISolone SOD SUCC 125 MG/2 ML VIAL IV SCH (09:59)
[2017-12-23] MEDS: FAMOTIDINE/PF 20 MG/2 ML VIAL IV SCH ×2 (09:59→21:49)
[2017-12-23] MEDS: LACTOBACILLUS 1 CAPSULE PO SCH ×2 (10:00→21:47)
[2017-12-23] MEDS: SIMETHICONE 80 MG TAB.CHEW CHEWED SCH ×4 (10:00→21:47)
[2017-12-23] MEDS: APIXABAN 5 MG TABLET PO SCH ×2 (10:00→21:48)
[2017-12-23] MEDS: METOPROLOL TARTRATE 25 MG TABLET PO SCH ×2 (10:00→21:47)
[2017-12-23] MEDS: FUROSEMIDE 40 MG/4 ML VIAL IV SCH (10:14)
[2017-12-23] MEDS: CHLORHEXIDINE GLUCONATE 1 ML ORAL.SOL SWABMOUTH SCH ×2 (10:14→21:49)
[2017-12-23] MEDS: 0.9 % SODIUM CHLORIDE 10 ML SYRINGE IV SCH ×3 (10:14→22:00)
[2017-12-23] MEDS: CLOTRIMAZOLE CRM 1% 1 DOSE TUBE TOPICAL SCH ×2 (10:15→21:49)
[2017-12-23] MEDS: BISACODYL 10 MG SUPP.RECT PR SCH (12:59)
[2017-12-23] MEDS ORDERED: IPRATROPIUM/ALBUTEROL 3 ML AMPUL.NEB NEB PRN (14:14)
[2017-12-23] MEDS ORDERED: [UNRECOGNIZED DRUG - REMARK] IV SCH (15:00)
[2017-12-23] MEDS: FAT EMULSION 20% 250 ML IV SCH (16:25)
[2017-12-23] MEDS: LATANOPROST OPHTH DROPS 2.5ML BOTTLE OU SCH (21:49)
[2017-12-24] MEDS: ceFAZolin 1 GM VIAL IV SCH ×4 (03:28→20:07)
[2017-12-24 06:47] LABS: Basophils # (Auto) 0 K/mcL (0.0-0.3); Basophils % (Auto) 0 % (0.0-2.0); Eosinophils # (Auto) 0.3 K/mcL (0.0-0.7); Eosinophils % (Auto) 1.5 % (0.0-7.0); Granulocytes % (Auto) 90.2 % (38.0-78.0); Lymphocytes # (Auto) 0.7 K/mcL (1.5-4.8); Lymphocytes % (Auto) 4.1 % (15.5-49.0); Mean Corpuscular HGB Conc 34.3 g/dL (31.0-36.0); Mean Corpuscular Hemoglobin 31.6 pg (26.0-34.0); Monocytes # (Auto) 0.7 K/mcL (0.1-0.9); Monocytes % (Auto) 4.2 % (1.0-12.0); Platelet Count 211 K/mcL (140-440); RBC 3.13 M/mcL (4.50-5.90); Red Cell Distribution Width 14.6 % (11.5-14.5)
[2017-12-24] MEDS: INSULIN LISPRO 1 UNIT/0.01 ML UNIT SQ SCH ×3 (07:11→18:14)
[2017-12-24] MEDS: 0.9 % SODIUM CHLORIDE 10 ML SYRINGE IV SCH ×3 (07:11→22:00)
[2017-12-24 07:22] LABS: ALT/SGPT 38 U/l (0-40); Albumin 2.5 gm/dL (3.2-5.2); Albumin/Globulin Ratio 0.7 (1.0-2.3); Alkaline Phosphatase 90 U/L (39-117); Bilirubin,Direct < 0.2 mg/dL (0.0-0.3); Blood Urea Nitrogen 37 mg/dl (8-23); Gamma Glutamyl Transpeptidase 78 U/L (8-61); Uric Acid 3.1 mg/dL (2.5-8.0)
--- NOTE | 2017-12-24 09:37 | Internal Med Progress Note ---
Medical - PN: Subj Patient information: Note initiated : 12/24/17 at 9:30 am Service Date, if different from initiated Date: [] Patient: Camilo Figueroa 77 y/o M admitted on 12/10/17 for Shortness of Breath, Moist Cough/Pneumonia. Chief Complaint: [] Interval history: Mr. Figueroa is a 77 year old Male with history of COPD,hypertension, hyperlipidemia, chronic A. fib who presents to the emergency room today with shortness of breath, cough that has been going on since Monday. Patient's daughter was at bedside who provided some history along with the patient. The patient's daughter had a URI-like symptom, last week I believe and the patient started showing signs of cough from Monday. The patient's condition gradually worsened since then. Patient has been having cough with expectoration initially, no blood in the sputum. He has been having progressive shortness of breath. He notes he has been having subjective sensations of fever, chills, sweating. He has decreased effort tolerance and is unable to walk short distances now. For the last day the cough has subsided and it is difficult for him to bring up the sputum. The patient is extremely weak and has therefore been brought to the emergency room for further evaluation. In the emergency room, the patient was noted to be in moderate respiratory distress, he was afebrile, his white blood cell count was 5.9, chemistry showed worsening renal function with a creatinine of 1.6. His lactic acid was 5.9, first set of troponin was 0.11 and second set was 0.09. He had an elevated pro- calcitonin and 8.43. Chest x-ray showed pneumonia. the patient was tachycardic with A. fib with RVR on presentation and was on a diltiazem drip, his blood pressure was also very high and difficult to 78 physician and put him on nitroglycerin drip. Both these medications were discontinued after admission He was admitted to the hospital for further management, admitted to pcu status. dec 11 Pt overnight had deterioration in his clinical status, was intubated, had PICC placed, A line placed. He was overnight on pressors, levophed and vasopressin, presently only on levophed, bp stable. ABG reviwed, Chest X ray reviewed patient family was updated and was at bedside This AM pt sedated on Vent, TV 400, rr 24, peep 5, PAP 19-20 Plat 16-17, Pt still has some lactic acidosis, on IVF, ringers lactate changed to Saline. Patient Blood culture is postive for gpc in clusters, staph auremakayla, pt already on vancomycin. Likely staph pneumonia secondary to influenza. Feb 27 . Seen and examined, no acute overnight events, patient remains off pressors. Hemodynamically stable. On baseline vent settings. This morning, when settings were, tidal volume 500, rate of 20, FiO2 35, PEEP of 5. Peak airway pressures around 20, plateau pressures 16-17 The patient was drowsy, was able to grasp hands and move his toes. Did not seem agitated. For order for blood culture bottles are positive for gram-positive cocci. Chest x-ray shows improvement in infiltrate. Lines in place repeat cultures ordered, echo ordered. ABG reviewed Feedings started, last night was still going on. Initially we thought we could try a weaning trial given his baseline settings however due to shift change between the hospital providers, weaning trial and extubation will be decided by the oncoming provider. that is slight worsening in renal function, urine output is 25-30 mL per hour. Family updated Around 2 pm extubated. Tolerated PS well, minimal secretions. Hemodynamics stable. Feb 28. Did well overnight. Was still somnolent. But, hemodynamics stable and breathing comfortably. Poor U/O. Received lasix at night and IVF was d/c'd. This afternoon became suddenly cyanotic with poor respiratory effort and struggle to cough. Lungs: few rhonchi at bases. Poor BS and respiratory effort. ET-suctioning for minimal secretions. CXR without significant changes compared to am. No atelectasis, overt pulmonary edema or pneumothorax. DD bronchospasm, fatigue Duoneb, BiPAP ventilator support, Lasix December 14: Had episode of severe respiratory distress last night, requiring high FiO2. Had bronchospasm, tachypnea and cyanotic discoloration. Gave neb treatments, dilaudid, ET-suctioning, solumedrol, BiPAP support. This am noted abdominal distention. KUB showed dilatation of bowel loops and possible free air vs volvulus. CT-abd/pelvis pending. Hold nutrition via feeding tube. Will start TPN Patient has also have hx of major epistaxis. Is on Eliquis with hematuria. Am reluctant to insert NG for decompression and potentially causing epistaxis. Eliquis discontinued. Start Lovenox for afibr. December 15: Required BiPAP support last night. Minimal secretions. Microbiology: MSSA bacteremia. On Nafcillin December 16: Max time off BiPAP 2-3 hours. Na 148, despite 1/2 NS IVF d/W pharmacy: no Na in TPN repeat labs later today Spoke at length with and daughter: weaning off BiPAP will take days. Other problems: weakness, encephalopathy and ileus. Code status revisited. In case of worsening condition: no CPR and/or re-intubation. December 17: Stable overnight. BiPAP most of the night. HR controlled. BP still somewhat elevated despite scheduled metoprolol IV. Had BMs. WBC elevated at 13.6. Received Solumedrol x 1 yesterday for allergic reaction to nafcillin (facial flushing, itch, bronchospasm). Will add hydralazine IV to control BP. Try to increase time off BiPAP December 18 patient seen examined, stable overnight, concern that he is having flushing to Penicillin, he has mssa with vanco sensitivity of 2, the patient was given test dose of anceph yesterday pm, and tolerated it well, he was therefore started on cefazolin 2gms q8. The patient had facial erythema overnight x 2 according to the staff. This AM too iwthout the use of medication while working with physicial therapy, the patient developed flushing of his facial skin. I am not convinced that the fluhing that the patient is experincing is related to administration of anceph. Continue same for now. If not will have to switch to daptomycin. patient has low grade fever, his last set of microbiology was negative. Chest x ray to be repeated today he has diarrhea and rising wbc count, ileus on X ray abdomen. check for cdiff continue bipap support as needed , he is still wheezinng, resume iv steroids for now. on duonebs q4hrs December 19 patient seen and examined, no acute overnight events, was placed on BiPAP yesterday evening up until this morning. He tolerated it well. Off BiPAP this morning. Mental status somewhat better today than yesterday. Patient still has some wheezing going on but evidently is better than yesterday , he responded well to IV Lasix given yesterday, negative 4500 mL. We will hold off on Lasix now. Change steroids to once a day. Leukocytosis worsening, clinically patient is getting better, likely a reaction to steroids. Appreciate pulmonary input, lesions on cefazolin for now, reviewed the case with infectious disease specialist up in [place] were advised to consider increasing the dose of cefazolin from 2 g every 8 hours 2 g every 6 hours. Patient can be switched back to every 8 hours at the time of discharge for the remainder of the course of treatment. The patient will need 6 weeks of IV antibiotics. Repeat cultures are negative. If the patient's clinical condition would worsen we will consider tapping the fluid in the pleural space. Try to get speech therapy to see the patient can tolerate by mouth diet today Patient remains on TPN for nutrition, still has diarrhea,re send stool for C. difficile December 20 pt seen examiend, no acute overnight events did not need bipap overnight, mental status improving ok for puree food today xfer to tele status start on banatrol plus and culturell to see if it helps with diarrhea cdiff x 2 neg wbc still high but pt on steroids family at bedside, updated on plan of care all questions answered p[t is positive 10L sice admission, give another dose of IV lasix today. december 21 Patient seen examined, no acute overnight events, off bipap, hemodynamically stable WBC still high, CXR done this AM shows resolving pna, no effusion plan to wean of f steroids, solumedrol now 40mg daily, duonebs q6 hrs eric pt remains on iv anceph q6 hrs for now, advance diet as tolerated d/c rectal tube start on lasix 20mg po to keep patient dry, try to get pt working with PT December 22 pt seen examined, no acute overnight events still very tired, not able to advance diet beyond level 1 so far wbc high, but stable, no fever, no need for oxygen was able to use the bathroom today x ray abdomen shows gastric distention, showed rectal tube, but pt does not have a rectal tube in place (enema line read as rectal tube on x ray), also some ileus. Will give one dose of relistor today. Pt had gas, but was able to pass significant amount when trying to have a BM exam showed crackles, pt is positive 9000ml since admission, lasix changed to iv daily 3/10- patient more awake and alert but intermittently confused. No overnight events. Clinically improving with downtrending white count from a peak of 19.7 on 12/21-16.6. On IV Ancef for 6 weeks per ID recommendations. hemoglobin down to 7.6 from 11.8 on 12/20. 2 units PRBC today due to over 30% baseline hematocrit drop.stable biochemical profile. elemetry A. fib with rate controlled. diarrhea improving.currently in room air. Continue daily IV Lasix 12/24- white count 16.3, hemoglobin 9.9 status post 2 units blood transfusion. Patient doing well. No overnight fever chills. No family at bedside. Ongoing antibiotic coverage. no other concerns expressed by nursing staff - Constitutional Vitals: Vital Signs Temp Pulse Resp BP Pulse Ox 99.4 F H 90 16 169/106 95 12/24/17 08:00 12/23/17 18:50 12/24/17 08:00 12/24/17 08:00 12/24/17 08:00 Period Temp Pulse Resp BP Sys/Cai Pulse Ox Last 24 Hr 97.9 F-99.8 F 76-90 13-24 132-169/60-106 90-98 Intake and Output 12/23/17 12/24/17 12/24/17 20:59 05:59 13:59 Intake Total Output Total Balance Weight Intake & Output: Intake & Output 12/23/17 12/24/17 12/24/17 20:59 05:59 13:59 Intake Total Output Total Balance Weight Intake: Blood Product Output: Urine Catheter Amount Other: Stool Size Stool Color Stool Consistency # of times incontinent of Bowels General appearance: cooperative, no acute distress Exam: resting comfortably nonlabored breathing No anxiety Medical - PN: Obj Da - Labs CBC & Chem 7: 12/24/17 04:00 12/24/17 04:00 Labs: Abnormal Lab Results 12/24/17 12/24/17 12/23/17 04:00 04:00 04:00 WBC 16.3 H RBC 3.13 L Hgb 9.9 L Hct 28.8 L RDW 14.6 H Gran % 90.2 H Lymph % (Auto) 4.1 L Gran # 14.7 H Lymph # (Auto) 0.7 L [place] # (Auto) Eos # (Auto) BUN 37 H 42 H Glucose 116 H 164 H Calcium 7.9 L 7.8 L GGT 78 H 74 H AST 74 H 72 H ALT Lactate Dehydrogenase 321 H 309 H Total Protein 5.6 L Albumin 2.5 L 2.4 L Albumin/Globulin Ratio 0.7 L 0.8 L 12/23/17 12/22/17 12/22/17 04:00 09:15 04:00 WBC 16.6 H RBC 2.44 L Hgb 7.6 L 8.5 L Hct 22.8 L 25.2 L RDW Gran % 86.2 H Lymph % (Auto) 4.0 L Gran # 14.3 H Lymph # (Auto) 0.7 L [place] # (Auto) 1.2 H Eos # (Auto) BUN 40 H Glucose 166 H Calcium 7.7 L GGT 97 H AST 83 H ALT 43 H Lactate Dehydrogenase 342 H Total Protein 5.4 L Albumin 2.3 L Albumin/Globulin Ratio 0.7 L 12/22/17 04:00 WBC 19.2 H RBC 2.72 L Hgb 8.5 L Hct 25.7 L RDW 15.1 H Gran % 85.8 H Lymph % (Auto) 3.8 L Gran # 16.4 H Lymph # (Auto) 0.7 L [place] # (Auto) 1.2 H Eos # (Auto) 0.8 H BUN Glucose Calcium GGT AST ALT Lactate Dehydrogenase Total Protein Albumin Albumin/Globulin Ratio Meds: Medications Acetaminophen (Tylenol) 650 mg PO Q4-6HP PRN PRN Reason: PAIN/FEVER > 101 Last Admin: 12/22/17 06:56 Dose: 650 mg Albuterol/Ipratropium (Duoneb) 3 ml NEB Q4HP PRN PRN Reason: Wheezing Bisacodyl (Dulcolax) 10 mg HI DAILY [facility] Last Admin: 12/23/17 12:59 Dose: Not Given Cefazolin Sodium (Ancef) 2 gm IV Q6H [facility] Last Admin: 12/24/17 03:28 Dose: 2 gm Chlorhexidine Gluconate (Peridex) 15 ml SWABMOUTH BID [facility] Last Admin: 12/23/17 21:49 Dose: 15 ml Clotrimazole (Mycelex Crm 1%) 1 dose TOPICAL BID [facility] Last Admin: 12/23/17 21:49 Dose: 1 dose Dextrose (Dextrose 50%) 0 ml IV UD PRN PRN Reason: Hypoglycemia Diagnostic Test (Pha) (Accu-Chek) 1 each FS Q6 [facility] Last Admin: 12/24/17 07:10 Dose: 1 each Diphenhydramine HCl (Benadryl) 50 mg IV Q6HP PRN PRN Reason: Allergic Symptoms Famotidine (Pepcid) 20 mg IV Q12 [facility] Last Admin: 12/23/17 21:49 Dose: 20 mg Furosemide (Lasix) 40 mg IV DAILY [facility] Last Admin: 12/23/17 10:14 Dose: 40 mg Heparin Sodium (Porcine) (Heparin Flush) 2 ml IV Q12 [facility] Last Admin: 12/23/17 21:48 Dose: 2 ml Hydralazine HCl (Apresoline) 10 mg IV Q4HP PRN PRN Reason: Hypertension Last Admin: 12/22/17 23:41 Dose: 10 mg Hydromorphone HCl (Dilaudid) 0.5 mg IV Q2HP PRN PRN Reason: PAIN LEVEL > 6 Last Admin: 12/21/17 18:47 Dose: 0.5 mg Heparin Sodium/Sodium Chloride (Heparin/Ns) 500 mls @ 0 mls/hr IV .Q0M ERIC; KVO PRN Reason: Protocol Acetaminophen (Ofirmev) 650 mg in 65 mls @ 130 mls/hr IV Q6HP PRN PRN Reason: PAIN/FEVER > 101 Last Infusion: 12/21/17 06:10 Dose: Infused Fat Emulsion Intravenous (Intralipid 20%) 250 mls @ 25 mls/hr IV [id number]@1600 [facility] Last Admin: 12/23/17 16:25 Dose: 25 mls/hr Calcium Gluconate 10 meq/Potassium Phosphate 100 meq/Multivitamins/Minerals 10 ml/Amino Acids 2,054.2326 mls @ 75 mls/hr IV Q24H [facility] Last Admin: 12/23/17 15:11 Dose: 75 mls/hr Insulin Human Lispro (Humalog) 0 unit SQ Q6 [facility]IC PRN Reason: Protocol Last Admin: 12/24/17 07:11 Dose: Not Given Lactobacillus Rhamnosus (Culturelle) 1 cap PO BID [facility] Last Admin: 12/23/17 21:47 Dose: 1 cap Latanoprost (Xalatan Ophth Drops) 1 gtt OU HS [facility] Last Admin: 12/23/17 21:49 Dose: 1 drop Lorazepam (Ativan) 0.5 mg IV Q4HP PRN PRN Reason: ANXIETY/SEDATION Last Admin: 12/21/17 20:38 Dose: 0.5 mg Methylprednisolone Sodium Succinate (Solu-Medrol) 40 mg IV QDAY [facility] Last Admin: 12/23/17 09:59 Dose: 40 mg Metoprolol Tartrate (Lopressor) 5 mg IV Q2HP PRN PRN Reason: Tachyarrhythmias Metoprolol Tartrate (Lopressor) 25 mg PO BID [facility] Last Admin: 12/23/17 21:47 Dose: 25 mg Naloxone HCl (Narcan) 0.1 mg IV Q2MIN PRN PRN Reason: Opiate Reversal Oxycodone HCl (Roxicodone) 5 mg PO Q4HP PRN PRN Reason: PAIN LEVEL 3-6 Last Admin: 12/22/17 12:55 Dose: 5 mg Senna (Senokot) 2 tab PO HSP PRN PRN Reason: Constipation Simethicone (Mylicon) 160 mg CHEWED [facility] Last Admin: 12/23/17 21:47 Dose: 160 mg Sodium Chloride (Saline Flush) 10 ml IV Q8 [facility] Last Admin: 12/24/17 07:11 Dose: 10 ml Medical - PN: A/P - Time Spent With Patient Total time spent is greater than 50% in coordination of care (as documented) at patient's floor/unit and/or counseling patient: - Narrative A/P Narrative: A/P * Acute respiratory failure -secondary to necrotizing pneumonia. Was on mechanical support 12/11 - 12/12. Extubated successfully. Off bipap now. x 3 days. continue Daily lasix for now to keep lungs dry as possible. now on room air * Acute COPD exacerbation-Duonebs and IV steroids. duonebs now q6hr , change to Solumederol 20mg qd * Staph aureus necrotizing pneumonia- Pleural effusion. continue Ancef 6 weeks * MSSA bacteremia- surveillance cultures negative..Echo: no vegetations noted, however suboptimal study. pt ? had possible rash to naficililn, Necrotizing pna noted, case reviewed with ID physician and Pulmonary. Plan for 6 weeks of IV ancef. * normocytic anemia status post 2 units blood transfusion hemoglobin at 9.9 * Severe sepsis with septic shock, multiorgan dysfunction: resolved. white count downtrending at 16.6- 16.3 * Diarrhea-antibiotic associated.cdiff neg, diarrhea improved, unable to get banatrol due to speech restrictions,monitor * Atrial fibrillation/ Atrial flutter -rate controlled on as needed metoprolol , oral eliquis for anticoagulation. * Acute renal failure-resolved * Elevated troponins-secondary to demand ischemia type II myocardial infarction. * BPH- tamsulosin on hold, WILSON in place * Diabetes-not taking any medications, SSI/diet. * Ileus 12/13: CT-abdomen/pelvis: no volvulus or free air. freely mobile cecum * Nutrition-dyspgia diet level 1, tolerated po well this AM, On TPN -advance diet as tolertated. * prophylaxis on eliquis. * no code plan * continue antibiotics for 6 weeks * Aggressive PT OT/nutrition * pre-existing medical condition management as above * SNF transfer for 6 weeks IV antibiotic coordination overall pt is quite weak, needs aggresive rehab to improve endurance and muscle strength, had long discussion with family with regards to high level of care needed. Likely an LTAC facility, family contemplating. Medical - PN: Qual - VTE Deep Vein Thrombosis/Pulmonary Embolism Present on Admission: No Procedures - Arterial Line Size (Gauge): 20
[2017-12-24] MEDS: LACTOBACILLUS 1 CAPSULE PO SCH ×2 (09:41→20:08)
[2017-12-24] MEDS: APIXABAN 5 MG TABLET PO SCH ×2 (09:41→20:09)
[2017-12-24] MEDS: FAMOTIDINE/PF 20 MG/2 ML VIAL IV SCH ×2 (09:41→20:08)
[2017-12-24] MEDS: METOPROLOL TARTRATE 25 MG TABLET PO SCH ×2 (09:41→20:09)
[2017-12-24] MEDS: methylPREDNISolone SOD SUCC 125 MG/2 ML VIAL IV SCH (09:42)
[2017-12-24] MEDS: CHLORHEXIDINE GLUCONATE 1 ML ORAL.SOL SWABMOUTH SCH (09:42)
[2017-12-24] MEDS: SIMETHICONE 80 MG TAB.CHEW CHEWED SCH ×4 (09:43→20:11)
[2017-12-24] MEDS: FUROSEMIDE 40 MG/4 ML VIAL IV SCH (09:45)
[2017-12-24] MEDS: BISACODYL 10 MG SUPP.RECT PR SCH (09:46)
[2017-12-24] MEDS ORDERED: [UNRECOGNIZED DRUG - REMARK] IV SCH (15:00)
[2017-12-24] MEDS: CLOTRIMAZOLE CRM 1% 1 DOSE TUBE TOPICAL SCH ×2 (15:19→20:08)
[2017-12-24] MEDS: LATANOPROST OPHTH DROPS 2.5ML BOTTLE OU SCH (20:08)
[2017-12-24] MEDS: oxyCODONE HCL 5 MG TABLET PO PRN (20:09)
[2017-12-25] MEDS: INSULIN LISPRO 1 UNIT/0.01 ML UNIT SQ SCH ×4 (00:46→18:04)
[2017-12-25] MEDS: ceFAZolin 1 GM VIAL IV SCH ×4 (04:10→20:06)
[2017-12-25 04:47] LABS: Basophils # (Auto) 0 K/mcL (0.0-0.3); Basophils % (Auto) 0 % (0.0-2.0); Eosinophils # (Auto) 0.3 K/mcL (0.0-0.7); Eosinophils % (Auto) 1.9 % (0.0-7.0); Granulocytes % (Auto) 86.9 % (38.0-78.0); Lymphocytes # (Auto) 0.8 K/mcL (1.5-4.8); Lymphocytes % (Auto) 6.1 % (15.5-49.0); Mean Cell Volume 92.7 fL (80.0-100.0); Mean Corpuscular HGB Conc 34.4 g/dL (31.0-36.0); Mean Corpuscular Hemoglobin 31.9 pg (26.0-34.0); Monocytes # (Auto) 0.7 K/mcL (0.1-0.9); Monocytes % (Auto) 5.1 % (1.0-12.0); Platelet Count 225 K/mcL (140-440); Red Cell Distribution Width 14.9 % (11.5-14.5)
[2017-12-25 05:13] LABS: ALT/SGPT 38 U/l (0-40); Albumin 2.4 gm/dL (3.2-5.2); Albumin/Globulin Ratio 0.7 (1.0-2.3); Alkaline Phosphatase 102 U/L (39-117); Bilirubin,Direct < 0.2 mg/dL (0.0-0.3); Blood Urea Nitrogen 35 mg/dl (8-23); Gamma Glutamyl Transpeptidase 88 U/L (8-61); Uric Acid 2.9 mg/dL (2.5-8.0)
[2017-12-25] MEDS: 0.9 % SODIUM CHLORIDE 10 ML SYRINGE IV SCH ×3 (06:07→20:06)
[2017-12-25] MEDS: SIMETHICONE 80 MG TAB.CHEW CHEWED SCH ×4 (08:07→20:56)
[2017-12-25] MEDS: LACTOBACILLUS 1 CAPSULE PO SCH ×2 (09:44→20:51)
[2017-12-25] MEDS: APIXABAN 5 MG TABLET PO SCH ×2 (09:44→20:51)
[2017-12-25] MEDS: METOPROLOL TARTRATE 25 MG TABLET PO SCH ×2 (09:44→20:51)
[2017-12-25] MEDS: FUROSEMIDE 40 MG/4 ML VIAL IV SCH (09:49)
[2017-12-25] MEDS: FAMOTIDINE/PF 20 MG/2 ML VIAL IV SCH ×2 (09:50→20:55)
[2017-12-25] MEDS: methylPREDNISolone SOD SUCC 125 MG/2 ML VIAL IV SCH (09:50)
[2017-12-25] MEDS: BISACODYL 10 MG SUPP.RECT PR SCH (09:51)
[2017-12-25] MEDS: CLOTRIMAZOLE CRM 1% 1 DOSE TUBE TOPICAL SCH ×2 (09:51→20:58)
[2017-12-25] MEDS ORDERED: [UNRECOGNIZED DRUG - REMARK] IV SCH (15:00)
--- NOTE | 2017-12-25 15:19 | Internal Med Progress Note ---
Medical - PN: Subj Patient information: Note initiated : 12/25/17 at 3:16 pm Service Date, if different from initiated Date: [] Patient: Camilo Figueroa 77 y/o M admitted on 12/10/17 for Shortness of Breath, Moist Cough/Pneumonia. Chief Complaint: [] Interval history: Mr. Figueroa is a 77 year old Male with history of COPD,hypertension, hyperlipidemia, chronic A. fib who presents to the emergency room today with shortness of breath, cough that has been going on since Monday. Patient's daughter was at bedside who provided some history along with the patient. The patient's daughter had a URI-like symptom, last week I believe and the patient started showing signs of cough from Monday. The patient's condition gradually worsened since then. Patient has been having cough with expectoration initially, no blood in the sputum. He has been having progressive shortness of breath. He notes he has been having subjective sensations of fever, chills, sweating. He has decreased effort tolerance and is unable to walk short distances now. For the last day the cough has subsided and it is difficult for him to bring up the sputum. The patient is extremely weak and has therefore been brought to the emergency room for further evaluation. In the emergency room, the patient was noted to be in moderate respiratory distress, he was afebrile, his white blood cell count was 5.9, chemistry showed worsening renal function with a creatinine of 1.6. His lactic acid was 5.9, first set of troponin was 0.11 and second set was 0.09. He had an elevated pro- calcitonin and 8.43. Chest x-ray showed pneumonia. the patient was tachycardic with A. fib with RVR on presentation and was on a diltiazem drip, his blood pressure was also very high and difficult to 78 physician and put him on nitroglycerin drip. Both these medications were discontinued after admission He was admitted to the hospital for further management, admitted to pcu status. dec 11 Pt overnight had deterioration in his clinical status, was intubated, had PICC placed, A line placed. He was overnight on pressors, levophed and vasopressin, presently only on levophed, bp stable. ABG reviwed, Chest X ray reviewed patient family was updated and was at bedside This AM pt sedated on Vent, TV 400, rr 24, peep 5, PAP 19-20 Plat 16-17, Pt still has some lactic acidosis, on IVF, ringers lactate changed to Saline. Patient Blood culture is postive for gpc in clusters, staph auremakayla, pt already on vancomycin. Likely staph pneumonia secondary to influenza. Feb 27 . Seen and examined, no acute overnight events, patient remains off pressors. Hemodynamically stable. On baseline vent settings. This morning, when settings were, tidal volume 500, rate of 20, FiO2 35, PEEP of 5. Peak airway pressures around 20, plateau pressures 16-17 The patient was drowsy, was able to grasp hands and move his toes. Did not seem agitated. For order for blood culture bottles are positive for gram-positive cocci. Chest x-ray shows improvement in infiltrate. Lines in place repeat cultures ordered, echo ordered. ABG reviewed Feedings started, last night was still going on. Initially we thought we could try a weaning trial given his baseline settings however due to shift change between the hospital providers, weaning trial and extubation will be decided by the oncoming provider. that is slight worsening in renal function, urine output is 25-30 mL per hour. Family updated Around 2 pm extubated. Tolerated PS well, minimal secretions. Hemodynamics stable. Feb 28. Did well overnight. Was still somnolent. But, hemodynamics stable and breathing comfortably. Poor U/O. Received lasix at night and IVF was d/c'd. This afternoon became suddenly cyanotic with poor respiratory effort and struggle to cough. Lungs: few rhonchi at bases. Poor BS and respiratory effort. ET-suctioning for minimal secretions. CXR without significant changes compared to am. No atelectasis, overt pulmonary edema or pneumothorax. DD bronchospasm, fatigue Duoneb, BiPAP ventilator support, Lasix December 14: Had episode of severe respiratory distress last night, requiring high FiO2. Had bronchospasm, tachypnea and cyanotic discoloration. Gave neb treatments, dilaudid, ET-suctioning, solumedrol, BiPAP support. This am noted abdominal distention. KUB showed dilatation of bowel loops and possible free air vs volvulus. CT-abd/pelvis pending. Hold nutrition via feeding tube. Will start TPN Patient has also have hx of major epistaxis. Is on Eliquis with hematuria. Am reluctant to insert NG for decompression and potentially causing epistaxis. Eliquis discontinued. Start Lovenox for afibr. December 15: Required BiPAP support last night. Minimal secretions. Microbiology: MSSA bacteremia. On Nafcillin December 16: Max time off BiPAP 2-3 hours. Na 148, despite 1/2 NS IVF d/W pharmacy: no Na in TPN repeat labs later today Spoke at length with and daughter: weaning off BiPAP will take days. Other problems: weakness, encephalopathy and ileus. Code status revisited. In case of worsening condition: no CPR and/or re-intubation. December 17: Stable overnight. BiPAP most of the night. HR controlled. BP still somewhat elevated despite scheduled metoprolol IV. Had BMs. WBC elevated at 13.6. Received Solumedrol x 1 yesterday for allergic reaction to nafcillin (facial flushing, itch, bronchospasm). Will add hydralazine IV to control BP. Try to increase time off BiPAP December 18 patient seen examined, stable overnight, concern that he is having flushing to Penicillin, he has mssa with vanco sensitivity of 2, the patient was given test dose of anceph yesterday pm, and tolerated it well, he was therefore started on cefazolin 2gms q8. The patient had facial erythema overnight x 2 according to the staff. This AM too iwthout the use of medication while working with physicial therapy, the patient developed flushing of his facial skin. I am not convinced that the fluhing that the patient is experincing is related to administration of anceph. Continue same for now. If not will have to switch to daptomycin. patient has low grade fever, his last set of microbiology was negative. Chest x ray to be repeated today he has diarrhea and rising wbc count, ileus on X ray abdomen. check for cdiff continue bipap support as needed , he is still wheezinng, resume iv steroids for now. on duonebs q4hrs December 19 patient seen and examined, no acute overnight events, was placed on BiPAP yesterday evening up until this morning. He tolerated it well. Off BiPAP this morning. Mental status somewhat better today than yesterday. Patient still has some wheezing going on but evidently is better than yesterday , he responded well to IV Lasix given yesterday, negative 4500 mL. We will hold off on Lasix now. Change steroids to once a day. Leukocytosis worsening, clinically patient is getting better, likely a reaction to steroids. Appreciate pulmonary input, lesions on cefazolin for now, reviewed the case with infectious disease specialist up in [place] were advised to consider increasing the dose of cefazolin from 2 g every 8 hours 2 g every 6 hours. Patient can be switched back to every 8 hours at the time of discharge for the remainder of the course of treatment. The patient will need 6 weeks of IV antibiotics. Repeat cultures are negative. If the patient's clinical condition would worsen we will consider tapping the fluid in the pleural space. Try to get speech therapy to see the patient can tolerate by mouth diet today Patient remains on TPN for nutrition, still has diarrhea,re send stool for C. difficile December 20 pt seen examiend, no acute overnight events did not need bipap overnight, mental status improving ok for puree food today xfer to tele status start on banatrol plus and culturell to see if it helps with diarrhea cdiff x 2 neg wbc still high but pt on steroids family at bedside, updated on plan of care all questions answered p[t is positive 10L sice admission, give another dose of IV lasix today. december 21 Patient seen examined, no acute overnight events, off bipap, hemodynamically stable WBC still high, CXR done this AM shows resolving pna, no effusion plan to wean of f steroids, solumedrol now 40mg daily, duonebs q6 hrs eric pt remains on iv anceph q6 hrs for now, advance diet as tolerated d/c rectal tube start on lasix 20mg po to keep patient dry, try to get pt working with PT December 22 pt seen examined, no acute overnight events still very tired, not able to advance diet beyond level 1 so far wbc high, but stable, no fever, no need for oxygen was able to use the bathroom today x ray abdomen shows gastric distention, showed rectal tube, but pt does not have a rectal tube in place (enema line read as rectal tube on x ray), also some ileus. Will give one dose of relistor today. Pt had gas, but was able to pass significant amount when trying to have a BM exam showed crackles, pt is positive 9000ml since admission, lasix changed to iv daily 3/10- patient more awake and alert but intermittently confused. No overnight events. Clinically improving with downtrending white count from a peak of 19.7 on 12/21-16.6. On IV Ancef for 6 weeks per ID recommendations. hemoglobin down to 7.6 from 11.8 on 12/20. 2 units PRBC today due to over 30% baseline hematocrit drop.stable biochemical profile. elemetry A. fib with rate controlled. diarrhea improving.currently in room air. Continue daily IV Lasix 12/24- white count 16.3, hemoglobin 9.9 status post 2 units blood transfusion. Patient doing well. No overnight fever chills. No family at bedside. Ongoing antibiotic coverage. no other concerns expressed by nursing staff 12/25- patient on IV cefazolin. Status quo. On TPN. Attempting to transition to oral diet. No overnight fever chills or concerns per staff. white count down to 13.4 from 16.3. Hemoglobin stable at 10.3. sodium is 131.patient down 5000 cc in 24 hours. Continue gentle diuresis. Poor participation in physical therapy however anticipate transfer to long-term acute care unit for continued antibiotic infusions/post hospitalization rehabilitation/recovery. No family at bedside. - Constitutional Vitals: Vital Signs Temp Pulse Resp BP Pulse Ox 98.9 F 75 16 139/80 96 12/25/17 11:46 12/25/17 08:48 12/25/17 11:46 12/25/17 11:46 12/25/17 11:46 Period Temp Pulse Resp BP Sys/Cai Pulse Ox Last 24 Hr 98.2 F-99.3 F 75-79 16-20 124-159/60-80 94-98 Intake and Output 12/25/17 12/25/17 12/25/17 05:59 13:59 21:59 Intake Total 50 / 50 Output Total 100 / 100 1550 / 1550 Balance -50 / -50 -1550 / -1550 Intake & Output: Intake & Output 12/25/17 12/25/17 12/25/17 05:59 13:59 21:59 Intake Total 50 / 50 Output Total 100 / 100 1550 / 1550 Balance -50 / -50 -1550 / -1550 Intake: Oral 50 / 50 Output: Urine Catheter Amount 100 / 100 1550 / 1550 Other: Meal Breakfast Percent of Meal Consumed 0% Stool Size Smear Stool Color Brown Stool Consistency Loose # Bowel Movements 1 # of times incontinent of 1 Bowels General appearance: no acute distress Exam: alert and responding commands no overnight events No fever chills Nondistended abdomen no lymphedema Foleys draining clear urine Medical - PN: Obj Da - Labs CBC & Chem 7: 12/25/17 04:00 12/25/17 04:00 Labs: Abnormal Lab Results 12/25/17 12/25/17 12/24/17 04:00 04:00 04:00 WBC 13.4 H RBC 3.20 L Hgb 10.2 L Hct 29.7 L RDW 14.9 H Gran % 86.9 H Lymph % (Auto) 6.1 L Gran # 11.6 H Lymph # (Auto) 0.8 L Newton # (Auto) Sodium 131 L BUN 35 H 37 H Glucose 116 H Calcium 7.7 L 7.9 L GGT 88 H 78 H AST 54 H 74 H Lactate Dehydrogenase 313 H 321 H Total Protein 5.8 L Albumin 2.4 L 2.5 L Albumin/Globulin Ratio 0.7 L 0.7 L 12/24/17 12/23/17 12/23/17 04:00 04:00 04:00 WBC 16.3 H 16.6 H RBC 3.13 L 2.44 L Hgb 9.9 L 7.6 L Hct 28.8 L 22.8 L RDW 14.6 H Gran % 90.2 H 86.2 H Lymph % (Auto) 4.1 L 4.0 L Gran # 14.7 H 14.3 H Lymph # (Auto) 0.7 L 0.7 L Newton # (Auto) 1.2 H Sodium BUN 42 H Glucose 164 H Calcium 7.8 L GGT 74 H AST 72 H Lactate Dehydrogenase 309 H Total Protein 5.6 L Albumin 2.4 L Albumin/Globulin Ratio 0.8 L Meds: Medications Acetaminophen (Tylenol) 650 mg PO Q4-6HP PRN PRN Reason: PAIN/FEVER > 101 Last Admin: 12/22/17 06:56 Dose: 650 mg Albuterol/Ipratropium (Duoneb) 3 ml NEB Q4HP PRN PRN Reason: Wheezing Bisacodyl (Dulcolax) 10 mg TX DAILY ERIC Last Admin: 12/25/17 09:51 Dose: Not Given Cefazolin Sodium (Ancef) 2 gm IV Q6H [facility] Last Admin: 12/25/17 08:08 Dose: 2 gm Clotrimazole (Mycelex Crm 1%) 1 dose TOPICAL BID [facility] Last Admin: 12/25/17 09:51 Dose: 1 dose Dextrose (Dextrose 50%) 0 ml IV UD PRN PRN Reason: Hypoglycemia Diagnostic Test (Pha) (Accu-Chek) 1 each FS Q6 [facility] Last Admin: 12/25/17 11:56 Dose: 1 each Diphenhydramine HCl (Benadryl) 50 mg IV Q6HP PRN PRN Reason: Allergic Symptoms Famotidine (Pepcid) 20 mg IV Q12 [facility] Last Admin: 12/25/17 09:50 Dose: 20 mg Furosemide (Lasix) 40 mg IV DAILY [facility] Last Admin: 12/25/17 09:49 Dose: 40 mg Heparin Sodium (Porcine) (Heparin Flush) 2 ml IV Q12 [facility] Last Admin: 12/25/17 09:50 Dose: 2 ml Hydralazine HCl (Apresoline) 10 mg IV Q4HP PRN PRN Reason: Hypertension Last Admin: 12/22/17 23:41 Dose: 10 mg Hydromorphone HCl (Dilaudid) 0.5 mg IV Q2HP PRN PRN Reason: PAIN LEVEL > 6 Last Admin: 12/21/17 18:47 Dose: 0.5 mg Heparin Sodium/Sodium Chloride (Heparin/Ns) 500 mls @ 0 mls/hr IV .Q0M ERIC; KVO PRN Reason: Protocol Acetaminophen (Ofirmev) 650 mg in 65 mls @ 130 mls/hr IV Q6HP PRN PRN Reason: PAIN/FEVER > 101 Last Infusion: 12/21/17 06:10 Dose: Infused Fat Emulsion Intravenous (Intralipid 20%) 250 mls @ 25 mls/hr IV TuThSa@1600 [facility] Last Infusion: 12/24/17 03:25 Dose: Infused Calcium Gluconate 10 meq/Potassium Phosphate 90 meq/Multivitamins/Minerals 10 ml /Magnesium Sulfate 16.24 meq/Sodium Chloride 80 meq/ Amino Acids 2,075.9598 mls @ 75 mls/hr IV Q24H [facility] Insulin Human Lispro (Humalog) 0 unit SQ Q6 [facility] PRN Reason: Protocol Last Admin: 12/25/17 12:06 Dose: 2 unit Lactobacillus Rhamnosus (Culturelle) 1 cap PO BID [facility] Last Admin: 12/25/17 09:44 Dose: 1 cap Latanoprost (Xalatan Ophth Drops) 1 gtt OU HS [facility] Last Admin: 12/24/17 20:08 Dose: 1 drop Lorazepam (Ativan) 0.5 mg IV Q4HP PRN PRN Reason: ANXIETY/SEDATION Last Admin: 12/21/17 20:38 Dose: 0.5 mg Methylprednisolone Sodium Succinate (Solu-Medrol) 40 mg IV QDAY [facility] Last Admin: 12/25/17 09:50 Dose: 40 mg Metoprolol Tartrate (Lopressor) 5 mg IV Q2HP PRN PRN Reason: Tachyarrhythmias Metoprolol Tartrate (Lopressor) 25 mg PO BID [facility] Last Admin: 12/25/17 09:44 Dose: 25 mg Naloxone HCl (Narcan) 0.1 mg IV Q2MIN PRN PRN Reason: Opiate Reversal Oxycodone HCl (Roxicodone) 5 mg PO Q4HP PRN PRN Reason: PAIN LEVEL 3-6 Last Admin: 12/24/17 20:09 Dose: 5 mg Senna (Senokot) 2 tab PO HSP PRN PRN Reason: Constipation Simethicone (Mylicon) 160 mg CHEWED [facility] Last Admin: 12/25/17 11:59 Dose: 160 mg Sodium Chloride (Saline Flush) 10 ml IV Q8 [facility] Last Admin: 12/25/17 06:07 Dose: 10 ml Medical - PN: A/P - Time Spent With Patient Total time spent is greater than 50% in coordination of care (as documented) at patient's floor/unit and/or counseling patient: 25 - 35 minutes - Narrative A/P Narrative: A/P * necrotizing pneumonia secondary to staph aureus-on 6 weeks Ancef * staph aureus bacteremia-cleared surveillance cultures. Continue to 6 weeks antibiotics per ID. echo negative for IE. * Acute respiratory failure -secondary to necrotizing pneumonia. Was on mechanical support 12/11 - 12/12. extubated 12/12.on room air * Acute COPD exacerbation-Duonebs and IV steroids. duonebs now q6hr , change to Solumederol 20mg qd * normocytic anemia status post 2 units blood transfusion hemoglobin at 9.9 * Severe sepsis with septic shock, multiorgan dysfunction: resolved. white count downtrending at 16.6- 13,000 * Diarrhea-antibiotic associated.cdiff neg, diarrhea improved, unable to get banatrol due to speech restrictions,monitor * Atrial fibrillation/ Atrial flutter -rate controlled on as needed metoprolol , oral eliquis for anticoagulation. * Acute renal failure-resolved * Elevated troponins-secondary to demand ischemia type II myocardial infarction. * BPH- tamsulosin on hold, WILSON in place * Diabetes-not taking any medications, SSI/diet. * Ileus 12/13: CT-abdomen/pelvis: no volvulus or free air. freely mobile cecum * Nutrition-dyspgia diet level 1, wean TPN as tolerated * prophylaxis on eliquis. * no code plan * continue antibiotics for 6 weeks * Aggressive PT OT/nutrition * pre-existing medical condition management as above * LTAC transfer for 6 weeks IV antibiotic coordination nd posthospitalization rehabilitation Medical - PN: Qual - VTE Deep Vein Thrombosis/Pulmonary Embolism Present on Admission: No Procedures - Arterial Line Size (Gauge): 20
[2017-12-25] MEDS: [UNRECOGNIZED DRUG - REMARK] IV SCH (17:58)
[2017-12-25] MEDS: LATANOPROST OPHTH DROPS 2.5ML BOTTLE OU SCH (20:59)
[2017-12-26] MEDS: INSULIN LISPRO 1 UNIT/0.01 ML UNIT SQ SCH ×4 (00:07→21:00)
[2017-12-26] MEDS: ceFAZolin 1 GM VIAL IV SCH ×4 (02:49→20:15)
[2017-12-26] MEDS: 0.9 % SODIUM CHLORIDE 10 ML SYRINGE IV SCH ×3 (06:25→22:00)
[2017-12-26] MEDS: SIMETHICONE 80 MG TAB.CHEW CHEWED SCH ×4 (08:37→21:00)
[2017-12-26 09:29] LABS: Basophils # (Auto) 0 K/mcL (0.0-0.3); Basophils % (Auto) 0.3 % (0.0-2.0); Eosinophils # (Auto) 0.5 K/mcL (0.0-0.7); Granulocytes % (Auto) 85.1 % (38.0-78.0); Lymphocytes # (Auto) 0.8 K/mcL (1.5-4.8); Lymphocytes % (Auto) 6.2 % (15.5-49.0); Mean Cell Volume 93.3 fL (80.0-100.0); Mean Corpuscular HGB Conc 34.3 g/dL (31.0-36.0); Monocytes # (Auto) 0.5 K/mcL (0.1-0.9); Monocytes % (Auto) 4.4 % (1.0-12.0); Platelet Count 241 K/mcL (140-440); RBC 3.53 M/mcL (4.50-5.90); Red Cell Distribution Width 14.8 % (11.5-14.5)
[2017-12-26 09:52] LABS: ALT/SGPT 72 U/l (0-40); Albumin 2.6 gm/dL (3.2-5.2); Albumin/Globulin Ratio 0.7 (1.0-2.3); Alkaline Phosphatase 134 U/L (39-117); Bilirubin,Direct < 0.2 mg/dL (0.0-0.3); Blood Urea Nitrogen 35 mg/dl (8-23); Gamma Glutamyl Transpeptidase 127 U/L (8-61); Uric Acid 2.8 mg/dL (2.5-8.0)
[2017-12-26] MEDS: APIXABAN 5 MG TABLET PO SCH ×2 (10:34→20:16)
[2017-12-26] MEDS: BISACODYL 10 MG SUPP.RECT PR SCH (10:34)
[2017-12-26] MEDS: FUROSEMIDE 40 MG/4 ML VIAL IV SCH (10:34)
[2017-12-26] MEDS: LACTOBACILLUS 1 CAPSULE PO SCH ×2 (10:34→20:16)
[2017-12-26] MEDS: METOPROLOL TARTRATE 25 MG TABLET PO SCH ×2 (10:34→20:17)
[2017-12-26] MEDS: methylPREDNISolone SOD SUCC 125 MG/2 ML VIAL IV SCH (10:35)
[2017-12-26] MEDS: FAMOTIDINE/PF 20 MG/2 ML VIAL IV SCH ×2 (10:35→20:18)
[2017-12-26] MEDS: CLOTRIMAZOLE CRM 1% 1 DOSE TUBE TOPICAL SCH ×2 (10:37→20:17)
--- NOTE | 2017-12-26 12:39 | Internal Med Progress Note ---
Medical - PN: Subj Patient information: Note initiated : 12/26/17 at 12:36 pm Service Date, if different from initiated Date: [] Patient: Camilo Figueroa 77 y/o M admitted on 12/10/17 for Shortness of Breath, Moist Cough/Pneumonia. Chief Complaint: [] Interval history: Mr. Figueroa is a 77 year old Male with history of COPD,hypertension, hyperlipidemia, chronic A. fib who presents to the emergency room today with shortness of breath, cough that has been going on since Monday. Patient's daughter was at bedside who provided some history along with the patient. The patient's daughter had a URI-like symptom, last week I believe and the patient started showing signs of cough from Monday. The patient's condition gradually worsened since then. Patient has been having cough with expectoration initially, no blood in the sputum. He has been having progressive shortness of breath. He notes he has been having subjective sensations of fever, chills, sweating. He has decreased effort tolerance and is unable to walk short distances now. For the last day the cough has subsided and it is difficult for him to bring up the sputum. The patient is extremely weak and has therefore been brought to the emergency room for further evaluation. In the emergency room, the patient was noted to be in moderate respiratory distress, he was afebrile, his white blood cell count was 5.9, chemistry showed worsening renal function with a creatinine of 1.6. His lactic acid was 5.9, first set of troponin was 0.11 and second set was 0.09. He had an elevated pro- calcitonin and 8.43. Chest x-ray showed pneumonia. the patient was tachycardic with A. fib with RVR on presentation and was on a diltiazem drip, his blood pressure was also very high and difficult to 78 physician and put him on nitroglycerin drip. Both these medications were discontinued after admission He was admitted to the hospital for further management, admitted to pcu status. dec 11 Pt overnight had deterioration in his clinical status, was intubated, had PICC placed, A line placed. He was overnight on pressors, levophed and vasopressin, presently only on levophed, bp stable. ABG reviwed, Chest X ray reviewed patient family was updated and was at bedside This AM pt sedated on Vent, TV 400, rr 24, peep 5, PAP 19-20 Plat 16-17, Pt still has some lactic acidosis, on IVF, ringers lactate changed to Saline. Patient Blood culture is postive for gpc in clusters, staph auremakayla, pt already on vancomycin. Likely staph pneumonia secondary to influenza. Feb 27 . Seen and examined, no acute overnight events, patient remains off pressors. Hemodynamically stable. On baseline vent settings. This morning, when settings were, tidal volume 500, rate of 20, FiO2 35, PEEP of 5. Peak airway pressures around 20, plateau pressures 16-17 The patient was drowsy, was able to grasp hands and move his toes. Did not seem agitated. For order for blood culture bottles are positive for gram-positive cocci. Chest x-ray shows improvement in infiltrate. Lines in place repeat cultures ordered, echo ordered. ABG reviewed Feedings started, last night was still going on. Initially we thought we could try a weaning trial given his baseline settings however due to shift change between the hospital providers, weaning trial and extubation will be decided by the oncoming provider. that is slight worsening in renal function, urine output is 25-30 mL per hour. Family updated Around 2 pm extubated. Tolerated PS well, minimal secretions. Hemodynamics stable. Feb 28. Did well overnight. Was still somnolent. But, hemodynamics stable and breathing comfortably. Poor U/O. Received lasix at night and IVF was d/c'd. This afternoon became suddenly cyanotic with poor respiratory effort and struggle to cough. Lungs: few rhonchi at bases. Poor BS and respiratory effort. ET-suctioning for minimal secretions. CXR without significant changes compared to am. No atelectasis, overt pulmonary edema or pneumothorax. DD bronchospasm, fatigue Duoneb, BiPAP ventilator support, Lasix December 14: Had episode of severe respiratory distress last night, requiring high FiO2. Had bronchospasm, tachypnea and cyanotic discoloration. Gave neb treatments, dilaudid, ET-suctioning, solumedrol, BiPAP support. This am noted abdominal distention. KUB showed dilatation of bowel loops and possible free air vs volvulus. CT-abd/pelvis pending. Hold nutrition via feeding tube. Will start TPN Patient has also have hx of major epistaxis. Is on Eliquis with hematuria. Am reluctant to insert NG for decompression and potentially causing epistaxis. Eliquis discontinued. Start Lovenox for afibr. December 15: Required BiPAP support last night. Minimal secretions. Microbiology: MSSA bacteremia. On Nafcillin December 16: Max time off BiPAP 2-3 hours. Na 148, despite 1/2 NS IVF d/W pharmacy: no Na in TPN repeat labs later today Spoke at length with and daughter: weaning off BiPAP will take days. Other problems: weakness, encephalopathy and ileus. Code status revisited. In case of worsening condition: no CPR and/or re-intubation. December 17: Stable overnight. BiPAP most of the night. HR controlled. BP still somewhat elevated despite scheduled metoprolol IV. Had BMs. WBC elevated at 13.6. Received Solumedrol x 1 yesterday for allergic reaction to nafcillin (facial flushing, itch, bronchospasm). Will add hydralazine IV to control BP. Try to increase time off BiPAP December 18 patient seen examined, stable overnight, concern that he is having flushing to Penicillin, he has mssa with vanco sensitivity of 2, the patient was given test dose of anceph yesterday pm, and tolerated it well, he was therefore started on cefazolin 2gms q8. The patient had facial erythema overnight x 2 according to the staff. This AM too iwthout the use of medication while working with physicial therapy, the patient developed flushing of his facial skin. I am not convinced that the fluhing that the patient is experincing is related to administration of anceph. Continue same for now. If not will have to switch to daptomycin. patient has low grade fever, his last set of microbiology was negative. Chest x ray to be repeated today he has diarrhea and rising wbc count, ileus on X ray abdomen. check for cdiff continue bipap support as needed , he is still wheezinng, resume iv steroids for now. on duonebs q4hrs December 19 patient seen and examined, no acute overnight events, was placed on BiPAP yesterday evening up until this morning. He tolerated it well. Off BiPAP this morning. Mental status somewhat better today than yesterday. Patient still has some wheezing going on but evidently is better than yesterday , he responded well to IV Lasix given yesterday, negative 4500 mL. We will hold off on Lasix now. Change steroids to once a day. Leukocytosis worsening, clinically patient is getting better, likely a reaction to steroids. Appreciate pulmonary input, lesions on cefazolin for now, reviewed the case with infectious disease specialist up in [place] were advised to consider increasing the dose of cefazolin from 2 g every 8 hours 2 g every 6 hours. Patient can be switched back to every 8 hours at the time of discharge for the remainder of the course of treatment. The patient will need 6 weeks of IV antibiotics. Repeat cultures are negative. If the patient's clinical condition would worsen we will consider tapping the fluid in the pleural space. Try to get speech therapy to see the patient can tolerate by mouth diet today Patient remains on TPN for nutrition, still has diarrhea,re send stool for C. difficile December 20 pt seen examiend, no acute overnight events did not need bipap overnight, mental status improving ok for puree food today xfer to tele status start on banatrol plus and culturell to see if it helps with diarrhea cdiff x 2 neg wbc still high but pt on steroids family at bedside, updated on plan of care all questions answered p[t is positive 10L sice admission, give another dose of IV lasix today. december 21 Patient seen examined, no acute overnight events, off bipap, hemodynamically stable WBC still high, CXR done this AM shows resolving pna, no effusion plan to wean of f steroids, solumedrol now 40mg daily, duonebs q6 hrs eric pt remains on iv anceph q6 hrs for now, advance diet as tolerated d/c rectal tube start on lasix 20mg po to keep patient dry, try to get pt working with PT December 22 pt seen examined, no acute overnight events still very tired, not able to advance diet beyond level 1 so far wbc high, but stable, no fever, no need for oxygen was able to use the bathroom today x ray abdomen shows gastric distention, showed rectal tube, but pt does not have a rectal tube in place (enema line read as rectal tube on x ray), also some ileus. Will give one dose of relistor today. Pt had gas, but was able to pass significant amount when trying to have a BM exam showed crackles, pt is positive 9000ml since admission, lasix changed to iv daily 3/10- patient more awake and alert but intermittently confused. No overnight events. Clinically improving with downtrending white count from a peak of 19.7 on 12/21-16.6. On IV Ancef for 6 weeks per ID recommendations. hemoglobin down to 7.6 from 11.8 on 12/20. 2 units PRBC today due to over 30% baseline hematocrit drop.stable biochemical profile. elemetry A. fib with rate controlled. diarrhea improving.currently in room air. Continue daily IV Lasix 12/24- white count 16.3, hemoglobin 9.9 status post 2 units blood transfusion. Patient doing well. No overnight fever chills. No family at bedside. Ongoing antibiotic coverage. no other concerns expressed by nursing staff 12/25- patient on IV cefazolin. Status quo. On TPN. Attempting to transition to oral diet. No overnight fever chills or concerns per staff. white count down to 13.4 from 16.3. Hemoglobin stable at 10.3. sodium is 131.patient down 5000 cc in 24 hours. Continue gentle diuresis. Poor participation in physical therapy however anticipate transfer to long-term acute care unit for continued antibiotic infusions/post hospitalization rehabilitation/recovery. No family at bedside. 12/26- patient on TPN. No overnight events. Poorly motivated to participate in physical therapy. White count downtrending from 16.3-12.6. Hemoglobin 10.3.lactic acid normalized.sodium 133. adequately diuresing with over 8000 cc net negative fluid balance in 72 hours. Family at bedside. Discussed treatment plan and discharge recommendations however patient's family refusing SNF transfer. Patient will need additional 5 weeks IV antibiotics for Staphylococcus aureus necrotizing pneumonia - Constitutional Vitals: Vital Signs Temp Pulse Resp BP Pulse Ox 99.3 F H 77 16 136/81 95 12/26/17 12:00 12/26/17 12:00 12/26/17 08:37 12/26/17 12:00 12/26/17 12:00 Period Temp Pulse Resp BP Sys/Cai Pulse Ox Last 24 Hr 97.1 F-99.3 F 59-86 16-18 136-167/59-100 94-97 Intake and Output 12/25/17 12/26/17 12/26/17 21:59 05:59 13:59 Intake Total 240 / 240 100 / 100 1221 / 1221 Output Total 1100 / 1100 950 / 950 Balance -860 / -860 -850 / -850 1221 / 1221 Weight 149 lb Intake & Output: Intake & Output 12/25/17 12/26/17 12/26/17 21:59 05:59 13:59 Intake Total 240 / 240 100 / 100 1221 / 1221 Output Total 1100 / 1100 950 / 950 Balance -860 / -860 -850 / -850 1221 / 1221 Weight 149 lb Intake: IV 122 / 1221 Potassium Phosphate 90 Meq 1221 / 1221 Infuvite Adult 10 ml Magnesium Sulfate 16.24 Meq Sodium Chloride 80 Meq In Clinimix 5%- 20% Solution 2,000 ml @ 75 mls/ hr IV Q24H [facility] Rx#:[id number] Oral 240 / 240 100 / 100 Output: Urine Catheter Amount 1100 / 1100 950 / 950 Other: Meal Dinner Percent of Meal Consumed 0% Stool Size Smear Stool Color Brown Stool Consistency Soft # Bowel Movements 1 General appearance: cooperative, no acute distress Exam: fatigued and lethargic Nonlabored breathing nondistended abdomen No anxiety Medical - PN: Obj Da - Labs CBC & Chem 7: 12/26/17 08:48 12/26/17 08:48 Labs: Abnormal Lab Results 12/26/17 12/26/17 12/25/17 08:48 08:48 04:00 WBC 12.6 H 13.4 H RBC 3.53 L 3.20 L Hgb 11.3 L 10.2 L Hct 33.0 L 29.7 L RDW 14.8 H 14.9 H Gran % 85.1 H 86.9 H Lymph % (Auto) 6.2 L 6.1 L Gran # 10.7 H 11.6 H Lymph # (Auto) 0.8 L 0.8 L Sodium BUN 35 H Glucose 116 H Calcium 7.9 L GGT 127 H AST 87 H ALT 72 H Alkaline Phosphatase 134 H Lactate Dehydrogenase 358 H Total Protein Albumin 2.6 L Albumin/Globulin Ratio 0.7 L 12/25/17 12/24/17 12/24/17 04:00 04:00 04:00 WBC 16.3 H RBC 3.13 L Hgb 9.9 L Hct 28.8 L RDW 14.6 H Gran % 90.2 H Lymph % (Auto) 4.1 L Gran # 14.7 H Lymph # (Auto) 0.7 L Sodium 131 L BUN 35 H 37 H Glucose 116 H Calcium 7.7 L 7.9 L GGT 88 H 78 H AST 54 H 74 H ALT Alkaline Phosphatase Lactate Dehydrogenase 313 H 321 H Total Protein 5.8 L Albumin 2.4 L 2.5 L Albumin/Globulin Ratio 0.7 L 0.7 L Meds: Medications Acetaminophen (Tylenol) 650 mg PO Q4-6HP PRN PRN Reason: PAIN/FEVER > 101 Last Admin: 12/22/17 06:56 Dose: 650 mg Albuterol/Ipratropium (Duoneb) 3 ml NEB Q4HP PRN PRN Reason: Wheezing Bisacodyl (Dulcolax) 10 mg FL DAILY [facility] Last Admin: 12/26/17 10:34 Dose: 10 mg Cefazolin Sodium (Ancef) 2 gm IV Q6H [facility] Last Admin: 12/26/17 08:30 Dose: 2 gm Clotrimazole (Mycelex Crm 1%) 1 dose TOPICAL BID [facility] Last Admin: 12/26/17 10:37 Dose: 1 dose Dextrose (Dextrose 50%) 0 ml IV UD PRN PRN Reason: Hypoglycemia Diagnostic Test (Pha) (Accu-Chek) 1 each FS Q6 [facility] Last Admin: 12/26/17 12:14 Dose: 1 each Diphenhydramine HCl (Benadryl) 50 mg IV Q6HP PRN PRN Reason: Allergic Symptoms Famotidine (Pepcid) 20 mg IV Q12 [facility] Last Admin: 12/26/17 10:35 Dose: 20 mg Furosemide (Lasix) 40 mg IV DAILY [facility] Last Admin: 12/26/17 10:34 Dose: 40 mg Heparin Sodium (Porcine) (Heparin Flush) 2 ml IV Q12 [facility] Last Admin: 12/26/17 10:35 Dose: 2 ml Hydralazine HCl (Apresoline) 10 mg IV Q4HP PRN PRN Reason: Hypertension Last Admin: 12/22/17 23:41 Dose: 10 mg Hydromorphone HCl (Dilaudid) 0.5 mg IV Q2HP PRN PRN Reason: PAIN LEVEL > 6 Last Admin: 12/21/17 18:47 Dose: 0.5 mg Heparin Sodium/Sodium Chloride (Heparin/Ns) 500 mls @ 0 mls/hr IV .Q0M ERIC; KVO PRN Reason: Protocol Acetaminophen (Ofirmev) 650 mg in 65 mls @ 130 mls/hr IV Q6HP PRN PRN Reason: PAIN/FEVER > 101 Last Infusion: 12/21/17 06:10 Dose: Infused Fat Emulsion Intravenous (Intralipid 20%) 250 mls @ 25 mls/hr IV TuThSa@1600 [facility] Last Infusion: 12/24/17 03:25 Dose: Infused Potassium Phosphate 90 meq/Multivitamins/Minerals 10 ml/Magnesium Sulfate 16.24 meq/Sodium Chloride 80 meq/ Amino Acids 2,054.4545 mls @ 75 mls/hr IV Q24H [facility] Last Infusion: 12/26/17 10:15 Dose: 25 mls/hr Insulin Human Lispro (Humalog) 0 unit SQ Q6 [facility] PRN Reason: Protocol Last Admin: 12/26/17 12:13 Dose: Not Given Lactobacillus Rhamnosus (Culturelle) 1 cap PO BID [facility] Last Admin: 12/26/17 10:34 Dose: 1 cap Latanoprost (Xalatan Ophth Drops) 1 gtt OU HS [facility] Last Admin: 12/25/17 20:59 Dose: 1 drop Lorazepam (Ativan) 0.5 mg IV Q4HP PRN PRN Reason: ANXIETY/SEDATION Last Admin: 12/21/17 20:38 Dose: 0.5 mg Methylprednisolone Sodium Succinate (Solu-Medrol) 40 mg IV QDAY [facility] Last Admin: 12/26/17 10:35 Dose: 40 mg Metoprolol Tartrate (Lopressor) 5 mg IV Q2HP PRN PRN Reason: Tachyarrhythmias Metoprolol Tartrate (Lopressor) 25 mg PO BID [facility] Last Admin: 12/26/17 10:34 Dose: 25 mg Naloxone HCl (Narcan) 0.1 mg IV Q2MIN PRN PRN Reason: Opiate Reversal Oxycodone HCl (Roxicodone) 5 mg PO Q4HP PRN PRN Reason: PAIN LEVEL 3-6 Last Admin: 12/24/17 20:09 Dose: 5 mg Senna (Senokot) 2 tab PO [facility] PRN PRN Reason: Constipation Simethicone (Mylicon) 160 mg CHEWED [facility] Last Admin: 12/26/17 08:37 Dose: 160 mg Sodium Chloride (Saline Flush) 10 ml IV Q8 ERIC Last Admin: 12/26/17 06:25 Dose: 10 ml Medical - PN: A/P - Time Spent With Patient Total time spent is greater than 50% in coordination of care (as documented) at patient's floor/unit and/or counseling patient: - Narrative A/P Narrative: A/P * Staph Aureus necrotizing pneumonia-on 6 weeks Ancef * Staph aureus bacteremia-cleared surveillance cultures. Continue to 6 weeks antibiotics per ID. echo negative for IE. * Acute respiratory failure -secondary to necrotizing pneumonia. Was on mechanical support 12/11 - 12/12. extubated 12/12.on room air * Acute COPD exacerbation-Duonebs and IV steroids. duonebs now q6hr , change to Solumederol 20mg qd * FEN- TPN, wean as tolerated, transition to Dysphagia Lev 1 oral feeds * Normocytic anemia status post 2 units blood transfusion hemoglobin at 9.9 * Septic shock, multiorgan dysfunction: resolved. white count downtrending at 16.6- 13,000 * Diarrhea-antibiotic associated. cdiff neg, resolved * Atrial fibrillation/ Atrial flutter -rate controlled on as needed metoprolol , oral eliquis for anticoagulation. * Acute renal failure-resolved * Elevated troponins-secondary to demand ischemia type II myocardial infarction. * BPH- tamsulosin on hold, WILSON in place * Diabetes-not taking any medications, SSI/diet. * Ileus 12/13: CT-abdomen/pelvis: no volvulus or free air. freely mobile cecum * prophylaxis on eliquis. * no code plan * continue antibiotics for 6 weeks forom last negative blood culture * Aggressive PT OT/nutrition * pre-existing medical condition management as above Medical - PN: Qual - VTE Deep Vein Thrombosis/Pulmonary Embolism Present on Admission: No Procedures - Arterial Line Size (Gauge): 20
[2017-12-26] MEDS: [UNRECOGNIZED DRUG - REMARK] IV SCH (18:06)
[2017-12-26] MEDS: LATANOPROST OPHTH DROPS 2.5ML BOTTLE OU SCH (20:17)
[2017-12-26] MEDS: oxyCODONE HCL 5 MG TABLET PO PRN (20:19)
[2017-12-26] MEDS ORDERED: DEXTROSE 31 GM ORAL.SUSP PO PRN (23:42)
[2017-12-26] MEDS ORDERED: DEXTROSE 50% 50 ML VIAL IV PRN (23:42)
[2017-12-27] MEDS: ceFAZolin 1 GM VIAL IV SCH ×5 (01:54→23:41)
[2017-12-27] MEDS: 0.9 % SODIUM CHLORIDE 10 ML SYRINGE IV SCH ×3 (05:57→20:30)
[2017-12-27 06:18] LABS: Basophils # (Auto) 0.1 K/mcL (0.0-0.3); Basophils % (Auto) 0.4 % (0.0-2.0); Eosinophils # (Auto) 0.1 K/mcL (0.0-0.7); Eosinophils % (Auto) 0.8 % (0.0-7.0); Granulocytes % (Auto) 89.2 % (38.0-78.0); Lymphocytes # (Auto) 0.9 K/mcL (1.5-4.8); Lymphocytes % (Auto) 6.1 % (15.5-49.0); Mean Cell Volume 90.7 fL (80.0-100.0); Mean Corpuscular HGB Conc 33.9 g/dL (31.0-36.0); Mean Corpuscular Hemoglobin 30.7 pg (26.0-34.0); Monocytes # (Auto) 0.5 K/mcL (0.1-0.9); Monocytes % (Auto) 3.5 % (1.0-12.0); Platelet Count 216 K/mcL (140-440); RBC 3.52 M/mcL (4.50-5.90); Red Cell Distribution Width 13.8 % (11.5-14.5)
[2017-12-27 07:18] LABS: ALT/SGPT 69 U/l (0-40); Albumin 2.5 gm/dL (3.2-5.2); Albumin/Globulin Ratio 0.7 (1.0-2.3); Alkaline Phosphatase 154 U/L (39-117); Bilirubin,Direct < 0.2 mg/dL (0.0-0.3); Blood Urea Nitrogen 44 mg/dl (8-23); Gamma Glutamyl Transpeptidase 136 U/L (8-61); Uric Acid 5.1 mg/dL (2.5-8.0)
[2017-12-27] MEDS: INSULIN LISPRO 1 UNIT/0.01 ML UNIT SQ SCH ×4 (07:46→20:30)
[2017-12-27] MEDS: SIMETHICONE 80 MG TAB.CHEW CHEWED SCH ×4 (09:59→20:25)
[2017-12-27] MEDS: LACTOBACILLUS 1 CAPSULE PO SCH ×2 (09:59→20:26)
[2017-12-27] MEDS: BISACODYL 10 MG SUPP.RECT PR SCH (10:00)
[2017-12-27] MEDS: APIXABAN 5 MG TABLET PO SCH ×2 (10:00→20:27)
[2017-12-27] MEDS: FUROSEMIDE 40 MG/4 ML VIAL IV SCH (10:01)
[2017-12-27] MEDS: CLOTRIMAZOLE CRM 1% 1 DOSE TUBE TOPICAL SCH ×2 (10:02→21:43)
[2017-12-27] MEDS: methylPREDNISolone SOD SUCC 125 MG/2 ML VIAL IV SCH (10:02)
[2017-12-27] MEDS: FAMOTIDINE/PF 20 MG/2 ML VIAL IV SCH (10:02)
[2017-12-27] MEDS: METOPROLOL TARTRATE 25 MG TABLET PO SCH ×2 (10:02→20:26)
--- NOTE | 2017-12-27 12:01 | Internal Med Progress Note ---
Medical - PN: Subj Patient information: Note initiated : 12/27/17 at 11:59 am Service Date, if different from initiated Date: [] Patient: Camilo Figueroa 77 y/o M admitted on 12/10/17 for Shortness of Breath, Moist Cough/Pneumonia. Chief Complaint: [] Interval history: Mr. Figueroa is a 77 year old Male with history of COPD,hypertension, hyperlipidemia, chronic A. fib who presents to the emergency room today with shortness of breath, cough that has been going on since Monday. Patient's daughter was at bedside who provided some history along with the patient. The patient's daughter had a URI-like symptom, last week I believe and the patient started showing signs of cough from Monday. The patient's condition gradually worsened since then. Patient has been having cough with expectoration initially, no blood in the sputum. He has been having progressive shortness of breath. He notes he has been having subjective sensations of fever, chills, sweating. He has decreased effort tolerance and is unable to walk short distances now. For the last day the cough has subsided and it is difficult for him to bring up the sputum. The patient is extremely weak and has therefore been brought to the emergency room for further evaluation. In the emergency room, the patient was noted to be in moderate respiratory distress, he was afebrile, his white blood cell count was 5.9, chemistry showed worsening renal function with a creatinine of 1.6. His lactic acid was 5.9, first set of troponin was 0.11 and second set was 0.09. He had an elevated pro- calcitonin and 8.43. Chest x-ray showed pneumonia. the patient was tachycardic with A. fib with RVR on presentation and was on a diltiazem drip, his blood pressure was also very high and difficult to 78 physician and put him on nitroglycerin drip. Both these medications were discontinued after admission He was admitted to the hospital for further management, admitted to pcu status. dec 11 Pt overnight had deterioration in his clinical status, was intubated, had PICC placed, A line placed. He was overnight on pressors, levophed and vasopressin, presently only on levophed, bp stable. ABG reviwed, Chest X ray reviewed patient family was updated and was at bedside This AM pt sedated on Vent, TV 400, rr 24, peep 5, PAP 19-20 Plat 16-17, Pt still has some lactic acidosis, on IVF, ringers lactate changed to Saline. Patient Blood culture is postive for gpc in clusters, staph auremakayla, pt already on vancomycin. Likely staph pneumonia secondary to influenza. Feb 27 . Seen and examined, no acute overnight events, patient remains off pressors. Hemodynamically stable. On baseline vent settings. This morning, when settings were, tidal volume 500, rate of 20, FiO2 35, PEEP of 5. Peak airway pressures around 20, plateau pressures 16-17 The patient was drowsy, was able to grasp hands and move his toes. Did not seem agitated. For order for blood culture bottles are positive for gram-positive cocci. Chest x-ray shows improvement in infiltrate. Lines in place repeat cultures ordered, echo ordered. ABG reviewed Feedings started, last night was still going on. Initially we thought we could try a weaning trial given his baseline settings however due to shift change between the hospital providers, weaning trial and extubation will be decided by the oncoming provider. that is slight worsening in renal function, urine output is 25-30 mL per hour. Family updated Around 2 pm extubated. Tolerated PS well, minimal secretions. Hemodynamics stable. Feb 28. Did well overnight. Was still somnolent. But, hemodynamics stable and breathing comfortably. Poor U/O. Received lasix at night and IVF was d/c'd. This afternoon became suddenly cyanotic with poor respiratory effort and struggle to cough. Lungs: few rhonchi at bases. Poor BS and respiratory effort. ET-suctioning for minimal secretions. CXR without significant changes compared to am. No atelectasis, overt pulmonary edema or pneumothorax. DD bronchospasm, fatigue Duoneb, BiPAP ventilator support, Lasix December 14: Had episode of severe respiratory distress last night, requiring high FiO2. Had bronchospasm, tachypnea and cyanotic discoloration. Gave neb treatments, dilaudid, ET-suctioning, solumedrol, BiPAP support. This am noted abdominal distention. KUB showed dilatation of bowel loops and possible free air vs volvulus. CT-abd/pelvis pending. Hold nutrition via feeding tube. Will start TPN Patient has also have hx of major epistaxis. Is on Eliquis with hematuria. Am reluctant to insert NG for decompression and potentially causing epistaxis. Eliquis discontinued. Start Lovenox for afibr. December 15: Required BiPAP support last night. Minimal secretions. Microbiology: MSSA bacteremia. On Nafcillin December 16: Max time off BiPAP 2-3 hours. Na 148, despite 1/2 NS IVF d/W pharmacy: no Na in TPN repeat labs later today Spoke at length with and daughter: weaning off BiPAP will take days. Other problems: weakness, encephalopathy and ileus. Code status revisited. In case of worsening condition: no CPR and/or re-intubation. December 17: Stable overnight. BiPAP most of the night. HR controlled. BP still somewhat elevated despite scheduled metoprolol IV. Had BMs. WBC elevated at 13.6. Received Solumedrol x 1 yesterday for allergic reaction to nafcillin (facial flushing, itch, bronchospasm). Will add hydralazine IV to control BP. Try to increase time off BiPAP December 18 patient seen examined, stable overnight, concern that he is having flushing to Penicillin, he has mssa with vanco sensitivity of 2, the patient was given test dose of anceph yesterday pm, and tolerated it well, he was therefore started on cefazolin 2gms q8. The patient had facial erythema overnight x 2 according to the staff. This AM too iwthout the use of medication while working with physicial therapy, the patient developed flushing of his facial skin. I am not convinced that the fluhing that the patient is experincing is related to administration of anceph. Continue same for now. If not will have to switch to daptomycin. patient has low grade fever, his last set of microbiology was negative. Chest x ray to be repeated today he has diarrhea and rising wbc count, ileus on X ray abdomen. check for cdiff continue bipap support as needed , he is still wheezinng, resume iv steroids for now. on duonebs q4hrs December 19 patient seen and examined, no acute overnight events, was placed on BiPAP yesterday evening up until this morning. He tolerated it well. Off BiPAP this morning. Mental status somewhat better today than yesterday. Patient still has some wheezing going on but evidently is better than yesterday , he responded well to IV Lasix given yesterday, negative 4500 mL. We will hold off on Lasix now. Change steroids to once a day. Leukocytosis worsening, clinically patient is getting better, likely a reaction to steroids. Appreciate pulmonary input, lesions on cefazolin for now, reviewed the case with infectious disease specialist up in [place] were advised to consider increasing the dose of cefazolin from 2 g every 8 hours 2 g every 6 hours. Patient can be switched back to every 8 hours at the time of discharge for the remainder of the course of treatment. The patient will need 6 weeks of IV antibiotics. Repeat cultures are negative. If the patient's clinical condition would worsen we will consider tapping the fluid in the pleural space. Try to get speech therapy to see the patient can tolerate by mouth diet today Patient remains on TPN for nutrition, still has diarrhea,re send stool for C. difficile December 20 pt seen examiend, no acute overnight events did not need bipap overnight, mental status improving ok for puree food today xfer to tele status start on banatrol plus and culturell to see if it helps with diarrhea cdiff x 2 neg wbc still high but pt on steroids family at bedside, updated on plan of care all questions answered p[t is positive 10L sice admission, give another dose of IV lasix today. december 21 Patient seen examined, no acute overnight events, off bipap, hemodynamically stable WBC still high, CXR done this AM shows resolving pna, no effusion plan to wean of f steroids, solumedrol now 40mg daily, duonebs q6 hrs [place] pt remains on iv anceph q6 hrs for now, advance diet as tolerated d/c rectal tube start on lasix 20mg po to keep patient dry, try to get pt working with PT December 22 pt seen examined, no acute overnight events still very tired, not able to advance diet beyond level 1 so far wbc high, but stable, no fever, no need for oxygen was able to use the bathroom today x ray abdomen shows gastric distention, showed rectal tube, but pt does not have a rectal tube in place (enema line read as rectal tube on x ray), also some ileus. Will give one dose of relistor today. Pt had gas, but was able to pass significant amount when trying to have a BM exam showed crackles, pt is positive 9000ml since admission, lasix changed to iv daily 3/10- patient more awake and alert but intermittently confused. No overnight events. Clinically improving with downtrending white count from a peak of 19.7 on 12/21-16.6. On IV Ancef for 6 weeks per ID recommendations. hemoglobin down to 7.6 from 11.8 on 12/20. 2 units PRBC today due to over 30% baseline hematocrit drop.stable biochemical profile. elemetry A. fib with rate controlled. diarrhea improving.currently in room air. Continue daily IV Lasix 12/24- white count 16.3, hemoglobin 9.9 status post 2 units blood transfusion. Patient doing well. No overnight fever chills. No family at bedside. Ongoing antibiotic coverage. no other concerns expressed by nursing staff 12/25- patient on IV cefazolin. Status quo. On TPN. Attempting to transition to oral diet. No overnight fever chills or concerns per staff. white count down to 13.4 from 16.3. Hemoglobin stable at 10.3. sodium is 131.patient down 5000 cc in 24 hours. Continue gentle diuresis. Poor participation in physical therapy however anticipate transfer to long-term acute care unit for continued antibiotic infusions/post hospitalization rehabilitation/recovery. No family at bedside. 12/26- patient on TPN. No overnight events. Poorly motivated to participate in physical therapy. White count downtrending from 16.3-12.6. Hemoglobin 10.3.lactic acid normalized.sodium 133. adequately diuresing with over 8000 cc net negative fluid balance in 72 hours. Family at bedside. Discussed treatment plan and discharge recommendations however patient's family refusing SNF transfer. Patient will need additional 5 weeks IV antibiotics for Staphylococcus aureus necrotizing pneumonia 12/27- patient on continued antibiotics and diuresing well. No overnight events . White count of 14.2. Hemoglobin 10.8.creatinine stable. dc IV Lasix. afebrile overnight. sats 98% on room air. last negative blood culture 12/16. target 6 weeks antibiotics from 12/16. No concerns expressed by nursing staff. No family at bedside. Case discussed with family yesterday and family was agreeable for SNF placement for continued IV antibiotics and post hospitalization rehabilitation - Constitutional Vitals: Vital Signs Temp Pulse Resp BP Pulse Ox 98.2 F 90 18 106/62 93 12/27/17 11:21 12/26/17 20:00 12/27/17 11:21 12/27/17 11:21 12/27/17 11:21 Period Temp Pulse Resp BP Sys/Cai Pulse Ox Last 24 Hr 97.3 F-99.3 F 77-92 16-18 106-158/62-87 93-99 Intake and Output 12/26/17 12/27/17 12/27/17 21:59 05:59 13:59 Intake Total 933.4545 / 933.4545 100 / 100 Output Total 2049 650 / 650 Balance -1116.5455 / -1116.5455 -550 / -550 Weight 149 lb 8 oz Intake & Output: Intake & Output 12/26/17 12/27/17 12/27/17 21:59 05:59 13:59 Intake Total 933.4545 / 933.4545 100 / 100 Output Total 2049 650 / 650 Balance -1116.5455 / -1116.5455 -550 / -550 Weight 149 lb 8 oz Intake: IV 833.4545 / 833.4545 Potassium Phosphate 90 Meq 833.4545 / 833.4545 Infuvite Adult 10 ml Magnesium Sulfate 16.24 Meq Sodium Chloride 80 Meq In Clinimix 5%- 20% Solution 2,000 ml @ 75 mls/ hr IV Q24H [facility] Rx#:[id number] Oral 100 / 100 100 / 100 Output: Urine Catheter Amount 2049 650 / 650 Other: Meal Breakfast Percent of Meal Consumed 25% # of times incontinent of 1 Bowels General appearance: cooperative, no acute distress Exam: esting comfortably alert Nondistressed Lymphedema resolved Foleys draining clear urine Medical - PN: Obj Da - Labs CBC & Chem 7: 12/27/17 05:04 12/27/17 05:04 Labs: Abnormal Lab Results 12/27/17 12/27/17 12/26/17 05:04 05:04 08:48 WBC 14.2 H RBC 3.52 L Hgb 10.8 L Hct 31.9 L RDW Gran % 89.2 H Lymph % (Auto) 6.1 L Gran # 12.6 H Lymph # (Auto) 0.9 L Sodium Carbon Dioxide 19 L Anion Gap 18.0 H BUN 44 H 35 H Glucose 116 H Calcium 8.0 L 7.9 L GGT 136 H 127 H AST 81 H 87 H ALT 69 H 72 H Alkaline Phosphatase 154 H 134 H Lactate Dehydrogenase 383 H 358 H Total Protein Albumin 2.5 L 2.6 L Globulin 3.8 H Albumin/Globulin Ratio 0.7 L 0.7 L 12/26/17 12/25/17 12/25/17 08:48 04:00 04:00 WBC 12.6 H 13.4 H RBC 3.53 L 3.20 L Hgb 11.3 L 10.2 L Hct 33.0 L 29.7 L RDW 14.8 H 14.9 H Gran % 85.1 H 86.9 H Lymph % (Auto) 6.2 L 6.1 L Gran # 10.7 H 11.6 H Lymph # (Auto) 0.8 L 0.8 L Sodium 131 L Carbon Dioxide Anion Gap BUN 35 H Glucose Calcium 7.7 L GGT 88 H AST 54 H ALT Alkaline Phosphatase Lactate Dehydrogenase 313 H Total Protein 5.8 L Albumin 2.4 L Globulin Albumin/Globulin Ratio 0.7 L Meds: Medications Acetaminophen (Tylenol) 650 mg PO Q4-6HP PRN PRN Reason: PAIN/FEVER > 101 Last Admin: 12/22/17 06:56 Dose: 650 mg Albuterol/Ipratropium (Duoneb) 3 ml NEB Q4HP PRN PRN Reason: Wheezing Bisacodyl (Dulcolax) 10 mg W[place] DAILY [facility] Last Admin: 12/27/17 10:00 Dose: 10 mg Cefazolin Sodium (Ancef) 2 gm IV Q6H [facility] Last Admin: 12/27/17 09:58 Dose: 2 gm Clotrimazole (Mycelex Crm 1%) 1 dose TOPICAL BID [facility] Last Admin: 12/27/17 10:02 Dose: 1 dose Dextrose (Dextrose 50%) 0 ml IV UD PRN PRN Reason: Hypoglycemia Last Admin: 12/27/17 07:46 Dose: 25 ml Diagnostic Test (Pha) (Accu-Chek) 1 each FS ACHS [facility] Last Admin: 12/27/17 08:18 Dose: 1 each Diphenhydramine HCl (Benadryl) 50 mg IV Q6HP PRN PRN Reason: Allergic Symptoms Famotidine (Pepcid) 20 mg IV Q12 [facility] Last Admin: 12/27/17 10:02 Dose: 20 mg Furosemide (Lasix) 40 mg IV DAILY [facility] Last Admin: 12/27/17 10:01 Dose: 40 mg Glucose (Insta-Glucose) 15 gm PO PRN PRN PRN Reason: Hypoglycemia Heparin Sodium (Porcine) (Heparin Flush) 2 ml IV Q12 [facility] Last Admin: 12/27/17 10:01 Dose: 2 ml Hydralazine HCl (Apresoline) 10 mg IV Q4HP PRN PRN Reason: Hypertension Last Admin: 12/22/17 23:41 Dose: 10 mg Hydromorphone HCl (Dilaudid) 0.5 mg IV Q2HP PRN PRN Reason: PAIN LEVEL > 6 Last Admin: 12/21/17 18:47 Dose: 0.5 mg Heparin Sodium/Sodium Chloride (Heparin/Ns) 500 mls @ 0 mls/hr IV .Q0M [place]; KVO PRN Reason: Protocol Acetaminophen (Ofirmev) 650 mg in 65 mls @ 130 mls/hr IV Q6HP PRN PRN Reason: PAIN/FEVER > 101 Last Infusion: 12/21/17 06:10 Dose: Infused Insulin Human Lispro (Humalog) 0 unit SQ ACHS [facility] PRN Reason: Protocol Last Admin: 12/27/17 07:46 Dose: Not Given Lactobacillus Rhamnosus (Culturelle) 1 cap PO BID [facility] Last Admin: 12/27/17 09:59 Dose: 1 cap Latanoprost (Xalatan Ophth Drops) 1 gtt OU HS [facility] Last Admin: 12/26/17 20:17 Dose: 1 drop Lorazepam (Ativan) 0.5 mg IV Q4HP PRN PRN Reason: ANXIETY/SEDATION Last Admin: 12/21/17 20:38 Dose: 0.5 mg Methylprednisolone Sodium Succinate (Solu-Medrol) 40 mg IV QDAY [facility] Last Admin: 12/27/17 10:02 Dose: 40 mg Metoprolol Tartrate (Lopressor) 5 mg IV Q2HP PRN PRN Reason: Tachyarrhythmias Metoprolol Tartrate (Lopressor) 25 mg PO BID [facility] Last Admin: 12/27/17 10:02 Dose: 25 mg Naloxone HCl (Narcan) 0.1 mg IV Q2MIN PRN PRN Reason: Opiate Reversal Oxycodone HCl (Roxicodone) 5 mg PO Q4HP PRN PRN Reason: PAIN LEVEL 3-6 Last Admin: 12/26/17 20:19 Dose: 5 mg Senna (Senokot) 2 tab PO HSP PRN PRN Reason: Constipation Simethicone (Mylicon) 160 mg [facility] Last Admin: 12/27/17 09:59 Dose: 160 mg Sodium Chloride (Saline Flush) 10 ml IV Q8 [facility] Last Admin: 12/27/17 05:57 Dose: 10 ml Medical - PN: A/P - Time Spent With Patient Total time spent is greater than 50% in coordination of care (as documented) at patient's floor/unit and/or counseling patient: 15 - 24 minutes - Narrative A/P Narrative: A/P * Staph Aureus necrotizing pneumonia-on 6 weeks IV Ancef. await SNF placement * Staph aureus bacteremia-cleared surveillance cultures. Continue to 6 weeks antibiotics per ID. echo negative for IE. * Acute respiratory failure -secondary to necrotizing pneumonia. Clinically resolved. Extubated 12/12 * Acute COPD exacerbation-continue julio/oral prednisone * FEN-on Dysphagia Lev 1 oral feeds. off TPN * Normocytic anemia status post 2 units blood transfusion hemoglobin at 9.9 * Septic shock, multiorgan dysfunction: resolved. white count downtrending at 16.6- 13,000 * Diarrhea-antibiotic associated. cdiff neg, resolved * Atrial fibrillation/ Atrial flutter -rate controlled on as needed metoprolol , oral eliquis for anticoagulation. * Acute renal failure-resolved * Elevated troponins-secondary to demand ischemia type II myocardial infarction. * BPH- tamsulosin on hold, WILSON in place * Diabetes-not taking any medications, SSI/diet. * Ileus: resolved * prophylaxis on eliquis. * no code plan * continue antibiotics for 6 weeks from 12/16 * Aggressive PT OT/nutrition * pre-existing medical condition management as above * case management to arrange SNF transfer Medical - PN: Qual - VTE Deep Vein Thrombosis/Pulmonary Embolism Present on Admission: No Procedures - Arterial Line Size (Gauge): 20
[2017-12-27] MEDS ORDERED: IPRATROPIUM/ALBUTEROL 3 ML AMPUL.NEB NEB PRN (15:17)
[2017-12-27] MEDS ORDERED: ACETAMINOPHEN 650 MG/65 ML BOTTLE IV PRN (15:17)
[2017-12-27] MEDS ORDERED: HEPARIN/NS 500 ML IV SCH (15:17)
[2017-12-27] MEDS ORDERED: DEXTROSE 31 GM ORAL.SUSP PO PRN (15:17)
[2017-12-27] MEDS ORDERED: NALOXONE HCL 0.4 MG/ML VIAL IV PRN (15:17)
[2017-12-27] MEDS ORDERED: oxyCODONE HCL 5 MG TABLET PO PRN (15:17)
[2017-12-27] MEDS ORDERED: SENNOSIDES 1 TABLET PO PRN (15:17)
[2017-12-27] MEDS ORDERED: DEXTROSE 50% 50 ML VIAL IV PRN (15:17)
[2017-12-27] MEDS ORDERED: ACETAMINOPHEN 325 MG TABLET PO PRN (15:17)
[2017-12-27] MEDS ORDERED: hydrALAZINE 20 MG/ML VIAL IV PRN (15:17)
[2017-12-27] MEDS ORDERED: LATANOPROST OPHTH DROPS 2.5ML BOTTLE OU SCH (21:00)
[2017-12-28] MEDS: ceFAZolin 1 GM VIAL IV SCH (05:57)
[2017-12-28] MEDS: 0.9 % SODIUM CHLORIDE 10 ML SYRINGE IV SCH (05:58)
[2017-12-28] MEDS: INSULIN LISPRO 1 UNIT/0.01 ML UNIT SQ SCH (07:48)
[2017-12-28] MEDS ORDERED: predniSONE 20 MG TABLET PO SCH ×3 (08:00)
[2017-12-28] MEDS: APIXABAN 5 MG TABLET PO SCH (08:08)
[2017-12-28] MEDS: METOPROLOL TARTRATE 25 MG TABLET PO SCH (08:09)
[2017-12-28] MEDS: SIMETHICONE 80 MG TAB.CHEW CHEWED SCH (08:09)
[2017-12-28] MEDS: LACTOBACILLUS 1 CAPSULE PO SCH (08:13)
--- NOTE | 2017-12-28 08:14 | XRay Report ---
INDICATION: Pneumonia TECHNIQUE: AP chest x-ray,portable semiupright COMPARISON: Previous chest x-rays dated 12/21/2017, 12/18/2017, 12/15/2017. Previous chest CT scan dated 12/18/2017 FINDINGS:Bilateral, bibasilar infiltrates. Appearance is consistent with lower lobe pneumonia. Infiltrates were present previously but appears slightly worse. Heart size is at the upper limits of normal. No pulmonary edema or pulmonary congestion. There is a right-sided PICC line with its tip in the superior vena cava IMPRESSION: 1. Bibasilar pulmonary parenchymal infiltrates consistent with bilateral lower lobe pneumonia 2. Continued radiographic follow-up recommended Interpreted and Authenticated by: Nish Crowell 12/28/17
[2017-12-28 08:29] LABS: Basophils # (Auto) 0.1 K/mcL (0.0-0.3); Basophils % (Auto) 0.8 % (0.0-2.0); Eosinophils # (Auto) 0.2 K/mcL (0.0-0.7); Eosinophils % (Auto) 1.2 % (0.0-7.0); Lymphocytes # (Auto) 0.9 K/mcL (1.5-4.8); Lymphocytes % (Auto) 6.7 % (15.5-49.0); Mean Cell Volume 90.6 fL (80.0-100.0); Mean Corpuscular HGB Conc 33.1 g/dL (31.0-36.0); Monocytes # (Auto) 0.7 K/mcL (0.1-0.9); Monocytes % (Auto) 5.3 % (1.0-12.0); Platelet Count 270 K/mcL (140-440); RBC 3.68 M/mcL (4.50-5.90); Red Cell Distribution Width 14.1 % (11.5-14.5)
[2017-12-28 08:37] LABS: Blood Urea Nitrogen 53 mg/dl (8-23)
[2017-12-28] MEDS ORDERED: BISACODYL 10 MG SUPP.RECT PR SCH (09:00)
--- NOTE | 2017-12-28 09:03 | XRay Report ---
CLINICAL INFORMATION: Fell out of bed TECHNIQUE: AP pelvis COMPARISON: Previous examination dated 12/22/2017 FINDINGS: Metallic densities consistent with previous hernia repair. There is a midline pelvic catheter. No pelvic fracture. Hips are negative. No detectable sacral fracture. No acute abnormality IMPRESSION: No acute abnormality. Interpreted and Authenticated by: Nish Crowell 12/28/17
--- NOTE | 2017-12-28 09:44 | Discharge Summary ---
Medical - DS: Prov Patient information: Note initiated : 12/28/17 at 9:41 am Service Date, if different from initiated Date: [] Patient: Camilo Figueroa 77 y/o M admitted on 12/10/17 for Shortness of Breath, Moist Cough/Pneumonia. Chief Complaint: [] Date of admission: 12/10/17 13:55 Discharge date: 12/28/17 Primary care physician: Nish Gurrola Admitting clinician: Becky Leblanc Consults: 12/15/17 11:51 Consult to Physician [CONS] Routine Comment: Consulting Provider: Becky Leblanc Reason For Exam: Physician to Consult 12/27/17 10:08 Consult to Physician [CONS] Routine Comment: Consulting Provider: [facility] Reason For Exam: Physician to Consult Discharging clinician: Becky Leblanc Medical - DS: Meds - Discharge Medications Prescriptions: oxyCODONE HCL [Roxicodone] 5 mg PO Q4HP PRN #30 tab PRN Reason: Pain Active and Home Medications: Home Medications apixaban 5 mg tablet 5 mg PO QDAY #180 tab 11/07/16 [Rx Confirmed 12/10/17 Last Taken 12/09/17] tamsulosin 0.4 mg capsule 0.4 mg PO QDAY 90 Days #90 cap 11/21/17 [Rx Confirmed 12/10/17 Last Taken 12/09/17] Medical - DS: Hosp Hospital course: Mr. Figueroa is a 77 year old Male with history of COPD,hypertension, hyperlipidemia, chronic A. fib who presented to the emergency room today with shortness of breath, cough that has been going on for approximately 5-7 days. Patient's daughter was at bedside who provided some history along with the patient. The patient's daughter had a URI-like symptom, last week I believe and the patient started showing signs of cough from Monday. The patient's condition gradually worsened since then. Patient has been having cough with expectoration initially, no blood in the sputum. He has been having progressive shortness of breath. He notes he has been having subjective sensations of fever, chills, sweating. He has decreased effort tolerance and is unable to walk short distances now. For the last day the cough has subsided and it is difficult for him to bring up the sputum. The patient is extremely weak and has therefore been brought to the emergency room for further evaluation. In the emergency room, the patient was noted to be in moderate respiratory distress, he was afebrile, his white blood cell count was 5.9, chemistry showed worsening renal function with a creatinine of 1.6. His lactic acid was 5.9, first set of troponin was 0.11 and second set was 0.09. He had an elevated pro- calcitonin and 8.43. Chest x-ray showed pneumonia. the patient was tachycardic with A. fib with RVR on presentation and was on a diltiazem drip, his blood pressure was also very high and difficult to 78 physician and put him on nitroglycerin drip. Both these medications were discontinued after admission He was admitted to the hospital for further management, admitted to pcu status. Acute hypoxic respiratory failure/ Necrotizing pneumonia: The patient Pneumonia was likely secondary to staph pneumonia, patient had high grade mssa bacteremia present. patient needed ventilatory support during the hospital stay, but was able to be successfully weaned off same. The patient is significantly debilitated from the infection and will need aggresive Physical therapy at discharge. The patient had staph MSSA, he will need total of 6 weeks of IV antibiotics. He has a picc line in place, and he will continue IV aBX till 01/23/2018. He will need weekly labs for ESR, CRP, CBC and CMP< to be ordered by PCP. I would advise weekly Chest x ray to ensure that his Pneumonia is improving. Infectious disease consulted via phone, DR Clement saw the patient while inpt, both agreed with 6 weeks of IV ABX. Afib/ Aflutter: This is a chr issue, pt takes eliquis 5mg dailiy for same, his HR Was high during the hospital stay and has been started on metoprolol 25mg bid , which he seems to be tolerating well. BPH: on flomax to continue, Malnutrition: Patient had difficulty in tolerating po during the hospiotal stay , needed TPN, was weaned off treatment, and is able to tolerate po now, will continue to work with Speech therapy at Rehab facility. SEE HOSPITAL COURSE BELOW dec 11 Pt overnight had deterioration in his clinical status, was intubated, had PICC placed, A line placed. He was overnight on pressors, levophed and vasopressin, presently only on levophed, bp stable. ABG reviwed, Chest X ray reviewed patient family was updated and was at bedside This AM pt sedated on Vent, TV 400, rr 24, peep 5, PAP 19-20 Plat 16-17, Pt still has some lactic acidosis, on IVF, ringers lactate changed to Saline. Patient Blood culture is postive for gpc in clusters, staph auress, pt already on vancomycin. Likely staph pneumonia secondary to influenza. Feb 27 . Seen and examined, no acute overnight events, patient remains off pressors. Hemodynamically stable. On baseline vent settings. This morning, when settings were, tidal volume 500, rate of 20, FiO2 35, PEEP of 5. Peak airway pressures around 20, plateau pressures 16-17 The patient was drowsy, was able to grasp hands and move his toes. Did not seem agitated. For order for blood culture bottles are positive for gram-positive cocci. Chest x-ray shows improvement in infiltrate. Lines in place repeat cultures ordered, echo ordered. ABG reviewed Feedings started, last night was still going on. Initially we thought we could try a weaning trial given his baseline settings however due to shift change between the hospital providers, weaning trial and extubation will be decided by the oncoming provider. that is slight worsening in renal function, urine output is 25-30 mL per hour. Family updated Around 2 pm extubated. Tolerated PS well, minimal secretions. Hemodynamics stable. Feb 28. Did well overnight. Was still somnolent. But, hemodynamics stable and breathing comfortably. Poor U/O. Received lasix at night and IVF was d/c'd. This afternoon became suddenly cyanotic with poor respiratory effort and struggle to cough. Lungs: few rhonchi at bases. Poor BS and respiratory effort. ET-suctioning for minimal secretions. CXR without significant changes compared to am. No atelectasis, overt pulmonary edema or pneumothorax. DD bronchospasm, fatigue Duoneb, BiPAP ventilator support, Lasix December 14: Had episode of severe respiratory distress last night, requiring high FiO2. Had bronchospasm, tachypnea and cyanotic discoloration. Gave neb treatments, dilaudid, ET-suctioning, solumedrol, BiPAP support. This am noted abdominal distention. KUB showed dilatation of bowel loops and possible free air vs volvulus. CT-abd/pelvis pending. Hold nutrition via feeding tube. Will start TPN Patient has also have hx of major epistaxis. Is on Eliquis with hematuria. Am reluctant to insert NG for decompression and potentially causing epistaxis. Eliquis discontinued. Start Lovenox for afibr. December 15: Required BiPAP support last night. Minimal secretions. Microbiology: MSSA bacteremia. On Nafcillin December 16: Max time off BiPAP 2-3 hours. Na 148, despite 1/2 NS IVF d/W pharmacy: no Na in TPN repeat labs later today Spoke at length with and daughter: weaning off BiPAP will take days. Other problems: weakness, encephalopathy and ileus. Code status revisited. In case of worsening condition: no CPR and/or re-intubation. December 17: Stable overnight. BiPAP most of the night. HR controlled. BP still somewhat elevated despite scheduled metoprolol IV. Had BMs. WBC elevated at 13.6. Received Solumedrol x 1 yesterday for allergic reaction to nafcillin (facial flushing, itch, bronchospasm). Will add hydralazine IV to control BP. Try to increase time off BiPAP December 18 patient seen examined, stable overnight, concern that he is having flushing to Penicillin, he has mssa with vanco sensitivity of 2, the patient was given test dose of anceph yesterday pm, and tolerated it well, he was therefore started on cefazolin 2gms q8. The patient had facial erythema overnight x 2 according to the staff. This AM too iwthout the use of medication while working with physicial therapy, the patient developed flushing of his facial skin. I am not convinced that the fluhing that the patient is experincing is related to administration of anceph. Continue same for now. If not will have to switch to daptomycin. patient has low grade fever, his last set of microbiology was negative. Chest x ray to be repeated today he has diarrhea and rising wbc count, ileus on X ray abdomen. check for cdiff continue bipap support as needed , he is still wheezinng, resume iv steroids for now. on duonebs q4hrs December 19 patient seen and examined, no acute overnight events, was placed on BiPAP yesterday evening up until this morning. He tolerated it well. Off BiPAP this morning. Mental status somewhat better today than yesterday. Patient still has some wheezing going on but evidently is better than yesterday , he responded well to IV Lasix given yesterday, negative 4500 mL. We will hold off on Lasix now. Change steroids to once a day. Leukocytosis worsening, clinically patient is getting better, likely a reaction to steroids. Appreciate pulmonary input, lesions on cefazolin for now, reviewed the case with infectious disease specialist up in [place] were advised to consider increasing the dose of cefazolin from 2 g every 8 hours 2 g every 6 hours. Patient can be switched back to every 8 hours at the time of discharge for the remainder of the course of treatment. The patient will need 6 weeks of IV antibiotics. Repeat cultures are negative. If the patient's clinical condition would worsen we will consider tapping the fluid in the pleural space. Try to get speech therapy to see the patient can tolerate by mouth diet today Patient remains on TPN for nutrition, still has diarrhea,re send stool for C. difficile December 20 pt seen examiend, no acute overnight events did not need bipap overnight, mental status improving ok for puree food today xfer to tele status start on banatrol plus and culturell to see if it helps with diarrhea cdiff x 2 neg wbc still high but pt on steroids family at bedside, updated on plan of care all questions answered p[t is positive 10L sice admission, give another dose of IV lasix today. december 21 Patient seen examined, no acute overnight events, off bipap, hemodynamically stable WBC still high, CXR done this AM shows resolving pna, no effusion plan to wean of f steroids, solumedrol now 40mg daily, duonebs q6 hrs [place] pt remains on iv anceph q6 hrs for now, advance diet as tolerated d/c rectal tube start on lasix 20mg po to keep patient dry, try to get pt working with PT December 22 pt seen examined, no acute overnight events still very tired, not able to advance diet beyond level 1 so far wbc high, but stable, no fever, no need for oxygen was able to use the bathroom today x ray abdomen shows gastric distention, showed rectal tube, but pt does not have a rectal tube in place (enema line read as rectal tube on x ray), also some ileus. Will give one dose of relistor today. Pt had gas, but was able to pass significant amount when trying to have a BM exam showed crackles, pt is positive 9000ml since admission, lasix changed to iv daily 12/23- patient more awake and alert but intermittently confused. No overnight events. Clinically improving with downtrending white count from a peak of 19.7 on 12/21-16.6. On IV Ancef for 6 weeks per ID recommendations. hemoglobin down to 7.6 from 11.8 on 12/20. 2 units PRBC today due to over 30% baseline hematocrit drop.stable biochemical profile. elemetry A. fib with rate controlled. diarrhea improving.currently in room air. Continue daily IV Lasix 12/24- white count 16.3, hemoglobin 9.9 status post 2 units blood transfusion. Patient doing well. No overnight fever chills. No family at bedside. Ongoing antibiotic coverage. no other concerns expressed by nursing staff 12/25- patient on IV cefazolin. Status quo. On TPN. Attempting to transition to oral diet. No overnight fever chills or concerns per staff. white count down to 13.4 from 16.3. Hemoglobin stable at 10.3. sodium is 131.patient down 5000 cc in 24 hours. Continue gentle diuresis. Poor participation in physical therapy however anticipate transfer to long-term acute care unit for continued antibiotic infusions/post hospitalization rehabilitation/recovery. No family at bedside. 12/26- patient on TPN. No overnight events. Poorly motivated to participate in physical therapy. White count downtrending from 16.3-12.6. Hemoglobin 10.3.lactic acid normalized.sodium 133. adequately diuresing with over 8000 cc net negative fluid balance in 72 hours. Family at bedside. Discussed treatment plan and discharge recommendations however patient's family refusing SNF transfer. Patient will need additional 5 weeks IV antibiotics for Staphylococcus aureus necrotizing pneumonia 12/27- patient on continued antibiotics and diuresing well. No overnight events . White count of 14.2. Hemoglobin 10.8.creatinine stable. dc IV Lasix. afebrile overnight. sats 98% on room air. last negative blood culture 12/16. target 6 weeks antibiotics from 12/16. No concerns expressed by nursing staff. No family at bedside. Case discussed with family yesterday and family was agreeable for SNF placement for continued IV antibiotics and post hospitalization rehabilitation Discharge diagnosis: Acute respiratory failuire, Necrotizing pneumonia. - Time Spent with Patient Total time spent providing and/or coordinating discharge services: Greater than 30 minutes Medical - DS: Exam - Constitutional Vitals: Vital Signs Temp Pulse Resp BP BP BP Pulse Ox 12/28/17 03:39 97.6 F 94 H 24 H 155/81 97 12/28/17 03:21 75 157/78 97 12/27/17 23:01 97.5 F 86 22 140/76 99 12/27/17 20:00 97.4 F 89 24 H 136/96 97 12/27/17 15:32 98.6 F 20 128/66 96 12/27/17 11:21 98.2 F 18 106/62 93 Intake and Output 12/27/17 12/28/17 12/28/17 21:59 05:59 13:59 Intake Total 420 / 420 395 / 395 Output Total 425 / 425 575 / 575 Balance -5 / -5 -180 / -180 Intake: Oral 420 / 420 395 / 395 Output: Urine Catheter Amount 425 / 425 575 / 575 Other: Meal Nourishment/Supplement Nourishment/Supplement Percent of Meal Consumed 50% 50% Stool Size Moderate Moderate Stool Color Brown Brown Black Stool Consistency Liquid Liquid Loose Loose # Bowel Movements 1 # of times incontinent of 1 1 Bowels Weight 146 lb 8 oz Additional comments: Constitutional; Afebrile, cooperative, alert, not in distress. Eyes- No icterus, , No periorbital swelling Ears- Ext ear normal, Neck- Midline trachea, supple Respiratory system: Air Entry equal on both sides,tiffani crackles, right > left. CVS- Rate rhythm regular, S1,S2 heard, no gallop, no rub. Abdomen- Soft nontender abdomen, no organomegaly, no tenderness, no guarding or rigidity, BRAKE REPAIRER- AOOx2, moving all extremities, no gross focal deficit noted. Medical - DS: Data Labs on day of discharge: Labs from last 24 hours 12/28/17 12/28/17 07:45 07:45 WBC 13.3 H RBC 3.68 L Hgb 11.0 L Hct 33.3 L MCV 90.6 MCH 30.0 MCHC 33.1 RDW 14.1 Plt Count 270 MPV 7.6 Gran % 86.0 H Lymph % (Auto) 6.7 L [place] % (Auto) 5.3 Eos % (Auto) 1.2 Baso % (Auto) 0.8 Gran # 11.4 H Lymph # (Auto) 0.9 L [place] # (Auto) 0.7 Eos # (Auto) 0.2 Baso # (Auto) 0.1 Sodium 134 Potassium 3.8 Chloride 96 Carbon Dioxide 27 Anion Gap 11.0 BUN 53 H Creatinine 1.1 GFR Calculation 64 Glucose 84 Calcium 8.4 L Preliminary micro results at discharge 12/12/17 07:45 Blood Culture - Preliminary Blood Gram positive cocci 12/12/17 07:35 Blood Culture - Preliminary Blood Gram positive cocci 12/11/17 04:45 Blood Culture - Preliminary Blood Gram positive cocci 12/11/17 04:40 Blood Culture - Preliminary Blood Gram positive cocci 12/10/17 10:14 Blood Culture - Preliminary Blood Gram positive cocci 12/10/17 10:19 Blood Culture - Preliminary Blood Gram positive cocci Medical - DS: A/P - Patient/Caregiver Discharge Instructions Activity: as per physical therapy, increase activity as tolerated Diet: Dysphagia Mech Alter (Think liquids, Ensure Enlive 4oz TID, Magic cup 4oz bid. ) Additional Instructions: Patient to be on IV cefazolin 2gms every 8 hrs via PICC line. Last dose of IV antibiotic on 01/23/2018 PICC line care as per facility protocol Recommend PCP check weekly labs, CBC, CMP, ESR and CRP Recommend PCP check weekly X Ray Go to the ER if worsening condition, fever, shortness of breath or any other acute concerning symptom. Physical therapy, Occupational Therapy and Speech Therapy at longterm Bladder Scan if No urine output in 6 hrs, Place Darnell catheter if Bladder volume is > 200 post void. - Follow up Plan Follow up with: Nish Gurrola DO [Primary Care Provider] - Disposition: Xfer SNF Prognosis: Fair Rehab Potential: Fair I certify that the patient requires SNF services: Yes Overall status at discharge: patient is progressing back to baseline Medical - DS: Qual - VTE Deep Vein Thrombosis/Pulmonary Embolism Present on Admission: No
[2017-12-28] MEDS ORDERED: PNEUMOCOCCAL 23-VAL P-SAC VAC 0.5 ML VIAL IM ONE (10:00)
[2017-12-28] MEDS ORDERED: FLU VACC QS2017-18 36MOS UP/PF 60 MCG/0.5 ML SYRINGE IM ONE (10:00)
[2017-12-28] MEDS: CLOTRIMAZOLE CRM 1% 1 DOSE TUBE TOPICAL SCH (10:32)
== END 2017-12-28 10:30 | DRG 870 ==
LOC: ED 09:34 → ICU 13:55 → MEDSUR 12-27 15:09
PROVIDERS: ADMIT Internal Medicine; ATTEND Internal Medicine

== ENCOUNTER 2018-01-09 15:17 | Inpatient (IN) ==
--- NOTE | 2018-01-09 15:49 | Emergency Department Note ---
SOB HPI - General Chief Complaint: Shortness of Breath/Dyspnea Stated Complaint: Shortness of breath, Moist cough Time Seen by Provider: 01/09/18 15:47 Source: EMS Mode of arrival: EMS Limitations: no limitations - History of Present Illness Arrives via ambulance with low-grade fever, history of staph pneumonia treated in the ICU and in the hospital 2 weeks, recently discharged to correction and he has been drinking fluids, denies diarrhea denies abdominal pain but today a little bit more short of breath, low-grade fever cough which is productive of brownish phlegm, generally not feeling well. Little bit cyanotic , history of smoking quit 15 years ago. General malaise, lack of appetite, no history of CHF, but history of atrial fibrillation, on Ellick course in the past. - Related Data Previous Rx's Medication Instructions Recorded apixaban 5 mg tablet 5 mg PO QDAY #180 tab 11/07/16 tamsulosin 0.4 mg capsule 0.4 mg PO QDAY 90 Days #90 cap 11/21/17 Acetaminophen [Tylenol] 650 mg PO Q4-6HP PRN tablet 12/28/17 Clotrimazole Crm 1% [Mycelex Crm 1 dose TOPICAL BID tube 12/28/17 1%] Ipratropium/Albuterol [Duoneb] 3 ml NEB TID #120 ampul.neb 12/28/17 Lactobacillus [Culturelle] 1 cap PO BID capsule 12/28/17 Latanoprost Ophth Drops [Xalatan 1 gtt OU HS bottle 12/28/17 Ophth Drops] Metoprolol Tartrate [Lopressor] 25 mg PO BID tablet 12/28/17 Miconazole 100 gm MC BID #1 powder 12/28/17 Sennosides [Senokot] 2 tab PO HSP PRN tablet 12/28/17 ceFAZolin [Ancef] 2 gm IV Q8H vial 12/28/17 oxyCODONE HCL [Roxicodone] 5 mg PO Q4HP PRN #30 tab 12/28/17 Allergies Allergy/AdvReac Type Severity Reaction Status Date / Time No Known Drug Allergies Allergy Verified 01/09/18 15:25 Review of Systems Constitutional: Reports: fever, chills ENT ED: Denies: ear pain, throat pain Cardiovascular: Reports: palpitations, dyspnea on exertion Respiratory: Reports: shortness of breath, cough Gastrointestinal: Reports: nausea. Denies: abdominal pain, vomiting Genitourinary: Denies: dysuria, frequency Musculoskeletal: Denies: back pain, joint swelling Integumentary: Denies: rash, lesions Neurological: Reports: weakness Endocrine: Reports: fatigue Past Medical History - Past Medical History Source: nursing notes reviewed Medical history: Reports: atrial fibrillation, COPD, hyperlipidemia, hypertension, valvular heart disease (mitral regurgitation), other (Recent pneumonia) Surgical history ED: Reports: cataract, herniorrhaphy Family history: Reports: non-contributory - Social History smoking status: Former smoker Alcohol use: Reports: None, Unknown Drug use: Reports: none Physical Exam Limitations: no limitations General appearance: alert, cachectic, in distress Head: atraumatic, normocephalic, normal inspection Eye: Present: normal appearance, PERRL, EOMI ENT: normal exam, mucous membranes dry, TM's normal bilaterally Neck: Present: normal inspection, full ROM Respiratory: Present: respiratory distress Cardiovascular: Present: tachycardia, normal heart sounds Abdominal: Present: soft, normal bowel sounds. Absent: distention, tenderness, guarding : Present: normal inspection Extremities: Present: normal inspection Back: Absent: CVA tenderness (R), CVA tenderness (L) Neurological: Present: alert, oriented X3, CN II-XII intact Psychiatric: Present: normal affect Skin: Present: warm, dry, cyanosis Course - Reevaluation(s) Reevaluation #1: Patient was started on IV fluids, antibiotics after blood cultures were drawn, his oxygen levels were maintained with additional O2 when necessary, he was a little tachypneic, mild respiratory distress and baseline labs were ordered, treatment started, chest x-ray done. Vital Signs Temperature 100.9 F H 01/09/18 15:18 Pulse Rate 116 H 01/09/18 15:18 Respiratory Rate 24 H 01/09/18 15:18 Blood Pressure 139/65 01/09/18 15:18 Pulse Oximetry (%) 87 L 01/09/18 15:18 Temperature 100.9 F H 01/09/18 17:01 Pulse Rate 128 H 01/09/18 17:33 Respiratory Rate 32 H 01/09/18 17:33 Blood Pressure 185/153 01/09/18 17:33 Pulse Oximetry (%) 95 01/09/18 17:33 Shortness of Breath/Dyspnea - [facility] Narrative Medical decision making narrative: Diagnosis is bilateral pneumonia, labs and x-rays reviewed. He was given IV fluids, care was discussed with the hospitalist. He will be admitted at this point. - Lab Data Result diagrams: 01/09/18 15:39 01/09/18 15:39 Lab Results 01/09/18 01/09/18 01/09/18 Range/Units 15:39 15:39 15:39 WBC 6.7 (4.5-11.0) K/mcL RBC 3.32 L (4.50-5.90) M/mcL Hgb 10.4 L (13.5-16.5) g/dL Hct 31.0 L (41.0-55.0) % MCV 93.6 (80.0-100.0) fL MCH 31.3 (26.0-34.0) pg MCHC 33.4 (31.0-36.0) g/dL RDW 14.4 (11.5-14.5) % Plt Count 202 (140-440) K/mcL MPV 7.3 L (7.4-10.4) fL Total Counted 100 Seg Neutrophils % 83 H (38-78) % Band Neutrophils % 5 (0-10) % Lymphocytes % 9 L (15-49) % Monocytes % (Manual) 2 (1-12) % Eosinophils % (Manual) 1 (0-7) % Platelet Estimate Normal (NORMAL) RBC Morphology Normal (NORMAL) PT (11.9-14.5) sec INR (0.9-1.1) VBG Lactic Acid 1.7 (0.5-2.2) mmol/L Sodium 138 (133-145) mmol/L Potassium 4.3 (3.3-5.1) mmol/L Chloride 101 (96-108) mmol/L Carbon Dioxide 26 (22-30) mmol/L Anion Gap 11.0 (8-16) BUN 18 (8-23) mg/dl Creatinine 1.0 (0.7-1.2) mg/dl GFR Calculation 71 Glucose 104 (70-105) mg/dL Calcium 8.5 L (8.6-10.4) mg/dl Total Bilirubin 0.5 (0.0-1.0) mg/dL AST 26 (0-37) U/l ALT 5 (0-40) U/l Alkaline Phosphatase 97 (39-117) U/L C-Reactive Protein (0.0-0.8) mg/dl Total Protein 7.1 (5.9-8.4) gm/dL Albumin 2.8 L (3.2-5.2) gm/dL Globulin 4.3 H (2.2-3.7) gm/dL Albumin/Globulin Ratio 0.7 L (1.0-2.3) Procalcitonin (<0.10) ng/mL 01/09/18 01/09/18 01/09/18 Range/Units 15:39 15:39 15:39 WBC (4.5-11.0) K/mcL RBC (4.50-5.90) M/mcL Hgb (13.5-16.5) g/dL Hct (41.0-55.0) % MCV (80.0-100.0) fL MCH (26.0-34.0) pg MCHC (31.0-36.0) g/dL RDW (11.5-14.5) % Plt Count (140-440) K/mcL MPV (7.4-10.4) fL Total Counted Seg Neutrophils % (38-78) % Band Neutrophils % (0-10) % Lymphocytes % (15-49) % Monocytes % (Manual) (1-12) % Eosinophils % (Manual) (0-7) % Platelet Estimate (NORMAL) RBC Morphology (NORMAL) PT 24.5 H (11.9-14.5) sec INR 2.2 H (0.9-1.1) VBG Lactic Acid (0.5-2.2) mmol/L Sodium (133-145) mmol/L Potassium (3.3-5.1) mmol/L Chloride (96-108) mmol/L Carbon Dioxide (22-30) mmol/L Anion Gap (8-16) BUN (8-23) mg/dl Creatinine (0.7-1.2) mg/dl GFR Calculation Glucose (70-105) mg/dL Calcium (8.6-10.4) mg/dl Total Bilirubin (0.0-1.0) mg/dL AST (0-37) U/l ALT (0-40) U/l Alkaline Phosphatase (39-117) U/L C-Reactive Protein 6.8 H (0.0-0.8) mg/dl Total Protein (5.9-8.4) gm/dL Albumin (3.2-5.2) gm/dL Globulin (2.2-3.7) gm/dL Albumin/Globulin Ratio (1.0-2.3) Procalcitonin < 0.10 (<0.10) ng/mL Disposition Pt seen by GRAPHIC ENGINEER/PA only: No Clinical Impression: Pneumonia Disposition: Xfer As Inpt ([facility]) Condition: Serious Referrals: Nish Gurrola DO [Primary Care Provider] -
[2018-01-09] MEDS ORDERED: VANCOMYCIN 1,000 MG in 0.9 % SODIUM CHLORIDE 250 ML IV ONE (15:58)
[2018-01-09] MEDS ORDERED: PIPERACILLIN SODIUM/TAZOBACTAM 3.375 GM in DEXTROSE 5% IN WATER 50 ML IV ONE (15:58)
[2018-01-09] MEDS ORDERED: ACETAMINOPHEN 325 MG TABLET PO ONE (15:59)
[2018-01-09] MEDS ORDERED: LEVOFLOXACIN 500 MG/100 ML BAG IV ONE (16:01)
[2018-01-09 16:11] LABS: Mean Cell Volume 93.6 fL (80.0-100.0); Mean Corpuscular HGB Conc 33.4 g/dL (31.0-36.0); Mean Corpuscular Hemoglobin 31.3 pg (26.0-34.0); Platelet Count 202 K/mcL (140-440); RBC 3.32 M/mcL (4.50-5.90); Red Cell Distribution Width 14.4 % (11.5-14.5)
--- NOTE | 2018-01-09 16:16 | XRay Report ---
CLINICAL INFORMATION: Shortness of breath COMPARISON: 12/29/2015 FINDINGS: Mild cardiomegaly is unchanged. Mediastinum and pulmonary vessels are normal. Right PICC line in stable satisfactory position. Moderate patchy infiltrate in the right mid and lower lung has progressed. Smaller patchy infiltrate in the left mid lower lung also slightly progressing. No effusions. IMPRESSION: Moderate sized patchy infiltrate in right mid and lower lung and smaller patchy bilateral mid and lower lung progressing from the comparison study approximately two weeks ago Interpreted and Authenticated by: Nish Hamilton 01/09/18
[2018-01-09 16:31] LABS: ALT/SGPT 5 U/l (0-40); Albumin 2.8 gm/dL (3.2-5.2); Albumin/Globulin Ratio 0.7 (1.0-2.3); Alkaline Phosphatase 97 U/L (39-117); Blood Urea Nitrogen 18 mg/dl (8-23)
[2018-01-09 16:47] LABS: Band Neutrophils % 5 % (0-10); Eosinophils % (Manual) 1 % (0-7); Lymphocytes % 9 % (15-49); Monocytes % (Manual) 2 % (1-12); Platelet Estimate NORMAL (NORMAL); RBC Morphology NORMAL (NORMAL); Segmented Neutrophils % 83 % (38-78)
[2018-01-09] MEDS ORDERED: METOPROLOL TARTRATE 5 MG/5 ML VIAL IV PRN (18:59)
[2018-01-09] MEDS ORDERED: IPRATROPIUM/ALBUTEROL 3 ML AMPUL.NEB NEB PRN (18:59)
[2018-01-09] MEDS ORDERED: VANCOMYCIN PER PHARMACY IV ONE (18:59)
[2018-01-09] MEDS: oxyCODONE HCL 5 MG TABLET PO PRN (20:10)
[2018-01-09] MEDS ORDERED: oxyCODONE HCL 5 MG TABLET PO ONE (20:10)
[2018-01-09] MEDS: 0.9 % SODIUM CHLORIDE 1,000 ML IV SCH (20:17)
[2018-01-09 20:29] LABS: ALT/SGPT < 5 U/l (0-40); Albumin 2.1 gm/dL (3.2-5.2); Albumin/Globulin Ratio 0.6 (1.0-2.3); Alkaline Phosphatase 77 U/L (39-117); Bilirubin,Direct < 0.2 mg/dL (0.0-0.3); Blood Urea Nitrogen 17 mg/dl (8-23); Gamma Glutamyl Transpeptidase 24 U/L (8-61); Uric Acid 3.2 mg/dL (2.5-8.0)
[2018-01-09] MEDS ORDERED: ACETAMINOPHEN 1,000 MG/100 ML BOTTLE IV PRN (21:18)
--- NOTE | 2018-01-09 21:32 | Internal Med History&Physical ---
Medical - H&P: [facility] Patient information: Note initiated : 01/09/18 at 9:02 pm Service Date, if different from initiated Date: [] Patient: Camilo Figueroa 77 y/o M admitted on 01/09/18 for Shortness of breath, Moist cough. Chief Complaint: SOB and cough History of present illness: Mr. Figueroa is a 77 year old M, presented by way of EMS from LTAC, located within [facility], with 'moist cough', SOB and fever which started last night. Patient is alert, but unable to provide details of his symptoms. He appears flushed and ill. No family was present during time I spent with patient. He denies difficulty with drinking or eating, or coughing. There is no CP, or palpitations. Patient was hospitalized 12/10 - 12/28 with pneumonia, respiratory failure, complicated by afib with RVR, MSSA bacteremia, ileus and generalized weakness. He was discharged to [facility] for continued IV Ancef and rehabilitation. In ED initial VS: 103.2 afib 118-135 SBP 139, which dropped to 100 within one hour. He received 2 L IVF. Blood cultures were obtained. CXR showed increased infiltrates c/w progressing pneumonia. He was given Vancomycin, Levofloxacin and Zosyn in the ED. - Constitutional Constitutional: Present: fatigue, fever(s), weakness - Cardiovascular Cardiovascular: Present: irregular heart rhythm. Absent: chest pain, palpatations - Respiratory Respiratory: Present: cough, dyspnea, chest congestion - Gastrointestinal Gastrointestinal: Absent: abdominal pain, constipation, cramping, diarrhea, vomiting - Genitourinary Genitourinary: Absent: change in urinary stream, dysuria, hematuria - Musculoskeletal Musculoskeletal: Present: back pain - Psychiatric Psychiatric: Present: abnormal sleep pattern Medical - H&P: [facility] Medical history: Medical History Pneumonia and MSSA bacteremia (Nov 2017) Syncope (Acute) White blood cell (WBC) disorder (Chronic) Bradycardia (Chronic) Cobalamin deficiency (Chronic) Lymphocytopenia (Resolved) Encounter for Health Maintenance Examination in Adult (Chronic) Anterior epistaxis (Chronic) Mitral regurgitation (Chronic) Hypertension, essential (Chronic) Hyperlipidemia (Chronic) COPD (chronic obstructive pulmonary disease) (Chronic) Bladder neck obstruction (Chronic) Atrial flutter (Chronic) Diabetes mellitus, type II (Resolved) Surgical history: Past Surgical History Hx of colonoscopy (Chronic) Hx of inguinal hernia repair (Chronic) History of intraocular lens implant (Chronic) Functional capacity: uses cane/walker Smoking status: Former smoker Have you smoked in the last 12 months: No Drug use: none Alcohol use: none Medical - H&P: Meds Home Medications Medication Instructions Recorded Confirmed Type apixaban 5 mg tablet 5 mg PO QDAY #180 tab 11/07/16 01/09/18 Rx tamsulosin 0.4 mg capsule 0.4 mg PO QDAY 90 Days #90 cap 11/21/17 01/09/18 Rx Acetaminophen [Tylenol] 650 mg PO Q4-6HP PRN tablet 12/28/17 01/09/18 Rx Clotrimazole Crm 1% [Mycelex Crm 1 dose TOPICAL BID tube 12/28/17 01/09/18 Rx 1%] Ipratropium/Albuterol [Duoneb] 3 ml NEB TID #120 ampul.neb 12/28/17 01/09/18 Rx Lactobacillus [Culturelle] 1 cap PO BID capsule 12/28/17 01/09/18 Rx Latanoprost Ophth Drops [Xalatan 1 gtt OU HS bottle 12/28/17 01/09/18 Rx Ophth Drops] Metoprolol Tartrate [Lopressor] 25 mg PO BID tablet 12/28/17 01/09/18 Rx Miconazole 100 gm MC BID #1 powder 12/28/17 01/09/18 Rx Sennosides [Senokot] 2 tab PO HSP PRN tablet 12/28/17 01/09/18 Rx ceFAZolin [Ancef] 2 gm IV Q8H vial 12/28/17 01/09/18 Rx oxyCODONE HCL [Roxicodone] 5 mg PO Q4HP PRN #30 tab 12/28/17 01/09/18 Rx Allergies Allergy/AdvReac Type Severity Reaction Status Date / Time No Known Drug Allergies Allergy Verified 01/09/18 15:25 Medical - H&P: Exam - Constitutional Vitals: Temp Pulse Resp BP Pulse Ox 100.8 F H 132 H 25 H 96/64 93 01/09/18 20:55 01/09/18 20:55 01/09/18 20:55 01/09/18 20:01 01/09/18 20:00 General appearance: no acute distress - Head Head exam: Present: normal inspection - Respiratory Respiratory exam: Present: decreased breath sounds, rhonchi - Cardiovascular Cardiovascular exam: Present: irregular rhythm, tachycardia - GI/Abdominal GI/Abdominal exam: Present: normal bowel sounds, soft - Rectal Rectal exam: Present: deferred - Extremities Exam Extremities exam: Present: normal inspection Medical - H&P: Reslt - Labs CBC & Chem 7: 01/09/18 15:39 01/09/18 19:13 Labs: Short CBC 01/09/18 Range/Units 15:39 WBC 6.7 (4.5-11.0) K/mcL Hgb 10.4 L (13.5-16.5) g/dL Hct 31.0 L (41.0-55.0) % Plt Count 202 (140-440) K/mcL BMP 01/09/18 01/09/18 15:39 19:13 Sodium 138 134 Potassium 4.3 3.8 Chloride 101 101 Carbon Dioxide 26 22 BUN 18 17 Creatinine 1.0 0.9 Glucose 104 98 Calcium 8.5 L 7.5 L Liver Function 01/09/18 01/09/18 Range/Units 15:39 19:13 Total Bilirubin 0.5 0.5 (0.0-1.0) mg/dL Direct Bilirubin < 0.2 (0.0-0.3) mg/dL GGT 24 (8-61) U/L AST 26 21 (0-37) U/l ALT 5 < 5 (0-40) U/l Alkaline Phosphatase 97 77 (39-117) U/L Albumin 2.8 L 2.1 L (3.2-5.2) gm/dL - EKG Data Rate: tachycardia - EKG Data EKG comments: atrial fibrillation 01/09/18 21:50 - Imaging and Cardiology Chest x-ray Additional comments: Moderate sized patchy infiltrate in right mid and lower lung and smaller patchy bilateral mid and lower lung progressing from the comparison study approximately two weeks ago Medical - H&P: A/P (1) Pneumonia Current visit: Yes Status: Acute Progressing Pneumonia while on Ancef and in SNF. Has Temp of 103, WBC of 6.7 with left shift. DD MRSA, Pseudomonas, Klebsiella, formation of abscess, empyema. Empiric Zosyn, Vancomycin, Cipro. Also start solumedrol 0.5 mg/kg BID x 5 days to limit inflammatory response. Will repeat CT-chest in am to ensure there is no abscess (2) MSSA bacteremia Current visit: Yes Status: Acute Wason Ancef. Repeat blood cultures obtained. If positive will need BAILEE. (3) COPD (chronic obstructive pulmonary disease) Current visit: No Status: Chronic Stable. Continue nebulized treatment. (4) Atrial fibrillation Current visit: Yes Status: Chronic Continue metoprolol and anti-coagulation. Hold Eliquis. Replace with Lovenox 1 mg/kg (5) Hypertension, essential Current visit: No Status: Resolved Continue metoprolol (6) Hyperlipidemia Problem details: LDL 65, on simvastatin 40mg qd, continue same Current visit: No Status: Resolved Currently not on statins. Will start once stabilized and acute illness controlled (7) Anterior epistaxis Current visit: No Status: Inactive History of profuse epistaxis. Insertion of nasal tube discouraged - Narrative A/P Narrative: see above Code status: DNR DVT prophylaxis: Lovenox Time spent 60 min, more than 50% at bedside, remaining on review of studies, and coordination of care.
[2018-01-09] MEDS: methylPREDNISolone SOD SUCC 40 MG/ML VIAL IV SCH (21:54)
[2018-01-09] MEDS: 0.9 % SODIUM CHLORIDE 10 ML SYRINGE IV SCH (21:55)
[2018-01-09] MEDS: ENOXAPARIN 60 MG/0.6 ML SYRINGE SQ SCH (21:55)
[2018-01-09] MEDS ORDERED: 0.9 % SODIUM CHLORIDE 10 ML SYRINGE IV SCH (22:00)
[2018-01-09] MEDS ORDERED: CIPROFLOXACIN 400 MG/200 ML BAG IV ONE (22:47)
[2018-01-09] MEDS: CIPROFLOXACIN 400 MG/200 ML BAG IV SCH (23:11)
[2018-01-10] MEDS: PIPERACILLIN SODIUM/TAZOBACTAM 3.375 GM in DEXTROSE 5% IN WATER 50 ML IV SCH ×5 (00:22→23:48)
[2018-01-10] MEDS: 0.9 % SODIUM CHLORIDE 1,000 ML IV SCH ×4 (04:40→20:18)
[2018-01-10 05:25] LABS: Appearance,Urine TURBID; Bacteria,Urine FEW /hpf (0); Bilirubin,Urine NEG (NEG); Color,Urine YELLOW; Glucose,Urine (UA) NEGATIVE (NEG); Leukocyte Esterase,Urine NEG /uL (NEG); Mucus,Urine FEW /hpf (0); Protein,Urine 100 mg/dL (NEG); Urine Amorphous Crystals FEW /hpf (0); Urine Blood 0.03 mg/dL (<0.03); Urine Granular Cast 17 /lpf (0); Urine Hyaline Cast 3 /lpf (0-2); Urine RBC 0 /hpf (0-1); Urine Squamous Epithelial Cell 0 /hpf (0-4); Urine Transitional Epi Cells < 1 /hpf (0-2); Urine WBC 17 /hpf (0-4); Urobilinogen,Urine NEG (NEG)
[2018-01-10 05:58] LABS: Bilirubin,Direct < 0.2 mg/dL (0.0-0.3)
[2018-01-10] MEDS ORDERED: VANCOMYCIN PER PHARMACY IV SCH (07:00)
[2018-01-10 07:03] LABS: Basophils # (Auto) 0 K/mcL (0.0-0.3); Basophils % (Auto) 0 % (0.0-2.0); Eosinophils # (Auto) 0.2 K/mcL (0.0-0.7); Eosinophils % (Auto) 3.4 % (0.0-7.0); Granulocytes % (Auto) 90.4 % (38.0-78.0); Lymphocytes # (Auto) 0.3 K/mcL (1.5-4.8); Lymphocytes % (Auto) 4.6 % (15.5-49.0); Mean Cell Volume 93.2 fL (80.0-100.0); Mean Corpuscular HGB Conc 33.3 g/dL (31.0-36.0); Monocytes # (Auto) 0.1 K/mcL (0.1-0.9); Monocytes % (Auto) 1.6 % (1.0-12.0); Platelet Count 151 K/mcL (140-440); RBC 2.91 M/mcL (4.50-5.90); Red Cell Distribution Width 14.5 % (11.5-14.5)
[2018-01-10 07:17] LABS: ALT/SGPT < 5 U/l (0-40); Albumin/Globulin Ratio 0.6 (1.0-2.3); Alkaline Phosphatase 71 U/L (39-117); Bilirubin,Direct 0.2 mg/dL (0.0-0.3); Blood Urea Nitrogen 18 mg/dl (8-23); Gamma Glutamyl Transpeptidase 22 U/L (8-61); Uric Acid 2.9 mg/dL (2.5-8.0)
[2018-01-10] MEDS: oxyCODONE HCL 5 MG TABLET PO PRN ×3 (07:20→20:07)
[2018-01-10] MEDS ORDERED: LEVOFLOXACIN 500 MG/100 ML BAG IV SCH (09:00)
--- NOTE | 2018-01-10 09:07 | Cat Scan Report ---
CLINICAL INFORMATION: Follow-up bilateral necrotizing infiltrates COMPARISON: Chest CT from over three weeks prior - 12/18/2017 TECHNIQUE: 0.625 mm axial slices were obtained from the lung apices through the bases without intravenous contrast. 2.5 mm Sagittal, coronal and axial reformatted images were processed and reviewed at bone, lung and soft tissue windows. 7 mm axial MIP images were also reconstructed to optimize pulmonary nodule detection.The exam was performed using radiation dose optimization techniques including, but not limited to, automated exposure control, adjustment of the mA and/or kV according to patient size and use of iterative reconstruction technique. FINDINGS: Pulmonary parenchymal windows were carefully compared to the chest CT three weeks prior. Multifocal infiltrates throughout both lungs shows marked improvement since the previous study. On prior CT, but most severely involved region was the right lower lobe. On today's study, there is a 4.1 cm, consolidated abscess in the lateral basilar segment and nodular alveolar airspace disease in the peripheral posterior region. There is a moderate sized consolidated alveolar infiltrate in the posterior segment of the right upper lobe adjacent to the major fissure which has only slightly improved. Other smaller cavitary nodules disseminated throughout both lungs involuted considerably.Small bilateral pleural effusions have decreased. There is bilateral pleural calcifications suggest asbestos exposure.. Mediastinal windows show the noncontrasted pulmonary arteries and thoracic aorta are normal. The heart is mildly enlarged, but unchanged. Mild mediastinal adenopathy has regressed, all mediastinal, hilar and axillary lymph nodes are normal size and morphology on today's exam. Esophagus is normal. Thyroid is normal. Bones and soft tissues the chest wall are unremarkable IMPRESSION: 1. Moderate improvement in multifocal bilateral infiltrates, including cavitary lesions, since the comparison chest CT over three weeks ago. Suspect multifocal infection 2. Bilateral pleural effusions have decreased and are now small 3. Bilateral pleural calcification suggesting history of asbestos exposure. 4. Interval resolution in ascites in the perihepatic region. 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 Interpreted and Authenticated by: Nish Hamilton 01/10/18
[2018-01-10] MEDS ORDERED: ALTEPLASE 2 MG VIAL IV ONE (09:08)
[2018-01-10] MEDS: methylPREDNISolone SOD SUCC 40 MG/ML VIAL IV SCH ×2 (09:49→20:07)
[2018-01-10] MEDS: METOPROLOL TARTRATE 25 MG TABLET PO SCH ×2 (09:49→20:06)
[2018-01-10] MEDS: CIPROFLOXACIN 400 MG/200 ML BAG IV SCH ×2 (09:49→20:05)
[2018-01-10] MEDS: ENOXAPARIN 60 MG/0.6 ML SYRINGE SQ SCH ×2 (09:49→20:40)
[2018-01-10] MEDS: 0.9 % SODIUM CHLORIDE 10 ML SYRINGE IV SCH ×2 (09:50→20:07)
[2018-01-10] MEDS: VANCOMYCIN 1,000 MG in 0.9 % SODIUM CHLORIDE 250 ML IV SCH (11:11)
--- NOTE | 2018-01-10 14:26 | Internal Med Progress Note ---
Medical - PN: Subj Patient information: Note initiated : 01/10/18 at 2:09 pm Service Date, if different from initiated Date: [] Patient: Camilo Figueroa 77 y/o M admitted on 01/09/18 for Shortness of Breath, Moist Cough/Pneumonia. Interval history: History of present illness: Mr. Figueroa is a 77 year old M, presented by way of EMS from [facility] ED, with 'moist cough', SOB and fever which started last night. Patient is alert, but unable to provide details of his symptoms. He appears flushed and ill. No family was present during time I spent with patient. He denies difficulty with drinking or eating, or coughing. There is no CP, or palpitations. Patient was hospitalized 12/10 - 12/28 with pneumonia, respiratory failure, complicated by afib with RVR, MSSA bacteremia, ileus and generalized weakness. He was discharged to [facility] for continued IV Ancef and rehabilitation. In ED initial VS: 103.2 afib 118-135 SBP 139, which dropped to 100 within one hour. He received 2 L IVF. Blood cultures were obtained. CXR showed increased infiltrates c/w progressing pneumonia. He was given Vancomycin, Levofloxacin and Zosyn in the ED. 01/09: Patient undergoing treatment with IV Ancef for MSSA bacteremia, admitted with fever, cough and worsening infiltrates on CXR. He was empirically started on Vanco, Cipro and Zosyn. Solumedrol was added to minimize inflammatory response. 01/10: T 101.7 max last night. Received acetaminophen IV. This am feeling better, but complaints of occasional cough and 'weak voice'. CT-chest showed: improved infiltrates and cavitary lesions compared to study 12/18 Blood c/s: pending - Constitutional Vitals: Vital Signs Temp Pulse Resp BP Pulse Ox 98.1 F 89 37 H 119/85 99 01/10/18 13:01 01/10/18 12:01 01/10/18 13:01 01/10/18 13:01 01/10/18 12:01 Period Temp Pulse Resp BP Sys/Cai Pulse Ox Last 24 Hr 97.3 F-103.2 F 34-184 16-37 89-185/39-153 87-99 Intake and Output 01/10/18 01/10/18 01/10/18 05:59 13:59 21:59 Intake Total 1350 / 1350 957 / 957 Output Total 300 / 300 275 / 275 Balance 1050 / 1050 682 / 682 Intake & Output: Intake & Output 01/10/18 01/10/18 01/10/18 05:59 13:59 21:59 Intake Total 1350 / 1350 957 / 957 Output Total 300 / 300 275 / 275 Balance 1050 / 1050 682 / 682 Intake: IV 1350 / 1350 717 / 717 Sodium Chloride 0.9% 1,000 ml @ 1000 / 1000 367 / 367 125 mls/hr IV .Q8H ERIC Rx#: [id number] Zosyn 3.375 gm In Dextrose 5% 50 / 50 100 / 100 in Water 50 ml @ 100 mls/hr IV Q6H ERIC Rx#:[id number] Vancomycin 1,000 mg In Sodium 250 / 250 Chloride 0.9% 250 ml @ 250 mls/ hr IV Q24H [facility]IC Rx#:[id number] Oral 240 / 240 Output: Urine Catheter Amount 300 / 300 275 / 275 Other: Meal Lunch Percent of Meal Consumed 75% Feeding Ability Assist with Tray Set Up Stool Size Smear Stool Color Brown Yellow Stool Consistency Loose # Bowel Movements 1 General appearance: no acute distress, thin - Head Head exam: Present: normal inspection - Respiratory Respiratory exam: Present: normal respiratory exam - Cardiovascular Cardiovascular exam: Present: irregular rhythm - GI/Abdominal GI/Abdominal exam: Present: normal bowel sounds, soft - Extremities Exam Extremities exam: Present: normal inspection Medical - PN: Obj Da - Labs CBC & Chem 7: 01/10/18 06:10 01/10/18 06:10 Labs: Abnormal Lab Results 01/10/18 01/10/18 01/09/18 06:10 06:10 19:13 RBC 2.91 L Hgb 9.0 L Hct 27.1 L MPV Gran % 90.4 H Lymph % (Auto) 4.6 L Lymph # (Auto) 0.3 L Seg Neutrophils % Lymphocytes % PT INR Carbon Dioxide 19 L Glucose 136 H Calcium 7.1 L 7.5 L C-Reactive Protein NT-Pro-B Natriuret Pep Total Protein 5.4 L 5.7 L Albumin 2.0 L 2.1 L Globulin Albumin/Globulin Ratio 0.6 L 0.6 L Urine Protein Urine Ketones Urine Occult Blood Urine WBC Amorphous Crystals Urine Bacteria Hyaline Casts Granular Casts 01/09/18 01/09/18 01/09/18 19:13 15:39 15:39 RBC Hgb Hct MPV Gran % Lymph % (Auto) Lymph # (Auto) Seg Neutrophils % Lymphocytes % PT 24.5 H INR 2.2 H Carbon Dioxide Glucose Calcium C-Reactive Protein 6.8 H NT-Pro-B Natriuret Pep 2770.0 H Total Protein Albumin Globulin Albumin/Globulin Ratio Urine Protein Urine Ketones Urine Occult Blood Urine WBC Amorphous Crystals Urine Bacteria Hyaline Casts Granular Casts 01/09/18 01/09/18 01/09/18 15:39 15:39 00:18 RBC 3.32 L Hgb 10.4 L Hct 31.0 L MPV 7.3 L Gran % Lymph % (Auto) Lymph # (Auto) Seg Neutrophils % 83 H Lymphocytes % 9 L PT INR Carbon Dioxide Glucose Calcium 8.5 L C-Reactive Protein NT-Pro-B Natriuret Pep Total Protein Albumin 2.8 L Globulin 4.3 H Albumin/Globulin Ratio 0.7 L Urine Protein 100 A Urine Ketones 5/tr A Urine Occult Blood 0.03 A Urine WBC 17 H Amorphous Crystals Few A Urine Bacteria Few A Hyaline Casts 3 H Granular Casts 17 H Meds: Medications Albuterol/Ipratropium (Duoneb) 3 ml NEB Q4HP PRN PRN Reason: Dyspnea Enoxaparin Sodium (Lovenox) 60 mg SQ Q12 [facility] Last Admin: 01/10/18 09:49 Dose: 60 mg Heparin Sodium (Porcine) (Heparin Flush) 2 ml IV Q12 [facility] Last Admin: 01/10/18 13:26 Dose: Not Given Sodium Chloride (Sodium Chloride 0.9%) 1,000 mls @ 125 mls/hr IV .Q8H [facility] Last Infusion: 01/10/18 13:26 Dose: 125 mls/hr Piperacillin Sod/Tazobactam (Sod 3.375 gm/ Dextrose) 50 mls @ 100 mls/hr IV Q6H [facility] Last Infusion: 01/10/18 12:00 Dose: Infused Acetaminophen (Ofirmev) 1,000 mg in 100 mls @ 200 mls/hr IV Q6HP PRN PRN Reason: PAIN/FEVER > 101 Last Infusion: 01/09/18 22:57 Dose: Infused Ciprofloxacin (Cipro) 400 mg in 200 mls @ 200 mls/hr IV Q12H [facility] Last Admin: 01/10/18 09:49 Dose: 200 mls/hr Vancomycin HCl 1,000 mg/ (Sodium Chloride) 250 mls @ 250 mls/hr IV Q24H [facility] Last Infusion: 01/10/18 13:00 Dose: Infused Methylprednisolone Sodium Succinate (Solu-Medrol) 40 mg IV Q12 [facility] Last Admin: 01/10/18 09:49 Dose: 40 mg Metoprolol Tartrate (Lopressor) 5 mg IV Q4HP PRN PRN Reason: Tachyarrhythmias Last Admin: 01/09/18 19:49 Dose: 5 mg Metoprolol Tartrate (Lopressor) 25 mg PO BID [facility] Last Admin: 01/10/18 09:49 Dose: 25 mg Oxycodone HCl (Roxicodone) 5 - 10 mg PO Q4-6HP PRN PRN Reason: PAIN LEVEL 3-6 Last Admin: 01/10/18 12:10 Dose: 5 mg Sodium Chloride (Saline Flush) 10 ml IV Q12 [facility] Last Admin: 01/10/18 09:50 Dose: 10 ml Vancomycin HCl (Vancomycin Per Pharmacy) 1 order IV UD [facility] - Imaging and cardiology CT scan - chest Additional comments: IMPRESSION: 1. Moderate improvement in multifocal bilateral infiltrates, including cavitary lesions, since the comparison chest CT over three weeks ago. Suspect multifocal infection 2. Bilateral pleural effusions have decreased and are now small 3. Bilateral pleural calcification suggesting history of asbestos exposure. 4. Interval resolution in ascites in the perihepatic region. 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 Medical - PN: A/P - Time Spent With Patient Total time spent is greater than 50% in coordination of care (as documented) at patient's floor/unit and/or counseling patient: 25 - 35 minutes (1) Pneumonia Status: Acute Assessment and plan: Pneumonia while on Ancef and in SNF. Has Temp of 103, WBC of 6.7 with left shift. DD MRSA, Pseudomonas, Klebsiella, formation of abscess, empyema. Empiric Zosyn, Vancomycin, Cipro. Also start solumedrol 0.5 mg/kg BID x 5 days to limit inflammatory response. CT-chest showed improved infiltrates and cavitary lesions compared to study 3/5. Awaiting Blood cultures before narrowing antibiotic regimen. Current Visit: Yes (2) MSSA bacteremia Status: Acute Assessment and plan: Repeat blood cultures obtained. If positive will need BAILEE. On Vanco, Zosyn and Cipro. Current Visit: Yes (3) COPD (chronic obstructive pulmonary disease) Status: Chronic Assessment and plan: Stable. Continue nebulized treatment. Current Visit: No (4) Atrial fibrillation Status: Chronic Current Visit: Yes (5) Hypertension, essential Status: Resolved Current Visit: No (6) Hyperlipidemia Problem details: LDL 65, on simvastatin 40mg qd, continue same Status: Resolved Current Visit: No (7) Anterior epistaxis Status: Inactive Current Visit: No - Narrative A/P Narrative: see above Code status: DNR DVT prophylaxis: Lovenox Dispo: await blood cultures result. Tentative d/c back to SNF in 1-2 days. Time spent 45 min, more than 50% at bedside, remaining on review of studies, and coordination of care. Medical - PN: Qual - VTE Deep Vein Thrombosis/Pulmonary Embolism Present on Admission: No
[2018-01-11] MEDS: 0.9 % SODIUM CHLORIDE 1,000 ML IV SCH ×2 (00:57→10:03)
[2018-01-11] MEDS: PIPERACILLIN SODIUM/TAZOBACTAM 3.375 GM in DEXTROSE 5% IN WATER 50 ML IV SCH ×2 (05:22→11:59)
[2018-01-11 06:29] LABS: Mean Cell Volume 92.8 fL (80.0-100.0); Mean Corpuscular HGB Conc 33.5 g/dL (31.0-36.0); Mean Corpuscular Hemoglobin 31.1 pg (26.0-34.0); Platelet Count 190 K/mcL (140-440); RBC 3.01 M/mcL (4.50-5.90); Red Cell Distribution Width 15.1 % (11.5-14.5)
[2018-01-11 06:56] LABS: ALT/SGPT < 5 U/l (0-40); Albumin 2.5 gm/dL (3.2-5.2); Albumin/Globulin Ratio 0.7 (1.0-2.3); Alkaline Phosphatase 73 U/L (39-117); Bilirubin,Direct < 0.2 mg/dL (0.0-0.3); Blood Urea Nitrogen 24 mg/dl (8-23); Gamma Glutamyl Transpeptidase 25 U/L (8-61); Uric Acid 3.1 mg/dL (2.5-8.0)
[2018-01-11 07:12] LABS: Band Neutrophils % 5 % (0-10); Lymphocytes % 6 % (15-49); Monocytes % (Manual) 1 % (1-12); Platelet Estimate NORMAL (NORMAL); RBC Morphology NORMAL (NORMAL); Segmented Neutrophils % 88 % (38-78)
[2018-01-11] MEDS: CIPROFLOXACIN 400 MG/200 ML BAG IV SCH (09:24)
[2018-01-11] MEDS: METOPROLOL TARTRATE 25 MG TABLET PO SCH (09:24)
[2018-01-11] MEDS: 0.9 % SODIUM CHLORIDE 10 ML SYRINGE IV SCH (09:25)
[2018-01-11] MEDS: methylPREDNISolone SOD SUCC 40 MG/ML VIAL IV SCH (09:25)
[2018-01-11] MEDS: ENOXAPARIN 60 MG/0.6 ML SYRINGE SQ SCH (09:25)
--- NOTE | 2018-01-11 10:48 | Discharge Summary ---
Medical - DS: Prov Patient information: Note initiated : 01/11/18 at 10:32 am Service Date, if different from initiated Date: [] Mr. Figueroa is a 77 year old M, presented by way of EMS from [facility], with 'moist cough', SOB and fever which started last night. Patient is alert, but unable to provide details of his symptoms. He appears flushed and ill. No family was present during time I spent with patient. He denies difficulty with drinking or eating, or coughing. There is no CP, or palpitations. Patient was hospitalized 12/10 - 12/28 with pneumonia, respiratory failure, complicated by afib with RVR, MSSA bacteremia, ileus and generalized weakness. He was discharged to [facility] for continued IV Ancef and rehabilitation. In ED initial VS: 103.2 afib 118-135 SBP 139, which dropped to 100 within one hour. He received 2 L IVF. Blood cultures were obtained. CXR showed increased infiltrates c/w progressing pneumonia. He was given Vancomycin, Levofloxacin and Zosyn in the ED. Date of admission: 01/09/18 18:49 Discharge date: 01/11/18 Primary care physician: Nish Gurrola Consults: 01/09/18 17:31 Consult to Physician [CONS] Stat Comment: Consulting Provider: Catalina Ruiz Reason For Exam: Physician to Consult Medical - DS: Meds - Discharge Medications Prescriptions: Metoprolol Tartrate [Lopressor] 50 mg PO BID #90 tablet oxyCODONE HCL [Roxicodone] 5 mg PO Q4HP PRN #60 tab PRN Reason: Pain Active and Home Medications: Home Medications apixaban 5 mg tablet 5 mg PO QDAY #180 tab 11/07/16 [Rx Confirmed 01/10/18 Last Taken 01/09/18 08:00] tamsulosin 0.4 mg capsule 0.4 mg PO QDAY 90 Days #90 cap 11/21/17 [Rx Confirmed 01/10/18 Last Taken 01/09/18 08:00] Clotrimazole Crm 1% [Mycelex Crm 1%] 1 dose TOPICAL BID tube 12/28/17 [Rx Confirmed 01/10/18 Last Taken 01/09/18 08:00] Ipratropium/Albuterol [Duoneb] 3 ml NEB TID #120 ampul.neb 12/28/17 [Rx Confirmed 01/10/18 Last Taken Unknown] Lactobacillus [Culturelle] 1 cap PO BID capsule 12/28/17 [Rx Confirmed Last Taken 01/09/18 08:00] Latanoprost Ophth Drops [Xalatan Ophth Drops] 1 gtt OU HS bottle 12/28/17 [Rx Confirmed 01/10/18 Last Taken 01/08/18 20:00] Metoprolol Tartrate [Lopressor] 25 mg PO BID tablet 12/28/17 [Rx Confirmed Last Taken 01/09/18 08:00] Sennosides [Senokot] 2 tab PO HSP PRN tablet 12/28/17 [Rx Confirmed 01/10/18 Last Taken Unknown] ceFAZolin [Ancef] 2 gm IV Q8H vial 12/28/17 [Rx Confirmed 01/10/18 Last Taken 01/09/18 14:00] oxyCODONE HCL [Roxicodone] 5 mg PO Q4HP PRN #30 tab 12/28/17 [Rx Confirmed 01/10 Last Taken 01/08/18] Acetaminophen [Tylenol] 650 mg PO Q4HP PRN 01/10/18 [History Confirmed 01/10/18 Last Taken 01/02/18] Bisacodyl [Dulcolax] 10 mg MT DAILYP PRN 01/10/18 [History Confirmed 01/10/18 Last Taken Unknown] Heparin Flush 50 units IV Q12 01/10/18 [History Confirmed 01/10/18 Last Taken ] Magnesium Hydroxide [Milk of Magnesia] 30 ml PO BIDP PRN 01/10/18 [History Confirmed 01/10/18 Last Taken Unknown] Miconazole Nitrate [Antifungal Cream] 14 gm TP BID 01/10/18 [History Confirmed 01/10/18 Last Taken 01/09/18 08:00] Medical - DS: Hosp Hospital course: 01/09: Patient undergoing treatment with IV Ancef for MSSA bacteremia, admitted with fever, cough and worsening infiltrates on CXR. He was empirically started on Vanco, Cipro and Zosyn. Solumedrol was added to minimize inflammatory response. 01/10: T 101.7 max last night. Received acetaminophen IV. This am feeling better, but complaints of occasional cough and 'weak voice'. CT-chest showed: improved infiltrates and cavitary lesions compared to study 12/18 Blood c/s: pending 01/11 Patient has been afebrile for more than 24 hours. He is feeling better. Able to expectorate better when sitting up. Blood cultures: NGTD PLAN: discharge back to [facility] Will continue IV Cefazolin for MSSA bacteremia and lung abscess for additional 2 weeks, then re-evaluate Discharge diagnosis: MSSA bacteremia, pneumonia with lung abscesses, dysphonia Secondary discharge diagnosis: Pneumonia and MSSA bacteremia (Nov 2017) Syncope (Acute) White blood cell (WBC) disorder (Chronic) Bradycardia (Chronic) Cobalamin deficiency (Chronic) Lymphocytopenia (Resolved) Encounter for Health Maintenance Examination in Adult (Chronic) Anterior epistaxis (Chronic) Mitral regurgitation (Chronic) Hypertension, essential (Chronic) Hyperlipidemia (Chronic) COPD (chronic obstructive pulmonary disease) (Chronic) Bladder neck obstruction (Chronic) Atrial flutter (Chronic) Diabetes mellitus, type II (Resolved) Reason for admission: Fever Pertinent studies/significant findings: CT-CHEST: IMPRESSION: 1. Moderate improvement in multifocal bilateral infiltrates, including cavitary lesions, since the comparison chest CT over three weeks ago. Suspect multifocal infection 2. Bilateral pleural effusions have decreased and are now small 3. Bilateral pleural calcification suggesting history of asbestos exposure. 4. Interval resolution in ascites in the perihepatic region. 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 - Time Spent with Patient Total time spent providing and/or coordinating discharge services: Greater than 30 minutes Medical - DS: Exam - Constitutional Vitals: Vital Signs Temp Pulse Pulse Resp BP Pulse Ox 01/11/18 07:01 98.0 F 102 H 28 H 126/102 98 01/11/18 06:01 97.7 F 89 25 H 155/94 98 01/11/18 05:01 97.7 F 90 28 H 155/108 97 01/11/18 04:01 97.7 F 100 H 23 H 142/71 98 01/11/18 03:01 97.5 F 96 H 24 H 149/93 98 01/11/18 02:01 97.5 F 84 22 136/85 99 01/11/18 02:00 95 H 24 H 97 01/11/18 01:01 97.5 F 84 31 H 135/95 98 01/11/18 00:01 97.6 F 119 H 25 H 130/89 98 01/10/18 23:01 97.6 F 73 20 129/79 98 01/10/18 22:01 97.8 F 70 21 121/84 97 01/10/18 21:01 97.9 F 81 23 H 128/95 97 01/10/18 20:01 97.9 F 24 H 125/76 01/10/18 20:00 92 H 25 H 98 01/10/18 19:01 98.0 F 22 121/83 01/10/18 18:01 98.0 F 27 H 159/81 01/10/18 17:02 97.7 F 19 199/180 01/10/18 16:00 97.8 F 27 H 133/99 01/10/18 15:01 97.8 F 21 115/79 01/10/18 14:00 98.1 F 29 H 125/96 01/10/18 13:01 98.1 F 37 H 119/85 01/10/18 12:48 98.0 F 20 01/10/18 12:01 97.3 F 89 21 127/82 99 01/10/18 12:00 95 H 01/10/18 11:01 97.7 F 91 H 19 121/80 96 Intake and Output 01/10/18 01/11/18 01/11/18 21:59 05:59 13:59 Intake Total 881 / 881 1300 / 1300 1050 / 1050 Output Total 230 / 230 410 / 410 15 15 Balance 651 / 651 890 / 890 1035 / 1035 Intake: IV 281 / 281 1300 / 1300 1050 / 1050 Sodium Chloride 0.9% 1,000 ml @ 281 / 281 1000 / 1000 125 mls/hr IV .Q8H ERIC Rx#: [id number] Zosyn 3.375 gm In Dextrose 5% 100 / 100 50 / 50 in Water 50 ml @ 100 mls/hr IV Q6H ERIC Rx#:[id number] Oral 600 / 600 Output: Urine Catheter Amount 230 / 230 410 / 410 15 15 Other: Meal Dinner Percent of Meal Consumed 50% Stool Size Moderate Moderate Stool Color Brown Brown Stool Consistency Soft Soft # of times incontinent of 2 1 Bowels Weight 154 lb 6.4 oz General appearance: no acute distress - Head Head exam: Present: normal inspection - Respiratory Respiratory exam: Present: decreased breath sounds - Cardiovascular Cardiovascular exam: Present: irregular rhythm - GI/Abdominal GI/Abdominal exam: Present: normal bowel sounds, soft - Extremities Exam Extremities exam: Present: normal inspection Medical - DS: Data Labs on day of discharge: Labs from last 24 hours 01/11/18 01/11/18 01/11/18 09:02 03:50 03:50 WBC 8.4 RBC 3.01 L Hgb 9.4 L Hct 27.9 L MCV 92.8 MCH 31.1 MCHC 33.5 RDW 15.1 H Plt Count 190 MPV 7.8 Total Counted 100 Seg Neutrophils % 88 H Band Neutrophils % 5 Lymphocytes % 6 L Monocytes % (Manual) 1 Platelet Estimate Normal RBC Morphology Normal Sodium 137 Potassium 4.4 Chloride 104 Carbon Dioxide 20 L Anion Gap 13.0 BUN 24 H Creatinine 1.0 GFR Calculation 71 Glucose 121 H Uric Acid 3.1 Calcium 7.8 L Phosphorus 4.0 Magnesium 1.9 Total Bilirubin 0.4 Direct Bilirubin < 0.2 GGT 25 AST 20 ALT < 5 Alkaline Phosphatase 73 Lactate Dehydrogenase 269 H Total Protein 6.3 Albumin 2.5 L Globulin 3.8 H Albumin/Globulin Ratio 0.7 L Triglycerides 90 Vancomycin Trough 9.7 Preliminary micro results at discharge 01/09/18 15:48 Blood Culture - Preliminary Blood 01/09/18 15:39 Blood Culture - Preliminary Blood Medical - DS: A/P - Patient/Caregiver Discharge Instructions Activity: as per physical therapy, increase activity as tolerated Diet: Dysphagia Mech Alter (small portions, include supplements. please encourage patient to eat.) - Problem Maintenance (1) Pneumonia Status: Acute Qualifiers: Pneumonia type: due to methicillin-sensitive Staphylococcus aureus (MSSA) Laterality: bilateral (2) MSSA bacteremia Status: Acute (3) COPD (chronic obstructive pulmonary disease) Status: Chronic Qualifiers: COPD type: unspecified COPD Qualified Code(s): J44.9 - Chronic obstructive pulmonary disease, unspecified (4) Atrial fibrillation Status: Chronic Qualifiers: Atrial fibrillation type: chronic Qualified Code(s): I48.2 - Chronic atrial fibrillation (5) Hypertension, essential Status: Resolved (6) Hyperlipidemia Status: Resolved Comment: LDL 65, on simvastatin 40mg qd, continue same Qualifiers: Hyperlipidemia type: pure hypercholesterolemia Qualified Code(s): E78.00 - Pure hypercholesterolemia, unspecified (7) Anterior epistaxis Status: Inactive - Follow up Plan Follow up with: Nish Gurrola DO [Primary Care Provider] - Tom Peterson ARNP [Physician] - (MSSA bacteremia and cavitary pneumonia at [facility] 12/10-12/28. Readmission 01/[address]-chest 01/10: improving, but still consolidation RUL. On Cefazolin 2 g q 8hr since 12/15. Please, see in 10-14 days.) Disposition: Xfer SNF Prognosis: Fair Rehab Potential: Fair I certify that the patient requires SNF services: Yes Overall status at discharge: patient is progressing back to baseline Medical - DS: Qual - VTE Deep Vein Thrombosis/Pulmonary Embolism Present on Admission: No
[2018-01-11] MEDS: VANCOMYCIN 1,000 MG in 0.9 % SODIUM CHLORIDE 250 ML IV SCH (11:03)
[2018-01-11] MEDS ORDERED: ceFAZolin 1 GM VIAL IV SCH (13:00)
== END 2018-01-11 15:00 | DRG 177 ==
LOC: ED 15:17 → SUATTDRO 18:49 → ICU 18:49
PROVIDERS: ADMIT Specialist; ATTEND Specialist